=== PATIENT | male | born 1945 | race Caucasian/White ===

== ENCOUNTER 2017-01-02 10:56 | Inpatient (IN) ==
[2017-01-02 11:27] LABS: Hematocrit 18.8 % (37.5-50.1); Mean Corpuscular HGB Conc 30.3 g/dL (31.6-35.5); Mean Corpuscular Hemoglobin 24.3 pg (28.0-33.3); Mean Platelet Volume 9.8 fL (9.4-12.4); Platelet Count 381 K/mcL (140-400); Red Blood Count 2.35 M/mcL (4.19-5.50); Red Cell Distribution Width 19.8 % (11.5-14.5)
--- NOTE | 2017-01-02 11:27 | Emergency Department Note ---
Disposition Clinical Impression: NSTEMI (non-ST elevated myocardial infarction), SOB (shortness of breath) Anemia Qualifiers: Anemia type: unspecified type Qualified Code(s): D64.9 - Anemia, unspecified Renal failure, acute Qualifiers: Acute renal failure type: unspecified Qualified Code(s): N17.9 - Acute kidney failure, unspecified Disposition: Admitted As Inpatient Condition: Fair Weakness HPI - General Chief complaint: ED Weakness Stated complaint: Weakness, ELAINE Time Seen by Provider: 01/02/17 11:00 Source: patient, EMS Limitations: no limitations Nursing Notes Reviewed: Yes Vital Signs Reviewed: Yes - History of Present Illness HPI Narrative: I did see the patient immediately upon arrival and also spoke with the paramedics and he presents with severe weakness as well as shortness of breath which is worse with exertion. Symptoms began 4 days ago and have worsened since that time. Constant. No medication used specifically for the symptoms. The patient does have a history of anemia with blood transfusion. He denies any blood in the urine or stool. He also has a history of congestive heart failure. Does have chronic lower extremity edema. He denies any fever but does have some blurred vision. No sneezing or coughing but does have rhinorrhea. No pain or numbness of extremities, skin rash or bruising of the skin. Social history: No smoking or alcohol. Pain Scale: 0 - Related Data Home Medications Medication Instructions Recorded Confirmed Aspirin Enteric Coated [Aspirin EC] 81 mg PO DAILY 08/28/15 01/02/17 Clopidogrel [Plavix] 75 mg PO DAILY 08/28/15 01/02/17 Levothyroxine Sodium [Tirosint] 50 mcg PO HS 08/28/15 01/02/17 Lisinopril 2.5 mg PO DAILY 08/28/15 01/02/17 Metoprolol XL (24 HR) Succ [Toprol 100 mg PO HS 08/28/15 01/02/17 Xl] Multivitamin [Multivitamins] 1 each PO DAILY 08/28/15 01/02/17 Omeprazole [PriLOSEC] 20 mg PO DAILY 08/28/15 01/02/17 Simvastatin [Zocor] 20 mg PO DAILY 08/28/15 01/02/17 Tamsulosin [Flomax] 0.4 mg PO DAILY 08/28/15 01/02/17 Albuterol Sulfate [Albuterol 2 puff IH Q4-6H PRN 04/25/16 01/02/17 Inhaler] Cholecalciferol (D-3) [Vitamin D] 2,000 unit PO DAILY 04/25/16 01/02/17 Furosemide [Lasix] 60 mg PO BID 04/25/16 01/02/17 Insulin DETEMIR [Levemir] 30 unit SQ DAILY 04/25/16 01/02/17 Budesonide/Formoterol 160/4.5 2 puff IH BIDR 08/16/16 01/02/17 [Symbicort 160/4.5] Ipratropium/Albuterol Neb [Duoneb] 3 ml IH Q6HR 08/16/16 01/02/17 Metformin HCl [Glucophage] 1,000 mg PO BID 08/16/16 01/02/17 Tiotropium [place] [Spiriva 2 puff IH DAILY 12/19/16 01/02/17 Respimat] Oxygen 2 l .ROUTE HS 01/02/17 01/02/17 Previous Rx's Medication Instructions Recorded Cyanocobalamin (B-12) [Vitamin B12] 1 tab PO DAILY #30 tablet 06/18/16 Hydrocortisone 2.5% CREAM [Cortaid] 1 appl TP PRN PRN #1 tube 06/18/16 Allergies Allergy/AdvReac Type Severity Reaction Status Date / Time roflumilast [From [facility]] AdvReac Mild Diarrhea Verified 12/19/16 09:22 Review of Systems: He denies any blood in the urine or stool. He also has a history of congestive heart failure. Does have chronic lower extremity edema. He denies any fever but does have some blurred vision. No sneezing or coughing but does have rhinorrhea. No pain or numbness of extremities, skin rash or bruising of the skin. Past Medical History - Past Medical History Medical history: Reports: aortic aneurysm, arthritis, cardiomyopathy, CHF, COPD , coronary artery disease, diabetes, GERD, hyperlipidemia, hypertension, myocardial infarction, thyroid disease, other Surgical history: Reports: coronary bypass (CABG), vascular surgery Psychiatric history: Reports: no psych history - Social History Smoking Status: Former smoker Smokeless Tobacco Status: No Alcohol use: Reports: none Drug use: Reports: none Physical Exam CONSTITUTIONAL: Alert and oriented X3, well-nourished, the patient is tired appearing but is breathing comfortably. Does appear pale HEAD: Normocephalic; atraumatic. EYES: PERRL, no scleral icterus. NOSE: The nose is normal in appearance without rhinorrhea RESP: Normal chest excursion with respiration; breath sounds clear and equal bilaterally; no wheezes, rhonchi, or rales CARD: Regular rhythm, without murmurs, rub or gallop ABD: Non-distended; non-tender, soft,without rigidity, rebound or guarding SKIN: Normal for age and race; warm and dry; no apparent lesions - General Limitations: no limitations General appearance: alert, in no apparent distress Course Vital Signs Temperature 98.3 F 01/02/17 11:00 Pulse Rate 80 01/02/17 11:00 Respiratory Rate 18 01/02/17 11:00 Blood Pressure 91/43 01/02/17 11:00 O2 Sat by Pulse Oximetry 100 01/02/17 11:00 Temperature 99.1 F 01/02/17 13:28 Pulse Rate 87 01/02/17 13:28 Respiratory Rate 20 01/02/17 13:28 Blood Pressure 93/51 01/02/17 13:28 O2 Sat by Pulse Oximetry 100 01/02/17 13:28 Oxygen Delivery Oxygen Delivery Nasal Cannula Weakness - MDM Narrative Medical decision making narrative: The patient does have a history of anemia but also congestive heart failure and I did write for labs including CBC and BMP and type and screen I will add a troponin as well as BNP level. The patient's present complaint this time. His lungs are clear. Test results are pending. 1128 I did review the patient's EKG showing a paced rhythm the rate of 77. 1130 I did review the patient's labs showing significant anemia and a did discuss the risk and benefits of blood transfusion the patient agrees. I did order 2 units of packed red blood cells to be given over 4 hours each. The patient will be admitted to the hospital I did speak with Dr. Jacobs who accepts the patient for admission. The patient does have elevated BNP and troponin and we did discuss cardiology consultation. Patient is also an acute renal failure. Chest x-ray is reviewed which does not show significant pulmonary edema at this time. 1302 Critical care time: 40 minutes I did perform a rectal exam which did show brown stool on the glove. No masses or lesions palpated. This is sent to the lab for Hemoccult. The patient's blood pressure is currently 90 systolic. He is sitting up in bed and eating a meal. No distress. He is getting blood right now. 1405 He does take breathing treatments 4 times a day and is not allergic to breathing treatments but is allergic to a substance which was used to break up secretions in his lungs. I did write for a DuoNeb 1440 - Medical Records Medical records reviewed: Yes I reviewed the patient's medical records. - Lab Data Lab results reviewed: Yes I reviewed the patient's lab results. Result diagrams: 01/02/17 11:20 01/02/17 11:20 Lab Results 01/02/17 01/02/17 01/02/17 Range/Units 11:19 11:20 11:20 WBC 10.2 (4.3-11.1) K/mcL RBC 2.35 L (4.19-5.50) M/mcL Hgb 5.7 L* (12.9-16.9) g/dL Hct 18.8 L (37.5-50.1) % MCV 80.0 L (83.0-100.0) fL MCH 24.3 L (28.0-33.3) pg MCHC 30.3 L (31.6-35.5) g/dL RDW 19.8 H (11.5-14.5) % Plt Count 381 (140-400) K/mcL MPV 9.8 (9.4-12.4) fL Sodium 132 L (136-145) mEq/L Potassium 5.5 H (3.5-4.5) mEq/L Chloride 98 (98-109) mEq/L Carbon Dioxide 20 (19-29) mEq/L BUN 81 H (8-26) mg/dL Creatinine 2.06 H (0.72-1.25) mg/dL Est GFR ( Amer) 39 L (> 60) Est GFR (Non-Af Amer) 32 L (> 60) BUN/Creatinine Ratio 39 H (6-26) Glucose 138 H (70-99) mg/dL Calculated Osmolality 301 H (280-300) Calcium 9.3 (8.6-10.8) mg/dL Troponin I (0-0.03) ng/mL B-Natriuretic Peptide (0-100) pg/mL Stool Occult Blood (Negative) Blood Type A POSITIVE Antibody Screen NEGATIVE Crossmatch See Detail 01/02/17 01/02/17 01/02/17 Range/Units 11:24 11:24 14:12 WBC (4.3-11.1) K/mcL RBC (4.19-5.50) M/mcL Hgb (12.9-16.9) g/dL Hct (37.5-50.1) % MCV (83.0-100.0) fL MCH (28.0-33.3) pg MCHC (31.6-35.5) g/dL RDW (11.5-14.5) % Plt Count (140-400) K/mcL MPV (9.4-12.4) fL Sodium (136-145) mEq/L Potassium (3.5-4.5) mEq/L Chloride (98-109) mEq/L Carbon Dioxide (19-29) mEq/L BUN (8-26) mg/dL Creatinine (0.72-1.25) mg/dL Est GFR ( Amer) (> 60) Est GFR (Non-Af Amer) (> 60) BUN/Creatinine Ratio (6-26) Glucose (70-99) mg/dL Calculated Osmolality (280-300) Calcium (8.6-10.8) mg/dL Troponin I 1.17 H* (0-0.03) ng/mL B-Natriuretic Peptide 995 H (0-100) pg/mL Stool Occult Blood Negative (Negative) Blood Type Antibody Screen Crossmatch - Radiology Data Radiology results reviewed: Yes I reviewed the patient's radiology results. Chest X-Ray 01/02/17 11:01 IMPRESSION: Small right pleural effusion with adjacent atelectasis. Otherwise stable cardiomegaly with pulmonary vascular congestion. D/ / Petrona Mullen MD / Petrona Mullen MD Interpreting Provider: Petrona Mullen MD Critical Care Time Critical Care Time: Yes Total Critical Care Time: 40 Attestation: Patient does have multiple significant findings including severe anemia, kidney renal failure, NSTEMI and possible congestive heart failure with elevated BNP. 1306
[2017-01-02 11:39] LABS: Calcium 9.3 mg/dL (8.6-10.8); Potassium 5.5 mEq/L (3.5-4.5)
[2017-01-02 11:43] LABS: Hemoglobin 5.7 g/dL (12.9-16.9)
[2017-01-02] MEDS ORDERED: 0.9 % Sodium Chloride 1,000 ML ONE (12:14)
[2017-01-02] MEDS ORDERED: Naloxone 0.4 MG/ML INJ IVP PRN (13:56)
--- NOTE | 2017-01-02 14:13 | Internal Med History&Physical ---
<Stubbs,Felipa J - Last Filed: 01/02/17 14:32> Date of Encounter: 01/02/17 Time of Encounter: 14:11 Assessment and Plan (1) PANDA (iron deficiency anemia) Current visit: No Status: Acute Has known iron deficiency anemia, follows with Dr. Orellana. Hx multiple iron and blood transfusions in the past. C scope and EGD 08/2016 without bleeding source identified. Symptomatic with lethargy and weakness, Hgb 5.7 on arrival, previously Hgb 8.6 on 12/19/2016. 2 units PRBC started in the ED, occult stool pending. Monitor H&H, transfuse for Hgb less than 8. Oncology consulted. Consult GI if needed Qualifiers: Iron deficiency anemia type: unspecified iron deficiency Qualified Code(s) : D50.9 - Iron deficiency anemia, unspecified (2) Acute on chronic clinical systolic heart failure Current visit: No Status: Acute per history with permanent pacemake with some shortness of breath prior to arrival. Echo from 2016 with EF 45%. BNP 995, chest x-ray with small right pleural effusion and pulmonary congestion. With lower extremity edema but does not appear overtly overloaded. Holding home Lasix and add low-dose IV Lasix. No Pietro with AKY, no beta acstillo with hypotension. Consult cardiology. Repeat echo pending (3) SHABBIR (acute kidney injury) Current visit: No Status: Acute Creatinine 2, baseline appears normal. Has not been eating and drinking at home suspect prerenal with little by mouth intake and anemia. Hold home PIETRO, avoid nephrotoxic agents if possible. Monitor BMP with IV diuresis. (4) CAD (coronary artery disease) Current visit: Yes Status: Acute Per history. Asymptomatic, denies chest pain. EKG with atrial paced. Troponin 1.17 and in the setting of a canine. Doubt true ACS, but will consult Cardiology with multiple riask factors. Cycyle troponin. Resume home ASA, plavix once Hgb stabilized. Qualifiers: Coronary Disease-Associated Artery/Lesion type: bypass graft [place] vs. transplanted heart: [place] heart Associated angina: without angina Qualified Code(s): I25.810 - Atherosclerosis of coronary artery bypass graft(s) without angina pectoris (5) Hypertension Current visit: No Status: Acute bP low in the ED with SBP is , no tachycardia suspect hypovolemia with poor by mouth intake and anemia. Hemodynamically stable. old home BP medications. monitor BP and resume as able Qualifiers: Hypertension type: essential hypertension Qualified Code(s): I10 - Essential (primary) hypertension (6) Diabetes Current visit: No Status: Acute per history. Hold home metformin continue long-acting at reduced dose and sliding scale insulin monitor blood sugar and titrate when necessary Qualifiers: Diabetes mellitus type: type 2 Diabetes mellitus complication status: with kidney complications Diabetes mellitus complication detail: with chronic kidney disease Diabetes mellitus terminal block assembler insulin use: with terminal block assembler use Chronic kidney disease stage: stage 3 (moderate) Qualified Code(s): E11.22 - Type 2 diabetes mellitus with diabetic chronic kidney disease; N18.3 - Chronic kidney disease, stage 3 (moderate); Z79.4 - MCC (current) use of insulin (7) DVT prophylaxis Current visit: Yes Status: Acute Internal Medicine - H&P: HPI Chief complaint: Weakness Admitted From: Home Plans for Post Hospital Care: Home History of present illness: Mr. Last is a 71 year old male with past medical history iron discussed efficiency anemia, hypertension, diabetes, CHF, CAD who presented to [address] [place] [address] on 01/02/2017 with complaints of generalized weakness and fatigue. He has not had hemoglobin of 5.7 and was admitted for blood transfusion and hematology consultation. Information obtained from chart review and patient report. Patient's that he has been weak and fatigued over the last 3 days says he has had multiple transfusions in the past and had a feeling as hemoglobin was closely came into the hospital. He denies any obvious bleeding. He does report black tarry stools which he attributes to taking Pepto-Bismol at home. He does report some shortness of breath 3 days prior to admission denies on my exam. He is not on blood thinners no steroid use no ibuprofen does not drink. Denies chest pain no abdominal pain he did have 1 episode of loose stool prior to admission. Past Med Surg Social Fam HX - Past Medical History Medical history: aortic aneurysm, arthritis, cardiomyopathy, CHF, COPD, coronary artery disease, diabetes, GERD, hyperlipidemia, hypertension, myocardial infarction, thyroid disease, other Psychiatric history: no psych history - Past Surgical History Surgical History: coronary bypass (CABG), vascular surgery - Social History Smoking Status: Former smoker Smokeless Tobacco Status: No Alcohol use: none Drug use: none - Family History Mother Adopted: No Family Member Ethnicity: Non- Living Status: Hx Family Cardiac Disorders: Yes ([place]) Hx Family Respiratory Disorders: No Hx Family Cancer: No Hx Family GI Disorders: Yes (bowel bleeding) Hx Family Endocrine Disorder: Yes (DM) Hx Family Neuromuscular Disorders: No Hx Family Neurologic Disorders: No Hx Family HEENT Disorders: Yes (glasses) Hx Family Autoimmune Disorders: No Father Living Status: Hx Family Cardiac Disorders: Yes (Heart disease) Hx Family GI Disorders: Yes (cirrohosis- alcoholic) Internal Medicine - H&P: Meds Aspirin Enteric Coated [Aspirin EC] 81 mg PO DAILY 08/28/15 [History] Clopidogrel [Plavix] 75 mg PO DAILY 08/28/15 [History] Levothyroxine Sodium [Tirosint] 50 mcg PO HS 08/28/15 [History] Lisinopril 2.5 mg PO DAILY 08/28/15 [History] Metoprolol XL (24 HR) Succ [Toprol Xl] 100 mg PO HS 08/28/15 [History] Multivitamin [Multivitamins] 1 each PO DAILY 08/28/15 [History] Omeprazole [PriLOSEC] 20 mg PO DAILY 08/28/15 [History] Simvastatin [Zocor] 20 mg PO DAILY 08/28/15 [History] Tamsulosin [Flomax] 0.4 mg PO DAILY 08/28/15 [History] Albuterol Sulfate [Albuterol Inhaler] 2 puff IH Q4-6H PRN 04/25/16 [History] Cholecalciferol (D-3) [Vitamin D] 2,000 unit PO DAILY 04/25/16 [History] Furosemide [Lasix] 60 mg PO BID 04/25/16 [History] Insulin DETEMIR [Levemir] 30 unit SQ DAILY 04/25/16 [History] Cyanocobalamin (B-12) [Vitamin B12] 1 tab PO DAILY #30 tablet 06/18/16 [Rx] Hydrocortisone 2.5% CREAM [Cortaid] 1 appl TP PRN PRN #1 tube 06/18/16 [Rx] Budesonide/Formoterol 160/4.5 [Symbicort 160/4.5] 2 puff IH BIDR 08/16/16 [ History] Ipratropium/Albuterol Neb [Duoneb] 3 ml IH Q6HR 08/16/16 [History] Metformin HCl [Glucophage] 1,000 mg PO BID 08/16/16 [History] Tiotropium [place] [Spiriva Respimat] 2 puff IH DAILY 12/19/16 [History] Oxygen 2 l .ROUTE HS 01/02/17 [History] Allergies roflumilast [From [facility]] Adverse Reaction (Mild, Verified 12/19/16 09:22) Diarrhea All Systems PM: A 10-system review of systems was performed and is negative for pertinent findings except as documented above in the HPI. - Constitutional Constitutional: lethargy, weakness, no chills, no fever(s), no night sweats - EENT Eyes: no change in vision, no discharge, no pain, no photophobia Ears: no ear discharge, no ear pain, no tinnitus Nose, mouth and throat: no dysphagia, no nasal discharge, no neck pain, no sore throat - Cardiovascular Cardiovascular ROS IM: no chest pain, no diaphoresis, no dyspnea, no lightheadedness, no palpitations, no syncope - Respiratory Respiratory: no cough, no dyspnea, no wheezing, no excessive phlegm production - Gastrointestinal Gastrointestinal: no abdominal pain, no diarrhea, no hematemesis, no hematochezia, no melena, no nausea, no vomiting - Musculoskeletal Musculoskeletal ROS IM: no numbness, no tingling - Integumentary Integumentary IM: no rash, no unusual bruising - Neurological Neurological ROS: no confusion, no convulsions, no focal weakness, no numbness, no tingling, no tremor(s) - Hematologic/Lymphatic Hematologic/Lymphatic: no easy bruising - Constitutional Vitals: Temp Pulse Resp BP Pulse Ox 99.1 F 87 20 93/51 100 01/02/17 13:28 01/02/17 13:28 01/02/17 13:28 01/02/17 13:28 01/02/17 13:28 General appearance: Present: A&O X 3 - Head Head exam: Present: atraumatic, normocephalic - Eye Eye exam: Present: PERRL, conjuntiva pink, sclera anicteric Pupils: Present: PERRL - Neck Neck exam general surgery: Present: supple, trachea midline. Absent: lymphadenopathy - Respiratory Respiratory exam: Present: CTAB. Absent: accessory muscle use, rales, rhonchi, wheezes - Cardiovascular Cardiovascular exam: Present: clicks, RRR, +S1, +S2. Absent: diastolic murmur, gallop, rubs, systolic murmur Additional comments: Moderate bilateral low-calorie pitting edema - GI/Abdominal GI/Abdominal exam: Present: normal bowel sounds, soft, no peritoneal signs. Absent: distended, tenderness - Extremities Exam Extremities exam: Present: warm, radial pulses palpable and symetrical. Absent : calf tenderness, cyanotic, pedal edema - Neurological Exam Neurological exam: Present: CN II-XII intact, oriented X3, no focal deficits. Absent: pronater drift, facial droop, speech deficit - Skin Skin exam: Present: dry, intact Internal Med - H&P Results - Labs CBC & Chem 7: 01/02/17 11:20 01/02/17 11:20 Labs: Short CBC 01/02/17 Range/Units 11:20 WBC 10.2 (4.3-11.1) K/mcL Hgb 5.7 L* (12.9-16.9) g/dL Hct 18.8 L (37.5-50.1) % Plt Count 381 (140-400) K/mcL BMP 01/02/17 11:20 Sodium 132 L Potassium 5.5 H Chloride 98 Carbon Dioxide 20 BUN 81 H Creatinine 2.06 H Glucose 138 H Calcium 9.3 Cardiac Enzymes 01/02/17 Range/Units 11:24 Troponin I 1.17 H* (0-0.03) ng/mL - Impressions ITS Impressions Chest X-Ray 01/02/17 11:01 IMPRESSION: Small right pleural effusion with adjacent atelectasis. Otherwise stable cardiomegaly with pulmonary vascular congestion. D/ / Petrona Mullen MD / Petrona Mullen MD Interpreting Provider: Petrona Mullen MD <Mj Avalos H - Last Filed: 01/02/17 15:25> Date of Encounter: 01/02/17 Internal Medicine - H&P: HPI History of present illness: Mr. Last is a 71 year old male All Systems PM: A 10-system review of systems was performed and is negative for pertinent findings except as documented above in the HPI. - Constitutional Vitals: Temp Pulse Resp BP Pulse Ox 99 F 87 20 95/59 96 01/02/17 15:09 01/02/17 13:28 01/02/17 15:09 01/02/17 15:09 01/02/17 15:02 Internal Med - H&P Results - Labs CBC & Chem 7: 01/02/17 11:20 01/02/17 11:20 - Attending Attestation 1. Acute anemia consider possible acute blood loss anemia versus other etiology /possible aplastic anemia The patient has been anemic for a long time, followed by hematology Consider GI consult, the patient had an endoscopy and a colonoscopy at the beginning of this year Check INR, monitor CBC and consider further transfusions Transfuse 2 units of red blood cells, consider ordering IV Lasix Hold aspirin and Plavix 2. Elevated troponin secondary to demand ischemia versus non-STEMI, the patient denies any chest pain at the moment EKG not able to be evaluated due to paced rhythm Cardiology was consulted 3. Diabetes type 2 insulin-dependent, continue insulin sliding scale 4. History of systolic CHF, chest x-ray shows basilar congestion, may use IV Lasix if the patient is not hypotensive anymore 5. Acute on chronic renal failure stage III likely related to anemia 6. History of aortic valve replacement/bioprosthetic valve High risk due to comorbidities. Admitted as inpatient. Time spent on this admission 40 minutes I examined this patient and my medical decision-making was reviewed with the CONSTRUCTION FLAGGER/PA/Advanced Practice Nurse/Resident Physician. I agree with the documented findings, disposition and treatment plan as described except to the extent set forth below.
[2017-01-02] MEDS ORDERED: Furosemide 40 MG/4 ML VIAL IVP SCH (14:29)
[2017-01-02] MEDS ORDERED: Ipratropium/Albuterol Neb 3 ML IH ONE (14:42)
--- NOTE | 2017-01-02 15:28 | Oncology Inp Consult Note ---
<Osmany Cardoza - Last Filed: 01/02/17 18:19> Date of Encounter: 01/02/17 Time of Encounter: 15:28 Assessment and Plan (1) Symptomatic anemia Status: Acute Assessment and plan: Pt sees Dr. Grant at [facility]. Multiple iron infusion was done for his hx of iron deficiency, SPEP was nagative on Jun last year, his hgb has been dropping significantly since January last year, colonoscopy from August this year showed one 5 mm polyp in transverse colon which was tubular adenoma, EGD did not reveal the source of bleeding at that time. Aranesp was started August this year. Will check for iron panel, ferritin, haptoglobin, LDH, vit B12, folate, blood smear, pt is currently getting PRBC transfusion. - Data of Consult Patient: known to practice within the last 3 years Consult date: 01/02/17 Requesting Physician: Jovna Grande MD Primary Care Provider: Russell Bradley - Consult Narrative Reason for consult: Symptomatic anemia History of present illness: Mr. Last is a 71 year old male with hx of chronic anemia, COPD and DM II, who presented to the ER for cc of generalized weakness and fatigue. In the ER he was found to have hgb of 5.7, currently getting two units of PRBC. Pt has been following Dr. Grant at [facility]. Multiple iron infusion was done for iron deficiency, her SPEP was nagative on Jun last year, his hgb has been dropping significantly since January of last year. Colonoscopy from August this year showed one 5 mm polyp in transverse colon which was tubular adenoma, EGD did not reveal the source of bleeding that time. Aranesp was started August this year. Hem/onc was consulted for further recommendations. Past Med Surg Social Fam HX - Past Medical History Medical history: aortic aneurysm, arthritis, cardiomyopathy, CHF, COPD, coronary artery disease, diabetes, GERD, hyperlipidemia, hypertension, myocardial infarction, thyroid disease, other Psychiatric history: no psych history - Past Surgical History Surgical History: coronary bypass (CABG), vascular surgery - Social History Smoking Status: Former smoker Smokeless Tobacco Status: No Alcohol use: none Drug use: none - Family History Mother Adopted: No Family Member Ethnicity: Non- Living Status: Hx Family Cardiac Disorders: Yes ([place]) Hx Family Respiratory Disorders: No Hx Family Cancer: No Hx Family GI Disorders: Yes (bowel bleeding) Hx Family Endocrine Disorder: Yes (DM) Hx Family Neuromuscular Disorders: No Hx Family Neurologic Disorders: No Hx Family HEENT Disorders: Yes (glasses) Hx Family Autoimmune Disorders: No Father Living Status: Hx Family Cardiac Disorders: Yes (Heart disease) Hx Family GI Disorders: Yes (cirrohosis- alcoholic) Medications and Allergies Aspirin Enteric Coated [Aspirin EC] 81 mg PO DAILY 08/28/15 [History] Clopidogrel [Plavix] 75 mg PO DAILY 08/28/15 [History] Levothyroxine Sodium [Tirosint] 50 mcg PO HS 08/28/15 [History] Lisinopril 2.5 mg PO DAILY 08/28/15 [History] Metoprolol XL (24 HR) Succ [Toprol Xl] 100 mg PO HS 08/28/15 [History] Multivitamin [Multivitamins] 1 each PO DAILY 08/28/15 [History] Omeprazole [PriLOSEC] 20 mg PO DAILY 08/28/15 [History] Simvastatin [Zocor] 20 mg PO DAILY 08/28/15 [History] Tamsulosin [Flomax] 0.4 mg PO DAILY 08/28/15 [History] Albuterol Sulfate [Albuterol Inhaler] 2 puff IH Q4-6H PRN 04/25/16 [History] Cholecalciferol (D-3) [Vitamin D] 2,000 unit PO DAILY 04/25/16 [History] Furosemide [Lasix] 60 mg PO BID 04/25/16 [History] Insulin DETEMIR [Levemir] 30 unit SQ DAILY 04/25/16 [History] Cyanocobalamin (B-12) [Vitamin B12] 1 tab PO DAILY #30 tablet 06/18/16 [Rx] Hydrocortisone 2.5% CREAM [Cortaid] 1 appl TP PRN PRN #1 tube 06/18/16 [Rx] Budesonide/Formoterol 160/4.5 [Symbicort 160/4.5] 2 puff IH BIDR 08/16/16 [ History] Ipratropium/Albuterol Neb [Duoneb] 3 ml IH Q6HR 08/16/16 [History] Metformin HCl [Glucophage] 1,000 mg PO BID 08/16/16 [History] Tiotropium [place] [Spiriva Respimat] 2 puff IH DAILY 12/19/16 [History] Oxygen 2 l .ROUTE HS 01/02/17 [History] Allergies roflumilast [From [facility]] Adverse Reaction (Mild, Verified 12/19/16 09:22) Diarrhea Oncology - Exam - Constitutional Vitals: Temp Pulse Resp BP Pulse Ox 99 F 87 20 95/59 96 01/02/17 15:09 01/02/17 13:28 01/02/17 15:09 01/02/17 15:09 01/02/17 15:02 Consult Discharge Plan - Plan Referrals: Russell Bradley MD [Primary Care Provider] - 01/14/17 9:00 am Keyona Ham CNP [Partnered Physician] - (Office will call patient at home with appointment) <Harpreet Mc - Last Filed: 01/03/17 09:28> Date of Encounter: 01/03/17 Assessment and Plan (1) Anemia Status: Acute Qualifiers: Anemia type: iron deficiency Iron deficiency anemia type: chronic blood loss Qualified Code(s): D50.0 - Iron deficiency anemia secondary to blood loss (chronic) - Data of Consult Requesting Physician: Jovan Grande MD Primary Care Provider: Russell Bradley - Consult Narrative History of present illness: I have reviewed history physical above and examined patient myself. On exam-pallor, no skin bruisng/active bleeding. Had received aranesp for anemia/renal insuff/ref anemia LAbs anemia--s/p PRBC at 6.8. Transfuse to improve Hgb for symptoms. Ferritin is low and suggestive of iron deficiency. Ferraheme in patient and as outpatient. He has undergone GI w/u previously, no source of bleed. Esophagitis and polypectomy-colon Small bowel/capsule if not completed. Plan d/w patient in detail. He needs iron/ferritin improved prior to JACQUES and does not need a marrow exam. B12, folate recently checked. TSH/SPEP nl Review of systems: gen wkness, SOb otherwise as noted in HPI Oncology - Exam - Constitutional Vitals: Temp Pulse Resp BP Pulse Ox 98.7 F 92 20 100/63 100 01/03/17 08:19 01/03/17 08:57 01/03/17 08:57 01/03/17 08:57 01/03/17 08:57 General appearance: average body habitus - Head Head exam: Present: atraumatic - Eye Eye exam: Present: sclera anicteric - ENT ENT exam: Present: normal exam - Respiratory Respiratory exam: Present: CTAB - Cardiovascular Cardiovascular exam: Present: +S1, +S2 - Extremities Exam Extremities exam: Present: pedal edema - Neurological Exam Neurological exam: Present: alert, oriented X3 - Psychiatric Psychiatric exam: Present: normal affect Oncology - Results - Labs Labs: Short CBC 01/03/17 Range/Units 01:07 WBC 9.4 (4.3-11.1) K/mcL Hgb 6.8 L (12.9-16.9) g/dL Hct 21.9 L (37.5-50.1) % Plt Count 382 (140-400) K/mcL Neutrophils # 6.6 (1.6-8.9) K/mcL BMP 01/03/17 01:07 Sodium 134 L Potassium 4.1 D Chloride 99 Carbon Dioxide 24 BUN 73 H Creatinine 1.65 H Glucose 98 Calcium 9.1 Cardiac Enzymes 01/02/17 01/03/17 Range/Units 19:59 01:07 Troponin I 1.24 H* 1.51 H* (0-0.03) ng/mL Liver Function 01/03/17 Range/Units 01:07 Total Bilirubin 0.5 (0.2-1.2) mg/dL AST 17 (5-34) Units/L ALT 11 (0-55) Units/L Alkaline Phosphatase 40 (38-126) Units/L Albumin 3.6 (3.5-5.0) g/dL
--- NOTE | 2017-01-02 15:59 | Cardiology Consult Note ---
Date of Encounter: 01/02/17 Time of Encounter: 15:15 Assessment and Plan (1) Elevated troponin Current Visit: Yes Status: Acute Per cardiology: -Elevated troponin at 1.17. -ECG with no ischemic changes. -Denies chest pain. -History of CAD s/p CABG x3 2010. -Echo 04/2016 with LVEF 45%, global left ventricular systolic dysfunction. -Echo pending. -On statin. At home on asa, plavix, beta castillo, and sung inhibitor. -Will continue to trend troponins. -Further recommendations pending echo. -Do not suspect NSTEMI, suspect demand ischemia related to SHABBIR, severe anemia, CHF. NO cardiac rehab warranted at this time. (2) Acute on chronic systolic CHF (congestive heart failure), NYHA class 3 Current Visit: Yes Status: Acute Per cardiology: -Echo 04/2016 LVEF 45%. -Patient with shortness of breath and increased peripheral edema. -BNP 995. -Chest x-ray with small right pleural effusion and stable pulmonary vascular congestion. -On IV lasix per primary service. -Echo pending. -Further recommendations pending echo. (3) Anemia Current Visit: Yes Status: Acute Per cardiology: -Known history of iron deficiency anemia. -baseline hemoglobin 7-8. -Hemoglobin this admission 5.7. -Currently receiving blood transfusion. -Hematology consulted. -Management per primary and hematology services. -May be contributing to elevated troponin. -Recommend careful transfusions due to history of CHF. Qualifiers: Anemia type: unspecified type (4) Ischemic cardiomyopathy Current Visit: Yes Status: Chronic Per cardiology: -KNown history of ischemic cardiomopathy. -Has BIV ICD. Follows with Dr.John Ace. -Last device check 10/15/16 with all measurements appropriate, no sustained ventricular arrythmias detected or therapies delivered. BIV pacing 96.65%, battery longevity 7.6 years. -Was on beta castillo and sung at home, unable to give at this point due to hypotension. -BPs currently 80-90s systolic. -Echo pending. -Recommend restarting beta castillo and sung inhibitor when clinically stable. (5) SHABBIR (acute kidney injury) Current Visit: No Status: Acute Per cardiology: -SHABBIR on admission. -Baseline creatinine 1-1.4. -Creatinine on admission 2.06. -Management per primary service. -Can consider nephrology consult. -May be contributing to elevated troponin (6) CAD (coronary artery disease) Current Visit: Yes Status: Chronic Per cardiology: -Known CAD with CABG x3 2011. -Denies chest pain. -ECG with no ischemic changes. -Echo pending. -On asa, plavix at home. Unable to give currently due to acute severe anemia. -On statin. -On beta castillo and sung inhibitor at home, unable to give due to currently hypotensive. -Will continue to monitor. Qualifiers: Coronary Disease-Associated Artery/Lesion type: bypass graft [place] vs. transplanted heart: [place] heart Associated angina: without angina Qualified Code(s): I25.810 - Atherosclerosis of coronary artery bypass graft(s) without angina pectoris (7) Hypertension Current Visit: No Status: Chronic Per cardiology: -KNwon hypertension. -BP currently hypotensive. -BPs 80-90s systolic. -ON beta castillo and sung at home. -Recommend restarting beta castillo and sung inhibitor when patient is clinically stable . Qualifiers: Hypertension type: essential hypertension Qualified Code(s): I10 - Essential (primary) hypertension (8) Hyperkalemia Current Visit: Yes Status: Acute Per cardiology: -K on admission 5.5 with SHABBIR. -Management per primary service. Discussion w patient/family: The assessment and plan as outlined above was discussed with the patient who expressed understanding and agreement. All questions were answered. Thank you for involving us in the care of your patient. Please call with any questions. Discussed and reviewed with . History of Present Illness Consult date: 01/02/17 Requesting physician: Felipa Stubbs Consult reason: Hx CAD, CHF, SOB, elevated troponin Chief complaint: weakness History of present illness: Mr. Last is a 71 year old male with a relevant past medical history of CAD s/p CABG x 3 2010, COPD, [place], HTN, hyperlipidemia, iron deficiency anemia, AAA, ischemic cardiomyopathy, ICD placement, aortic valve replacement with porcine valve. Patient presents to ER today for weakness. Patient states he was so weak at home that he could not stand. Patient admits to shortness of breath, however states it might be slightly worse than baseline. Patient denies chest pain. Admits to fatigue. Patient admits to peripheral edema that is worse than baseline. Past Med Surg Social Fam HX - Past Medical History Attestation: Yes The following information was validated with the patient. Source: patient, old records reviewed Medical history: aortic aneurysm, arthritis, cardiomyopathy, CHF, COPD, coronary artery disease, diabetes, GERD, hyperlipidemia, hypertension, myocardial infarction, thyroid disease, other Psychiatric history: no psych history - Past Surgical History Surgical History: coronary bypass (CABG), vascular surgery - Social History Smoking Status: Former smoker Smokeless Tobacco Status: No Alcohol use: none Drug use: none - Family History Mother Adopted: No Family Member Ethnicity: Non- Living Status: Hx Family Cardiac Disorders: Yes ([place]) Hx Family Respiratory Disorders: No Hx Family Cancer: No Hx Family GI Disorders: Yes (bowel bleeding) Hx Family Endocrine Disorder: Yes (DM) Hx Family Neuromuscular Disorders: No Hx Family Neurologic Disorders: No Hx Family HEENT Disorders: Yes (glasses) Hx Family Autoimmune Disorders: No Father Living Status: Hx Family Cardiac Disorders: Yes (Heart disease) Hx Family GI Disorders: Yes (cirrohosis- alcoholic) Medications and Allergies Aspirin Enteric Coated [Aspirin EC] 81 mg PO DAILY 08/28/15 [History] Clopidogrel [Plavix] 75 mg PO DAILY 08/28/15 [History] Levothyroxine Sodium [Tirosint] 50 mcg PO HS 08/28/15 [History] Lisinopril 2.5 mg PO DAILY 08/28/15 [History] Metoprolol XL (24 HR) Succ [Toprol Xl] 100 mg PO HS 08/28/15 [History] Multivitamin [Multivitamins] 1 each PO DAILY 08/28/15 [History] Omeprazole [PriLOSEC] 20 mg PO DAILY 08/28/15 [History] Simvastatin [Zocor] 20 mg PO DAILY 08/28/15 [History] Tamsulosin [Flomax] 0.4 mg PO DAILY 08/28/15 [History] Albuterol Sulfate [Albuterol Inhaler] 2 puff IH Q4-6H PRN 04/25/16 [History] Cholecalciferol (D-3) [Vitamin D] 2,000 unit PO DAILY 04/25/16 [History] Furosemide [Lasix] 60 mg PO BID 04/25/16 [History] Insulin DETEMIR [Levemir] 30 unit SQ DAILY 04/25/16 [History] Cyanocobalamin (B-12) [Vitamin B12] 1 tab PO DAILY #30 tablet 06/18/16 [Rx] Hydrocortisone 2.5% CREAM [Cortaid] 1 appl TP PRN PRN #1 tube 06/18/16 [Rx] Budesonide/Formoterol 160/4.5 [Symbicort 160/4.5] 2 puff IH BIDR 08/16/16 [ History] Ipratropium/Albuterol Neb [Duoneb] 3 ml IH Q6HR 08/16/16 [History] Metformin HCl [Glucophage] 1,000 mg PO BID 08/16/16 [History] Tiotropium [place] [Spiriva Respimat] 2 puff IH DAILY 12/19/16 [History] Oxygen 2 l .ROUTE HS 01/02/17 [History] Allergies roflumilast [From [facility]] Adverse Reaction (Mild, Verified 12/19/16 09:22) Diarrhea All Systems Review: A 10-system review of systems was performed and is negative for pertinent findings except as documented above in the HPI. - Constitutional Constitutional: weakness - Cardiovascular Cardiovascular: as per HPI, dyspnea on exertion, leg edema Physical Examination Vital Signs, Last 4 Hours Temp Pulse Resp BP Pulse Ox 01/02/17 15:28 97.3 F L 95 18 98/62 97 01/02/17 15:09 99 F 20 95/59 01/02/17 15:02 20 96 General: Conversant, No Apparent Distress HEENT: Atraumatic, Normocephaly, Mucus Membranes Moist Neck: No JVD, Normal carotid pulses Cardiac: Reg Rate and Rhythm, Normal S1 and S2, No Murmur Lungs: Normal Breath Sounds, No Wheeze, Rales, Rhonchi Neuro: Alert and responsive, No focal deficits noted Abdomen: Soft, Non-Tender Skin: No rashes noted on visualized skin Musculoskeletal: No Chest Wall Tenderness Extremities: No Clubbing, No Cyanosis, Normal Pulses, Other (Bilateral lower extremity 1+ pitting edema. ) Results 01/02/17 11:20 01/02/17 11:20 Impressions Chest X-Ray 01/02/17 11:01 IMPRESSION: Small right pleural effusion with adjacent atelectasis. Otherwise stable cardiomegaly with pulmonary vascular congestion. D/ / Petrona Mullen MD / Petrona Mullen MD Interpreting Provider: Petrona Mullen MD Active Medications Albuterol Sulfate (Albuterol Inhaler) 2 puff IH Q4H PRN PRN Reason: Shortness Of Breath Stop: 07/04/17 14:31 Albuterol/Ipratropium (Duoneb) 3 ml IH [id number] JULES PRN Reason: Protocol Stop: 07/04/17 18:01 Budesonide/Formoterol Fumarate (Symbicort) 2 puff IH BIDR JULES PRN Reason: Protocol Stop: 07/04/17 22:01 Cyanocobalamin (Vitamin B12) 1,000 mcg PO DAILY JULES Stop: 07/05/17 09:01 Furosemide (Lasix) 20 mg IVP BIDDIURETIC JULES Stop: 07/04/17 17:01 Insulin Detemir (Levemir) 20 unit SQ DAILY JULES Stop: 07/05/17 09:01 Levothyroxine Sodium (Synthroid) 50 mcg PO 0630 JULES Stop: 07/05/17 06:31 Naloxone HCl (Narcan) 0.4 mg IVP Q2MIN PRN PRN Reason: Opioid Reversal Stop: 07/04/17 13:57 Pantoprazole Sodium (Protonix) 40 mg IVP BID JULES Stop: 07/04/17 21:01 Simvastatin (Zocor) 20 mg PO DAILY JULES PRN Reason: Protocol Stop: 07/05/17 09:01 Tamsulosin HCl (Flomax) 0.4 mg PO DAILY JULES PRN Reason: Protocol Stop: 07/05/17 09:01 Laboratory Tests 04/28/16 11/28/16 12/19/16 06:57 10:40 07:32 Hgb 7.1 L 8.6 L Potassium Creatinine 1.16 Troponin I B-Natriuretic Peptide Stool Occult Blood 12/19/16 01/02/17 01/02/17 07:32 11:20 11:20 Hgb 5.7 L* Potassium 5.5 H Creatinine 1.02 2.06 H Troponin I B-Natriuretic Peptide Stool Occult Blood 01/02/17 01/02/17 01/02/17 11:24 11:24 14:12 Hgb Potassium Creatinine Troponin I 1.17 H* B-Natriuretic Peptide 995 H Stool Occult Blood Negative - Imaging and Cardiology Echo: pending, report reviewed - EKG Interpretation EKG results cardiology: personally reviewed (ECG with venticular pacing, HR 77. Unchanged from previous ECG.), other (Telemetry reviewed with average HR 94. No significant events noted.) Consult Discharge Plan - Plan Referrals: Russell Bradley MD [Primary Care Provider] -
[2017-01-02] MEDS: Furosemide 20 MG/2 ML VIAL IVP SCH (16:59)
[2017-01-02] MEDS: Pantoprazole 40 MG VIAL IVP SCH (20:11)
[2017-01-02 20:28] LABS: INR 1.2; Prothrombin Time 12.8 Seconds (9.4-12.1)
[2017-01-02] MEDS: Ipratropium/Albuterol Neb 3 ML IH SCH ×2 (22:45→22:46)
[2017-01-02] MEDS: Budesonide/Formoterol 160/4.5 MDI IH SCH (22:46)
[2017-01-03 01:19] LABS: Basophils % 0.3 %; Eosinophils # 0.1 K/mcL (0.0-0.6); Eosinophils % 1.3 %; Hematocrit 21.9 % (37.5-50.1); Hemoglobin 6.8 g/dL (12.9-16.9); Immature Granulocytes % 0.7 % (0-4); Immature Platelets 2.2 % (1.1-6.1); Lymphocytes # 1.7 K/mcL (0.6-4.6); Lymphocytes % 17.7 %; Mean Corpuscular HGB Conc 31.1 g/dL (31.6-35.5); Mean Corpuscular Hemoglobin 24.8 pg (28.0-33.3); Mean Corpuscular Volume 79.9 fL (83.0-100.0); Mean Platelet Volume 9.3 fL (9.4-12.4); Monocytes # 0.9 K/mcL (0.0-1.3); Monocytes % 9.9 %; Neutrophils # 6.6 K/mcL (1.6-8.9); Platelet Count 382 K/mcL (140-400); Red Blood Count 2.74 M/mcL (4.19-5.50); Red Cell Distribution Width 18.1 % (11.5-14.5); Segmented Neutrophils % 70.1 %
[2017-01-03 01:44] LABS: Albumin 3.6 g/dL (3.5-5.0); Albumin/Globulin Ratio 1.1 (1.1-2.2); Bilirubin,Total 0.5 mg/dL (0.2-1.2); Calcium 9.1 mg/dL (8.6-10.8); Globulin 3.3 g/dL (2.4-3.5); Potassium 4.1 mEq/L (3.5-4.5); Total Protein 6.9 g/dL (6.0-8.3)
[2017-01-03 01:45] LABS: % Iron Saturation 2 % (20-55); Iron 12 mcg/dL (65-175); Transferrin 349 mg/dL (174-364)
[2017-01-03 02:05] LABS: Ferritin 12 ng/ml (22-275)
[2017-01-03 02:51] LABS: Folate 17.8 ng/mL (7.0-31.4)
[2017-01-03] MEDS: Ipratropium/Albuterol Neb 3 ML IH SCH ×4 (04:47→21:35)
[2017-01-03] MEDS ORDERED: Aspirin Enteric Coated 81 MG Tablet PO SCH (09:00)
[2017-01-03] MEDS ORDERED: Insulin DETEMIR 100 UNIT/ML X5UNITS SQ SCH (09:00)
[2017-01-03] MEDS: Cyanocobalamin (B-12) 1,000 MCG TABLET PO SCH (09:02)
[2017-01-03] MEDS: Insulin DETEMIR 100 UNIT/ML X5UNITS SQ SCH (09:05)
[2017-01-03] MEDS ORDERED: Furosemide 20 MG/2 ML VIAL IVP SCH (09:22)
--- NOTE | 2017-01-03 09:28 | Oncology Inp Progress Note ---
<NaniOsmany cervantes - Last Filed: 01/03/17 10:25> Date of Encounter: 01/03/17 Time of Encounter: 09:28 (1) Symptomatic anemia Current Visit: Yes Status: Acute Assessment and plan: Pt sees Dr. Grant at [facility]. Multiple iron infusion was done for his hx of iron deficiency, SPEP was nagative on Jun last year, his hgb has been dropping significantly since January of last year, colonoscopy from August this year showed one 5 mm polyp in transverse colon which was tubular adenoma, EGD did not reveal the source of bleeding at that time. Aranesp was started August this year. Patient is status post 2 units of PRBC transfusion yesterday , hemoglobin increased from 5.7-6.8, another 2 units were ordered for today, iron level was 12 and ferritin level was 12 as well this morning, LDH was normal , haptoglobin and peripheral blood smear are pending at this time, stool occult blood test was negative, vitamin B12/folate were normal, despite multiple iron infusions in the past patient still has low iron level, unclear etiology at this time, recommend capsule endoscopy if not completed yet, planning on infusing Feraheme inpatient and outpatient, continue to closely monitor his hemoglobin level. Oncology: Subj Interval history: Patient seen and examined. He states that fatigue/generalized weakness somewhat improved compared to yesterday, patient denies hemoptysis, hematemesis , hematochezia, or hematuria. Denies shortness of breath, productive chest pain , or abdominal pain. - Constitutional Vitals: Vital Signs Temp Pulse Resp BP Pulse Ox 01/03/17 08:57 92 20 100/63 100 01/03/17 08:19 98.7 F 82 20 105/56 99 01/03/17 03:53 98.2 F 89 18 100/55 99 01/02/17 23:36 98.5 F 82 16 98/57 98 01/02/17 22:46 18 99 01/02/17 22:41 98.1 F 84 18 92/43 99 01/02/17 20:04 95 100 01/02/17 19:27 98.3 F 95 18 85/53 01/02/17 16:45 98.2 F 91 18 92/45 99 01/02/17 16:30 98.2 F 91 20 92/41 100 01/02/17 16:04 98.2 F 91 20 92/41 100 01/02/17 15:28 97.3 F L 95 18 98/62 97 01/02/17 15:23 100 01/02/17 15:09 99 F 20 95/59 01/02/17 15:02 20 96 Intake and Output 01/02/17 01/03/17 01/03/17 23:59 07:59 15:59 Intake Total 351 / 351 120 / 120 Output Total 1600 / 1600 400 / 400 600 / 600 Balance -1249 / -1249 -400 / -400 -480 / -480 Intake: Oral 120 / 120 Blood Product 351 / 351 Rbcs Leuko Poor As-1 1 / 1 Unit [id number] Rbcs Leuko Poor As-1 350 / 350 Unit [id number] Output: Urine 1600 / 1600 400 / 400 600 / 600 Other: Meal Breakfast Percent of Meal Consumed 100% Weight 107.076 kg Blood Glucose* 148 114 Patient Weight 01/03/17 23:59 Weight 107.076 kg General appearance: cooperative, no acute distress, obese - Respiratory Respiratory exam: Present: decreased breath sounds (Mildly diffusely bilateral) . Absent: accessory muscle use, chest wall tenderness, rales, rhonchi, wheezes - Cardiovascular Cardiovascular exam: Present: RRR, +S1, +S2. Absent: clicks, diastolic murmur, rubs, systolic murmur - GI/Abdominal GI/Abdominal exam: Present: soft. Absent: firm, guarding, mass, rebound, rigid , tenderness - Extremities Exam Extremities exam: Present: normal inspection. Absent: calf tenderness, tenderness Oncology: Obj Data - Labs CBC & Chem 7: 01/03/17 01:07 01/03/17 01:07 Labs: Laboratory Results - last 24 hr 01/02/17 01/02/17 01/03/17 19:59 19:59 01:07 WBC RBC Hgb Hct MCV MCH MCHC RDW Plt Count MPV Immature Gran % Seg Neutrophils % Lymphocytes % Monocytes % Eosinophils % Basophils % Neutrophils # Lymphocytes # Monocytes # Eosinophils # Basophils # Immature Plt Fraction PT 12.8 H INR 1.2 Sodium Potassium Chloride Carbon Dioxide BUN Creatinine Est GFR ( Amer) Est GFR (Non-Af Amer) BUN/Creatinine Ratio Glucose Calculated Osmolality Calcium Iron % Saturation Transferrin Ferritin Total Bilirubin AST ALT Alkaline Phosphatase Lactate Dehydrogenase Troponin I 1.24 H* 1.51 H* Serum Total Protein Albumin Globulin Albumin/Globulin Ratio Vitamin B12 Folate 01/03/17 01/03/17 01/03/17 01:07 01:07 01:07 WBC 9.4 RBC 2.74 L Hgb 6.8 L Hct 21.9 L MCV 79.9 L MCH 24.8 L MCHC 31.1 L RDW 18.1 H Plt Count 382 MPV 9.3 L Immature Gran % 0.7 Seg Neutrophils % 70.1 Lymphocytes % 17.7 Monocytes % 9.9 Eosinophils % 1.3 Basophils % 0.3 Neutrophils # 6.6 Lymphocytes # 1.7 Monocytes # 0.9 Eosinophils # 0.1 Basophils # 0.0 Immature Plt Fraction 2.2 PT INR Sodium 134 L Potassium 4.1 D Chloride 99 Carbon Dioxide 24 BUN 73 H Creatinine 1.65 H Est GFR ( Amer) 50 L Est GFR (Non-Af Amer) 42 L BUN/Creatinine Ratio 44 H Glucose 98 Calculated Osmolality 300 Calcium 9.1 Iron % Saturation Transferrin Ferritin Total Bilirubin 0.5 AST 17 ALT 11 Alkaline Phosphatase 40 Lactate Dehydrogenase 197 Troponin I Serum Total Protein 6.9 Albumin 3.6 Globulin 3.3 Albumin/Globulin Ratio 1.1 Vitamin B12 Folate 01/03/17 01/03/17 01:07 01:07 WBC RBC Hgb Hct MCV MCH MCHC RDW Plt Count MPV Immature Gran % Seg Neutrophils % Lymphocytes % Monocytes % Eosinophils % Basophils % Neutrophils # Lymphocytes # Monocytes # Eosinophils # Basophils # Immature Plt Fraction PT INR Sodium Potassium Chloride Carbon Dioxide BUN Creatinine Est GFR ( Amer) Est GFR (Non-Af Amer) BUN/Creatinine Ratio Glucose Calculated Osmolality Calcium Iron 12 L % Saturation 2 L Transferrin 349 Ferritin 12 L Total Bilirubin AST ALT Alkaline Phosphatase Lactate Dehydrogenase Troponin I Serum Total Protein Albumin Globulin Albumin/Globulin Ratio Vitamin B12 669 Folate 17.8 - ABG Interpretation ABG results: PT/INR, D-dimer PT 12.8 Seconds (9.4-12.1) H 01/02/17 19:59 Consult Discharge Plan - Plan Referrals: Russell Bradley MD [Primary Care Provider] - 01/14/17 9:00 am Keyona Ham CNP [Partnered Physician] - (Office will call patient at home with appointment) <Rudy,Indira S - Last Filed: 01/03/17 15:25> Date of Encounter: 01/03/17 - Constitutional Vitals: Vital Signs Temp Pulse Resp BP Pulse Ox 01/03/17 14:33 91 20 105/57 100 01/03/17 13:45 98.2 F 95 20 107/54 98 01/03/17 11:09 98.4 F 91 18 107/57 01/03/17 10:32 98.6 F 89 20 107/57 99 01/03/17 10:26 97.9 F 93 20 112/53 98 01/03/17 10:14 18 99 01/03/17 08:57 92 20 100/63 100 01/03/17 08:19 98.7 F 82 20 105/56 99 01/03/17 03:53 98.2 F 89 18 100/55 99 01/02/17 23:36 98.5 F 82 16 98/57 98 01/02/17 22:46 18 99 01/02/17 22:41 98.1 F 84 18 92/43 99 01/02/17 20:04 95 100 01/02/17 19:27 98.3 F 95 18 85/53 01/02/17 16:45 98.2 F 91 18 92/45 99 01/02/17 16:30 98.2 F 91 20 92/41 100 01/02/17 16:04 98.2 F 91 20 92/41 100 01/02/17 15:28 97.3 F L 95 18 98/62 97 01/02/17 15:23 100 Intake and Output 01/02/17 01/03/17 01/03/17 23:59 07:59 15:59 Intake Total 351 / 351 810 / 810 Output Total 1600 / 1600 400 / 400 1400 / 1400 Balance -1249 / -1249 -400 / -400 -590 / -590 Intake: IV Fluids 100 / 100 Feraheme 510 MG In 0.9 % 100 / 100 Sodium Chloride 100 ML @ 468 mls/hr IVPB ONCE ONE Rx#:[id number] Oral 360 / 360 Blood Product 351 / 351 350 / 350 Rbcs Leuko Poor As-1 1 / 1 Unit [id number] Rbcs Leuko Poor As-1 350 / 350 Unit [id number] Rbcs Leuko Poor As-1 350 / 350 Unit [id number] Output: Urine 1600 / 1600 400 / 400 1400 / 1400 Other: Meal Lunch Percent of Meal Consumed 90% Weight 107.076 kg Blood Glucose* 148 122 Patient Weight 01/03/17 23:59 Weight 107.076 kg Oncology: Obj Data - Labs CBC & Chem 7: 01/03/17 01:07 01/03/17 01:07 Labs: Laboratory Results - last 24 hr 01/02/17 01/02/17 01/03/17 19:59 19:59 01:07 WBC RBC Hgb Hct MCV MCH MCHC RDW Plt Count MPV Immature Gran % Seg Neutrophils % Lymphocytes % Monocytes % Eosinophils % Basophils % Neutrophils # Lymphocytes # Monocytes # Eosinophils # Basophils # Immature Plt Fraction PT 12.8 H INR 1.2 Sodium Potassium Chloride Carbon Dioxide BUN Creatinine Est GFR ( Amer) Est GFR (Non-Af Amer) BUN/Creatinine Ratio Glucose POC Glucose Calculated Osmolality Calcium Iron % Saturation Transferrin Ferritin Total Bilirubin AST ALT Alkaline Phosphatase Lactate Dehydrogenase Troponin I 1.24 H* 1.51 H* Serum Total Protein Albumin Globulin Albumin/Globulin Ratio Vitamin B12 Folate 01/03/17 01/03/17 01/03/17 01:07 01:07 01:07 WBC 9.4 RBC 2.74 L Hgb 6.8 L Hct 21.9 L MCV 79.9 L MCH 24.8 L MCHC 31.1 L RDW 18.1 H Plt Count 382 MPV 9.3 L Immature Gran % 0.7 Seg Neutrophils % 70.1 Lymphocytes % 17.7 Monocytes % 9.9 Eosinophils % 1.3 Basophils % 0.3 Neutrophils # 6.6 Lymphocytes # 1.7 Monocytes # 0.9 Eosinophils # 0.1 Basophils # 0.0 Immature Plt Fraction 2.2 PT INR Sodium 134 L Potassium 4.1 D Chloride 99 Carbon Dioxide 24 BUN 73 H Creatinine 1.65 H Est GFR ( Amer) 50 L Est GFR (Non-Af Amer) 42 L BUN/Creatinine Ratio 44 H Glucose 98 POC Glucose Calculated Osmolality 300 Calcium 9.1 Iron % Saturation Transferrin Ferritin Total Bilirubin 0.5 AST 17 ALT 11 Alkaline Phosphatase 40 Lactate Dehydrogenase 197 Troponin I Serum Total Protein 6.9 Albumin 3.6 Globulin 3.3 Albumin/Globulin Ratio 1.1 Vitamin B12 Folate 01/03/17 01/03/17 01/03/17 01:07 01:07 10:00 WBC RBC Hgb Hct MCV MCH MCHC RDW Plt Count MPV Immature Gran % Seg Neutrophils % Lymphocytes % Monocytes % Eosinophils % Basophils % Neutrophils # Lymphocytes # Monocytes # Eosinophils # Basophils # Immature Plt Fraction PT INR Sodium Potassium Chloride Carbon Dioxide BUN Creatinine Est GFR ( Amer) Est GFR (Non-Af Amer) BUN/Creatinine Ratio Glucose POC Glucose Calculated Osmolality Calcium Iron 12 L % Saturation 2 L Transferrin 349 Ferritin 12 L Total Bilirubin AST ALT Alkaline Phosphatase Lactate Dehydrogenase Troponin I 0.99 H* Serum Total Protein Albumin Globulin Albumin/Globulin Ratio Vitamin B12 669 Folate 17.8 01/03/17 11:06 WBC RBC Hgb Hct MCV MCH MCHC RDW Plt Count MPV Immature Gran % Seg Neutrophils % Lymphocytes % Monocytes % Eosinophils % Basophils % Neutrophils # Lymphocytes # Monocytes # Eosinophils # Basophils # Immature Plt Fraction PT INR Sodium Potassium Chloride Carbon Dioxide BUN Creatinine Est GFR ( Amer) Est GFR (Non-Af Amer) BUN/Creatinine Ratio Glucose POC Glucose 122 H Calculated Osmolality Calcium Iron % Saturation Transferrin Ferritin Total Bilirubin AST ALT Alkaline Phosphatase Lactate Dehydrogenase Troponin I Serum Total Protein Albumin Globulin Albumin/Globulin Ratio Vitamin B12 Folate - ABG Interpretation ABG results: PT/INR, D-dimer PT 12.8 Seconds (9.4-12.1) H 01/02/17 19:59 - Attending Attestation I examined this patient and my medical decision-making was reviewed with the Advanced Practice Nurse. I agree with the documented findings, disposition and treatment plan as described except to the extent set forth below. 1. Significant iron deficiency anemia. No evidence of celiac disease. Etiology of iron loss is not clear but most likely occult bleeding Colonoscopy on 08/26/16 shows one 5mm polyp in the transverse colon that was tubular adenoma. Also some internal hemorrhoids otherwise negative EGD that same day showed LA Anthony otherwise negative. May benefit from capsule endoscopy Peripheral smear mostly unremarkable other than microcytic anemia Serum free light chains mildly elevated but ratio normal serum protein electrophoresis normal. B12 and folate and TSH normal We will proceed with IV Feraheme 510 mg 1 dose given today 2. Mildly elevated troponin most likely demand ischemia 3. Chronic kidney disease with creatinine around 1.6. This may be contributing to some of the anemia. Recommend packed RBC transfusion to keep the hemoglobin 9 or above
[2017-01-03] MEDS ORDERED: Ferumoxytol 510 MG in 0.9 % Sodium Chloride 100 ML IVPB ONE (09:35)
[2017-01-03] MEDS: Budesonide/Formoterol 160/4.5 MDI IH SCH ×2 (10:14→21:35)
[2017-01-03] MEDS ORDERED: 0.9 % Sodium Chloride 500 ML ONE ×2 (10:23→15:48)
--- NOTE | 2017-01-03 10:44 | Cardiology Progress Note ---
Date of Encounter: 01/03/17 Time of Encounter: 09:30 Assessment and Plan (1) Elevated troponin Current Visit: Yes Status: Acute Per cardiology: -Elevated troponin at 1.17, 1.24, 1.51, 0.99. Down trending. -ECG with no ischemic changes. -Denies chest pain. -History of CAD s/p CABG x3 2010. -Echo 04/2016 with LVEF 45%, global left ventricular systolic dysfunction. -Echo 01/02/17 with LVEF 35-40%, mildly dilated left ventricle, moderate global left ventricular systolic dysfunction, indeterminate diastolic function, atypical septal motion consistent with post-operative status, bioprosthetic aortic valve not well visualized grossly leaflets appear thickened, severe prothetic stenosis by doppler with mean gradiant 40mmHG, peak velocity 3.78m/s, mild aortic regurgitation, mild-moderate mitral regurgitation, mild tricuspid regurgitation, severe pulmonary hypertension, all mustafa hypokinetic. -On statin. At home on asa, plavix, beta castillo, and sung inhibitor. Unable to give asa and plavix due to severe anemia. Unable to give beta castillo and sung inhibitor due to hypotension. -Do not suspect NSTEMI, suspect demand ischemia related to SHABBIR, severe anemia, CHF. NO cardiac rehab warranted at this time. (2) Acute on chronic systolic CHF (congestive heart failure), NYHA class 3 Current Visit: Yes Status: Acute Per cardiology: -Echo 04/2016 LVEF 45%. -Patient with shortness of breath and increased peripheral edema. -BNP 995. -Chest x-ray with small right pleural effusion and stable pulmonary vascular congestion. -On IV lasix per primary service. IV lasix increased today per primary service. -Echo as above. -Further recommendations pending echo. (3) Anemia Current Visit: Yes Status: Acute Per cardiology: -Known history of iron deficiency anemia. -baseline hemoglobin 7-8. -Hemoglobin this admission 5.7 now 6.8 after 2 units of PRBC. 2 more units of PRBC ordered per primary service. -Hematology consulted. -Management per primary and hematology services. -May be contributing to elevated troponin. -Recommend careful transfusions due to history of CHF. Qualifiers: Anemia type: iron deficiency Iron deficiency anemia type: chronic blood loss Qualified Code(s): D50.0 - Iron deficiency anemia secondary to blood loss (chronic) (4) Ischemic cardiomyopathy Current Visit: Yes Status: Chronic Per cardiology: -KNown history of ischemic cardiomopathy. -Has BIV ICD. Follows with Dr.John Ace. -Last device check 10/15/16 with all measurements appropriate, no sustained ventricular arrythmias detected or therapies delivered. BIV pacing 96.65%, battery longevity 7.6 years. -Was on beta castillo and sung at home, unable to give at this point due to hypotension. -BPs currently 90-100s systolic. -Echo as above. -Recommend restarting beta castillo and sung inhibitor when clinically stable. (5) SHABBIR (acute kidney injury) Current Visit: Yes Status: Acute Per cardiology: -SHABBIR on admission. -Baseline creatinine 1-1.4. -Creatinine on admission 2.06. -Creatinine today 1.65. -Management per primary service. -Can consider nephrology consult. -May be contributing to elevated troponin (6) CAD (coronary artery disease) Current Visit: Yes Status: Chronic Per cardiology: -Known CAD with CABG x3 2010. -Denies chest pain. -ECG with no ischemic changes. -Echo as above. -On asa, plavix at home. Unable to give currently due to acute severe anemia. -On statin. -On beta castillo and sung inhibitor at home, unable to give due to currently hypotensive. -Will continue to monitor. Qualifiers: Coronary Disease-Associated Artery/Lesion type: bypass graft [place] vs. transplanted heart: [place] heart Associated angina: without angina Qualified Code(s): I25.810 - Atherosclerosis of coronary artery bypass graft(s) without angina pectoris (7) Hypertension Current Visit: Yes Status: Chronic Per cardiology: -KNwon hypertension. -BP currently hypotensive. -BPs 90-100s systolic. -ON beta castillo and sung at home. -Recommend restarting beta castillo and sung inhibitor when patient is clinically stable . Qualifiers: Hypertension type: essential hypertension Qualified Code(s): I10 - Essential (primary) hypertension (8) Hyperkalemia Current Visit: Yes Status: Acute Per cardiology: -K on admission 5.5 with SHABBIR. -K 4.1 today. -Management per primary service. (9) S/P AVR (aortic valve replacement) Current Visit: No Status: Chronic Per cardiology: -Known history of porcine aortic valve. -Echo 01/02/17 with severe aortic stenosis with mean gradient 40mmHg. Discussed and reviewed with who states needs close outpatient follow up for aortic valve. -Discussed and reviewed with , will consult CT surgery for evaluation. -Patient may require aortic valve replacement at some point. However, need to be able to maintain hemoglobin greater than 8. -Will also need LHC prior to aortic valve replacement, again need to be able to maintain hemoglobin greater than 8 prior. -Will consult CT surgery. Discussion w patient/family: The assessment and plan as outlined above was discussed with the patient who expressed understanding and agreement. All questions were answered. Thank you for involving us in the care of your patient. Please call with any questions. Discussed and reviewed with . Subjective Principal diagnosis: Anemia Interval history: Patient presents to ER yesterday for weakness. Patient states he was so weak at home that he could not stand. Patient admits to shortness of breath, however states it might be slightly worse than baseline. Patient denies chest pain. Admits to fatigue. Patient admits to peripheral edema that is worse than baseline. Patient states he feels better today, however he states he is still weak. Objective Vital Signs, Last 4 Hours Temp Pulse Resp BP Pulse Ox 01/03/17 10:26 97.9 F 93 20 112/53 98 01/03/17 08:57 92 20 100/63 100 01/03/17 08:19 98.7 F 82 20 105/56 99 General: Conversant, No Apparent Distress HEENT: Atraumatic, Normocephaly, Mucus Membranes Moist Neck: No JVD, Normal carotid pulses Cardiac: Reg Rate and Rhythm, Normal S1 and S2, No Murmur Lungs: Normal Breath Sounds, No Wheeze, Rales, Rhonchi Neuro: Alert and responsive, No focal deficits noted Abdomen: Soft, Non-Tender Skin: No rashes noted on visualized skin Musculoskeletal: No Chest Wall Tenderness Extremities: No Clubbing, No Cyanosis, Normal Pulses, Other (1+ bilteral lower extremity pitting edema. ) Results 01/03/17 01:07 01/03/17 01:07 Lab Results Impressions Chest X-Ray 01/02/17 11:01 IMPRESSION: Small right pleural effusion with adjacent atelectasis. Otherwise stable cardiomegaly with pulmonary vascular congestion. D/ / Petrona Mullen MD / Petrona Mullen MD Interpreting Provider: Petrona Mullen MD Active Medications Albuterol Sulfate (Albuterol Inhaler) 2 puff IH Q4H PRN PRN Reason: Shortness Of Breath Stop: 07/04/17 14:31 Albuterol/Ipratropium (Duoneb) 3 ml IH [id number] JULES PRN Reason: Protocol Stop: 07/04/17 18:01 Last Admin: 01/03/17 10:14 Dose: 3 ml Budesonide/Formoterol Fumarate (Symbicort) 2 puff IH BIDR JULES PRN Reason: Protocol Stop: 07/04/17 22:01 Last Admin: 01/03/17 10:14 Dose: 2 puff Cyanocobalamin (Vitamin B12) 1,000 mcg PO DAILY JULES Stop: 07/05/17 09:01 Last Admin: 01/03/17 09:02 Dose: 1,000 mcg Furosemide (Lasix) 60 mg [facility]P [facility] Stop: 07/05/17 09:23 Insulin Detemir (Levemir) 20 unit SQ DAILY JULES Stop: 07/05/17 09:01 Last Admin: 01/03/17 09:05 Dose: 20 unit Levothyroxine Sodium (Synthroid) 50 mcg PO 0630 JULES Stop: 07/05/17 06:31 Last Admin: 01/03/17 05:45 Dose: 50 mcg Naloxone HCl (Narcan) 0.4 mg IVP Q2MIN PRN PRN Reason: Opioid Reversal Stop: 07/04/17 13:57 Pantoprazole Sodium (Protonix) 40 mg IVP BID JULES Stop: 07/04/17 21:01 Last Admin: 01/02/17 20:11 Dose: 40 mg Simvastatin (Zocor) 20 mg PO DAILY JULES PRN Reason: Protocol Stop: 07/05/17 09:01 Last Admin: 01/03/17 09:02 Dose: 20 mg Tamsulosin HCl (Flomax) 0.4 mg PO DAILY JULES PRN Reason: Protocol Stop: 07/05/17 09:01 Last Admin: 01/03/17 09:03 Dose: 0.4 mg Laboratory Tests 01/02/17 01/02/1701/02/17 11:20 11:20 11:24 Hgb 5.7 L* Potassium Creatinine 2.06 H Troponin I 1.17 H* B-Natriuretic Peptide 01/02/17 01/02/17 01/03/17 11:24 19:59 01:07 Hgb Potassium Creatinine Troponin I 1.24 H* 1.51 H* B-Natriuretic Peptide 995 H 01/03/17 01/03/17 01/03/17 01:07 01:07 10:00 Hgb 6.8 L Potassium 4.1 D Creatinine 1.65 H Troponin I 0.99 H* B-Natriuretic Peptide - Imaging and Cardiology Chest Xray: report reviewed Echo: pending - EKG Interpretation EKG results cardiology: other (Telemetry reviewed with average HR 85, sinus rhythm with intermittent pacing. PVCs and couplets noted.) Consult Discharge Plan - Plan Referrals: Russell Bradley MD [Primary Care Provider] - 01/14/17 9:00 am Keyona Ham CNP [Partnered Physician] - (Office will call patient at home with appointment)
[2017-01-03] MEDS: Furosemide 20 MG/2 ML VIAL IVP SCH (12:11)
--- NOTE | 2017-01-03 12:29 | Internal Med Progress Note ---
Date of Encounter: 01/03/17 Time of Encounter: 09:45 - Assessment and plan (1) Acute on chronic clinical systolic heart failure Current Visit: Yes Status: Acute Assessment and plan: Continue IV Lasix. Patient does have significant pedal edema. Will place him on 60 mg IV Lasix twice daily. Daily weights. Monitor input and output. High- risk for complications (2) SHABBIR (acute kidney injury) Current Visit: Yes Status: Acute Assessment and plan: Renal function improving. Creatinine is 1.65 today. (3) CAD (coronary artery disease) Current Visit: Yes Status: Chronic Assessment and plan: Troponin improving. Likely from demand ischemia. Continue statin. Aspirin and Plavix are currently on hold due to low hemoglobin. Qualifiers: Coronary Disease-Associated Artery/Lesion type: bypass graft [place] vs. transplanted heart: [place] heart Associated angina: without angina Qualified Code(s): I25.810 - Atherosclerosis of coronary artery bypass graft(s) without angina pectoris (4) Diabetes Current Visit: Yes Status: Chronic Assessment and plan: Well controlled. Continue current insulin regimen Qualifiers: Diabetes mellitus type: type 2 Diabetes mellitus complication status: with kidney complications Diabetes mellitus complication detail: with chronic kidney disease Diabetes mellitus gear keeper insulin use: with gear keeper use Chronic kidney disease stage: stage 3 (moderate) Qualified Code(s): E11.22 - Type 2 diabetes mellitus with diabetic chronic kidney disease; N18.3 - Chronic kidney disease, stage 3 (moderate); Z79.4 - USP (current) use of insulin (5) Hypertension Current Visit: Yes Status: Chronic Assessment and plan: Well-controlled Qualifiers: Hypertension type: essential hypertension Qualified Code(s): I10 - Essential (primary) hypertension (6) PANDA (iron deficiency anemia) Current Visit: Yes Status: Acute Assessment and plan: Hemoglobin improved to 6.8 posttransfusion. Patient has very low iron levels and transferrin saturation levels. Will transfuse 2 more units packed red blood cells given rise in troponins. Hematology following. Qualifiers: Iron deficiency anemia type: unspecified iron deficiency Qualified Code(s) : D50.9 - Iron deficiency anemia, unspecified - Subjective Interval history: Patient is sitting up in chair. Feels tired and fatigued. Also having some shortness of breath. No chest pain. Received 2 units packed red blood cell transfusion overnight. Denies any melena or hematemesis. - Constitutional Vitals: Temp Pulse Resp BP Pulse Ox 98.4 F 91 18 107/57 99 01/03/17 11:09 01/03/17 11:09 01/03/17 11:09 01/03/17 11:09 01/03/17 10:32 General appearance: Present: cooperative, A&O X 3, pleasant, answers questions appropriately - Eye Eye exam: Present: EOMI, PERRL, conjuntiva pink, sclera anicteric - Neck Neck exam general surgery: Present: supple, trachea midline. Absent: lymphadenopathy - Respiratory Respiratory exam: Present: CTAB. Absent: accessory muscle use, rales, rhonchi, wheezes - Cardiovascular Cardiovascular exam: Present: RRR, +S1, +S2. Absent: diastolic murmur, gallop, rubs, systolic murmur - Extremities Exam Extremities exam: Present: pedal edema (Significant bilateral pitting pedal), warm, radial pulses palpable and symetrical. Absent: calf tenderness, cyanotic - Neurological Exam Neurological exam: Present: alert, oriented X3, no focal deficits. Absent: facial droop, speech deficit - Skin Skin exam: Present: dry, intact, pallor Internal Medicine: Result - Labs CBC & Chem 7: 01/03/17 01:07 01/03/17 01:07 Labs: Short CBC 01/03/17 Range/Units 01:07 WBC 9.4 (4.3-11.1) K/mcL Hgb 6.8 L (12.9-16.9) g/dL Hct 21.9 L (37.5-50.1) % Plt Count 382 (140-400) K/mcL Neutrophils # 6.6 (1.6-8.9) K/mcL BMP 01/03/17 01:07 Sodium 134 L Potassium 4.1 D Chloride 99 Carbon Dioxide 24 BUN 73 H Creatinine 1.65 H Glucose 98 Calcium 9.1 Cardiac Enzymes 01/02/17 01/03/17 01/03/17 Range/Units 19:59 01:07 10:00 Troponin I 1.24 H* 1.51 H* 0.99 H* (0-0.03) ng/mL Liver Function 01/03/17 Range/Units 01:07 Total Bilirubin 0.5 (0.2-1.2) mg/dL AST 17 (5-34) Units/L ALT 11 (0-55) Units/L Alkaline Phosphatase 40 (38-126) Units/L Albumin 3.6 (3.5-5.0) g/dL - ABG Interpretation ABG results: PT/INR, D-dimer PT 12.8 Seconds (9.4-12.1) H 01/02/17 19:59 Consult Discharge Plan - Plan Referrals: Russell Bradley MD [Primary Care Provider] - 01/14/17 9:00 am Keyona Ham CNP [Partnered Physician] - (Office will call patient at home with appointment) - Attending Attestation This document has been at least partially created by [employer] recognition technology by Dr. Grande. Errors in grammar, wording or other phrases may exist. If errors are found after the documentation is signed, they will be addressed individually in the addendum section of this document when appropriate.
[2017-01-03] MEDS: Pantoprazole 40 MG VIAL IVP SCH ×2 (13:52→20:04)
[2017-01-03] MEDS ORDERED: Furosemide 40 MG/4 ML VIAL IVP STA (14:13)
[2017-01-03] MEDS: Furosemide 40 MG/4 ML VIAL IVP SCH (14:32)
[2017-01-03] MEDS ORDERED: Dextrose Gel 15 GM PO PRN ×2 (14:47)
[2017-01-03] MEDS ORDERED: *HR* Dextrose 50 % in Water (Syg) 50 ML SYRINGE IVP PRN (14:47)
[2017-01-03] MEDS ORDERED: D5% in Water 1,000 ML IVC PRN (14:47)
--- NOTE | 2017-01-03 16:14 | Electrocardiograph Report ---
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
[2017-01-03] MEDS: Insulin LISPRO 300 UNITS/3 ML VIAL SQ SCH (17:12)
[2017-01-03] MEDS ORDERED: Insulin LISPRO 300 UNITS/3 ML VIAL SQ SCH (21:00)
[2017-01-04] MEDS: Ipratropium/Albuterol Neb 3 ML IH SCH ×3 (03:56→15:28)
[2017-01-04 04:39] LABS: Basophils # 0.1 K/mcL (0.0-0.2); Basophils % 0.6 %; Eosinophils # 0.3 K/mcL (0.0-0.6); Eosinophils % 3.2 %; Hematocrit 27.5 % (37.5-50.1); Hemoglobin 8.8 g/dL (12.9-16.9); Immature Granulocytes % 0.6 % (0-4); Lymphocytes # 1.1 K/mcL (0.6-4.6); Lymphocytes % 12.7 %; Mean Corpuscular Hemoglobin 26.4 pg (28.0-33.3); Mean Corpuscular Volume 82.6 fL (83.0-100.0); Monocytes # 0.9 K/mcL (0.0-1.3); Monocytes % 10.5 %; Neutrophils # 6.4 K/mcL (1.6-8.9); Platelet Count 322 K/mcL (140-400); Red Blood Count 3.33 M/mcL (4.19-5.50); Red Cell Distribution Width 16.8 % (11.5-14.5); Segmented Neutrophils % 72.4 %
[2017-01-04 04:55] LABS: BUN/Creatinine Ratio 35 (6-26); Calcium 9.3 mg/dL (8.6-10.8); Carbon Dioxide 27 mEq/L (19-29); Chloride 103 mEq/L (98-109); Glucose 93 mg/dL (70-99); Osmolality,Calculated 297 (280-300); eGFR For African Americans > 60 (> 60); eGFR For Non-African Americans > 60 (> 60)
[2017-01-04 04:56] LABS: Blood Urea Nitrogen 40 mg/dL (8-26); Potassium 3.7 mEq/L (3.5-4.5); Sodium 139 mEq/L (136-145)
[2017-01-04] MEDS: Insulin LISPRO 300 UNITS/3 ML VIAL SQ SCH ×2 (07:44→11:46)
[2017-01-04] MEDS: Budesonide/Formoterol 160/4.5 MDI IH SCH (09:37)
[2017-01-04] MEDS: Cyanocobalamin (B-12) 1,000 MCG TABLET PO SCH (09:38)
[2017-01-04] MEDS: Furosemide 40 MG/4 ML VIAL IVP SCH (09:38)
[2017-01-04] MEDS: Pantoprazole 40 MG VIAL IVP SCH (09:39)
[2017-01-04] MEDS: Insulin DETEMIR 100 UNIT/ML X5UNITS SQ SCH (09:39)
--- NOTE | 2017-01-04 10:30 | Cardiology Progress Note ---
Date of Encounter: 01/04/17 Time of Encounter: 08:30 Assessment and Plan (1) Elevated troponin Current Visit: Yes Status: Acute Per cardiology: -Elevated troponin at 1.17, 1.24, 1.51, 0.99. Down trending. -ECG with no ischemic changes. -Denies chest pain. -History of CAD s/p CABG x3 2010. -Echo 04/2016 with LVEF 45%, global left ventricular systolic dysfunction. -Echo 01/02/17 with LVEF 35-40%, mildly dilated left ventricle, moderate global left ventricular systolic dysfunction, indeterminate diastolic function, atypical septal motion consistent with post-operative status, bioprosthetic aortic valve not well visualized grossly leaflets appear thickened, severe prothetic stenosis by doppler with mean gradiant 40mmHG, peak velocity 3.78m/s, mild aortic regurgitation, mild-moderate mitral regurgitation, mild tricuspid regurgitation, severe pulmonary hypertension, all mustafa hypokinetic. -On statin. At home on asa, plavix, beta castillo, and sung inhibitor. Unable to give asa and plavix due to severe anemia. Unable to give beta castillo and sung inhibitor due to hypotension. -Do not suspect NSTEMI, suspect demand ischemia related to SHABBIR, severe anemia, CHF. NO cardiac rehab warranted at this time. -Cardiology will sign off and will follow up in outpatient setting. Follow up set. (2) Acute on chronic systolic CHF (congestive heart failure), NYHA class 3 Current Visit: Yes Status: Acute Per cardiology: -Echo 04/2016 LVEF 45%. -Patient with shortness of breath and increased peripheral edema. -BNP 995. -Chest x-ray with small right pleural effusion and stable pulmonary vascular congestion. -On IV lasix per primary service. IV lasix increased yeterday per primary service. -Echo as above. -Net negative 4L this admission. -Of note weight at cardiology office in November was 243 pounds, current weight noted to be 235pounds. -Has 2+ bilateral lower extremity pitting edema. -I/Os, daily weights ordered. -Recommend continuing IV diuresis as ordered by primary service. -Recommend patient prop legs up when dependent. -Will order fluid restriction. (3) Anemia Current Visit: Yes Status: Acute Per cardiology: -Known history of iron deficiency anemia. -baseline hemoglobin 7-8. -Hemoglobin this admission 5.7 now 8.8 after 4 units of PRBC. -Hematology consulted. -Management per primary and hematology services. -May be contributing to elevated troponin. -Recommend careful transfusions due to history of CHF. Qualifiers: Anemia type: iron deficiency Iron deficiency anemia type: chronic blood loss (4) Ischemic cardiomyopathy Current Visit: Yes Status: Chronic Per cardiology: -KNown history of ischemic cardiomopathy. -Has BIV ICD. Follows with Dr.John Ace. -Last device check 10/15/16 with all measurements appropriate, no sustained ventricular arrythmias detected or therapies delivered. BIV pacing 96.65%, battery longevity 7.6 years. -Was on beta castillo and sung at home, unable to give at this point due to hypotension. -BPs currently 90-100s systolic. -Echo as above. -Recommend restarting beta castillo and sung inhibitor when clinically stable. (5) SHABBIR (acute kidney injury) Current Visit: Yes Status: Acute Per cardiology: -SHABBIR on admission. -Baseline creatinine 1-1.4. -Creatinine on admission 2.06. -Creatinine today 1.13 -Management per primary service. -Can consider nephrology consult. -May be contributing to elevated troponin (6) CAD (coronary artery disease) Current Visit: Yes Status: Chronic Per cardiology: -Known CAD with CABG x3 2010. -Denies chest pain. -ECG with no ischemic changes. -Echo as above. -On asa, plavix at home. Unable to give currently due to acute severe anemia. -On statin. -On beta castillo and sung inhibitor at home, unable to give due to currently hypotensive. Qualifiers: Coronary Disease-Associated Artery/Lesion type: bypass graft [place] vs. transplanted heart: [place] heart Associated angina: without angina Qualified Code(s): I25.810 - Atherosclerosis of coronary artery bypass graft(s) without angina pectoris (7) Hypertension Current Visit: Yes Status: Chronic Per cardiology: -KNwon hypertension. -BP currently hypotensive. -BPs 90-100s systolic. -ON beta castillo and sung at home. -Recommend restarting beta castillo and sung inhibitor when patient is clinically stable . Qualifiers: Hypertension type: essential hypertension Qualified Code(s): I10 - Essential (primary) hypertension (8) Hyperkalemia Current Visit: Yes Status: Acute Per cardiology: -K on admission 5.5 with SHABBIR. -Management per primary service. (9) S/P AVR (aortic valve replacement) Current Visit: No Status: Chronic Per cardiology: -Known history of porcine aortic valve. -Echo 01/02/17 with severe aortic stenosis with mean gradient 40mmHg. Discussed and reviewed with who states needs close outpatient follow up for aortic valve. -Discussed and reviewed with , will consult CT surgery for evaluation. -Patient may require aortic valve replacement at some point. However, need to be able to maintain hemoglobin greater than 8. -Will also need C prior to aortic valve replacement, again need to be able to maintain hemoglobin greater than 8 prior. -CT surgery consulted yesterday. -Patient states he is considering being transferred to [facility], since his last surgery was done there. -Management per CT surgery. Discussion w patient/family: The assessment and plan as outlined above was discussed with the patient who expressed understanding and agreement. All questions were answered. Thank you for involving us in the care of your patient. Please call with any questions. Discussed and reviewed with . Subjective Principal diagnosis: Anemia Interval history: Patient presents to ER for weakness. Patient states he was so weak at home that he could not stand. Patient admits to shortness of breath, however states it might be slightly worse than baseline. Patient denies chest pain. Admits to fatigue. Patient admits to peripheral edema that is worse than baseline. Patient states he feels better today, however he states he is still weak. Patient states he is contemplating going to [facility], since his last surgery was there. Objective Vital Signs, Last 4 Hours Temp Pulse Resp BP Pulse Ox 01/04/17 10:06 86 01/04/17 07:15 98.0 F 87 16 108/64 95 General: Conversant, No Apparent Distress HEENT: Atraumatic, Normocephaly, Mucus Membranes Moist Neck: No JVD, Normal carotid pulses Cardiac: Reg Rate and Rhythm, Normal S1 and S2, No Murmur Lungs: Other (Left lung with expiratory wheezes throughout. ) Neuro: Alert and responsive, No focal deficits noted Abdomen: Soft, Non-Tender Skin: No rashes noted on visualized skin Musculoskeletal: No Chest Wall Tenderness Extremities: No Clubbing, No Cyanosis, Normal Pulses, Other (Bilateral lower extremities with 2+ pitting edema. ) Results 01/04/17 04:16 01/04/17 04:16 Lab Results Active Medications Albuterol Sulfate (Albuterol Inhaler) 2 puff IH Q4H PRN PRN Reason: Shortness Of Breath Stop: 07/04/17 14:31 Albuterol/Ipratropium (Duoneb) 3 ml IH [id number] JULES PRN Reason: Protocol Stop: 07/04/17 18:01 Last Admin: 01/04/17 09:35 Dose: 3 ml Budesonide/Formoterol Fumarate (Symbicort) 2 puff IH BIDR JULES PRN Reason: Protocol Stop: 07/04/17 22:01 Last Admin: 01/04/17 09:37 Dose: 2 puff Cyanocobalamin (Vitamin B12) 1,000 mcg PO DAILY [facility] Stop: 07/05/17 09:01 Last Admin: 01/04/17 09:38 Dose: 1,000 mcg Dextrose/Water (Dextrose 50% (Syg)) 25 ml IVP AD PRN PRN Reason: Hypoglycemia Stop: 07/05/17 14:48 Furosemide (Lasix) 60 mg IVP BIDDIURETIC [facility] Stop: 07/05/17 09:23 Last Admin: 01/04/17 09:38 Dose: 60 mg Glucagon (Glucagen) 1 mg IM ONCE PRN PRN Reason: Hypoglycemia Stop: 07/05/17 14:48 Glucose (Gluctose) 15 gm PO ONCE PRN PRN Reason: Hypoglycemia Stop: 07/05/17 14:48 Glucose (Gluctose) 30 gm PO ONCE PRN PRN Reason: Hypoglycemia Stop: 07/05/17 14:48 Guaifenesin (Mucinex) 1,200 mg PO BID [facility] Stop: 07/05/17 11:16 Last Admin: 01/04/17 09:38 Dose: 1,200 mg Dextrose (Dextrose 5%) 1,000 mls @ 100 mls/hr IVC .Q10H PRN PRN Reason: HYPOGLYCEMIA Stop: 07/05/17 14:48 Insulin Detemir (Levemir) 20 unit SQ DAILY [facility] Stop: 07/05/17 09:01 Last Admin: 01/04/17 09:39 Dose: 20 unit Insulin Human Lispro (Humalog) 0 units SQ HS JULES PRN Reason: Protocol Stop: 07/05/17 21:01 Last Admin: 01/03/17 20:48 Dose: Not Given Insulin Human Lispro (Humalog) 0 units SQ TIDAC JULES PRN Reason: Protocol Stop: 07/05/17 16:31 Last Admin: 01/04/17 07:44 Dose: Not Given Levothyroxine Sodium (Synthroid) 50 mcg PO 0630 [facility] Stop: 07/05/17 06:31 Last Admin: 01/04/17 05:51 Dose: 50 mcg Naloxone HCl (Narcan) 0.4 mg IVP Q2MIN PRN PRN Reason: Opioid Reversal Stop: 07/04/17 13:57 Pantoprazole Sodium (Protonix) 40 mg IVP BID [facility] Stop: 07/04/17 21:01 Last Admin: 01/04/17 09:39 Dose: 40 mg Simvastatin (Zocor) 20 mg PO DAILY [facility] PRN Reason: Protocol Stop: 07/05/17 09:01 Last Admin: 01/04/17 09:37 Dose: 20 mg Tamsulosin HCl (Flomax) 0.4 mg PO DAILY [facility] PRN Reason: Protocol Stop: 07/05/17 09:01 Last Admin: 01/04/17 09:38 Dose: 0.4 mg Laboratory Tests 12/19/16 01/02/17 01/02/17 07:32 11:20 11:24 Hgb Potassium Creatinine 1.02 2.06 H Troponin I 1.17 H* Stool Occult Blood 01/02/17 01/02/17 01/03/17 14:12 19:59 01:07 Hgb Potassium Creatinine Troponin I 1.24 H* 1.51 H* Stool Occult Blood Negative 01/03/17 01/03/17 01/04/17 01:07 10:00 04:16 Hgb 8.8 L Potassium Creatinine 1.65 H Troponin I 0.99 H* Stool Occult Blood 01/04/17 04:16 Hgb Potassium 3.7 Creatinine 1.13 Troponin I Stool Occult Blood - Imaging and Cardiology Chest Xray: report reviewed Echo: report reviewed - EKG Interpretation EKG results cardiology: other (Telemetry reviewed with average 87, sinus rhythm with intermittent ventricular pacing. PACs noted.) - VTE Documentation of Mechanical Device: Intermittent pneumatic compression device Consult Discharge Plan - Plan Referrals: Russell Bradley MD [Primary Care Provider] - 01/14/17 9:00 am Jitendra,Keyona L, STRIPPER SHOVEL OPERATOR [Partnered Physician] - (Office will call patient at home with appointment)
--- NOTE | 2017-01-04 10:40 | Cardiothoracic Consult Note ---
Date of Encounter: 01/04/17 Time of Encounter: 10:35 Assessment and Plan (1) Acute on chronic systolic CHF (congestive heart failure), NYHA class 3 Current Visit: Yes Status: Acute The patient is a 71-year-old type II diabetic, hypertensive man with hypercholesterolemia and a history of CABG and AVR (tissue valve). He presented with a one-week history of shortness of breath, dyspnea on exertion, dizziness, lightheadedness, presyncope. In the emergency department the patient was noted to be anemic with a hemoglobin 5.1. He was also noted to have elevated troponin I levels and underwent a cardiac workup. A transthoracic echocardiogram revealed LVEF 35-40% and prosthetic valve aortic stenosis with a mean gradient 40 mmHg and severe pulmonary hypertension (RVSP 68 mmHg). His acute congestive heart failure symptoms are likely multifactorial due to his anemia and prosthetic valve aortic stenosis. The patient should have his anemia corrected and then be considered for redo aortic valve replacement. In light of his redo status and severe pulmonary hypertension, the patient should be considered for a TAVR. He request transfer to the [facility] where he had his initial operation. The assessment and plan as outlined above was discussed with the patient and/or family members who expressed understanding and agreement. All questions were answered. - History of Present Illness Consult date: 01/03/17 Requesting physician: Bertrand Preciado Consult reason: Prosthetic valve aortic stenosis. Chief complaint: Shortness of breath, dyspnea on exertion, orthostasis History of present illness: Mr. Last is a 71 year old type II diabetic, hypertensive man with hypercholesterolemia who presented to [facility] with a one- week history of progressive shortness of breath, dyspnea exertion, dizziness, lightheadedness, and presyncope. During the evaluation the patient was noted to be her family anemic with hemoglobin of 5.1. The patient also had elevated troponin I levels and he was admitted for transfusion and cardiac workup. Of note the patient underwent CABG 3 and aortic valve replacement (tissue valve) at the [facility] in 2010. The patient underwent an echocardiogram and was found to have an LVEF 35-40% and global LV systolic dysfunction. He was also noted to have severe prosthetic aortic stenosis with a mean gradient 40 mmHg and severe pulmonary hypertension with an RVSP 68 mmHg. I have been asked to evaluate the patient for possible redo aortic valve replacement. Past Med Surg Social Fam HX - Past Medical History Medical history: aortic aneurysm, arthritis, cardiomyopathy, CHF, COPD, coronary artery disease, diabetes, GERD, hyperlipidemia, hypertension, myocardial infarction, thyroid disease, valvular heart disease (Prosthetic valve aortic stenosis.), other (Anemia) Psychiatric history: no psych history - Past Surgical History Surgical History: coronary bypass (CABG), heart valve replacement (Aortic tissue valve), vascular surgery (Endovascular AAA repair), AICD - Social History Smoking Status: Former smoker Smokeless Tobacco Status: No Alcohol use: none Drug use: none Occupational status: retired Current living situation: Home - Independent Activity Level: Independent ambulation Recent Out of Country Travel Within the Last 8 Weeks: No Exposure or Possible Exposure to Illness During Travel: No - Family History Mother Adopted: No Family Member Ethnicity: Non- Living Status: Hx Family Cardiac Disorders: Yes (ID) Hx Family Respiratory Disorders: No Hx Family Cancer: No Hx Family GI Disorders: Yes (bowel bleeding) Hx Family Endocrine Disorder: Yes (DM) Hx Family Neuromuscular Disorders: No Hx Family Neurologic Disorders: No Hx Family HEENT Disorders: Yes (glasses) Hx Family Autoimmune Disorders: No Father Living Status: Hx Family Cardiac Disorders: Yes (Heart disease) Hx Family GI Disorders: Yes (cirrohosis- alcoholic) Medications and Allergies Aspirin Enteric Coated [Aspirin EC] 81 mg PO DAILY 08/28/15 [History] Clopidogrel [Plavix] 75 mg PO DAILY 08/28/15 [History] Levothyroxine Sodium [Tirosint] 50 mcg PO HS 08/28/15 [History] Lisinopril 2.5 mg PO DAILY 08/28/15 [History] Metoprolol XL (24 HR) Succ [Toprol Xl] 100 mg PO HS 08/28/15 [History] Multivitamin [Multivitamins] 1 each PO DAILY 08/28/15 [History] Omeprazole [PriLOSEC] 20 mg PO DAILY 08/28/15 [History] Simvastatin [Zocor] 20 mg PO DAILY 08/28/15 [History] Tamsulosin [Flomax] 0.4 mg PO DAILY 08/28/15 [History] Albuterol Sulfate [Albuterol Inhaler] 2 puff IH Q4-6H PRN 04/25/16 [History] Cholecalciferol (D-3) [Vitamin D] 2,000 unit PO DAILY 04/25/16 [History] Furosemide [Lasix] 60 mg PO BID 04/25/16 [History] Insulin DETEMIR [Levemir] 30 unit SQ DAILY 04/25/16 [History] Cyanocobalamin (B-12) [Vitamin B12] 1 tab PO DAILY #30 tablet 06/18/16 [Rx] Hydrocortisone 2.5% CREAM [Cortaid] 1 appl TP PRN PRN #1 tube 06/18/16 [Rx] Budesonide/Formoterol 160/4.5 [Symbicort 160/4.5] 2 puff IH BIDR 08/16/16 [ History] Ipratropium/Albuterol Neb [Duoneb] 3 ml IH Q6HR 08/16/16 [History] Metformin HCl [Glucophage] 1,000 mg PO BID 08/16/16 [History] Tiotropium Burt [Spiriva Respimat] 2 puff IH DAILY 12/19/16 [History] Oxygen 2 l .ROUTE HS 01/02/17 [History] Allergies roflumilast [From Daliresp] Adverse Reaction (Mild, Verified 12/19/16 09:22) Diarrhea All Systems Review: A 10-system review of systems was performed and is negative for pertinent findings except as documented above in the HPI. Physical Examination Vital Signs, Last 4 Hours Temp Pulse Resp BP Pulse Ox 01/04/17 10:06 86 01/04/17 07:15 98.0 F 87 16 108/64 95 General: Conversant, No Apparent Distress HEENT: Atraumatic, Normocephaly, Trachea midline Neck: No JVD, Normal carotid pulses Cardiac: Reg Rate and Rhythm, Normal S1 and S2, Other (3/6 systolic ejection murmur best heard at the lateral sternal border) Lungs: Normal Breath Sounds, No Wheeze, Rales, Rhonchi Neuro: Alert and responsive, No focal deficits noted Vascular: Normal capillary refill Abdomen: Soft, Non-tender Skin: No rashes noted on visualized skin Musculoskeletal: No Chest Wall Tenderness Extremities: No Clubbing, No Cyanosis, No Edema Results 01/04/17 04:16 01/04/17 04:16 Lab Results, Last 24 hours 01/03/17 01/04/17 01/04/17 23:48 04:16 04:16 WBC 8.9 Hgb 8.3 L D 8.8 L Hct 27.5 L Plt Count 322 Sodium 139 Potassium 3.7 Chloride 103 Carbon Dioxide 27 BUN 40 H D Creatinine 1.13 Glucose 93 Calcium 9.3 - Imaging Chest Xray: image reviewed (Cardiomegaly. Small right pleural effusion. ICD leads noted.) Consult Discharge Plan - Plan Referrals: Russell Bradley MD [Primary Care Provider] - 01/14/17 9:00 am Keyona Ham CNP [Partnered Physician] - (Office will call patient at home with appointment)
--- NOTE | 2017-01-04 11:24 | Discharge Summary ---
Date of Encounter: 01/04/17 Time of Encounter: 11:22 - Discharge Diagnosis (1) Acute on chronic clinical systolic heart failure Priority: Primary Status: Acute (2) PANDA (iron deficiency anemia) Priority: Secondary Status: Acute Qualifiers: Iron deficiency anemia type: unspecified iron deficiency Qualified Code(s) : D50.9 - Iron deficiency anemia, unspecified (3) SHABBIR (acute kidney injury) Priority: Secondary Status: Acute (4) CAD (coronary artery disease) Priority: Secondary Status: Chronic Qualifiers: Coronary Disease-Associated Artery/Lesion type: bypass graft [place] vs. transplanted heart: [place] heart Associated angina: without angina Qualified Code(s): I25.810 - Atherosclerosis of coronary artery bypass graft(s) without angina pectoris (5) Diabetes Priority: Secondary Status: Chronic Qualifiers: Diabetes mellitus type: type 2 Diabetes mellitus complication status: with kidney complications Diabetes mellitus complication detail: with chronic kidney disease Diabetes mellitus continuous improvement analyst insulin use: with continuous improvement analyst use Chronic kidney disease stage: stage 3 (moderate) Qualified Code(s): E11.22 - Type 2 diabetes mellitus with diabetic chronic kidney disease; N18.3 - Chronic kidney disease, stage 3 (moderate); 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 (6) Hypertension Priority: Secondary Status: Chronic Qualifiers: Hypertension type: essential hypertension Qualified Code(s): I10 - Essential (primary) hypertension (7) S/P AVR (aortic valve replacement) Priority: Secondary Status: Chronic (8) Prosthetic aortic valve stenosis Priority: Secondary Status: Acute - Discharge Medications Home Medications: Aspirin Enteric Coated [Aspirin EC] 81 mg PO DAILY 08/28/15 [History] Clopidogrel [Plavix] 75 mg PO DAILY 08/28/15 [History] Levothyroxine Sodium [Tirosint] 50 mcg PO HS 08/28/15 [History] Lisinopril 2.5 mg PO DAILY 08/28/15 [History] Metoprolol XL (24 HR) Succ [Toprol Xl] 100 mg PO HS 08/28/15 [History] Multivitamin [Multivitamins] 1 each PO DAILY 08/28/15 [History] Omeprazole [PriLOSEC] 20 mg PO DAILY 08/28/15 [History] Simvastatin [Zocor] 20 mg PO DAILY 08/28/15 [History] Tamsulosin [Flomax] 0.4 mg PO DAILY 08/28/15 [History] Albuterol Sulfate [Albuterol Inhaler] 2 puff IH Q4-6H PRN 04/25/16 [History] Cholecalciferol (D-3) [Vitamin D] 2,000 unit PO DAILY 04/25/16 [History] Furosemide [Lasix] 60 mg PO BID 04/25/16 [History] Insulin DETEMIR [Levemir] 30 unit SQ DAILY 04/25/16 [History] Cyanocobalamin (B-12) [Vitamin B12] 1 tab PO DAILY #30 tablet 06/18/16 [Rx] Hydrocortisone 2.5% CREAM [Cortaid] 1 appl TP PRN PRN #1 tube 06/18/16 [Rx] Budesonide/Formoterol 160/4.5 [Symbicort 160/4.5] 2 puff IH BIDR 08/16/16 [ History] Ipratropium/Albuterol Neb [Duoneb] 3 ml IH Q6HR 08/16/16 [History] Metformin HCl [Glucophage] 1,000 mg PO BID 08/16/16 [History] Tiotropium [place] [Spiriva Respimat] 2 puff IH DAILY 12/19/16 [History] Oxygen 2 l .ROUTE HS 01/02/17 [History] Allergies/Adverse Reactions: Allergies roflumilast [From [facility]] Adverse Reaction (Mild, Verified 12/19/16 09:22) Diarrhea Procedures/tests Complete & Pending: Procedures Performed prior 72 hours Category Date Time Status EV echocardiogram Stat Y 01/02/17 14:29 Completed Date of admission: 01/02/17 14:15 Primary care physician: Russell Bradley Consults: 01/02/17 14:29 Consult to Cardiology [CONS] Routine Comment: Consulting Provider: Cardiology Bromide Reason for Consult: Hx CAD, CHF. Now with SOB and elevated trop Call Completed: Yes 01/03/17 15:26 Consult to Cardiothoracic Surgery [CONS] Routine Consulting Provider: Cardiothoracic Surgery Ana Reason for Consult: Severe , Dr. Pena aware Time Notified: 15:30 Call Completed: Yes Discharging clinician: Jovan Grande Anticipated date of discharge: 01/04/17 - Patient Status Disposition: Transfer Other Condition: Fair Functional capacity at discharge: uses cane/walker Overall status at discharge: patient is not back to baseline - Discharge Instructions Instructions: Heart Failure (DC), Anemia (GEN) Follow Up With: Russell Bradley MD [Primary Care Provider] - 01/14/17 9:00 am Keyona Ham CNP [Partnered Physician] - (Office will call patient at home with appointment) - Diet and Activity Diet: low salt diet Hospital course: Mr. Last is a 71 year old male patient with a history of prior tissue aortic valve replacement, chronic anemia that is being worked up as outpatient, congestive heart failure was admitted here with acute exacerbation of congestive heart failure. He had presented to the ER with complaints of dyspnea , generalized weakness, fatigue along with presyncope. He underwent workup for upper GI endoscopy and colonoscopy earlier this year which did not show any active bleeding. Patient on presentation had a hemoglobin of 5.7. He was treated for this with packed red blood cell transfusion and was given intravenous Lasix. While his blood counts have now improved after he received 4 units packed red blood cell transfusion(hemoglobin is 8.8 today), he has continued to have shortness of breath and pedal edema. A 2-D echocardiogram done yesterday showed a severe prosthetic aortic valve stenosis with a mean gradient of 40 mmHg with a peak velocity of 3.78 m/s. Cardio vascular surgery was consulted and given the patient's multiple comorbidities, they have recommended that the patient undergo TAVR. The patient had his aortic valve replacement done at [facility] and wishes to go there for this procedure to be done. I have called [facility] transfer center and they have accepted the patient for transfer. He will be transferred once he has a bed available. - Time Spent with Patient Total time spent providing and/or coordinating discharge services: Greater than 30 minutes (35 min) - Constitutional Vitals: Temp Pulse Resp BP Pulse Ox 98.0 F 86 16 108/64 96 01/04/17 07:15 01/04/17 10:06 01/04/17 10:48 01/04/17 10:48 01/04/17 10:48 General appearance: Present: cooperative, A&O X 3, pleasant, answers questions appropriately - Respiratory Respiratory exam: Present: CTAB. Absent: accessory muscle use, rales, rhonchi, wheezes Additional comments: Basal crackles - Cardiovascular Cardiovascular exam: Present: RRR, +S1, +S2, systolic murmur. Absent: diastolic murmur, gallop, rubs - GI/Abdominal GI/Abdominal exam: Present: normal bowel sounds, soft, no peritoneal signs. Absent: distended, tenderness - Extremities Exam Extremities exam: Present: pedal edema (Severe Bilateral pitting pedal edema), warm, radial pulses palpable and symetrical. Absent: calf tenderness, cyanotic - Neurological Exam Neurological exam: Present: alert, oriented X3, no focal deficits. Absent: facial droop, speech deficit - VTE Documentation of Mechanical Device: Intermittent pneumatic compression device - Attending Attestation This document has been at least partially created by [employer] recognition technology by Dr. Grande. Errors in grammar, wording or other phrases may exist. If errors are found after the documentation is signed, they will be addressed individually in the addendum section of this document when appropriate.
[2017-01-04 15:31] VITALS: BP 93/70
== END 2017-01-04 16:10 | disposition other institution (70) | DRG 291 ==
LOC: EMEROO 10:56 → 2NNU 14:15
PROVIDERS: ADMIT Internal Medicine; ATTEND Internal Medicine

== ENCOUNTER 2018-06-24 12:56 | Inpatient (IN) ==
--- NOTE | 2018-06-24 13:36 | Emergency Department Note ---
Disposition Clinical Impression: Acute exacerbation of CHF (congestive heart failure), GI bleed Disposition: Admitted As Inpatient Condition: Fair Referrals: NONE,PCP [Non-Partnered Physician] - Forms: ED Satisfaction Letter General Adult HPI - General Chief complaint: ED Shortness of Breath/Dyspnea Stated complaint: ELAINE Time Seen by Provider: 06/24/18 13:11 Source: EMS Limitations: no limitations Nursing Notes Reviewed: Yes Vital Signs Reviewed: Yes - History of Present Illness Pain Scale: 5 - Related Data Home Medications Medication Instructions Recorded Confirmed RX: Clopidogrel [Plavix] 75 mg PO DAILY 08/28/15 06/24/18 RX: Levothyroxine Sodium [Tirosint] 50 mcg PO HS 08/28/15 06/24/18 RX: Lisinopril 2.5 mg PO DAILY 08/28/15 06/24/18 RX: Multivitamin [Multivitamins] 1 each PO DAILY 08/28/15 06/24/18 RX: Omeprazole [PriLOSEC] 20 mg PO BID 08/28/15 06/24/18 RX: Simvastatin [Zocor] 20 mg PO DAILY 08/28/15 06/24/18 RX: Tamsulosin [Flomax] 0.4 mg PO DAILY 08/28/15 06/24/18 RX: Albuterol Sulfate [Albuterol 2 puff IH Q4-6H PRN 04/25/16 06/24/18 Inhaler] RX: Cholecalciferol (D-3) [Vitamin 2,000 unit PO DAILY 04/25/16 06/24/18 D] RX: Furosemide [Lasix] 60 mg PO BID 04/25/16 06/24/18 RX: Ipratropium/Albuterol Neb 3 ml IH Q6HR 08/16/16 06/24/18 [Duoneb] RX: Metformin HCl [Glucophage] 1,000 mg PO BID 08/16/16 06/24/18 RX: Oxygen 3 l NS CONT 01/02/17 06/24/18 Docusate Sodium [Stool Softener] 100 mg PO BID 05/16/17 06/24/18 Ferrous Gluconate [Iron] 236 mg PO BID 05/16/17 06/24/18 Potassium Chloride [K-Tab ER] 20 meq PO BID 05/16/17 06/24/18 Guaifenesin [Mucinex] 1,200 mg PO BID 05/22/17 06/24/18 Budesonide/Formoterol 160/4.5 2 puff IH BIDR 02/20/18 06/24/18 [Symbicort 160/4.5] Metoprolol [Lopressor] 25 mg PO BID 02/20/18 06/24/18 Warfarin [Coumadin] 2.5 mg PO SUMOTUWEFRSA 02/20/18 06/24/18 RX: Tiotropium [place] [Spiriva 2 puff IH DAILY 06/24/18 06/24/18 Respimat] Warfarin [Coumadin] 1.25 mg PO TH 06/24/18 06/24/18 Previous Rx's Medication Instructions Recorded RX: Cyanocobalamin (B-12) [Vitamin 1 tab PO DAILY #30 tablet 06/18/16 B12] Allergies Allergy/AdvReac Type Severity Reaction Status Date / Time roflumilast [From [facility]] AdvReac Mild Diarrhea Verified 06/24/18 13:24 All systems ED: reviewed and negative except as stated. Past Medical History - Past Medical History Medical history: Reports: aortic aneurysm, arthritis, cardiomyopathy, CHF, COPD, coronary artery disease, diabetes, GERD, hyperlipidemia, hypertension, myocardial infarction, thyroid disease, valvular heart disease, other Surgical history: Reports: coronary bypass (CABG), heart valve replacement (Aortic tissue valve), vascular surgery (Endovascular AAA repair), AICD Psychiatric history: Reports: no psych history - Social History Smoking Status: Former smoker Smokeless Tobacco Status: No Alcohol use: Reports: none Drug use: Reports: none Physical Exam - General Limitations: no limitations General appearance: alert, in no apparent distress Course Vital Signs Temperature 98.0 F 06/24/18 13:19 Pulse Rate 135 06/24/18 13:19 Respiratory Rate 20 06/24/18 13:19 Blood Pressure 115/79 06/24/18 13:19 O2 Sat by Pulse Oximetry 100 06/24/18 13:19 Temperature 98.0 F 06/24/18 13:19 Pulse Rate 135 06/24/18 17:00 Respiratory Rate 20 06/24/18 17:00 Blood Pressure 92/69 06/24/18 17:00 O2 Sat by Pulse Oximetry 100 06/24/18 17:00 Oxygen Delivery Oxygen Delivery Room Air Medical Decision Making - [facility] Narrative Medical decision making narrative: Chest X-Ray 06/24/18 13:10 IMPRESSION: Findings suggest congestive heart failure D/ / Abraham Ribera MD / Abraham Ribera MD Interpreting Provider: Abraham Ribera MD 1440 hrs.: Patient's chest x-ray does show congestive heart failure as we suspected. His BMP is really not that high. His rest of his labs look chronic. We will talk with him about coming into the hospital. He is in agreement with this plan. Impression is anemia, probable GI bleed with CHF. - Lab Data Lab results reviewed: Yes I reviewed the patient's lab results. Result diagrams: 06/24/18 13:51 06/24/18 13:51 Lab Results 06/24/18 06/24/18 06/24/18 Range/Units 13:41 13:51 13:51 WBC 4.7 (4.3-11.1) K/mcL RBC 2.82 L (4.19-5.50) M/mcL Hgb 8.0 L (12.9-16.9) g/dL Hct 25.3 L (37.5-50.1) % MCV 89.7 (83.0-100.0) fL MCH 28.4 (28.0-33.3) pg MCHC 31.6 (31.6-35.5) g/dL RDW 18.6 H (11.5-14.5) % Plt Count 265 (140-400) K/mcL MPV 10.1 (9.4-12.4) fL Immature Gran % 0.4 (0-4) % Seg Neutrophils % 75.9 % Lymphocytes % 10.5 % Monocytes % 10.5 % Eosinophils % 2.1 % Basophils % 0.6 % Neutrophils # 3.5 (1.6-8.9) K/mcL Lymphocytes # 0.5 L (0.6-4.6) K/mcL Monocytes # 0.5 (0.0-1.3) K/mcL Eosinophils # 0.1 (0.0-0.6) K/mcL Basophils # 0.0 (0.0-0.2) K/mcL PT 32.7 H (9.4-12.1) Seconds INR 2.9 Sodium (136-145) mEq/L Potassium (3.5-5.1) mEq/L Chloride (98-107) mEq/L Carbon Dioxide (23-29) mEq/L BUN (8-23) mg/dL Creatinine (0.70-1.30) mg/dL Est GFR ( Amer) (> 60) Est GFR (Non-Af Amer) (> 60) BUN/Creatinine Ratio (6-26) Glucose (70-105) mg/dL Calculated Osmolality (280-300) Calcium (8.6-10.3) mg/dL Total Bilirubin (0.3-1.0) mg/dL AST (13-39) Units/L ALT (7-52) Units/L Alkaline Phosphatase (34-104) Units/L Troponin I (< 0.04) ng/mL B-Natriuretic Peptide (Less than 100) pg/mL Serum Total Protein (6.4-8.9) g/dL Albumin (3.5-5.7) g/dL Globulin (2.4-3.5) g/dL Albumin/Globulin Ratio (1.1-2.2) Stool Occult Bld Scrn Positive A (Negative) Blood Type Antibody Screen 06/24/18 06/24/18 06/24/18 Range/Units 13:51 13:51 13:51 WBC (4.3-11.1) K/mcL RBC (4.19-5.50) M/mcL Hgb (12.9-16.9) g/dL Hct (37.5-50.1) % MCV (83.0-100.0) fL MCH (28.0-33.3) pg MCHC (31.6-35.5) g/dL RDW (11.5-14.5) % Plt Count (140-400) K/mcL MPV (9.4-12.4) fL Immature Gran % (0-4) % Seg Neutrophils % % Lymphocytes % % Monocytes % % Eosinophils % % Basophils % % Neutrophils # (1.6-8.9) K/mcL Lymphocytes # (0.6-4.6) K/mcL Monocytes # (0.0-1.3) K/mcL Eosinophils # (0.0-0.6) K/mcL Basophils # (0.0-0.2) K/mcL PT (9.4-12.1) Seconds INR Sodium 137 (136-145) mEq/L Potassium 4.1 (3.5-5.1) mEq/L Chloride 96 L (98-107) mEq/L Carbon Dioxide 31 H (23-29) mEq/L BUN 31 H (8-23) mg/dL Creatinine 0.97 (0.70-1.30) mg/dL Est GFR ( Amer) > 60 (> 60) Est GFR (Non-Af Amer) > 60 (> 60) BUN/Creatinine Ratio 32 H (6-26) Glucose 114 H (70-105) mg/dL Calculated Osmolality 291 (280-300) Calcium 9.1 (8.6-10.3) mg/dL Total Bilirubin 0.5 (0.3-1.0) mg/dL AST 13 (13-39) Units/L ALT 10 (7-52) Units/L Alkaline Phosphatase 68 (34-104) Units/L Troponin I < 0.03 (< 0.04) ng/mL B-Natriuretic Peptide 425 H (Less than 100) pg/mL Serum Total Protein 7.0 (6.4-8.9) g/dL Albumin 3.8 (3.5-5.7) g/dL Globulin 3.2 (2.4-3.5) g/dL Albumin/Globulin Ratio 1.2 (1.1-2.2) Stool Occult Bld Scrn (Negative) Blood Type A POSITIVE Antibody Screen NEGATIVE - Radiology Data Radiology results reviewed: Yes I reviewed the patient's radiology results. Chest X-Ray 06/24/18 13:10 IMPRESSION: Findings suggest congestive heart failure D/ / Abraham Ribera MD / Abraham Ribera MD Interpreting Provider: Abraham Ribera MD - EKG Data EKG #1 EKG attestation: Yes I reviewed and interpreted this EKG. EKG results narrative: Patient EKG shows a sinus tachycardia with normal axis. There is noted right bundle branch block and left posterior fascicular block. Heart rate is 136 bpm, AR interval 44 ms, QS duration 166 ms, QT/QTc interval 375/565 ms respectively. There are no significant ST segment elevations or depressions, pathologic Q waves, there are abnormally inverted T waves noted in V3 isolated to that lead. There are no signs of acute ischemic change. This EKG performed today to for significantly from the ventricularly paced rhythm and prior EKG of 11/02/2016. Attestation Statement - Attestation Attestation: This documentation is done with the assistance of Dragon dictation. Despite efforts made to ensure accuracy, there may be inaccuracies in hospital scientist or spelling and typographical errors. I examined this patient and my medical decision-making was reviewed with the Resident Physician. I agree with the documented findings, disposition and treatment plan as described except to the extent set forth below. Patient seen and evaluated on arrival with Dr. Madera and myself, I agree with his evaluation and management plan, I supervised the care the patient's stay. Patient presents with increased weight gain swelling in the feet going up to the groin. Dyspnea, no chest pain, dark-colored stools. He has had a blood work done as an outpatient says hemoglobin was down in the 70s. Has not been hospitalized in over a year. We will do a CHF workup and a GI bleed workup and he will need admission. He is in agreement with plan.
[2018-06-24 14:10] LABS: Basophils % 0.6 %; Eosinophils # 0.1 K/mcL (0.0-0.6); Eosinophils % 2.1 %; Hematocrit 25.3 % (37.5-50.1); Immature Granulocytes % 0.4 % (0-4); Lymphocytes # 0.5 K/mcL (0.6-4.6); Lymphocytes % 10.5 %; Mean Corpuscular HGB Conc 31.6 g/dL (31.6-35.5); Mean Corpuscular Hemoglobin 28.4 pg (28.0-33.3); Mean Corpuscular Volume 89.7 fL (83.0-100.0); Mean Platelet Volume 10.1 fL (9.4-12.4); Monocytes # 0.5 K/mcL (0.0-1.3); Monocytes % 10.5 %; Neutrophils # 3.5 K/mcL (1.6-8.9); Platelet Count 265 K/mcL (140-400); Red Blood Count 2.82 M/mcL (4.19-5.50); Red Cell Distribution Width 18.6 % (11.5-14.5); Segmented Neutrophils % 75.9 %
[2018-06-24 14:12] LABS: INR 2.9; Prothrombin Time 32.7 Seconds (9.4-12.1)
[2018-06-24 14:26] LABS: Alanine Aminotransferase 10 Units/L (7-52); Albumin 3.8 g/dL (3.5-5.7); Albumin/Globulin Ratio 1.2 (1.1-2.2); Alkaline Phosphatase 68 Units/L (34-104); Aspartate Amino Transferase 13 Units/L (13-39); BUN/Creatinine Ratio 32 (6-26); Bilirubin,Total 0.5 mg/dL (0.3-1.0); Blood Urea Nitrogen 31 mg/dL (8-23); Calcium 9.1 mg/dL (8.6-10.3); Carbon Dioxide 31 mEq/L (23-29); Chloride 96 mEq/L (98-107); Globulin 3.2 g/dL (2.4-3.5); Glucose 114 mg/dL (70-105); Osmolality,Calculated 291 (280-300); Potassium 4.1 mEq/L (3.5-5.1); Sodium 137 mEq/L (136-145); Troponin I < 0.03 ng/mL (< 0.04); eGFR For Non-African Americans > 60 (> 60)
--- NOTE | 2018-06-24 16:08 | Emergency Department Note ---
Disposition Clinical Impression: Acute exacerbation of CHF (congestive heart failure) Qualifiers: Heart failure type: unspecified Qualified Code(s): I50.9 - Heart failure, unspecified GI bleed Qualifiers: GI bleed type/associated pathology: melena Qualified Code(s): K92.1 - Melena Disposition: Admitted As Inpatient Condition: Fair Referrals: NONE,PCP [Non-Partnered Physician] - Forms: ED Satisfaction Letter General Adult HPI - General Chief complaint: ED Shortness of Breath/Dyspnea Stated complaint: ELAINE Time Seen by Provider: 06/24/18 13:11 Source: EMS Limitations: no limitations Nursing Notes Reviewed: Yes Vital Signs Reviewed: Yes - History of Present Illness HPI Narrative: Patient is a 73-year-old male presenting to [facility] ED for one month history of gradually worsening edema. Patient states he has a positive history of CHF, COPD, myocardial infarction, with previous CABG surgery. Patient states that 1 month ago he noticed swelling in his lower extremity which has gradually progressed throughout his lower extremity, scrotum, and abdomen. Patient notes significant difficulty with breathing and states that he takes 240 mg of Lasix per day for the management of his symptoms. Patient is also on Coumadin. Location: lower extremity Pain Severity: moderate Pain Scale: 5 - Related Data Home Medications Medication Instructions Recorded Confirmed RX: Clopidogrel [Plavix] 75 mg PO DAILY 08/28/15 06/24/18 RX: Levothyroxine Sodium [Tirosint] 50 mcg PO HS 08/28/15 06/24/18 RX: Lisinopril 2.5 mg PO DAILY 08/28/15 06/24/18 RX: Multivitamin [Multivitamins] 1 each PO DAILY 08/28/15 06/24/18 RX: Omeprazole [PriLOSEC] 20 mg PO BID 08/28/15 06/24/18 RX: Simvastatin [Zocor] 20 mg PO DAILY 08/28/15 06/24/18 RX: Tamsulosin [Flomax] 0.4 mg PO DAILY 08/28/15 06/24/18 RX: Albuterol Sulfate [Albuterol 2 puff IH Q4-6H PRN 04/25/16 06/24/18 Inhaler] RX: Cholecalciferol (D-3) [Vitamin 2,000 unit PO DAILY 04/25/16 06/24/18 D] RX: Furosemide [Lasix] 60 mg PO BID 04/25/16 06/24/18 RX: Ipratropium/Albuterol Neb 3 ml IH Q6HR 08/16/16 06/24/18 [Duoneb] RX: Metformin HCl [Glucophage] 1,000 mg PO BID 08/16/16 06/24/18 RX: Oxygen 3 l NS CONT 01/02/17 06/24/18 Docusate Sodium [Stool Softener] 100 mg PO BID 05/16/17 06/24/18 Ferrous Gluconate [Iron] 236 mg PO BID 05/16/17 06/24/18 Potassium Chloride [K-Tab ER] 20 meq PO BID 05/16/17 06/24/18 Guaifenesin [Mucinex] 1,200 mg PO BID 05/22/17 06/24/18 Budesonide/Formoterol 160/4.5 2 puff IH BIDR 02/20/18 06/24/18 [Symbicort 160/4.5] Metoprolol [Lopressor] 25 mg PO BID 02/20/18 06/24/18 Warfarin [Coumadin] 2.5 mg PO SUMOTUWEFRSA 02/20/18 06/24/18 RX: Tiotropium [place] [Spiriva 2 puff IH DAILY 06/24/18 06/24/18 Respimat] Warfarin [Coumadin] 1.25 mg PO TH 06/24/18 06/24/18 Previous Rx's Medication Instructions Recorded RX: Cyanocobalamin (B-12) [Vitamin 1 tab PO DAILY #30 tablet 06/18/16 B12] Allergies Allergy/AdvReac Type Severity Reaction Status Date / Time roflumilast [From [facility]] AdvReac Mild Diarrhea Verified 06/24/18 13:24 All systems ED: reviewed and negative except as stated. Review of Systems: As Per HPI Constitutional: Reports: fever, chills Eyes: Reports: vision change ENT ED: Reports: dysphagia. Denies: throat pain Cardiovascular: Denies: chest pain Respiratory: Reports: dyspnea Gastrointestinal: Reports: abdominal pain, diarrhea, melena, hematochezia. Denies: nausea, vomiting Genitourinary: Denies: hematuria Musculoskeletal: Reports: back pain, neck pain Neurological: Reports: headache, weakness, numbness, paresthesias Endocrine: Reports: fatigue Past Medical History - Past Medical History Medical history: Reports: aortic aneurysm, arthritis, cardiomyopathy, CHF, COPD, coronary artery disease, diabetes, GERD, hyperlipidemia, hypertension, myocardial infarction, thyroid disease, valvular heart disease, other Surgical history: Reports: coronary bypass (CABG), heart valve replacement (Aort ic tissue valve), vascular surgery (Endovascular AAA repair), AICD Psychiatric history: Reports: no psych history - Social History Smoking Status: Former smoker Smokeless Tobacco Status: No Alcohol use: Reports: none Drug use: Reports: none Physical Exam - General Limitations: no limitations General appearance: alert, in no apparent distress - Head Head exam: atraumatic, normocephalic, normal inspection - Eye Eye exam: Present: normal appearance, PERRL, EOMI. Absent: scleral icterus, co njunctival injection - Neck Neck exam: Present: trachea midline - Chest Chest inspection: Present: normal inspection - Respiratory Respiratory exam: Present: normal lung sounds bilaterally. Absent: respiratory distress, accessory muscle use, prolonged expiratory phase - Cardiovascular Cardiovascular exam: Present: normal rhythm, tachycardia, systolic murmur, diastolic murmur, +S1, +S2. Absent: JVD - Abdominal Exam Abdominal exam: Present: tenderness, distention, normal bowel sounds. Absent: guarding, rebound, rigidity - Neurological Exam Neurological exam: Present: alert, oriented X3 - Psychiatric Psychiatric exam: Present: normal affect, normal mood - Skin Skin exam: Present: warm, dry. Absent: cyanosis, diaphoresis Course Course Narrative: Patient history, review systems, physical exam is concerning for cardiopulmonary process. CBC, CMP, BNP, troponin, chest x-ray, EKG/old EKG coagulation studies Hemoccult stool sample will be performed to assess for underlying etiology. -Type and screen will be performed for potential of blood products Vital Signs Temperature 98.0 F 06/24/18 13:19 Pulse Rate 135 06/24/18 13:19 Respiratory Rate 20 06/24/18 13:19 Blood Pressure 115/79 06/24/18 13:19 O2 Sat by Pulse Oximetry 100 06/24/18 13:19 Temperature 98.0 F 06/24/18 13:19 Pulse Rate 135 06/24/18 17:00 Respiratory Rate 20 06/24/18 17:00 Blood Pressure 92/69 06/24/18 17:00 O2 Sat by Pulse Oximetry 100 06/24/18 17:00 Oxygen Delivery Oxygen Delivery Room Air Medical Decision Making - MDM Narrative Medical decision making narrative: Patient imaging results and clinical presentation are consistent with congestive heart failure exacerbation with chronic anemia. Patient to be admitted to the hospital for further evaluation and treatment. Admission plan was discussed with patient and patient agrees with this plan. Hospitalist accepted admission. - Lab Data Lab results reviewed: Yes I reviewed the patient's lab results. Result diagrams: 06/24/18 13:51 06/24/18 13:51 Lab Results 06/24/18 06/24/18 06/24/18 Range/Units 13:41 13:51 13:51 WBC 4.7 (4.3-11.1) K/mcL RBC 2.82 L (4.19-5.50) M/mcL Hgb 8.0 L (12.9-16.9) g/dL Hct 25.3 L (37.5-50.1) % MCV 89.7 (83.0-100.0) fL MCH 28.4 (28.0-33.3) pg MCHC 31.6 (31.6-35.5) g/dL RDW 18.6 H (11.5-14.5) % Plt Count 265 (140-400) K/mcL MPV 10.1 (9.4-12.4) fL Immature Gran % 0.4 (0-4) % Seg Neutrophils % 75.9 % Lymphocytes % 10.5 % Monocytes % 10.5 % Eosinophils % 2.1 % Basophils % 0.6 % Neutrophils # 3.5 (1.6-8.9) K/mcL Lymphocytes # 0.5 L (0.6-4.6) K/mcL Monocytes # 0.5 (0.0-1.3) K/mcL Eosinophils # 0.1 (0.0-0.6) K/mcL Basophils # 0.0 (0.0-0.2) K/mcL PT 32.7 H (9.4-12.1) Seconds INR 2.9 Sodium (136-145) mEq/L Potassium (3.5-5.1) mEq/L Chloride (98-107) mEq/L Carbon Dioxide (23-29) mEq/L BUN (8-23) mg/dL Creatinine (0.70-1.30) mg/dL Est GFR ( Amer) (> 60) Est GFR (Non-Af Amer) (> 60) BUN/Creatinine Ratio (6-26) Glucose (70-105) mg/dL Calculated Osmolality (280-300) Calcium (8.6-10.3) mg/dL Total Bilirubin (0.3-1.0) mg/dL AST (13-39) Units/L ALT (7-52) Units/L Alkaline Phosphatase (34-104) Units/L Troponin I (< 0.04) ng/mL B-Natriuretic Peptide (Less than 100) pg/mL Serum Total Protein (6.4-8.9) g/dL Albumin (3.5-5.7) g/dL Globulin (2.4-3.5) g/dL Albumin/Globulin Ratio (1.1-2.2) Stool Occult Bld Scrn Positive A (Negative) Blood Type Antibody Screen 06/24/18 06/24/18 06/24/18 Range/Units 13:51 13:51 13:51 WBC (4.3-11.1) K/mcL RBC (4.19-5.50) M/mcL Hgb (12.9-16.9) g/dL Hct (37.5-50.1) % MCV (83.0-100.0) fL MCH (28.0-33.3) pg MCHC (31.6-35.5) g/dL RDW (11.5-14.5) % Plt Count (140-400) K/mcL MPV (9.4-12.4) fL Immature Gran % (0-4) % Seg Neutrophils % % Lymphocytes % % Monocytes % % Eosinophils % % Basophils % % Neutrophils # (1.6-8.9) K/mcL Lymphocytes # (0.6-4.6) K/mcL Monocytes # (0.0-1.3) K/mcL Eosinophils # (0.0-0.6) K/mcL Basophils # (0.0-0.2) K/mcL PT (9.4-12.1) Seconds INR Sodium 137 (136-145) mEq/L Potassium 4.1 (3.5-5.1) mEq/L Chloride 96 L (98-107) mEq/L Carbon Dioxide 31 H (23-29) mEq/L BUN 31 H (8-23) mg/dL Creatinine 0.97 (0.70-1.30) mg/dL Est GFR ( Amer) > 60 (> 60) Est GFR (Non-Af Amer) > 60 (> 60) BUN/Creatinine Ratio 32 H (6-26) Glucose 114 H (70-105) mg/dL Calculated Osmolality 291 (280-300) Calcium 9.1 (8.6-10.3) mg/dL Total Bilirubin 0.5 (0.3-1.0) mg/dL AST 13 (13-39) Units/L ALT 10 (7-52) Units/L Alkaline Phosphatase 68 (34-104) Units/L Troponin I < 0.03 (< 0.04) ng/mL B-Natriuretic Peptide 425 H (Less than 100) pg/mL Serum Total Protein 7.0 (6.4-8.9) g/dL Albumin 3.8 (3.5-5.7) g/dL Globulin 3.2 (2.4-3.5) g/dL Albumin/Globulin Ratio 1.2 (1.1-2.2) Stool Occult Bld Scrn (Negative) Blood Type A POSITIVE Antibody Screen NEGATIVE - Radiology Data Radiology results reviewed: Yes I reviewed the patient's radiology results. Chest X-Ray 06/24/18 13:10 IMPRESSION: Findings suggest congestive heart failure D/ / Abraham Ribera MD / Abraham Ribera MD Interpreting Provider: Abraham Ribera MD
[2018-06-24] MEDS ORDERED: *HR* HYDROcodone/Acet 7.5/325 mg TABLET PO ONE (16:29)
[2018-06-24] MEDS ORDERED: Naloxone 0.4 MG/ML INJ IVP PRN (17:42)
--- NOTE | 2018-06-24 17:43 | Internal Med History&Physical ---
Date of Encounter: 06/24/18 Time of Encounter: 17:41 Internal Medicine - H&P: HPI Chief complaint: shortness of breath Admitted From: Home Plans for Post Hospital Care: Transfer Snf Facility History of present illness: Mr. Last is a 73 year old male with past medical history of chronic systolic and diastolic CHF, COPD, CAD status post CABG, HTN, HLD, hypothyroidism, aortic valve replacement, aortic aneurysm status post surgery, A. fib came in with complain of shortness of breath. Patient reportedly had A. fib ablation plan for tomorrow and had INR checkup yesterday which was elevated to 4.5. Patient has been having difficulty breathing for past few weeks and his Lasix dose was increased to 120 twice a day about 3 weeks ago by his lawyer probate. He was asked to come to ER given failure of resolution of his symptoms. He was told to have A. fib ablation tomorrow for which he had INR checked which was elevated to 4.5. He denies any omega blood in his stool however does complain of diarrhea for about 1 week which is dark in color. Patient is taking iron pills. Denies any recent antibiotic use. Denies any previous history of GI bleed. Had colonoscopy in August 2016 which showed internal hemorrhoids and had polypectomy. He has not had any upper endoscopy. Denies taking any over-the-c ounter NSAIDs but takes acetaminophen twice daily for past month or so for back pain. He has history of iron deficiency anemia for which he was seen by oncology and was receiving IV iron as well as iron supplementation. On occasion patient does have epistaxis last episode about a week ago. He has noted increased swelling of his legs, difficulty lying flat and shortness of breath, significant weight gain for past 2-3 weeks. He mentioned his heart rate being elevated for many weeks for which he says the A. fib ablation was planned. He denies any fevers but complains of some chills. He uses home oxygen about 2-3 L on a chronic basis. In ER patient had workup including chest x-ray which showed bilateral congestion as well as pleural effusion bilaterally. Patient's EKG was noted to be sinus tachycardia with right bundle branch block and left posterior fascicular block with heart rate of 136. No ST changes were noted. Patient received 1 tablet of [place] for pain management. Hospitalist service was asked to admit for CHF exacerbation and GI bleed. On interview patient without any chest pain. Able to converse. Complaints of significant discomfort in both feet. Complaints of shortness of breath with minimal exertion. Above and should not history corroborated. Denies any he adache. Complains of on and off palpitations. Denies any syncopal episode. Denies any urinary complaints. On and off diarrhea. Complains of back pain which is chronic. Complaints of fluid oozing from his leg along with ulcers and pain. Past Med Surg Social Fam HX - Past Medical History Attestation: Yes The following information was validated with the patient. Source: patient, old records reviewed Medical history: aortic aneurysm, arthritis, cardiomyopathy, CHF, COPD, coronary artery disease, diabetes, GERD, hyperlipidemia, hypertension, myocardial infarction, thyroid disease, valvular heart disease, other Additional medical history: CAD. DM. Mixed hyperlipidemia. Microcytic anemia from iron deficiency. ICD. Cardiomyopathy. Essential htn Psychiatric history: no psych history - Past Surgical History Surgical History: coronary bypass (CABG), heart valve replacement (Aortic tissue valve), vascular surgery (Endovascular AAA repair), AICD Additional surgical history: ICD. AVR. RECTAL ABCESS - Social History Smoking Status: Former smoker Smokeless Tobacco Status: No Alcohol use: none Drug use: none - Family History Mother Adopted: No Family Member Ethnicity: Non- Living Status: Hx Family Cardiac Disorders: Yes Hx Family Respiratory Disorders: Yes Hx Family Cancer: No Hx Family GI Disorders: No Hx Family Endocrine Disorder: Yes Hx Family Neuromuscular Disorders: No Hx Family Neurologic Disorders: No Hx Family HEENT Disorders: No Hx Family Autoimmune Disorders: No Father Adopted: No Family Member Ethnicity: Non- Living Status: Hx Family Cardiac Disorders: Yes Hx Family Respiratory Disorders: Yes Hx Family Cancer: No Hx Family GI Disorders: No Hx Family Endocrine Disorder: Yes Hx Family Neuromuscular Disorders: No Hx Family Neurologic Disorders: No Hx Family HEENT Disorders: No Hx Family Autoimmune Disorders: No Internal Medicine - H&P: Meds Clopidogrel [Plavix] 75 mg PO DAILY 08/28/15 [History] Levothyroxine Sodium [Tirosint] 50 mcg PO HS 08/28/15 [History] Lisinopril 2.5 mg PO DAILY 08/28/15 [History] Multivitamin [Multivitamins] 1 each PO DAILY 08/28/15 [History] Omeprazole [PriLOSEC] 20 mg PO BID 08/28/15 [History] Simvastatin [Zocor] 20 mg PO DAILY 08/28/15 [History] Tamsulosin [Flomax] 0.4 mg PO DAILY 08/28/15 [History] Albuterol Sulfate [Albuterol Inhaler] 2 puff IH Q4-6H PRN 04/25/16 [History] Cholecalciferol (D-3) [Vitamin D] 2,000 unit PO DAILY 04/25/16 [History] Furosemide [Lasix] 60 mg PO BID 04/25/16 [History] Cyanocobalamin (B-12) [Vitamin B12] 1 tab PO DAILY #30 tablet 06/18/16 [Rx] Ipratropium/Albuterol Neb [Duoneb] 3 ml IH Q6HR 08/16/16 [History] Metformin HCl [Glucophage] 1,000 mg PO BID 08/16/16 [History] Oxygen 3 l NS CONT 01/02/17 [History] Docusate Sodium [Stool Softener] 100 mg PO BID 05/16/17 [History] Ferrous Gluconate [Iron] 236 mg PO BID 05/16/17 [History] Potassium Chloride [K-Tab ER] 20 meq PO BID 05/16/17 [History] Guaifenesin [Mucinex] 1,200 mg PO BID 05/22/17 [History] Budesonide/Formoterol 160/4.5 [Symbicort 160/4.5] 2 puff IH BIDR 02/20/18 [History] Metoprolol [Lopressor] 25 mg PO BID 02/20/18 [History] Warfarin [Coumadin] 2.5 mg PO SUMOTUWEFRSA 02/20/18 [History] Tiotropium [place] [Spiriva Respimat] 2 puff IH DAILY 06/24/18 [History] Warfarin [Coumadin] 1.25 mg PO TH 06/24/18 [History] Allergy/AdvReac Type Severity Reaction Status Date / Time roflumilast [From [facility]] AdvReac Mild Diarrhea Verified 06/24/18 13:24 All Systems PM: A 10-system review of systems was performed and is negative for pertinent findings except as documented above in the HPI. - Constitutional Vitals: Temp Pulse Resp BP Pulse Ox 98.0 F 135 20 92/69 100 06/24/18 13:19 06/24/18 17:00 06/24/18 17:00 06/24/18 17:00 06/24/18 17:00 Exam: Constitutional: Vitals as noted. Conversant. In mild respiratory distress. Eyes : Sclera white, conjunctiva clear, no lid lag, PE[place]. ENT : Grossly normal hearing. Oropharyngeal exam unremarkable. Moist mucus membranes. Respiratory : Decreased air entry bilaterally at bases with crackles at bases. No accessory muscle use, rhonchi or wheezes Cardiovascular : Tachycardic, +S1, +S2. no murmur, gallop, rubs. No chest wall tenderness GI/Abdominal : Soft, Obsese Non-tender, Non-distended, edematous no peritoneal signs. no orgenomegaly or mass appreciated. no hernia. Has scrotal swelling as well. Musculoskeletal: 2+ edema till thigh. Redness painful swelling on both legs. Bullous lesion noted on Rt foot and left leg. Ulcers note on Rt leg which is weeping clear fluid. Neurological: AO X3, CN II-XII grossly intact, grossly normal motor and sensory exam. Skin: redness and edema noted along with ulcer in both lower extremity. Rt>Lt. Pych: Good insight and judgement. Intact memory. AOx3. Internal Med - H&P Results - Labs CBC & Chem 7: 06/24/18 13:51 06/24/18 13:51 Labs: Short CBC 06/24/18 Range/Units 13:51 WBC 4.7 (4.3-11.1) K/mcL Hgb 8.0 L (12.9-16.9) g/dL Hct 25.3 L (37.5-50.1) % Plt Count 265 (140-400) K/mcL Neutrophils # 3.5 (1.6-8.9) K/mcL BMP 06/24/18 13:51 Sodium 137 Potassium 4.1 Chloride 96 L Carbon Dioxide 31 H BUN 31 H Creatinine 0.97 Glucose 114 H Calcium 9.1 Cardiac Enzymes 06/24/18 Range/Units 13:51 Troponin I < 0.03 (< 0.04) ng/mL Liver Function 06/24/18 Range/Units 13:51 Total Bilirubin 0.5 (0.3-1.0) mg/dL AST 13 (13-39) Units/L ALT 10 (7-52) Units/L Alkaline Phosphatase 68 (34-104) Units/L Albumin 3.8 (3.5-5.7) g/dL - Impressions ITS Impressions Chest X-Ray 06/24/18 13:10 IMPRESSION: Findings suggest congestive heart failure D/ / Abraham Ribera MD / Abraham Ribera MD Interpreting Provider: Abraham Ribera MD - Assessment and plan (1) Acute on chronic clinical systolic heart failure Current Visit: No Status: Acute Assessment and plan: - Patient's with signs and symptoms of acute CHF exacerbation. - Last echocardiogram performed in December 2016 with EF of 35-40%, mildly dilated left ventricle, moderate global left ventricular systolic dysfunction, intermediate diastolic dysfunction, severe pulmonary hypertension. - Chest x-ray with bilateral congestion and pleural effusion along with significant lower extremity swelling - Patient compliant with his medication - We will start patient on IV diuresis equivalent to his home dose - Daily weights and strict I's and O's - Likely related to tachycardia. EKG noted to have sinus tachycardia however could not located. We will obtain another EKG to evaluate whether patient has A. fib with RVR. - Start patient on home beta blockers. 1 dose of IV metoprolol. - If sinus tachycardia it could be possibly related to cellulitis lower extremity. Started on IV antibiotics - We will obtain a follow-up echocardiogram as last obtained in 2016 - We will consult cardiology (2) GI bleed Current Visit: Yes Status: Acute Assessment and plan: - Patient's baseline hemoglobin around 10. Currently 8 - Had positive stool occult blood in ER. - Had elevated INR of 4.5 on 06/23. 2.9 today. Elevated urine of 31. No omega blood in stool. - Had colonoscopy last year which showed hemorrhoids. - We will monitor H&H. - We will keep patient on clear liquid diet. Nothing by mouth after midnight. - We will consult gastroenterology tomorrow Qualifiers: GI bleed type/associated pathology: melena Qualified Code(s): K92.1 - Melena (3) Acute respiratory failure Current Visit: No Status: Acute Assessment and plan: - Currently saturating 100% on 2 L - We will keep patient on BiPAP as needed given his CHF - Continue duo nebs and home inhalers Qualifiers: Respiratory failure complication: hypoxia Qualified Code(s): J96.01 - Acute respiratory failure with hypoxia (4) Anemia Current Visit: No Status: Acute Assessment and plan: - History of iron deficiency anemia - Possibly worsened with GI bleed - We will monitor hemoglobin for now - We will consider transfusion if further drop in hemoglobin. Qualifiers: Anemia type: unspecified type Qualified Code(s): D64.9 - Anemia, unspecified (5) CAD (coronary artery disease) Current Visit: No Status: Acute Assessment and plan: - Continue home beta castillo and statin - Hold antiplatelets given GI bleed Qualifiers: Coronary Disease-Associated Artery/Lesion type: bypass graft [place] vs. 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 Continue home beta castillo to prevent withdrawal - Monitor blood pressure for now Qualifiers: Hypertension type: essential hypertension Qualified Code(s): I10 - Essential (primary) hypertension (8) Cellulitis Current Visit: Yes Status: Acute Assessment and plan: - Patient has bilateral lower extremity with redness swelling and bruising along with ulcers - Associated with pain in both legs. - We will start patient on cefazolin - We will consult wound care Qualifiers: Qualified Code(s): L03.90 - Cellulitis, unspecified (9) Afib Current Visit: Yes Status: Acute Assessment and plan: - Patient has history of A. fib - Currently tachycardic. EKG in ER read to have sinus tachycardia. Could not find EKG. We will order another EKG - Continue keep patient on telemetry - We will do 1 dose of metoprolol and continue home dose. - We will hold home anticoagulation given possibility of GI bleed Qualifiers: Qualified Code(s): I48.91 - Unspecified atrial fibrillation - Time Spent With Patient Total time spent is greater than 50% in coordination of care (as documented) at patient's floor/unit and/or counseling patient:
[2018-06-24] MEDS ORDERED: *HR* Metoprolol 5 MG/5 ML VIAL IVP ONE (17:45)
[2018-06-24] MEDS ORDERED: *HR* Metoprolol 5 MG/5 ML VIAL IVP SCH (18:00)
[2018-06-24] MEDS ORDERED: *HR* Metoprolol 5 MG/5 ML VIAL IVP PRN (18:14)
[2018-06-24] MEDS: Budesonide/Formoterol 160/4.5 1 PUFF INH IH SCH (21:17)
[2018-06-24] MEDS: Ipratropium/Albuterol Neb 3 ML IH SCH (21:17)
[2018-06-24 21:34] LABS: Basophils % 0.3 %; Eosinophils # 0.1 K/mcL (0.0-0.6); Eosinophils % 2.1 %; Hematocrit 24.1 % (37.5-50.1); Hemoglobin 7.7 g/dL (12.9-16.9); Immature Granulocytes % 0.3 % (0-4); Lymphocytes # 0.5 K/mcL (0.6-4.6); Lymphocytes % 8.5 %; Mean Corpuscular Hemoglobin 28.6 pg (28.0-33.3); Mean Corpuscular Volume 89.6 fL (83.0-100.0); Mean Platelet Volume 9.9 fL (9.4-12.4); Monocytes # 0.5 K/mcL (0.0-1.3); Monocytes % 8.5 %; Neutrophils # 4.6 K/mcL (1.6-8.9); Platelet Count 260 K/mcL (140-400); Red Blood Count 2.69 M/mcL (4.19-5.50); Red Cell Distribution Width 18.9 % (11.5-14.5); Segmented Neutrophils % 80.3 %
[2018-06-24] MEDS: Furosemide 40 MG/4 ML VIAL IVP SCH (22:05)
[2018-06-25] MEDS: ceFAZolin 1,000 MG in Water for inj. (sterile) 20 ML 10 ML IVP SCH ×4 (00:49→22:58)
[2018-06-25] MEDS: Ipratropium/Albuterol Neb 3 ML IH SCH ×4 (03:54→21:24)
[2018-06-25] MEDS: Furosemide 40 MG/4 ML VIAL IVP SCH ×4 (06:43→22:58)
[2018-06-25 07:46] LABS: Basophils % 0.5 %; Eosinophils # 0.1 K/mcL (0.0-0.6); Hematocrit 26.2 % (37.5-50.1); Hemoglobin 8.1 g/dL (12.9-16.9); Immature Granulocytes % 0.2 % (0-4); Lymphocytes # 0.5 K/mcL (0.6-4.6); Mean Corpuscular HGB Conc 30.9 g/dL (31.6-35.5); Mean Corpuscular Hemoglobin 28.2 pg (28.0-33.3); Mean Corpuscular Volume 91.3 fL (83.0-100.0); Mean Platelet Volume 10.5 fL (9.4-12.4); Monocytes # 0.5 K/mcL (0.0-1.3); Monocytes % 11.4 %; Neutrophils # 3.2 K/mcL (1.6-8.9); Platelet Count 279 K/mcL (140-400); Red Blood Count 2.87 M/mcL (4.19-5.50); Red Cell Distribution Width 18.8 % (11.5-14.5); Segmented Neutrophils % 73.9 %
[2018-06-25] MEDS ORDERED: Perflutren Lipid Microsphere 1.3 ML in 0.9 % Sodium Chloride 8.7 ML IVP ONE (07:53)
[2018-06-25 07:54] LABS: Prothrombin Time 22.9 Seconds (9.4-12.1)
[2018-06-25] MEDS ORDERED: Perflutren Lipid Microsphere 2 ML VIAL ONE (07:55)
[2018-06-25 08:03] LABS: BUN/Creatinine Ratio 31 (6-26); Blood Urea Nitrogen 28 mg/dL (8-23); Calcium 9.5 mg/dL (8.6-10.3); Carbon Dioxide 33 mEq/L (23-29); Chloride 97 mEq/L (98-107); Glucose 95 mg/dL (70-105); Osmolality,Calculated 291 (280-300); Potassium 3.6 mEq/L (3.5-5.1); Sodium 138 mEq/L (136-145); eGFR For Non-African Americans > 60 (> 60)
[2018-06-25] MEDS: Insulin LISPRO 300 UNITS/3 ML VIAL SQ SCH ×3 (08:46→16:30)
[2018-06-25] MEDS ORDERED: NON-FORMULARY MEDICATION 1 EACH EACH (Lisinopril [Lisinopril] 2.5 MG) PO SCH (09:00)
[2018-06-25] MEDS ORDERED: Tiotropium 18 MCG inhalation IH SCH (09:00)
[2018-06-25] MEDS: Budesonide/Formoterol 160/4.5 1 PUFF INH IH SCH (09:22)
--- NOTE | 2018-06-25 10:28 | Electrocardiograph Report ---
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
--- NOTE | 2018-06-25 10:32 | Cardiology Consult Note ---
<Sarthak Hrakins T - Last Filed: 06/25/18 13:30> Date of Encounter: 06/25/18 Time of Encounter: 10:24 Assessment and Plan (1) Acute on chronic systolic (congestive) heart failure Current Visit: No Status: Acute 73 YO CHF M consulted for CHF, afib, and SOB - For heart rate rec d/c beta agonsits for heart rate. D/C albuterol and formoterol - 75 QD toprolol - Continue lasix - add JUNA-I if BP allows - not on anticoagulation due to GI-bleeid if GI clears can restart anticoag (2) Anemia Current Visit: No Status: Acute per primary's recs Qualifiers: Anemia type: iron deficiency Iron deficiency anemia type: chronic blood loss Qualified Code(s): D50.0 - Iron deficiency anemia secondary to blood loss (chronic) (3) Afib Current Visit: Yes Status: Acute Start on 75 mg Toprolol QD Qualifiers: Qualified Code(s): I48.91 - Unspecified atrial fibrillation Discussion w patient/family: The assessment and plan as outlined above was discussed with the patient and/or family members who expressed understanding and agreement. All questions were answered. Thank you for involving us in the care of your patient. Please call with any questions. History of Present Illness Consult date: 06/25/18 Consult reason: CHF with SOB + Afib Chief complaint: CHF w/ SOB + Afib History of present illness: Mr. Last is a 73 year old male consulted for CHF with SOB and Afib. He has hsotory of systlic and diastolic CHF, Afib, CAD s/p CABG, hyperlipdiemia, aortic valve replacemnt, anortic anueyrms s/p surgical repair Past Med Surg Social Fam HX - Past Medical History Medical history: aortic aneurysm, arthritis, cardiomyopathy, CHF, COPD, coronary artery disease, diabetes, GERD, hyperlipidemia, hypertension, myocardial infarction, thyroid disease, valvular heart disease, other Additional medical history: CAD. DM. Mixed hyperlipidemia. Microcytic anemia from iron deficiency. ICD. Cardiomyopathy. Essential htn Psychiatric history: no psych history - Past Surgical History Surgical History: coronary bypass (CABG), heart valve replacement, vascular surgery, AICD Additional surgical history: ICD. AVR. RECTAL ABCESS - Social History Smoking Status: Former smoker Smokeless Tobacco Status: No Alcohol use: none Drug use: none - Family History Mother Adopted: No Family Member Ethnicity: Non- Living Status: Hx Family Cardiac Disorders: Yes Hx Family Respiratory Disorders: Yes Hx Family Cancer: No Hx Family GI Disorders: No Hx Family Endocrine Disorder: Yes Hx Family Neuromuscular Disorders: No Hx Family Neurologic Disorders: No Hx Family HEENT Disorders: No Hx Family Autoimmune Disorders: No Father Adopted: No Family Member Ethnicity: Non- Living Status: Hx Family Cardiac Disorders: Yes Hx Family Respiratory Disorders: Yes Hx Family Cancer: No Hx Family GI Disorders: No Hx Family Endocrine Disorder: Yes Hx Family Neuromuscular Disorders: No Hx Family Neurologic Disorders: No Hx Family HEENT Disorders: No Hx Family Autoimmune Disorders: No Medications and Allergies Clopidogrel [Plavix] 75 mg PO DAILY 08/28/15 [History] Levothyroxine Sodium [Tirosint] 50 mcg PO HS 08/28/15 [History] Lisinopril 2.5 mg PO DAILY 08/28/15 [History] Multivitamin [Multivitamins] 1 each PO DAILY 08/28/15 [History] Omeprazole [PriLOSEC] 20 mg PO BID 08/28/15 [History] Simvastatin [Zocor] 20 mg PO DAILY 08/28/15 [History] Tamsulosin [Flomax] 0.4 mg PO DAILY 08/28/15 [History] Albuterol Sulfate [Albuterol Inhaler] 2 puff IH Q4-6H PRN 04/25/16 [History] Cholecalciferol (D-3) [Vitamin D] 2,000 unit PO DAILY 04/25/16 [History] Furosemide [Lasix] 60 mg PO BID 04/25/16 [History] Cyanocobalamin (B-12) [Vitamin B12] 1 tab PO DAILY #30 tablet 06/18/16 [Rx] Ipratropium/Albuterol Neb [Duoneb] 3 ml IH Q6HR 08/16/16 [History] Metformin HCl [Glucophage] 1,000 mg PO BID 08/16/16 [History] Oxygen 3 l NS CONT 01/02/17 [History] Docusate Sodium [Stool Softener] 100 mg PO BID 05/16/17 [History] Ferrous Gluconate [Iron] 236 mg PO BID 05/16/17 [History] Potassium Chloride [K-Tab ER] 20 meq PO BID 05/16/17 [History] Guaifenesin [Mucinex] 1,200 mg PO BID 05/22/17 [History] Budesonide/Formoterol 160/4.5 [Symbicort 160/4.5] 2 puff IH BIDR 02/20/18 [History] Metoprolol [Lopressor] 25 mg PO BID 02/20/18 [History] Warfarin [Coumadin] 2.5 mg PO SUMOTUWEFRSA 02/20/18 [History] Tiotropium [place] [Spiriva Respimat] 2 puff IH DAILY 06/24/18 [History] Warfarin [Coumadin] 1.25 mg PO TH 06/24/18 [History] Allergy/AdvReac Type Severity Reaction Status Date / Time roflumilast [From [facility]] AdvReac Mild Diarrhea Verified 06/24/18 13:24 All Systems Review: The remainder of the systems were reviewed and are negative Physical Examination Vital Signs, Last 4 Hours Temp Pulse Resp BP Pulse Ox 06/25/18 10:02 97.7 F 132 16 99/71 98 06/25/18 09:24 18 100 06/25/18 06:48 98.3 F 134 18 94/63 100 Results 06/25/18 06:25 06/25/18 06:25 Lab Results 06/24/18 06/24/18 06/24/18 13:51 13:51 13:51 WBC 4.7 Hgb 8.0 L Hct 25.3 L Plt Count 265 INR 2.9 Sodium 137 Potassium 4.1 Chloride 96 L Carbon Dioxide 31 H BUN 31 H Creatinine 0.97 Glucose 114 H Calcium 9.1 Total Bilirubin 0.5 AST 13 ALT 10 Alkaline Phosphatase 68 Troponin I < 0.03 B-Natriuretic Peptide 06/24/18 06/24/18 06/25/18 13:51 21:13 06:25 WBC 5.8 4.3 Hgb 7.7 L 8.1 L Hct 24.1 L 26.2 L Plt Count 260 279 INR Sodium Potassium Chloride Carbon Dioxide BUN Creatinine Glucose Calcium Total Bilirubin AST ALT Alkaline Phosphatase Troponin I B-Natriuretic Peptide 425 H 06/25/18 06/25/18 06:25 06:25 WBC Hgb Hct Plt Count INR 2.0 Sodium 138 Potassium 3.6 Chloride 97 L Carbon Dioxide 33 H BUN 28 H Creatinine 0.90 Glucose 95 Calcium 9.5 Total Bilirubin AST ALT Alkaline Phosphatase Troponin I B-Natriuretic Peptide Consult Discharge Plan - Plan Referrals: Russell Bradley MD [Primary Care Provider] - <Juan White - Last Filed: 06/25/18 15:57> Date of Encounter: 06/25/18 - Attending Attestation I have personally performed a face to face evaluation on this patient. I have reviewed and agree with the documented findings and care plan as documented by the resident. History and Exam by me shows: 73-year-old male with history of persistent A. fib, chronic systolic heart failure, CAD status post CABG, HTN, HLD, aortic valve replacement presented with acute CHF exacerbation and GI bleed. Found to be anemic currently recei ving blood transfusion. Echo shows EF 35-40%, moderate MR, moderate TR, moderate pulmonary hypertension. Normally functioning bioprosthetic aortic valve. Agree with diuresis with intravenous Lasix, rate control with Toprol XL. Add JUAN inhibitor if blood pressure allows. Anticoagulation for atrial fibrillation on hold because of GI bleed. We will follow along with you. Thanks, Juan White MD Assessment and Plan Discussion w patient/family: The assessment and plan as outlined above was discussed with the patient and/or family members who expressed understanding and agreement. All questions were answered. Thank you for involving us in the care of your patient. Please call with any questions. History of Present Illness History of present illness: Mr. Last is a 73 year old male All Systems Review: The remainder of the systems were reviewed and are negative Physical Examination Vital Signs, Last 4 Hours Temp Pulse Resp BP Pulse Ox 06/25/18 12:46 97.5 F L 130 14 98/63 100 06/25/18 12:32 97.7 F 135 14 99/64 100 Results 06/25/18 06:25 06/25/18 06:25 Lab Results 06/24/18 06/25/18 06/25/18 21:13 06:25 06:25 WBC 5.8 4.3 Hgb 7.7 L 8.1 L Hct 24.1 L 26.2 L Plt Count 260 279 INR Sodium 138 Potassium 3.6 Chloride 97 L Carbon Dioxide 33 H BUN 28 H Creatinine 0.90 Glucose 95 Calcium 9.5 Troponin I 06/25/18 06/25/18 06:25 11:45 WBC Hgb Hct Plt Count INR 2.0 Sodium Potassium Chloride Carbon Dioxide BUN Creatinine Glucose Calcium Troponin I < 0.03
--- NOTE | 2018-06-25 11:51 | Gastroenterology Consult Note ---
<Michelle Doe - Last Filed: 06/25/18 11:43> Date of Encounter: 06/25/18 Time of Encounter: 09:30 - Assessment and plan (1) Anemia Current Visit: No Status: Acute Assessment and plan: Pt has acute worsening of chronic anemia, Hgb 7.7. He also has acute CHF and diuretics are being optimized. Will plan for EGD and colonoscopy on Friday if CHF is improved and pt is stable. Monitor H&H and transfuse as needed. Qualifiers: Anemia type: iron deficiency Iron deficiency anemia type: chronic blood loss Qualified Code(s): D50.0 - Iron deficiency anemia secondary to blood loss (chronic) (2) CHF (congestive heart failure) Current Visit: No Status: Acute Qualifiers: Qualified Code(s): I50.40 - Unspecified combined systolic (congestive) and diastolic (congestive) heart failure - Time Spent With Patient Total time spent is greater than 50% in coordination of care (as documented) at patient's floor/unit and/or counseling patient: GI History of Present Illness - Data of Consult Patient: known to practice within the last 3 years Consult date: 06/25/18 Requesting Physician: Aracely Mullen MD - Consult Narrative Reason for consult: anemia, melena History of present illness: Mr. Last is a 73 year old male with past medical history of chronic systolic and diastolic CHF, COPD, CAD status post CABG, HTN, HLD, hypothyroidism, aortic valve replacement, aortic aneurysm status post surgery, and A. fib. He was s cheduled for a cardiac ablasion today as an outpatient for A-fib. INR was checked and was 4.5. He was also having increased edema and shortness of breath that was not resolved with increased diuretics, therefore he was sent to the ER by cardiology. He was found to have a Hgb of 7.7 in ER, baseline is 9-10. He denies any omega blood in his stool however does complain of diarrhea for the past week which is nathaniel in color. Patient is taking iron pills. Denies any recent antibiotic use. Had colonoscopy in August 2016 which showed internal hemorrhoids and had polypectomy, EGD showed esophagitis. Denies taking any [id number] NSAIDs but takes acetaminophen twice daily for past month or so for back pain. He has history of iron deficiency anemia for which he was seen by oncology and was receiving IV iron as well as iron supplementation. On occasion patient does have epistaxis last episode about a week ago. He denies any abdominal pain, dysphagia, GERD, nausea or vomiting. NSAIDS: denies EGD: 08/27 esophagitis, Colon: 08/27 5 mm polyp, internal hemorrhoids, poor prep. anticoagulants: coumadin last dose on Friday Past Med Surg Social Fam HX - Past Medical History Medical history: aortic aneurysm, arthritis, cardiomyopathy, CHF, COPD, coronary artery disease, diabetes, GERD, hyperlipidemia, hypertension, myocardial infarction, thyroid disease, valvular heart disease, other Additional medical history: CAD. DM. Mixed hyperlipidemia. Microcytic anemia from iron deficiency. ICD. Cardiomyopathy. Essential htn Psychiatric history: no psych history - Past Surgical History Surgical History: coronary bypass (CABG), heart valve replacement, vascular surgery, AICD Additional surgical history: ICD. AVR. RECTAL ABCESS - Social History Smoking Status: Former smoker Smokeless Tobacco Status: No Alcohol use: none Drug use: none - Family History Mother Adopted: No Family Member Ethnicity: Non- Living Status: Hx Family Cardiac Disorders: Yes Hx Family Respiratory Disorders: Yes Hx Family Cancer: No Hx Family GI Disorders: No Hx Family Endocrine Disorder: Yes Hx Family Neuromuscular Disorders: No Hx Family Neurologic Disorders: No Hx Family HEENT Disorders: No Hx Family Autoimmune Disorders: No Father Adopted: No Family Member Ethnicity: Non- Living Status: Hx Family Cardiac Disorders: Yes Hx Family Respiratory Disorders: Yes Hx Family Cancer: No Hx Family GI Disorders: No Hx Family Endocrine Disorder: Yes Hx Family Neuromuscular Disorders: No Hx Family Neurologic Disorders: No Hx Family HEENT Disorders: No Hx Family Autoimmune Disorders: No Review of Systems: GI: as per [facility]: denies fever, has some chills EYES: denies yellow discoloration ENT: denies pain with swallowing or difficulty swallowing CARDIO: denies chest pain, palpitations RESP: Shortness of breath with exertion : denies change in color of urine NEURO: increased weakness HEME: Denies any bruising MS: chronic joint and back pain. DERM: 3+ BLE edema and weeping, bandages noted PSYCH: Denies history of anxiety or depression - Constitutional Vitals: Temp Pulse Resp BP Pulse Ox 97.7 F 132 16 99/71 98 06/25/18 10:02 06/25/18 10:02 06/25/18 10:02 06/25/18 10:02 06/25/18 10:02 Exam: CONSTITUTIONAL:alert, no acute distress.HEAD:normocephalic.EYES:no jaundice.NECK:no obvious swelling.HEART:irregular rate and rhythm, no murmurs.LUNGS:bilateral poor air entry.ABDOMEN:non distended, soft, non tender, no masses palpable, no organomegaly, obese.RECTAL EXAM:Deferred.EXTREMITIES:no clubbing, cyanosis 3+ BLE edema and weeping, bandages noted.SKIN:no stigmata of chronic liver disease, pallor noted.NEUROLOGIC:no obvious focal defect. Results - Labs CBC & Chem 7: 06/25/18 06:25 06/25/18 06:25 Labs: Last Result Calcium 9.5 mg/dL (8.6-10.3) 06/25/18 06:25 Troponin I < 0.03 ng/mL (< 0.04) 06/24/18 13:51 Entire Visit Hgb 8.1 g/dL (12.9-16.9) L 06/25/18 06:25 Hct 26.2 % (37.5-50.1) L 06/25/18 06:25 PT 22.9 Seconds (9.4-12.1) H 06/25/18 06:25 Total Bilirubin 0.5 mg/dL (0.3-1.0) 06/24/18 13:51 AST 13 Units/L (13-39) 06/24/18 13:51 ALT 10 Units/L (7-52) 06/24/18 13:51 - ABG ABG results: PT/INR, D-dimer PT 22.9 Seconds (9.4-12.1) H 06/25/18 06:25 - Impressions Impressions Chest X-Ray 06/24/18 13:10 IMPRESSION: Findings suggest congestive heart failure D/ / Abraham Ribera MD / Abraham Ribera MD Interpreting Provider: Abraham Ribera MD Consult Discharge Plan - Plan Referrals: Russell Bradley MD [Primary Care Provider] - <Carmen Weldon - Last Filed: 06/25/18 22:25> Date of Encounter: 06/25/18 Time of Encounter: 18:00 - Time Spent With Patient Total time spent is greater than 50% in coordination of care (as documented) at patient's floor/unit and/or counseling patient: GI History of Present Illness - Data of Consult Requesting Physician: Aracely Mullen MD - Consult Narrative History of present illness: Mr. Lsat is a 73 year old male - Constitutional Vitals: Temp Pulse Resp BP Pulse Ox 97.5 F L 128 16 90/64 99 06/25/18 16:18 06/25/18 16:18 06/25/18 21:26 06/25/18 16:18 06/25/18 21:26 Results - Labs CBC & Chem 7: 06/25/18 18:04 06/25/18 06:25 Labs: Last Result Calcium 9.5 mg/dL (8.6-10.3) 06/25/18 06:25 Troponin I < 0.03 ng/mL (< 0.04) 06/25/18 11:45 Entire Visit Hgb 8.5 g/dL (12.9-16.9) L 06/25/18 18:04 Hct 27.6 % (37.5-50.1) L 06/25/18 18:04 PT 22.9 Seconds (9.4-12.1) H 06/25/18 06:25 Total Bilirubin 0.5 mg/dL (0.3-1.0) 06/24/18 13:51 AST 13 Units/L (13-39) 06/24/18 13:51 ALT 10 Units/L (7-52) 06/24/18 13:51 - ABG ABG results: PT/INR, D-dimer PT 22.9 Seconds (9.4-12.1) H 06/25/18 06:25 - Impressions Impressions Echocardiogram 06/25/18 17:52 Impressions: LVEF 35-40%. Moderate global left ventricular systolic dysfunction. Mild concentric left ventricular hypertrophy. Indeterminate diastolic function. Mildly dilated right ventricle with mild hypokinesis. Mildly biatrial dilatation. Bioprosthetic aortic valve replacement with normal function. Moderate mitral regurgitation. Mild-moderate tricuspid regurgitation. Moderate pulmonary hypertension. Left Ventricular Wall Motion: Rest Echo Findings The apex, apical inferior, mid inferior, basal inferior, apical anterior, mid anterior, basal anterior, apical septal, mid inferior septal, basal inferior septal, apical lateral, mid anterior lateral, basal anterior lateral, mid anterior septal, mid inferior lateral, basal anterior septal and basal inferior lateral mustafa were hypokinetic. Findings: Study Quality * Technically sub-optimal due to clinical status. ECG Findings * Atrial fibrillation RVR Left Ventricle * LVEF 35-40%. * Normal LV chamber size. * Mild concentric left ventricular hypertrophy. * Moderate global left ventricular systolic dysfunction. * Indeterminate diastolic function. * Definity echo contrast was used. * Atypical septal motion consistent with post-operative status. Right Ventricle * Mildly dilated right ventricle. * Mild right ventricular hypokinesis. Left Atrium * Mildly dilated left atrium. Right Atrium * Mildly dilated right atrium. Interatrial Septum * Interatrial septum not well evaluated. Aortic Valve * Bioprosthetic aortic valve replacement with normal function, possible patient prosthesis mismatch. * V1/V2 1.2/2.5 m/sec, PG/MG 19/11 mmHg, LVOT 1.5 cm, SHELLI 0.85 * Trace aortic regurgitation. Mitral Valve * Moderate mitral regurgitation likely due to posterior leaflet retraction. * No mitral stenosis. Tricuspid Valve * No tricuspid stenosis. * Mild-moderate tricuspid regurgitation. * Estimated RVSP is 50 mmHg. * Estimated RA pressure is 15 mmHg. * Moderate pulmonary hypertension. Pulmonic Valve * Pulmonic valve is not well visualized. * No pulmonic stenosis. * No pulmonic regurgitation. Aorta * Aortic root not well visualized. Pericardium * There is a trivial pericardial effusion present. IVC * The IVC is dilated. * < 50% respiratory change. Device lead * A device lead was visualized in the right atrium and right ventricle. - Attending Attestation I have personally performed a face to face evaluation on this patient. I have reviewed and agree with the care plan. History and Exam by me shows: Pt seen. Pt with complaints of legs sweeling/abd swelling and wt gain. O/E: Abd large, positive legs edema. A: Pt with CHF exacerbation. #2 Anemia. Rec: EGD/Colon once CHF better controlled.
[2018-06-25] MEDS ORDERED: 0.9 % Sodium Chloride 250 ML ONE (12:06)
--- NOTE | 2018-06-25 12:52 | Internal Med Progress Note ---
Hospitalist Progress Note - Encounter Date of Encounter: 06/25/18 Time of Encounter: 11:26 - Subjective Interval History: Patient seen and examined this morning. no acute overnight events. Denies any cp. Still sob with minimal improvement. Is having increased urine output. Still has pain in lower extremities. - Exam Vitals: Temp Pulse Resp BP Pulse Ox 97.5 F L 130 14 98/63 100 06/25/18 12:46 06/25/18 12:46 06/25/18 12:46 06/25/18 12:46 06/25/18 12:46 Exam: Constitutional: Vitals as noted. Conversant. In no respiratory distress. Respiratory : Decreased air entry bilaterally at bases with crackles at bases. No accessory muscle use, rhonchi or wheezes Cardiovascular : Tachycardic, +S1, +S2. no murmur, gallop, rubs. No chest wall tenderness GI/Abdominal : Soft, Obsese Non-tender, Non-distended, edematous no peritoneal signs. no orgenomegaly or mass appreciated. no hernia. Has scrotal swelling as well. Musculoskeletal: 2+ edema till thigh. Redness painful swelling on both legs. Bullous lesion noted on Rt foot and left leg. Ulcers note on Rt leg which is weeping clear fluid. Neurological: AO X3, CN II-XII grossly intact, grossly normal motor and sensory exam. Skin: redness and edema noted along with ulcer in both lower extremity. Rt>Lt. Pych: Good insight and judgement. Intact memory. AOx3. - Assessment and Plan (1) Acute on chronic clinical systolic heart failure Current Visit: No Status: Acute (2) GI bleed Current Visit: Yes Status: Acute (3) Acute respiratory failure Current Visit: No Status: Acute (4) Anemia Current Visit: No Status: Acute (5) CAD (coronary artery disease) Current Visit: No Status: Acute (6) DM (diabetes mellitus), type 2 Current Visit: No Status: Acute (7) Hypertension Current Visit: No Status: Chronic (8) Cellulitis Current Visit: Yes Status: Acute (9) Afib Current Visit: Yes Status: Acute - Summary of Assessment and Plan Summary of Assessment and Plan: Acute on chronic clinical systolic heart failure - Patient's with signs and symptoms of acute CHF exacerbation. - Last echocardiogram performed in December 2016 with EF of 35-40%, mildly dilated left ventricle, moderate global left ventricular systolic dysfunction, int ermediate diastolic dysfunction, severe pulmonary hypertension. Repeat ECHO essentially unchanged. - Will increase IV lasix as giving a PRBC. Will consider lasix drip if needed. - Daily weights and strict I's and O's - Likely related to tachycardia. EKG with sinus tachycardia possibly from GI bleed vs cellulitis. - c/w Betablocker. Cardiology recommendation appreicated. GI bleed - Patient's baseline hemoglobin around 10. Currently 8 - Had positive stool occult blood in ER. - Had elevated INR of 4.5 on 06/23. Stool occult positive. INR 2 today. Hold home anticoagulation. - Will transfuse PRBC as anemia possibly leading to sinus tachycardia - IV PPI - gastroenterology recommendation appreciate Acute respiratory failure - Currently saturating 100% on 2 L - We will keep patient on BiPAP as needed given his CHF - Continue duo nebs and home inhalers Anemia - History of iron deficiency anemia - Will give 1 PRBC CAD - Continue home beta castillo and statin - Hold antiplatelets given GI bleed DM - Hold home metformin - Accu-Cheks before meals at bedtime along with sliding scale insulin Hypertension - Blood pressure on the lower and - Hold home lisinopril. Continue home beta castillo to prevent withdrawal tachycardia - Monitor blood pressure for now Cellulitis - c/w cefazolin. Not high risk for MRSA - wound care following Afib - Patient has history of A. fib - Currently tachycardic. EKG with sinus tachycardia - Continue keep patient on telemetry - Cardiology recommendation appreciated. - home anticoagulation on hold given possibility of GI bleed - Time Spent with Patient Total time spent is greater than 50% in coordination of care (as documented) at patient's floor/unit and/or counseling patient: Internal Medicine: Result - Labs CBC & Chem 7: 06/25/18 06:25 06/25/18 06:25 Labs: Short CBC 06/24/18 06/24/18 06/25/18 Range/Units 13:51 21:13 06:25 WBC 4.7 5.8 4.3 (4.3-11.1) K/mcL Hgb 8.0 L 7.7 L 8.1 L (12.9-16.9) g/dL Hct 25.3 L 24.1 L 26.2 L (37.5-50.1) % Plt Count 265 260 279 (140-400) K/mcL Neutrophils # 3.5 4.6 3.2 (1.6-8.9) K/mcL BMP 06/24/18 06/25/18 13:51 06:25 Sodium 137 138 Potassium 4.1 3.6 Chloride 96 L 97 L Carbon Dioxide 31 H 33 H BUN 31 H 28 H Creatinine 0.97 0.90 Glucose 114 H 95 Calcium 9.1 9.5 Cardiac Enzymes 06/24/18 06/25/18 Range/Units 13:51 11:45 Troponin I < 0.03 < 0.03 (< 0.04) ng/mL Liver Function 06/24/18 Range/Units 13:51 Total Bilirubin 0.5 (0.3-1.0) mg/dL AST 13 (13-39) Units/L ALT 10 (7-52) Units/L Alkaline Phosphatase 68 (34-104) Units/L Albumin 3.8 (3.5-5.7) g/dL - ABG Interpretation ABG results: PT/INR, D-dimer PT 22.9 Seconds (9.4-12.1) H 06/25/18 06:25 - Impressions Impressions Chest X-Ray 06/24/18 13:10 IMPRESSION: Findings suggest congestive heart failure D/ / Abraham Ribera MD / Abraham Ribera MD Interpreting Provider: Abraham Ribera MD Echocardiogram 06/25/18 17:52 Impressions: LVEF 35-40%. Moderate global left ventricular systolic dysfunction. Mild concentric left ventricular hypertrophy. Indeterminate diastolic function. Mildly dilated right ventricle with mild hypokinesis. Mildly biatrial dilatation. Bioprosthetic aortic valve replacement with normal function. Moderate mitral regurgitation. Mild-moderate tricuspid regurgitation. Moderate pulmonary hypertension. Left Ventricular Wall Motion: Rest Echo Findings The apex, apical inferior, mid inferior, basal inferior, apical anterior, mid anterior, basal anterior, apical septal, mid inferior septal, basal inferior septal, apical lateral, mid anterior lateral, basal anterior lateral, mid anterior septal, mid inferior lateral, basal anterior septal and basal inferior lateral mustafa were hypokinetic. Findings: Study Quality * Technically sub-optimal due to clinical status. ECG Findings * Atrial fibrillation RVR Left Ventricle * LVEF 35-40%. * Normal LV chamber size. * Mild concentric left ventricular hypertrophy. * Moderate global left ventricular systolic dysfunction. * Indeterminate diastolic function. * Definity echo contrast was used. * Atypical septal motion consistent with post-operative status. Right Ventricle * Mildly dilated right ventricle. * Mild right ventricular hypokinesis. Left Atrium * Mildly dilated left atrium. Right Atrium * Mildly dilated right atrium. Interatrial Septum * Interatrial septum not well evaluated. Aortic Valve * Bioprosthetic aortic valve replacement with normal function, possible patient prosthesis mismatch. * V1/V2 1.2/2.5 m/sec, PG/MG 19/11 mmHg, LVOT 1.5 cm, SHELLI 0.85 * Trace aortic regurgitation. Mitral Valve * Moderate mitral regurgitation likely due to posterior leaflet retraction. * No mitral stenosis. Tricuspid Valve * No tricuspid stenosis. * Mild-moderate tricuspid regurgitation. * Estimated RVSP is 50 mmHg. * Estimated RA pressure is 15 mmHg. * Moderate pulmonary hypertension. Pulmonic Valve * Pulmonic valve is not well visualized. * No pulmonic stenosis. * No pulmonic regurgitation. Aorta * Aortic root not well visualized. Pericardium * There is a trivial pericardial effusion present. IVC * The IVC is dilated. * < 50% respiratory change. Device lead * A device lead was visualized in the right atrium and right ventricle. Consult Discharge Plan - Plan Referrals: Russell Bradley MD [Primary Care Provider] - (2) GI bleed Qualifiers: GI bleed type/associated pathology: melena Qualified Code(s): K92.1 - Melena (3) Acute respiratory failure Qualifiers: Respiratory failure complication: hypoxia Qualified Code(s): J96.01 - Acute respiratory failure with hypoxia (4) Anemia Qualifiers: Anemia type: unspecified type Qualified Code(s): D64.9 - Anemia, unspecified (5) CAD (coronary artery disease) Qualifiers: Coronary Disease-Associated Artery/Lesion type: bypass graft [place] vs. transplanted heart: [place] heart Associated angina: without angina Qualified Code(s): I25.810 - Atherosclerosis of coronary artery bypass graft(s) without angina pectoris (6) DM (diabetes mellitus), type 2 Qualifiers: Diabetes mellitus buttermaker insulin use: with fci use Diabetes mellitus complication status: without complication Qualified Code(s): E11.9 - Type 2 diabetes mellitus without complications; Z79.4 - FCI (current) use of insulin (7) Hypertension Qualifiers: Hypertension type: essential hypertension Qualified Code(s): I10 - Essential (primary) hypertension (8) Cellulitis Qualifiers: Qualified Code(s): L03.90 - Cellulitis, unspecified (9) Afib Qualifiers: Qualified Code(s): I48.91 - Unspecified atrial fibrillation
[2018-06-25] MEDS: Pantoprazole 40 MG VIAL IVP SCH ×2 (13:48→16:54)
[2018-06-25] MEDS ORDERED: Metoprolol XL (24 HR) Succ 50 MG TAB.ER.24H PO ONE (14:15)
[2018-06-25] MEDS: Acetaminophen 325 MG TABLET PO PRN (16:53)
[2018-06-25 18:33] LABS: Basophils % 0.6 %; Eosinophils # 0.2 K/mcL (0.0-0.6); Eosinophils % 3.2 %; Hematocrit 27.6 % (37.5-50.1); Hemoglobin 8.5 g/dL (12.9-16.9); Immature Granulocytes % 0.4 % (0-4); Lymphocytes # 0.5 K/mcL (0.6-4.6); Lymphocytes % 10.6 %; Mean Corpuscular HGB Conc 30.8 g/dL (31.6-35.5); Mean Corpuscular Hemoglobin 28.3 pg (28.0-33.3); Mean Platelet Volume 10.1 fL (9.4-12.4); Monocytes # 0.5 K/mcL (0.0-1.3); Monocytes % 9.7 %; Neutrophils # 3.6 K/mcL (1.6-8.9); Platelet Count 274 K/mcL (140-400); Red Cell Distribution Width 18.9 % (11.5-14.5); Segmented Neutrophils % 75.5 %
[2018-06-26] MEDS: Acetaminophen 325 MG TABLET PO PRN ×2 (01:11→17:22)
[2018-06-26] MEDS: Ipratropium/Albuterol Neb 3 ML IH SCH ×4 (04:33→22:44)
[2018-06-26] MEDS: Pantoprazole 40 MG VIAL IVP SCH ×2 (05:06→17:22)
[2018-06-26] MEDS: Furosemide 40 MG/4 ML VIAL IVP SCH ×4 (05:06→20:26)
[2018-06-26 05:29] LABS: Basophils % 0.6 %; Eosinophils # 0.1 K/mcL (0.0-0.6); Eosinophils % 1.8 %; Hematocrit 26.3 % (37.5-50.1); Hemoglobin 8.3 g/dL (12.9-16.9); Immature Granulocytes % 0.4 % (0-4); Lymphocytes # 0.4 K/mcL (0.6-4.6); Lymphocytes % 8.8 %; Mean Corpuscular HGB Conc 31.6 g/dL (31.6-35.5); Mean Corpuscular Hemoglobin 28.4 pg (28.0-33.3); Mean Corpuscular Volume 90.1 fL (83.0-100.0); Mean Platelet Volume 10.1 fL (9.4-12.4); Monocytes # 0.5 K/mcL (0.0-1.3); Monocytes % 10.4 %; Neutrophils # 3.8 K/mcL (1.6-8.9); Platelet Count 257 K/mcL (140-400); Red Blood Count 2.92 M/mcL (4.19-5.50); Red Cell Distribution Width 18.8 % (11.5-14.5)
[2018-06-26 06:29] LABS: BUN/Creatinine Ratio 27 (6-26); Blood Urea Nitrogen 29 mg/dL (8-23); Calcium 9.3 mg/dL (8.6-10.3); Carbon Dioxide 29 mEq/L (23-29); Chloride 97 mEq/L (98-107); Glucose 114 mg/dL (70-105); Osmolality,Calculated 289 (280-300); Sodium 136 mEq/L (136-145); eGFR For Non-African Americans > 60 (> 60)
[2018-06-26] MEDS: Insulin LISPRO 300 UNITS/3 ML VIAL SQ SCH ×3 (07:53→18:12)
[2018-06-26] MEDS ORDERED: Metoprolol XL (24 HR) Succ 25 MG TAB.ER.24H PO SCH (09:00)
[2018-06-26] MEDS: Metoprolol XL (24 HR) Succ 50 MG TAB.ER.24H PO SCH ×2 (09:02→11:53)
[2018-06-26] MEDS: ceFAZolin 1,000 MG in Water for inj. (sterile) 20 ML 10 ML IVP SCH ×3 (09:05→23:46)
--- NOTE | 2018-06-26 10:36 | Cardiology Progress Note ---
<Sarthak Harkins - Last Filed: 06/26/18 11:09> Date of Encounter: 06/26/18 Time of Encounter: 10:34 Assessment and Plan (1) Acute on chronic systolic (congestive) heart failure Current Visit: No Status: Acute 73 YO CHF M consulted for CHF, afib, and SOB - Patient still in afib, continue 75 QD toprolol - Patient still has significant edema and rales - Continue lasix, if insufficient can consider bumex. - add JUAN-I if BP allows - not on anticoagulation due to GI-bleed if GI clears can restart anticoag. - GI considering to scope patient on Friday - patient is okay to undergo scope from cardiology standpoint. - Patient was scheduled for ablation yesterday which was cancelled. Still needs to undergo ablation - restart Coumadin per GI recs. - Cardiology will continue following. (2) Anemia Current Visit: No Status: Acute per primary's recs Qualifiers: Anemia type: iron deficiency Iron deficiency anemia type: chronic blood loss Qualified Code(s): D50.0 - Iron deficiency anemia secondary to blood loss (chronic) (3) Afib Current Visit: Yes Status: Acute Start on 75 mg Toprolol QD Qualifiers: Qualified Code(s): I48.91 - Unspecified atrial fibrillation Discussion w patient/family: The assessment and plan as outlined above was discussed with the patient and/or family members who expressed understanding and agreement. All questions were answered. Thank you for involving us in the care of your patient. Please call with any questions. Subjective Principal diagnosis: CHF Interval history: 73 YO M consulted to cardiology for CHF and afib. Patient reports that he is still having chest palpitations and that his edema is improving with lasix. Patient's I/Os were -450mL yesterday and -380mL today. Patient was transfused the PRBC yesterday by primary team due. His heart rate is 95 improved from 130s yesterday. Still reports SOB. Objective Vital Signs, Last 4 Hours Temp Pulse Resp BP Pulse Ox 06/26/18 08:23 97.9 F 95 18 94/63 99 General: Conversant, No Apparent Distress HEENT: Atraumatic, Normocephaly, Mucus Membranes Moist, Other Neck: Normal carotid pulses Cardiac: Normal S1 and S2, No Murmur, Other (irregular rate) Lungs: Other (rales apreaciated in lower lungs b/l) Neuro: Alert and responsive, No focal deficits noted Abdomen: Soft, Non-Tender Skin: No rashes noted on visualized skin Musculoskeletal: No Chest Wall Tenderness Extremities: No Clubbing, No Cyanosis, Normal Pulses, Other (Edema in all extremities. Edema in arms apperas to be improving from yesterday.) Results 06/26/18 05:13 06/26/18 05:13 Lab Results 06/25/18 06/25/18 06/26/18 11:45 18:04 05:13 WBC 4.7 4.9 Hgb 8.5 L 8.3 L Hct 27.6 L 26.3 L Plt Count 274 257 Sodium Potassium Chloride Carbon Dioxide BUN Creatinine Glucose Calcium Troponin I < 0.03 06/26/18 05:13 WBC Hgb Hct Plt Count Sodium 136 Potassium 4.0 Chloride 97 L Carbon Dioxide 29 BUN 29 H Creatinine 1.09 Glucose 114 H Calcium 9.3 Troponin I - EKG Interpretation EKG results cardiology: other (Waveform from the AM still shows afib.) Consult Discharge Plan - Plan Referrals: Russell Bradley MD [Primary Care Provider] - <Zora Goodman - Last Filed: 06/26/18 12:59> Date of Encounter: 06/26/18 Assessment and Plan Discussion w patient/family: The assessment and plan as outlined above was discussed with the patient and/or family members who expressed understanding and agreement. All questions were answered. Thank you for involving us in the care of your patient. Please call with any questions. Objective Vital Signs, Last 4 Hours Temp Pulse Resp BP Pulse Ox 06/26/18 11:01 20 98 06/26/18 10:50 97.3 F L 135 16 105/71 94 Results 06/26/18 05:13 06/26/18 05:13 Lab Results 06/25/18 06/26/18 06/26/18 18:04 05:13 05:13 WBC 4.7 4.9 Hgb 8.5 L 8.3 L Hct 27.6 L 26.3 L Plt Count 274 257 Sodium 136 Potassium 4.0 Chloride 97 L Carbon Dioxide 29 BUN 29 H Creatinine 1.09 Glucose 114 H Calcium 9.3 - Attending Attestation Patient was seen and evaluated independently by me. Findings, assessment and plan were discussed in detail with patient, questions answered. Agree with nurse practitioner's/resident's documentation. Addition as follows, Pt feels generally better, rate ctr better after prbc, diuresis and up on BB. Modest response to lasix iv, baseline O2 requirement no worsening, CTA no W/R/C, IR, 3+ B/L LE edema. 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
[2018-06-26] MEDS: Tiotropium 18 MCG inhalation IH SCH ×2 (11:02→15:18)
[2018-06-26] MEDS: Budesonide/Formoterol 160/4.5 1 PUFF INH IH SCH ×2 (11:02→22:44)
[2018-06-26] MEDS: *HR* OxyCODONE/APAP 5/325 TABLET PO PRN ×2 (11:52→20:20)
--- NOTE | 2018-06-26 13:21 | Event Note ---
<Michelle Doe - Last Filed: 06/29/18 08:20> Date of Encounter: 06/26/18 Time of Encounter: 12:[address] Kaiser and will schedule for EGD only on Friday, may need colonoscopy, but will wait. <Matt Kaiser - Last Filed: 07/08/18 12:06> Date of Encounter: 06/26/18
--- NOTE | 2018-06-26 13:38 | Internal Med Progress Note ---
Hospitalist Progress Note - Encounter Date of Encounter: 06/26/18 Time of Encounter: 10:26 - Subjective Interval History: Patient seen and examined this morning. no acute overnight events. Still sob with minimal improvement. Having increased urine output and says emptied 1.5 L. Still has pain in lower extremities. No fever, chills. - Exam Vitals: Temp Pulse Resp BP Pulse Ox 97.3 F L 135 20 105/71 98 06/26/18 10:50 06/26/18 10:50 06/26/18 11:01 06/26/18 10:50 06/26/18 11:01 Exam: Constitutional: Vitals as noted. Conversant. In no respiratory distress. Respiratory : Decreased air entry bilaterally at bases with crackles at bases. No accessory muscle use, rhonchi or wheezes Cardiovascular : Tachycardic, +S1, +S2. no murmur, gallop, rubs. No chest wall tenderness GI/Abdominal : Soft, Obsese, Non-tender, Non-distended, edematous no peritoneal signs. no orgenomegaly or mass appreciated. Has scrotal swelling as well. Musculoskeletal: 2+ edema till thigh. Redness painful swelling on both legs. Bullous lesion noted on Rt foot and left leg. Ulcers note on Rt leg which is weeping clear fluid. Neurological: AO X3, CN II-XII grossly intact, grossly normal motor and sensory exam. Skin: redness and edema noted along with ulcer in both lower extremity. Rt>Lt. Pych: Good insight and judgement. Intact memory. AOx3. - Assessment and Plan (1) Acute on chronic clinical systolic heart failure Current Visit: No Status: Acute (2) GI bleed Current Visit: Yes Status: Acute (3) Acute respiratory failure Current Visit: No Status: Acute (4) Anemia Current Visit: No Status: Acute (5) CAD (coronary artery disease) Current Visit: No Status: Acute (6) DM (diabetes mellitus), type 2 Current Visit: No Status: Acute (7) Hypertension Current Visit: No Status: Chronic (8) Cellulitis Current Visit: Yes Status: Acute (9) Afib Current Visit: Yes Status: Acute - Summary of Assessment and Plan Summary of Assessment and Plan: Acute on chronic clinical systolic heart failure - Patient's with signs and symptoms of acute CHF exacerbation. - Last echocardiogram performed in December 2016 with EF of 35-40%, mildly dilated left ventricle, moderate global left ventricular systolic dysfunction, intermediate diastolic dysfunction, severe pulmonary hypertension. Repeat ECHO essentially unchanged. - c/w Lasix at current dosage. If needs to increase diuresis will consider bumex. - Daily weights and strict I's and O's - Likely related to tachycardia. EKG with sinus tachycardia possibly from GI bleed vs cellulitis. - c/w toprol xl. Cardiology recommendation appreicated. GI bleed - Patient's baseline hemoglobin around 10. Currently 8 - Had positive stool occult blood in ER. - Had elevated INR of 4.5 on 06/23. Stool occult positive. INR 2 today. Hold home anticoagulation. - some improvement in HR after PRBC. Still tachycardic. - c/w IV PPI - EGD scheduled on friday - gastroenterology following. Acute respiratory failure - Currently saturating 98% on 3 L - We will keep patient on BiPAP as needed given his CHF - Continue duo nebs and home inhalers Anemia - History of iron deficiency anemia - Will give 1 PRBC CAD - Continue home beta castillo and statin - Hold antiplatelets given GI bleed DM - Hold home metformin - Accu-Cheks before meals at bedtime along with sliding scale insulin Hypertension - Blood pressure on the lower and - Hold home lisinopril. Continue home beta castillo to prevent withdrawal tachycardia - Monitor blood pressure for now Cellulitis - c/w cefazolin. Not high risk for MRSA - wound care following Afib - Patient has history of A. fib - Currently tachycardic. EKG with sinus tachycardia - Continue keep patient on telemetry - Cardiology recommendation appreciated. - home anticoagulation on hold given possibility of GI bleed - Time Spent with Patient Total time spent is greater than 50% in coordination of care (as documented) at patient's floor/unit and/or counseling patient: Internal Medicine: Result - Labs CBC & Chem 7: 06/26/18 05:13 06/26/18 05:13 Labs: Short CBC 06/25/18 06/26/18 Range/Units 18:04 05:13 WBC 4.7 4.9 (4.3-11.1) K/mcL Hgb 8.5 L 8.3 L (12.9-16.9) g/dL Hct 27.6 L 26.3 L (37.5-50.1) % Plt Count 274 257 (140-400) K/mcL Neutrophils # 3.6 3.8 (1.6-8.9) K/mcL BMP 06/26/18 05:13 Sodium 136 Potassium 4.0 Chloride 97 L Carbon Dioxide 29 BUN 29 H Creatinine 1.09 Glucose 114 H Calcium 9.3 - ABG Interpretation ABG results: PT/INR, D-dimer PT 22.9 Seconds (9.4-12.1) H 06/25/18 06:25 Consult Discharge Plan - Plan Referrals: Russell Bradley MD [Primary Care Provider] - (2) GI bleed Qualifiers: GI bleed type/associated pathology: melena Qualified Code(s): K92.1 - Melena (3) Acute respiratory failure Qualifiers: Respiratory failure complication: hypoxia Qualified Code(s): J96.01 - Acute respiratory failure with hypoxia (4) Anemia Qualifiers: Anemia type: unspecified type Qualified Code(s): D64.9 - Anemia, unspecified (5) CAD (coronary artery disease) Qualifiers: Coronary Disease-Associated Artery/Lesion type: bypass graft [place] vs. transplanted heart: [place] heart Associated angina: without angina Qualified Code(s): I25.810 - Atherosclerosis of coronary artery bypass graft(s) without angina pectoris (6) DM (diabetes mellitus), type 2 Qualifiers: Diabetes mellitus fci insulin use: with equipment operator intermodal yard use Diabetes mellitus complication status: without complication Qualified Code(s): E11.9 - Type 2 diabetes mellitus without complications; Z79.4 - half-way (current) use of insulin (7) Hypertension Qualifiers: Hypertension type: essential hypertension Qualified Code(s): I10 - Essential (primary) hypertension (8) Cellulitis Qualifiers: Qualified Code(s): L03.90 - Cellulitis, unspecified (9) Afib Qualifiers: Qualified Code(s): I48.91 - Unspecified atrial fibrillation
[2018-06-26] MEDS: MICONAZOLE NITRATE 57 GM TUBE TP SCH (15:27)
[2018-06-27] MEDS: Pantoprazole 40 MG VIAL IVP SCH ×2 (04:09→16:46)
[2018-06-27] MEDS: Furosemide 40 MG/4 ML VIAL IVP SCH ×4 (04:09→23:11)
[2018-06-27] MEDS: *HR* OxyCODONE/APAP 5/325 TABLET PO PRN ×3 (04:09→20:11)
[2018-06-27] MEDS: Ipratropium/Albuterol Neb 3 ML IH SCH ×4 (04:29→22:19)
[2018-06-27 06:34] LABS: Basophils % 0.5 %; Eosinophils # 0.2 K/mcL (0.0-0.6); Eosinophils % 5.2 %; Hematocrit 26.6 % (37.5-50.1); Hemoglobin 8.3 g/dL (12.9-16.9); Immature Granulocytes % 0.2 % (0-4); Lymphocytes # 0.5 K/mcL (0.6-4.6); Mean Corpuscular HGB Conc 31.2 g/dL (31.6-35.5); Mean Corpuscular Hemoglobin 28.6 pg (28.0-33.3); Mean Corpuscular Volume 91.7 fL (83.0-100.0); Mean Platelet Volume 10.2 fL (9.4-12.4); Monocytes # 0.5 K/mcL (0.0-1.3); Monocytes % 12.5 %; Platelet Count 252 K/mcL (140-400); Red Cell Distribution Width 18.8 % (11.5-14.5); Segmented Neutrophils % 69.6 %
[2018-06-27 06:54] LABS: BUN/Creatinine Ratio 30 (6-26); Blood Urea Nitrogen 31 mg/dL (8-23); Carbon Dioxide 31 mEq/L (23-29); Chloride 97 mEq/L (98-107); Glucose 108 mg/dL (70-105); Potassium 3.7 mEq/L (3.5-5.1); Sodium 136 mEq/L (136-145); eGFR For Non-African Americans > 60 (> 60)
[2018-06-27 06:55] LABS: Calcium 8.9 mg/dL (8.6-10.3); Osmolality,Calculated 289 (280-300)
[2018-06-27] MEDS: Metoprolol XL (24 HR) Succ 50 MG TAB.ER.24H PO SCH (08:24)
[2018-06-27] MEDS: Acetaminophen 325 MG TABLET PO PRN ×2 (08:25→17:39)
[2018-06-27] MEDS: Insulin LISPRO 300 UNITS/3 ML VIAL SQ SCH ×3 (08:27→16:52)
[2018-06-27] MEDS: ceFAZolin 1,000 MG in Water for inj. (sterile) 20 ML 10 ML IVP SCH ×3 (08:28→23:14)
[2018-06-27] MEDS: Budesonide/Formoterol 160/4.5 1 PUFF INH IH SCH ×2 (09:42→22:18)
[2018-06-27] MEDS: Tiotropium 18 MCG inhalation IH SCH (09:52)
[2018-06-27] MEDS: MICONAZOLE NITRATE 57 GM TUBE TP SCH (10:15)
--- NOTE | 2018-06-27 13:10 | Internal Med Progress Note ---
Hospitalist Progress Note - Encounter Date of Encounter: 06/27/18 Time of Encounter: 10:23 - Subjective Interval History: Patient seen and examined this morning. no acute overnight events. Slight improvement in breathing. Negative ~1250 urine output last 24 hours. Still has pain in lower extremities. No fever, chills. Heart rate much lower but now in paced rhythm. - Exam Vitals: Temp Pulse Resp BP Pulse Ox 97.9 F 99 15 94/66 97 06/27/18 11:04 06/27/18 11:04 06/27/18 11:04 06/27/18 11:04 06/27/18 11:04 Exam: Constitutional: Vitals as noted. Conversant. In no respiratory distress. Respiratory : Decreased air entry bilaterally at bases. No accessory muscle use, rhonchi or wheezes Cardiovascular : RRR, +S1, +S2. no murmur, gallop, rubs. No chest wall tenderness GI/Abdominal : Soft, Obese, Non-tender, Non-distended, edematous, no peritoneal signs. no orgenomegaly or mass appreciated. Has scrotal swelling as well. Musculoskeletal: 2+ edema till thigh. Redness painful swelling on both legs with dressing on both legs. Neurological: AO X3, CN II-XII grossly intact, grossly normal motor and sensory exam. Skin: redness and edema noted along with ulcer in both lower extremity. Rt>Lt. Pych: Good insight and judgement. Intact memory. AOx3. - Assessment and Plan (1) Acute on chronic clinical systolic heart failure Current Visit: No Status: Acute (2) GI bleed Current Visit: Yes Status: Acute (3) Acute respiratory failure Current Visit: No Status: Acute (4) Anemia Current Visit: No Status: Acute (5) CAD (coronary artery disease) Current Visit: No Status: Acute (6) DM (diabetes mellitus), type 2 Current Visit: No Status: Acute (7) Hypertension Current Visit: No Status: Chronic (8) Cellulitis Current Visit: Yes Status: Acute (9) Afib Current Visit: Yes Status: Acute - Summary of Assessment and Plan Summary of Assessment and Plan: Acute on chronic clinical systolic heart failure - Patient's with signs and symptoms of acute CHF exacerbation. - Last echocardiogram performed in December 2016 with EF of 35-40%, mildly dilated left ventricle, moderate global left ventricular systolic dysfunction, intermediate diastolic dysfunction, severe pulmonary hypertension. Repeat ECHO essentially unchanged. - c/w Lasix at current dosage. Unclear based on charting how much negative balance. UOP of 1.25 L in 24 hrs. Will dose 1 mg of bumex. - Monitor renal function. - c.w Daily weights and strict I's and O's - Now with on and off paced rhythm without tachycardia. - c/w toprol xl. Cardiology recommendation appreicated. GI bleed - Patient's baseline hemoglobin around 10. Currently stable 8 after prbc - Had positive stool occult blood in ER. - Had elevated INR of 4.5 on 06/23. Stool occult positive. - Hold home anticoagulation. - c/w IV PPI - EGD scheduled on friday - gastroenterology following. Acute respiratory failure - Currently saturating 98% on 3 L - We will keep patient on BiPAP as needed given his CHF - Continue duo nebs and home inhalers Anemia - History of iron deficiency anemia - Now stable at 8 - continue monitoring CAD - Continue home beta castillo and statin - Hold antiplatelets given GI bleed DM - Hold home metformin - Accu-Cheks before meals at bedtime along with sliding scale insulin Hypertension - Blood pressure on the lower and - Hold home lisinopril. Continue home beta castillo to prevent withdrawal tachycardia - Monitor blood pressure for now Cellulitis - Not high risk for MRSA. Cellulits vs chronic dermatitis with pedal edema. - c/w cefazolin. - wound care following Afib - Patient has history of A. fib - Now with on/off paced rhythm. - Continue telemetry - Cardiology recommendation appreciated. - home anticoagulation on hold given possibility of GI bleed. Will restart when cleared by GI - Time Spent with Patient Total time spent is greater than 50% in coordination of care (as documented) at patient's floor/unit and/or counseling patient: Internal Medicine: Result - Labs CBC & Chem 7: 06/27/18 05:37 06/27/18 05:37 Labs: Short CBC 06/27/18 Range/Units 05:37 WBC 4.2 L (4.3-11.1) K/mcL Hgb 8.3 L (12.9-16.9) g/dL Hct 26.6 L (37.5-50.1) % Plt Count 252 (140-400) K/mcL Neutrophils # 3.0 (1.6-8.9) K/mcL BMP 06/27/18 05:37 Sodium 136 Potassium 3.7 Chloride 97 L Carbon Dioxide 31 H BUN 31 H Creatinine 1.05 Glucose 108 H Calcium 8.9 - ABG Interpretation ABG results: PT/INR, D-dimer PT 22.9 Seconds (9.4-12.1) H 06/25/18 06:25 Consult Discharge Plan - Plan Referrals: Russell Bradley MD [Primary Care Provider] - (2) GI bleed Qualifiers: GI bleed type/associated pathology: melena Qualified Code(s): K92.1 - Melena (3) Acute respiratory failure Qualifiers: Respiratory failure complication: hypoxia Qualified Code(s): J96.01 - Acute respiratory failure with hypoxia (4) Anemia Qualifiers: Anemia type: unspecified type Qualified Code(s): D64.9 - Anemia, unspecified (5) CAD (coronary artery disease) Qualifiers: Coronary Disease-Associated Artery/Lesion type: bypass graft [place] vs. transplanted heart: [place] heart Associated angina: without angina Qualified Code(s): I25.810 - Atherosclerosis of coronary artery bypass graft(s) without angina pectoris (6) DM (diabetes mellitus), type 2 Qualifiers: Diabetes mellitus longterm insulin use: with computer terminal operator use Diabetes mellitus complication status: without complication Qualified Code(s): E11.9 - Type 2 diabetes mellitus without complications; Z79.4 - senior living (current) use of insulin (7) Hypertension Qualifiers: Hypertension type: essential hypertension Qualified Code(s): I10 - Essential (primary) hypertension (8) Cellulitis Qualifiers: Qualified Code(s): L03.90 - Cellulitis, unspecified (9) Afib Qualifiers: Qualified Code(s): I48.91 - Unspecified atrial fibrillation
[2018-06-27] MEDS ORDERED: Bumetanide 1 MG/4 ML VIAL IVP ONE (14:05)
[2018-06-28] MEDS: *HR* OxyCODONE/APAP 5/325 TABLET PO PRN ×3 (03:17→19:08)
[2018-06-28 04:03] LABS: BUN/Creatinine Ratio 30 (6-26); Blood Urea Nitrogen 31 mg/dL (8-23); Calcium 8.8 mg/dL (8.6-10.3); Carbon Dioxide 29 mEq/L (23-29); Chloride 98 mEq/L (98-107); Glucose 111 mg/dL (70-105); Osmolality,Calculated 289 (280-300); Potassium 4.1 mEq/L (3.5-5.1); Sodium 136 mEq/L (136-145); eGFR For Non-African Americans > 60 (> 60)
[2018-06-28] MEDS: Ipratropium/Albuterol Neb 3 ML IH SCH ×3 (04:06→15:47)
[2018-06-28] MEDS: Furosemide 40 MG/4 ML VIAL IVP SCH ×4 (04:49→23:11)
[2018-06-28] MEDS: Pantoprazole 40 MG VIAL IVP SCH ×2 (05:54→16:55)
[2018-06-28] MEDS: Acetaminophen 325 MG TABLET PO PRN ×2 (06:18→16:00)
[2018-06-28] MEDS: MICONAZOLE NITRATE 57 GM TUBE TP SCH (08:32)
[2018-06-28] MEDS: Insulin LISPRO 300 UNITS/3 ML VIAL SQ SCH ×3 (08:33→16:10)
[2018-06-28] MEDS: Metoprolol XL (24 HR) Succ 50 MG TAB.ER.24H PO SCH ×2 (08:59→15:56)
[2018-06-28] MEDS: ceFAZolin 1,000 MG in Water for inj. (sterile) 20 ML 10 ML IVP SCH ×3 (09:10→23:10)
--- NOTE | 2018-06-28 09:48 | Electrocardiograph Report ---
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
[2018-06-28] MEDS ORDERED: Bumetanide 1 MG/4 ML VIAL IVP ONE (09:54)
[2018-06-28] MEDS: Budesonide/Formoterol 160/4.5 1 PUFF INH IH SCH ×2 (10:00→22:49)
[2018-06-28] MEDS: Tiotropium 18 MCG inhalation IH SCH (10:00)
[2018-06-28] MEDS: Simethicone 80 MG TAB.CHEW PO PRN ×2 (10:08→10:55)
--- NOTE | 2018-06-28 14:10 | Internal Med Progress Note ---
Hospitalist Progress Note - Encounter Date of Encounter: 06/28/18 Time of Encounter: 09:21 - Subjective Interval History: Patient seen and examined this morning. Slowly improved breathing. ~850 urine output last 24 hours. c/o pain in lower extremities. No fever, chills, N/V/D. Has not had BM today. - Exam Vitals: Temp Pulse Resp BP Pulse Ox 97.4 F L 106 16 102/60 99 06/28/18 10:46 06/28/18 10:46 06/28/18 10:46 06/28/18 10:46 06/28/18 10:46 Exam: Constitutional: Conversant. In no respiratory distress. Respiratory : Decreased air entry bilaterally at bases. No accessory muscle use, rhonchi or wheezes Cardiovascular : RRR, +S1, +S2. no murmur, gallop, rubs. No chest wall tenderness GI/Abdominal : Soft, Obese, Non-tender, Non-distended, edematous, no peritoneal signs. no orgenomegaly or mass appreciated. Has scrotal swelling as well. Musculoskeletal: 2+ edema till thigh as well as abdominal edema. Redness painful swelling on both legs with dressing on both legs. Neurological: AO X3, CN II-XII grossly intact, grossly normal motor and sensory exam. Skin: redness and edema noted along with ulcer in both lower extremity. Rt>Lt. - Assessment and Plan (1) Acute on chronic clinical systolic heart failure Current Visit: No Status: Acute (2) GI bleed Current Visit: Yes Status: Acute (3) Acute respiratory failure Current Visit: No Status: Acute (4) Anemia Current Visit: No Status: Acute (5) CAD (coronary artery disease) Current Visit: No Status: Acute (6) DM (diabetes mellitus), type 2 Current Visit: No Status: Acute (7) Hypertension Current Visit: No Status: Chronic (8) Cellulitis Current Visit: Yes Status: Acute (9) Afib Current Visit: Yes Status: Acute - Summary of Assessment and Plan Summary of Assessment and Plan: Acute on chronic clinical systolic heart failure - Last echocardiogram performed in December 2016 with EF of 35-40%, mildly dilated left ventricle, moderate global left ventricular systolic dysfunction, intermediate diastolic dysfunction, severe pulmonary hypertension. Repeat ECHO essentially unchanged. - c/w Lasix at current dosage. Decreased urine output. Will dose 1 mg of bumex. Patient requiring high dose of lasix. Obtain UA. Will consult nephrology to assist in choosing appropriate diuretic regimen. - Monitor renal function. - c/w Daily weights and strict I's and O's - Now with on and off paced rhythm - c/w toprol xl. Cardiology recommendation appreicated. GI bleed - Patient's baseline hemoglobin around 10. Currently stable 8 after prbc - Had positive stool occult blood in ER. - Had elevated INR of 4.5 on 06/23. Stool occult positive. - Hold home anticoagulation. - c/w IV PPI - EGD scheduled on friday. NPO after midnight. - gastroenterology following. Acute respiratory failure - Currently saturating 98% on 3 L - We will keep patient on BiPAP as needed given his CHF - Continue duo nebs and home inhalers Anemia - History of iron deficiency anemia - Now stable at 8 - continue monitoring CAD - Continue home beta castillo and statin - Hold antiplatelets given GI bleed DM - Hold home metformin - Accu-Cheks before meals at bedtime along with sliding scale insulin Hypertension - Blood pressure on the lower and - Hold home lisinopril. Continue home beta castillo to prevent withdrawal tachycardia - Monitor blood pressure for now Cellulitis - Not high risk for MRSA. Cellulits vs chronic dermatitis with pedal edema. - c/w cefazolin for 5 days.. - wound care following Afib - Patient has history of A. fib - Now with on/off paced rhythm. - Continue telemetry - Cardiology recommendation appreciated. - home anticoagulation on hold given possibility of GI bleed. Will restart when cleared by GI - Time Spent with Patient Total time spent is greater than 50% in coordination of care (as documented) at patient's floor/unit and/or counseling patient: Internal Medicine: Result - Labs CBC & Chem 7: 06/27/18 05:37 06/28/18 03:33 Labs: BMP 06/28/18 03:33 Sodium 136 Potassium 4.1 Chloride 98 Carbon Dioxide 29 BUN 31 H Creatinine 1.05 Glucose 111 H Calcium 8.8 - ABG Interpretation ABG results: PT/INR, D-dimer PT 22.9 Seconds (9.4-12.1) H 06/25/18 06:25 Consult Discharge Plan - Plan Referrals: Russell Bradley MD [Primary Care Provider] - (2) GI bleed Qualifiers: GI bleed type/associated pathology: melena Qualified Code(s): K92.1 - Melena (3) Acute respiratory failure Qualifiers: Respiratory failure complication: hypoxia Qualified Code(s): J96.01 - Acute respiratory failure with hypoxia (4) Anemia Qualifiers: Anemia type: unspecified type Qualified Code(s): D64.9 - Anemia, unspecified (5) CAD (coronary artery disease) Qualifiers: Coronary Disease-Associated Artery/Lesion type: bypass graft [place] vs. 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
[2018-06-28 15:43] LABS: Bilirubin,Urine Negative (Negative); Blood,Urine Negative (Negative); Clarity,Urine Clear (Clear); Color,Urine Yellow (Yellow); Glucose,Urine (UA) Normal (Normal); Ketones,Urine Negative (Negative); Leukocyte Esterase,Urine Negative (Negative); Nitrite,Urine Negative (Negative); Protein,Urine Negative (Neg-Trace); Specific Gravity,Urine 1.006 (1.010-1.025); Urobilinogen,Urine Normal (Normal)
[2018-06-28] MEDS ORDERED: SODIUM CHLORIDE/NAHCO3/KCL/PEG 4,000 ML SOLN.RECON PO ONE (17:00)
[2018-06-29] MEDS: *HR* OxyCODONE/APAP 5/325 TABLET PO PRN ×3 (03:08→20:42)
[2018-06-29] MEDS: Pantoprazole 40 MG VIAL IVP SCH (04:49)
[2018-06-29] MEDS: Furosemide 40 MG/4 ML VIAL IVP SCH ×3 (04:52→20:45)
[2018-06-29 05:15] LABS: Basophils % 0.7 %; Eosinophils # 0.1 K/mcL (0.0-0.6); Hematocrit 27.8 % (37.5-50.1); Hemoglobin 8.6 g/dL (12.9-16.9); Immature Granulocytes % 0.2 % (0-4); Lymphocytes # 0.4 K/mcL (0.6-4.6); Lymphocytes % 9.3 %; Mean Corpuscular HGB Conc 30.9 g/dL (31.6-35.5); Mean Corpuscular Hemoglobin 28.6 pg (28.0-33.3); Mean Corpuscular Volume 92.4 fL (83.0-100.0); Monocytes # 0.6 K/mcL (0.0-1.3); Neutrophils # 3.2 K/mcL (1.6-8.9); Platelet Count 288 K/mcL (140-400); Red Blood Count 3.01 M/mcL (4.19-5.50); Red Cell Distribution Width 18.6 % (11.5-14.5); Segmented Neutrophils % 73.8 %
[2018-06-29 05:32] LABS: BUN/Creatinine Ratio 34 (6-26); Blood Urea Nitrogen 31 mg/dL (8-23); Calcium 8.9 mg/dL (8.6-10.3); Carbon Dioxide 28 mEq/L (23-29); Chloride 99 mEq/L (98-107); Glucose 114 mg/dL (70-105); Osmolality,Calculated 285 (280-300); Potassium 4.3 mEq/L (3.5-5.1); Sodium 134 mEq/L (136-145); eGFR For Non-African Americans > 60 (> 60)
[2018-06-29] MEDS: Acetaminophen 325 MG TABLET PO PRN (06:34)
[2018-06-29] MEDS: Budesonide/Formoterol 160/4.5 1 PUFF INH IH SCH ×2 (07:46→19:51)
[2018-06-29] MEDS: Tiotropium 18 MCG inhalation IH SCH (07:47)
[2018-06-29] MEDS: Insulin LISPRO 300 UNITS/3 ML VIAL SQ SCH ×3 (08:47→16:32)
[2018-06-29] MEDS: Metoprolol XL (24 HR) Succ 50 MG TAB.ER.24H PO SCH (09:44)
[2018-06-29] MEDS: ceFAZolin 1,000 MG in Water for inj. (sterile) 20 ML 10 ML IVP SCH ×3 (09:53→23:49)
--- NOTE | 2018-06-29 10:32 | Internal Med Progress Note ---
Hospitalist Progress Note - Encounter Date of Encounter: 06/29/18 Time of Encounter: 08:56 - Subjective Interval History: Patient seen and examined this morning. Says breathing is the same. No fever, chills, N/V/D. NPO for EGD. No further BM. - Exam Vitals: Temp Pulse Resp BP Pulse Ox 97.7 F 98 20 92/57 100 06/29/18 10:26 06/29/18 10:26 06/29/18 10:26 06/29/18 10:06/29/18 10:26 Exam: Constitutional: Conversant. In no respiratory distress. Respiratory : Decreased air entry bilaterally at bases. No accessory muscle use, rhonchi or wheezes Cardiovascular : RRR, +S1, +S2. no murmur, gallop, rubs. No chest wall tenderness GI/Abdominal : Soft, Obese, Non-tender, Non-distended, edematous, no peritoneal signs. no orgenomegaly or mass appreciated. Has scrotal swelling as well. Musculoskeletal: 2+ edema till thigh as well as abdominal edema. Redness painful swelling on both legs with dressing on both legs. Redness and swelling slightly improved. Neurological: AO X3, CN II-XII grossly intact, grossly normal motor and sensory exam. Skin: redness and edema noted along with ulcer in both lower extremity. Rt>Lt. Slighly impoved. - Assessment and Plan (1) Acute on chronic clinical systolic heart failure Current Visit: No Status: Acute (2) GI bleed Current Visit: Yes Status: Acute (3) Acute respiratory failure Current Visit: No Status: Acute (4) Anemia Current Visit: No Status: Acute (5) CAD (coronary artery disease) Current Visit: No Status: Acute (6) DM (diabetes mellitus), type 2 Current Visit: No Status: Acute (7) Hypertension Current Visit: No Status: Chronic (8) Cellulitis Current Visit: Yes Status: Acute (9) Afib Current Visit: Yes Status: Acute - Summary of Assessment and Plan Summary of Assessment and Plan: Acute on chronic clinical systolic heart failure - Last ECHO 12/2016 with EF of 35-40%, mildly dilated left ventricle, moderate global left ventricular systolic dysfunction, intermediate diastolic dysfunction, severe pulmonary hypertension. Repeat ECHO essentially unchanged. - c/w Lasix at current dosage. s/p 1 mg of bumex yesterday. Patient requiring high dose of lasix. c/u nephrology to assist in choosing appropriate diuretic regimen. - Monitor renal function. - c/w Daily weights and strict I's and O's - Now with on and off paced rhythm - c/w toprol xl. Cardiology recommendation appreicated. GI bleed - Patient's baseline hemoglobin around 10. Currently stable 8 after prbc - Had positive stool occult blood in ER. - Had elevated INR of 4.5 on 06/23. Stool occult positive. - Hold home anticoagulation. - c/w IV PPI. Change to daily - EGD today. May need colonoscopy - gastroenterology following. Acute respiratory failure - Currently saturating 98% on 3 L - We will keep patient on BiPAP as needed given his CHF - c/w home inhalers. Anemia - History of iron deficiency anemia - Now stable at 8 - continue monitoring CAD - Continue home beta castillo and statin - Hold antiplatelets given GI bleed DM - Hold home metformin - Accu-Cheks before meals at bedtime along with sliding scale insulin Hypertension - Blood pressure on the lower and - Hold home lisinopril. Continue home beta castillo to prevent withdrawal tachycardia - Monitor blood pressure for now Cellulitis - Not high risk for MRSA. Cellulits vs chronic dermatitis with pedal edema. - c/w cefazolin for 5 days. Redness improved. Still with pain. Possible from significant swelling. - wound care following Afib - Patient has history of A. fib - Now with on/off paced rhythm. - Continue telemetry - Cardiology recommendation appreciated. - home anticoagulation on hold given possibility of GI bleed. Will restart when cleared by GI - Time Spent with Patient Total time spent is greater than 50% in coordination of care (as documented) at patient's floor/unit and/or counseling patient: Internal Medicine: Result - Labs CBC & Chem 7: 06/29/18 04:33 06/29/18 04:33 Labs: Short CBC 06/29/18 Range/Units 04:33 WBC 4.3 (4.3-11.1) K/mcL Hgb 8.6 L (12.9-16.9) g/dL Hct 27.8 L (37.5-50.1) % Plt Count 288 (140-400) K/mcL Neutrophils # 3.2 (1.6-8.9) K/mcL BMP 06/29/18 04:33 Sodium 134 L Potassium 4.3 Chloride 99 Carbon Dioxide 28 BUN 31 H Creatinine 0.91 Glucose 114 H Calcium 8.9 Urine 06/28/18 Range/Units 15:00 Urine Color Yellow (Yellow) Urine Clarity Clear (Clear) Urine pH 6.0 (5.0-8.0) pH Units Ur Specific [place] 1.006 L (1.010-1.025) Urine Protein Negative (Neg-Trace) mg/dL Urine Glucose (UA) Normal (Normal) mg/dL - ABG Interpretation ABG results: PT/INR, D-dimer PT 22.9 Seconds (9.4-12.1) H 06/25/18 06:25 Consult Discharge Plan - Plan Referrals: Russell Bradley MD [Primary Care Provider] - (2) GI bleed Qualifiers: GI bleed type/associated pathology: melena Qualified Code(s): K92.1 - Melena (3) Acute respiratory failure Qualifiers: Respiratory failure complication: hypoxia Qualified Code(s): J96.01 - Acute respiratory failure with hypoxia (4) Anemia Qualifiers: Anemia type: unspecified type Qualified Code(s): D64.9 - Anemia, unspecified (5) CAD (coronary artery disease) Qualifiers: Coronary Disease-Associated Artery/Lesion type: bypass graft [place] vs. 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
--- NOTE | 2018-06-29 12:15 | Nephrology Consult Note ---
Addendum entered and electronically signed by Stepan Fajrado MD 06/29/18 22:24: I examined this patient and my medical decision-making was reviewed with the Resident Physician. I agree with the documented findings, disposition and treatment plan as described except to the extent set forth below. Patient's renal function appears to be stable. I recommend increasing Lasix to 80 mg twice a day. Assessment renal response. He may need a Lasix drip. Original Note: Date of Encounter: 06/29/18 Time of Encounter: 12:13 Assessment and Plan (1) Acute on chronic clinical systolic heart failure Current Visit: No Status: Acute - Known history of HFrEF; TTE 12/25: LVEF 35-40, mildly dilated LV, moderate global LV systolic dysfunction, severe pulmonary hypertension - Patient has required high doses of Lasix - Currently on 40 mg Lasix IV every 6 hours - Received 1 mg Bumex yesterday - Urine output today is 450 mL; urine output on 06/28 was 1145 mL - Cumulative I&O is -2405 Plan: - Continue to monitor renal function - Daily weights, strict Is and Os, cardiac diet - We recommend switching to 80 mg Lasix IV BID (2) GI bleed Current Visit: Yes Status: Acute Patient presented complaining of dark colored diarrhea - FOBT positive in the emergency department - Noted to have an elevated INR of 4.5 on 06/23; normally anticoagulated on Coumadin for atrial fibrillation - Patient known to be chronically anemic from iron deficiency anemia; baseline hemoglobin is 10 - Status post 1 unit pRBC transfusion; hemoglobin currently 8.6, stable at this time - No prior history of GI bleed; colonoscopy August 2016 demonstrated internal hemorrhoids - GI is consulted for management Plan: - Protonix 40 mg IV every 12 - EGD later today Qualifiers: GI bleed type/associated pathology: melena Qualified Code(s): K92.1 - Melena (3) Hypertension Current Visit: No Status: Chronic Qualifiers: Hypertension type: essential hypertension Qualified Code(s): I10 - Essential (primary) hypertension (4) Anemia Current Visit: No Status: Acute - History of iron deficiency anemia - FOBT positive in the ED - Hemoglobin 8.6; stable at this time - Management per GI Qualifiers: Anemia type: unspecified type Qualified Code(s): D64.9 - Anemia, unspecified (5) CAD (coronary artery disease) Current Visit: No Status: Acute - Continue home beta castillo and statin - Antiplatelet being held due to concern for GI bleed Qualifiers: Coronary Disease-Associated Artery/Lesion type: bypass graft [place] vs. transplanted heart: [place] heart Associated angina: without angina Qualified Code(s): I25.810 - Atherosclerosis of coronary artery bypass graft(s) without angina pectoris (6) Cellulitis Current Visit: Yes Status: Acute - Cellulitis versus chronic dermatitis - Continue Ancef Qualifiers: Qualified Code(s): L03.90 - Cellulitis, unspecified (7) Afib Current Visit: Yes Status: Acute - Known history of atrial fibrillation; was scheduled to get an ablation before presenting to the ED - INR 4.5 on laboratory analysis - Management per cardiology Qualifiers: Qualified Code(s): I48.91 - Unspecified atrial fibrillation History of Present Illness - Reason for Consult Consult date: 06/29/18 - Chief Complaint Difficulty in breathing - History of Present Illness Mr. Last is a 73 year old male with PMH of systolic and diastolic heart failure, COPD on 2-3 L of home O2, CAD status post CABG, HTN, HLD, hypothyroidism, aortic valve replacement, aortic aneurysm status post surgery, AAbby katrin presented to [facility] ED on 06/24/18 with the chief complaint of SOB. Patient has been having difficulty breathing for a few weeks prior; Lasix increased by gill box tender to 120 BID 3 weeks prior. Told to go to ER due to worsening symptoms. Laboratory analysis demonstrated an INR of 4.5. Complained of dark colored diarrhea for the last week. No prior GI bleeds. Colonoscopy in August 2016 demonstrated internal hemorrhoids. Known history of iron deficiency anemia; receives both IV and by mouth iron supplementation. Patient reported increased swelling of his legs, orthopnea, shortness of breath, and significant weight gain. Patient was scheduled to have an ablation for his atrial fibrillation. CXR demonstrated bilateral congestion, bilateral pleural effusions. EKG demonstrated sinus tachycardia with RBBB. Admitted for CHF exacerbation and GI bleed. Nephrology is consulted for recommendations on diuretic management. Patient was seen and examined at bedside; patient states that he is still having intermittent shortness of breath and orthopnea. He reports that his urine output has been good, but that his lower extremities are still swollen. He also reports scrotal swelling. Currently on O2 via nasal cannula. He currently denies having any fevers, chills, nausea, vomiting, diarrhea, chest pain, cough, wheezing, increased sputum production, or dysuria. He has no further complaints at this time. Past Med Surg Social Fam HX - Past Medical History Medical history: aortic aneurysm, arthritis, cardiomyopathy, CHF, COPD, coronary artery disease, diabetes, GERD, hyperlipidemia, hypertension, myocardial infarction, thyroid disease, valvular heart disease, other Additional medical history: CAD. DM. Mixed hyperlipidemia. Microcytic anemia from iron deficiency. ICD. Cardiomyopathy. Essential htn Psychiatric history: no psych history - Past Surgical History Surgical History: coronary bypass (CABG), heart valve replacement, vascular surgery, AICD Additional surgical history: ICD. AVR. RECTAL ABCESS - Social History Smoking Status: Former smoker Smokeless Tobacco Status: No Alcohol use: none Drug use: none - Family History Mother Adopted: No Family Member Ethnicity: Non- Living Status: Hx Family Cardiac Disorders: Yes Hx Family Respiratory Disorders: Yes Hx Family Cancer: No Hx Family GI Disorders: No Hx Family Endocrine Disorder: Yes Hx Family Neuromuscular Disorders: No Hx Family Neurologic Disorders: No Hx Family HEENT Disorders: No Hx Family Autoimmune Disorders: No Father Adopted: No Family Member Ethnicity: Non- Living Status: Hx Family Cardiac Disorders: Yes Hx Family Respiratory Disorders: Yes Hx Family Cancer: No Hx Family GI Disorders: No Hx Family Endocrine Disorder: Yes Hx Family Neuromuscular Disorders: No Hx Family Neurologic Disorders: No Hx Family HEENT Disorders: No Hx Family Autoimmune Disorders: No Medications and Allergies Clopidogrel [Plavix] 75 mg PO DAILY 08/28/15 [History] Levothyroxine Sodium [Tirosint] 50 mcg PO HS 08/28/15 [History] Lisinopril 2.5 mg PO DAILY 08/28/15 [History] Multivitamin [Multivitamins] 1 each PO DAILY 08/28/15 [History] Omeprazole [PriLOSEC] 20 mg PO BID 08/28/15 [History] Simvastatin [Zocor] 20 mg PO DAILY 08/28/15 [History] Tamsulosin [Flomax] 0.4 mg PO DAILY 08/28/15 [History] Albuterol Sulfate [Albuterol Inhaler] 2 puff IH Q4-6H PRN 04/25/16 [History] Cholecalciferol (D-3) [Vitamin D] 2,000 unit PO DAILY 04/25/16 [History] Furosemide [Lasix] 60 mg PO BID 04/25/16 [History] Cyanocobalamin (B-12) [Vitamin B12] 1 tab PO DAILY #30 tablet 06/18/16 [Rx] Ipratropium/Albuterol Neb [Duoneb] 3 ml IH Q6HR 08/16/16 [History] Metformin HCl [Glucophage] 1,000 mg PO BID 08/16/16 [History] Oxygen 3 l NS CONT 01/02/17 [History] Docusate Sodium [Stool Softener] 100 mg PO BID 05/16/17 [History] Ferrous Gluconate [Iron] 236 mg PO BID 05/16/17 [History] Potassium Chloride [K-Tab ER] 20 meq PO BID 05/16/17 [History] Guaifenesin [Mucinex] 1,200 mg PO BID 05/22/17 [History] Budesonide/Formoterol 160/4.5 [Symbicort 160/4.5] 2 puff IH BIDR 02/20/18 [History] Metoprolol [Lopressor] 25 mg PO BID 02/20/18 [History] Warfarin [Coumadin] 2.5 mg PO SUMOTUWEFRSA 02/20/18 [History] Tiotropium [place] [Spiriva Respimat] 2 puff IH DAILY 06/24/18 [History] Warfarin [Coumadin] 1.25 mg PO TH 06/24/18 [History] Allergy/AdvReac Type Severity Reaction Status Date / Time roflumilast [From [facility]] AdvReac Mild Diarrhea Verified 06/24/18 13:24 Review of Systems Constitutional: as per HPI, weight gain, no excessive sweating, no weight loss Cardiovascular: as per HPI, dyspnea, dyspnea on exertion, irregular heart rhythm, rapid heart rate, no chest pain, no palpitations Respiratory: as per HPI, dyspnea, dyspnea on exertion, no cough Gastrointestinal: as per HPI, no abdominal pain, no nausea, no vomiting Genitourinary Male: as per HPI, scrotal swelling Musculoskeletal: as per HPI Integumentary: as per HPI, swelling Psychiatric: as per HPI, no anxiety Exam - Vital Signs Vital signs: Initial Vital Signs Temp Pulse Resp BP Pulse Ox 98.0 F 135 20 115/79 100 06/24/18 13:19 06/24/18 13:19 06/24/18 13:19 06/24/18 13:19 06/24/18 13:19 Vital Signs - Last 8 Hours Temp Pulse Resp BP Pulse Ox 06/29/18 10:26 97.7 F 98 20 92/57 100 06/29/18 07:11 97.6 F 64 20 93/63 99 06/29/18 04:48 97.4 F L 107 18 99/58 99 Intake and Output 06/28/18 06/29/18 06/29/18 23:59 07:59 15:59 Intake Total 0 / 0 10 10 Output Total 250 / 250 450 / 450 Balance -230 / -230 0 / 0 -440 / -440 Intake: IV Fluids Ancef 1,000 MG In Water for inj . (sterile) 10 ML @ 200 mls/hr IVP Q8HR JULES Rx#:[id number] Oral 0 / 0 0 / 0 Output: Urine 250 / 250 450 / 450 Other: Meal Dinner NPO BREAKFAST Percent of Meal Consumed 50% Weight 127.3 kg Blood Glucose* 113 131 103 Patient Weight 06/29/18 23:59 Weight 127.3 kg - General Appearance Exam: General: A&O X3, conversant, no acute distress Head: atraumatic, normocephalic Eye: PERRL, EOMI, conjuntiva pink, sclera anicteric Neck: Supple, trachea midline; No lymphadenopathy Respiratory: Bibasilar crackles, shortened inspiratory phase, diminished breath sounds bilaterally Cardiovascular: Tachycardic, irregular rhythm Abdomen: Soft, nontender Groin: Scrotum swelling noted Extremities: +3 pedal edema bilaterally Psychiatric: Normal affect, normal mood Skin: Dry, intact Results - Lab Results 06/29/18 04:33 06/29/18 04:33 Most recent lab results Calcium 8.9 mg/dL (8.6-10.3) 06/29/18 04:33 Consult Discharge Plan - Plan Referrals: Russell Bradley MD [Primary Care Provider] -
[2018-06-29] MEDS ORDERED: *HR* Etomidate 40 MG/20 ML VIAL IVP ONE (12:37)
[2018-06-29] MEDS ORDERED: Lidocaine -MPF 2% 2 ML VIAL ONE (12:49)
[2018-06-29] MEDS ORDERED: *HR* Propofol 200 MG/20 ML VIAL IVP ONE (12:49)
--- NOTE | 2018-06-29 12:55 | Anesthesia Evaluation PreOp ---
Date of Encounter: 06/29/18 Time of Encounter: 12:53 - Past History Planned Operation: EGD (acute GI bleed) Cardiac History: CHF (acute decompensated CHF exacerbation with EF 35-40%), HTN, Hyperlipidemia, Arrhythmia (a fib with RVR), Cardiac Surgery (CABG 2010, 2 AVR (most recently around 1.5 years ago)), Pacemaker/ICD (ICD placed 2010) Pulmonary History: Former smoker, COPD (24/7 oxygen 3L) ANESTHESIOLOGY PHYSICIAN ASSISTANT History: CVA (speech issues), Other (chronic back pain) Other Medical History: Renal (nephrology consult due to inadequate response to diuresis), Bleeding, Diabetes Type II Anesthesia History: No Prior Anesthetic Complications Alcohol Use: none Drug use: none Medications and Allergies Clopidogrel [Plavix] 75 mg PO DAILY 08/28/15 [History] Levothyroxine Sodium [Tirosint] 50 mcg PO HS 08/28/15 [History] Lisinopril 2.5 mg PO DAILY 08/28/15 [History] Multivitamin [Multivitamins] 1 each PO DAILY 08/28/15 [History] Omeprazole [PriLOSEC] 20 mg PO BID 08/28/15 [History] Simvastatin [Zocor] 20 mg PO DAILY 08/28/15 [History] Tamsulosin [Flomax] 0.4 mg PO DAILY 08/28/15 [History] Albuterol Sulfate [Albuterol Inhaler] 2 puff IH Q4-6H PRN 04/25/16 [History] Cholecalciferol (D-3) [Vitamin D] 2,000 unit PO DAILY 04/25/16 [History] Furosemide [Lasix] 60 mg PO BID 04/25/16 [History] Cyanocobalamin (B-12) [Vitamin B12] 1 tab PO DAILY #30 tablet 06/18/16 [Rx] Ipratropium/Albuterol Neb [Duoneb] 3 ml IH Q6HR 08/16/16 [History] Metformin HCl [Glucophage] 1,000 mg PO BID 08/16/16 [History] Oxygen 3 l NS CONT 01/02/17 [History] Docusate Sodium [Stool Softener] 100 mg PO BID 05/16/17 [History] Ferrous Gluconate [Iron] 236 mg PO BID 05/16/17 [History] Potassium Chloride [K-Tab ER] 20 meq PO BID 05/16/17 [History] Guaifenesin [Mucinex] 1,200 mg PO BID 05/22/17 [History] Budesonide/Formoterol 160/4.5 [Symbicort 160/4.5] 2 puff IH BIDR 02/20/18 [History] Metoprolol [Lopressor] 25 mg PO BID 02/20/18 [History] Warfarin [Coumadin] 2.5 mg PO SUMOTUWEFRSA 02/20/18 [History] Tiotropium [place] [Spiriva Respimat] 2 puff IH DAILY 06/24/18 [History] Warfarin [Coumadin] 1.25 mg PO TH 06/24/18 [History] Allergy/AdvReac Type Severity Reaction Status Date / Time roflumilast [From [facility]] AdvReac Mild Diarrhea Verified 06/24/18 13:24 - Meds/Allergy Pre-op Review Medications Reviewed: Yes Allergies Reviewed: Yes Beta Blockers on Current Med List: Yes If Beta Blockers taken, Date/Time (Last Dose taken): held due to hypotension Anesthesia Results - Labs 06/29/18 04:33 06/29/18 04:33 - Imaging EKG: report reviewed, image reviewed (ATRIAL FLUTTER/TACHYCARDIA WITH VENTRICULAR PREMATURE COMPLEX INCOMPLETE RIGHT BUNDLE BRANCH BLOCK POSSIBLE RIGH T VENTRICULAR HYPERTROPHY) Additional studies: TTE: Impressions: LVEF 35-40%. Moderate global left ventricular systolic dysfunction. Mild concentric left ventricular hypertrophy. Indeterminate diastolic function. Mildly dilated right ventricle with mild hypokinesis. Mildly biatrial dilatation. Bioprosthetic aortic valve replacement with normal function. Moderate mitral regurgitation. Mild-moderate tricuspid regurgitation. Moderate pulmonary hypertension. Cardiology cleared patient for procedure for today. Anesthesia Exam Last Vital Signs Temp 97.7 F 06/29/18 10:26 Pulse 124 06/29/18 12:30 Resp 16 06/29/18 12:30 BP 97/62 06/29/18 12:30 Pulse Ox 98 06/29/18 12:30 Weight: 127 kg NPO (# of Hours): > 8 hrs - HEENT Pupil (Motor): Pupils equal, EOMI Mallampati: I Teeth: Edentulous Oral Opening: Greater than 3 - ANESTHESIOLOGY PHYSICIAN ASSISTANT LOC: Oriented - Cardiac Rhythm: Irregular (rapid) - Pulmonary Breath Sounds: bilateral Clear Respiratory Effort: Labored Anesthesia Assess/Plan ASA Score: 4 Level of consciousness: Cooperative Anesthetic Plan: MAC Monitoring Plan: Standard Monitors Recovery Plan: PACU
--- NOTE | 2018-06-29 13:44 | Anesthesia Evaluation Post Op ---
Date of Encounter: 06/29/18 Time of Encounter: 13:13 - Vital Signs Vital Signs: Vital Signs/O2 Sat/Glucose, Most Recent Temp Pulse Resp BP Pulse Ox 97.5 F L 123 20 95/62 100 06/29/18 13:33 06/29/18 13:33 06/29/18 13:33 06/29/18 13:33 06/29/18 13:33 Blood Glucose* 103 - Lungs Lungs: Rhonchi - Airway Airway: Non-obstructed - Cardiovascular Baseline Rhythm (AFib) - Mental Status Mental Status: Alert & Oriented, Answers Appropriately - Pain Pain Scale: 0 Pain Scale used: Numeric (1 - 10) - Nausea Vomiting Nausea Vomiting: Not Present - Hydration Hydration: Ice chips Notes: 06/29/18 13:43 Pt has fully recovered from Anesthesia. A/O x3. VSS and Neuro exam intact. - Discharge PostOp Status: Transfer Patient to floor
[2018-06-29] MEDS: MICONAZOLE NITRATE 57 GM TUBE TP SCH (16:31)
[2018-06-29] MEDS: Ipratropium/Albuterol Neb 3 ML IH PRN (19:51)
[2018-06-30] MEDS: Ipratropium/Albuterol Neb 3 ML IH PRN ×4 (04:15→21:58)
[2018-06-30] MEDS: *HR* OxyCODONE/APAP 5/325 TABLET PO PRN ×2 (04:57→17:00)
[2018-06-30] MEDS: Insulin LISPRO 300 UNITS/3 ML VIAL SQ SCH ×3 (08:12→17:05)
[2018-06-30] MEDS: Furosemide 40 MG/4 ML VIAL IVP SCH ×3 (08:13→16:59)
[2018-06-30] MEDS: Metoprolol XL (24 HR) Succ 50 MG TAB.ER.24H PO SCH (08:14)
[2018-06-30] MEDS: MICONAZOLE NITRATE 57 GM TUBE TP SCH (08:43)
[2018-06-30] MEDS ORDERED: Pantoprazole 40 MG VIAL IVP SCH (09:00)
--- NOTE | 2018-06-30 09:07 | Nephrology Progress Note ---
Addendum entered and electronically signed by Stepan Fajardo MD 06/30/18 22:18: I examined this patient and my medical decision-making was reviewed with the Resident Physician. I agree with the documented findings, disposition and treatment plan as described except to the extent set forth below. Patient's urine output has increased. We will increase diuresis and monitor for urine output along with renal response. Original Note: Date of Encounter: 06/30/18 Time of Encounter: 09:04 - Assessment and Plan (1) Acute on chronic clinical systolic heart failure Current Visit: No Status: Acute - Known history of HFrEF; TTE 12/25: LVEF 35-40, mildly dilated LV, moderate global LV systolic dysfunction, severe pulmonary hypertension - Patient has required high doses of Lasix - Urine output was 750 mL yesterday, 360 mL so far today - Cumulative I&O is - 1894 Plan: - Continue to monitor renal function - Daily weights, strict Is and Os, cardiac diet - Lasix increased to 80 mg IV TID (2) GI bleed Current Visit: Yes Status: Acute Patient presented complaining of dark colored diarrhea - FOBT positive in the emergency department - Noted to have an elevated INR of 4.5 on 06/23; normally anticoagulated on Coumadin for atrial fibrillation - Patient known to be chronically anemic from iron deficiency anemia; baseline hemoglobin is 10 - Status post 1 unit pRBC transfusion; Hb stable at this time - No prior history of GI bleed; colonoscopy August 2016 demonstrated internal hemorrhoids - EGD 06/29: Reflux esophagitis, chronic gastritis, no sources of active bleeding found Plan: - Protonix 40 mg IV every 12 Qualifiers: GI bleed type/associated pathology: melena Qualified Code(s): K92.1 - Melena (3) Anemia Current Visit: No Status: Acute - History of iron deficiency anemia - FOBT positive in the ED - Management per GI Qualifiers: Anemia type: unspecified type Qualified Code(s): D64.9 - Anemia, unspecified (4) CAD (coronary artery disease) Current Visit: No Status: Acute - Continue home beta castillo and statin - Antiplatelet being held due to concern for GI bleed Qualifiers: Coronary Disease-Associated Artery/Lesion type: bypass graft [place] vs. transplanted heart: [place] heart Associated angina: without angina Qualified Code(s): I25.810 - Atherosclerosis of coronary artery bypass graft(s) without angina pectoris (5) Cellulitis Current Visit: Yes Status: Acute - Cellulitis versus chronic dermatitis - Continue Ancef Qualifiers: Qualified Code(s): L03.90 - Cellulitis, unspecified (6) Afib Current Visit: Yes Status: Acute - Known history of atrial fibrillation; was scheduled to get an ablation before presenting to the ED - INR 4.5 on laboratory analysis - Management per cardiology Qualifiers: Qualified Code(s): I48.91 - Unspecified atrial fibrillation Subjective Principal diagnosis: CHF Interval history: Patient seen and examined at bedside; reports pain in his lower extremities from his cellulitis. He reports that his breathing has been somewhat difficult this morning. Relatively unchanged from yesterday. He reports that his abdominal and lower extremity swelling have decreased slightly. Also reports a slight reduction in scrotal swelling. Denies having abdominal pain, scrotal pain, fevers, chills, nausea, vomiting, diarrhea, chest pain, palpitations, weakness, or headache. He has no further complaints at this time. Objective - Vital Signs Vital signs: Vital Signs Temp Pulse Resp BP Pulse Ox 06/30/18 07:00 97.8 F 101 20 104/68 100 06/30/18 04:16 22 99 06/30/18 03:16 97.5 F L 124 15 98/66 98 06/29/18 19:53 22 98 06/29/18 19:05 98.1 F 124 15 97/58 99 06/29/18 13:33 97.5 F L 123 20 95/62 100 06/29/18 12:30 124 16 197/62 98 06/29/18 10:26 97.7 F 98 20 92/57 100 Intake and Output 06/29/18 06/30/18 06/30/18 23:59 07:59 15:59 Intake Total 530 / 530 640 / 640 Output Total 0 / 0 360 / 360 Balance 530 / 530 280 / 280 Intake: IV Fluids Ancef 1,000 MG In Water for inj . (sterile) 10 ML @ 200 mls/hr IVP Q8HR JULES Rx#:[id number] Oral 520 / 520 640 / 640 Output: Urine 0 / 0 360 / 360 Other: Meal Dinner Percent of Meal Consumed 10% # Voids 2 Blood Glucose* 140 113 - General Appearance Exam: General: A&O X3, conversant, no acute distress Head: atraumatic, normocephalic Eye: PERRL, EOMI, conjuntiva pink, sclera anicteric Neck: Supple, trachea midline; No lymphadenopathy Respiratory: Bibasilar crackles, shortened inspiratory phase, diminished breath sounds bilaterally Cardiovascular: Tachycardic, irregular rhythm Abdomen: Soft, nontender, slight distention Groin: Scrotum swelling slightly improved from yesterday Extremities: Lower extremities are currently wrapped; erythema noted bilaterally Psychiatric: Normal affect, normal mood Skin: Dry, intact - Lab 06/30/18 09:22 06/30/18 09:22 Most recent lab results Calcium 8.9 mg/dL (8.6-10.3) 06/29/18 04:33 Consult Discharge Plan - Plan Referrals: Russell Bradley MD [Primary Care Provider] -
--- NOTE | 2018-06-30 09:45 | Internal Med Progress Note ---
Hospitalist Progress Note - Encounter Date of Encounter: 06/30/18 Time of Encounter: 09:45 - Exam Vitals: Temp Pulse Resp BP Pulse Ox 97.8 F 101 20 104/68 100 06/30/18 07:00 06/30/18 07:00 06/30/18 07:00 06/30/18 07:00 06/30/18 07:00 Exam: Constitutional: Conversant. In no respiratory distress. Respiratory : Decreased air entry bilaterally at bases. No accessory muscle use, rhonchi or wheezes Cardiovascular : RRR, +S1, +S2. no murmur, gallop, rubs. No chest wall tenderness GI/Abdominal : Soft, Obese, Non-tender, Non-distended, edematous, no peritoneal signs. no orgenomegaly or mass appreciated. Has scrotal swelling as well. Musculoskeletal: 2+ edema till thigh as well as abdominal edema. Redness painful swelling on both legs with dressing on both legs. Redness and swelling slightly improved. Neurological: AO X3, CN II-XII grossly intact, grossly normal motor and sensory exam. Skin: redness and edema noted along with ulcer in both lower extremity. Rt>Lt. Slighly impoved. - Assessment and Plan (1) Acute on chronic clinical systolic heart failure Current Visit: No Status: Acute Assessment and Plan: - Patient's with signs and symptoms of acute CHF exacerbation. - Last echocardiogram performed in December 2016 with EF of 35-40%, mildly dilated left ventricle, moderate global left ventricular systolic dysfunction, intermediate diastolic dysfunction, severe pulmonary hypertension. - Chest x-ray with bilateral congestion and pleural effusion along with significant lower extremity swelling - Patient compliant with his medication - We will start patient on lasix IV TID and add albumin. Renal on board and appreciate recs (2) Anemia Current Visit: No Status: Acute Assessment and Plan: Likely secondary to iron deficiency anemia. S/p EGD showing esophagitis Continue protonix (3) CAD (coronary artery disease) Current Visit: No Status: Acute Assessment and Plan: Continue home beta castillo and statin - Hold antiplatelets given GI bleed (4) GI bleed Current Visit: Yes Status: Acute Assessment and Plan: - Patient's baseline hemoglobin around 10. Currently 8 - Had positive stool occult blood in ER and supratherapeutic INR s/p EGD showing esophagitis. (5) Cellulitis Current Visit: Yes Status: Acute Assessment and Plan: - Patient has bilateral lower extremity with redness swelling and bruising along with ulcers -Improved continue po bactrim and cefdinir (6) Afib Current Visit: Yes Status: Acute Assessment and Plan: Continue metoprolol. Resume coumadin for anticoagulation DVT Prophylaxis: On coumadin - Time Spent with Patient Total time spent is greater than 50% in coordination of care (as documented) at patient's floor/unit and/or counseling patient: Internal Medicine: Result - Labs CBC & Chem 7: 06/30/18 09:22 06/30/18 09:22 - ABG Interpretation ABG results: PT/INR, D-dimer PT 22.9 Seconds (9.4-12.1) H 06/25/18 06:25 - Impressions Impressions Chest X-Ray 06/29/18 06:00 IMPRESSION: Pulmonary edema and small bilateral pleural effusions. D/ / Kehinde Loredo MD / Kehinde Loredo MD Interpreting Provider: Kehinde Loredo MD Consult Discharge Plan - Plan Referrals: Russell Bradley MD [Primary Care Provider] - (2) Anemia Qualifiers: Anemia type: unspecified type Qualified Code(s): D64.9 - Anemia, unspecified (3) CAD (coronary artery disease) Qualifiers: Coronary Disease-Associated Artery/Lesion type: bypass graft [place] vs. transplanted heart: [place] heart Associated angina: without angina Qualified Code(s): I25.810 - Atherosclerosis of coronary artery bypass graft(s) without angina pectoris (4) GI bleed Qualifiers: GI bleed type/associated pathology: melena Qualified Code(s): K92.1 - Melena (5) Cellulitis Qualifiers: Qualified Code(s): L03.90 - Cellulitis, unspecified (6) Afib Qualifiers: Qualified Code(s): I48.91 - Unspecified atrial fibrillation
[2018-06-30 09:47] LABS: Basophils % 0.6 %; Eosinophils # 0.1 K/mcL (0.0-0.6); Hematocrit 28.3 % (37.5-50.1); Hemoglobin 8.9 g/dL (12.9-16.9); Immature Granulocytes % 0.4 % (0-4); Lymphocytes # 0.5 K/mcL (0.6-4.6); Lymphocytes % 10.8 %; Mean Corpuscular HGB Conc 31.4 g/dL (31.6-35.5); Mean Corpuscular Hemoglobin 28.9 pg (28.0-33.3); Mean Corpuscular Volume 91.9 fL (83.0-100.0); Mean Platelet Volume 9.9 fL (9.4-12.4); Monocytes # 0.6 K/mcL (0.0-1.3); Monocytes % 12.3 %; Neutrophils # 3.4 K/mcL (1.6-8.9); Platelet Count 311 K/mcL (140-400); Red Blood Count 3.08 M/mcL (4.19-5.50); Red Cell Distribution Width 18.4 % (11.5-14.5); Segmented Neutrophils % 72.9 %
[2018-06-30 09:48] LABS: BUN/Creatinine Ratio 31 (6-26); Blood Urea Nitrogen 31 mg/dL (8-23); Calcium 9.1 mg/dL (8.6-10.3); Carbon Dioxide 30 mEq/L (23-29); Chloride 99 mEq/L (98-107); Glucose 103 mg/dL (70-105); Osmolality,Calculated 289 (280-300); Potassium 4.5 mEq/L (3.5-5.1); Sodium 136 mEq/L (136-145); eGFR For Non-African Americans > 60 (> 60)
[2018-06-30] MEDS ORDERED: *HR* OxyCODONE/APAP 5/325 TABLET PO ONE ×2 (09:57)
[2018-06-30] MEDS: MOM Conc 10 ML UD.LIQ PO PRN (10:39)
[2018-06-30] MEDS: Tiotropium 18 MCG inhalation IH SCH (11:05)
[2018-06-30] MEDS: Budesonide/Formoterol 160/4.5 1 PUFF INH IH SCH ×2 (11:05→21:54)
[2018-06-30] MEDS: Cefdinir 300 MG CAPSULE PO SCH ×2 (12:44→22:00)
[2018-06-30] MEDS: Sulfamethoxazole/Trimeth DS 1 EACH TABLET PO SCH ×2 (12:44→22:00)
[2018-06-30] MEDS: Albumin 25% 25gram/100mL 25 GM/100 ML IV.SOLN IVC SCH ×4 (12:45→18:49)
[2018-06-30 14:34] LABS: INR 1.5; Prothrombin Time 17.2 Seconds (9.4-12.1)
[2018-06-30] MEDS: Acetaminophen 325 MG TABLET PO PRN (15:12)
[2018-06-30] MEDS ORDERED: *HR* Warfarin 3 MG TABLET PO ONE (18:00)
[2018-06-30] MEDS: Warfarin perPT PO SCH (18:51)
[2018-07-01] MEDS: *HR* OxyCODONE/APAP 5/325 TABLET PO PRN ×2 (01:10→17:34)
[2018-07-01] MEDS: Ipratropium/Albuterol Neb 3 ML IH PRN ×3 (04:36→21:55)
[2018-07-01 06:50] LABS: INR 1.4; Prothrombin Time 16.3 Seconds (9.4-12.1)
--- NOTE | 2018-07-01 07:32 | Nephrology Progress Note ---
Addendum entered and electronically signed by Stepan Fajardo MD 07/01/18 20:46: I examined this patient and my medical decision-making was reviewed with the Resident Physician. I agree with the documented findings, disposition and treatment plan as described except to the extent set forth below. Patient's HR increasing with decreasing blood pressure. Will decrease lasix. Suggest reconsulting cardiology for rate control. Consider OT for edema management. PT consult Original Note: Date of Encounter: 07/01/18 Time of Encounter: 07:30 - Assessment and Plan (1) Acute on chronic clinical systolic heart failure Current Visit: No Status: Acute - Known history of HFrEF; TTE 12/25: LVEF 35-40, mildly dilated LV, moderate global LV systolic dysfunction, severe pulmonary hypertension - Patient has required high doses of Lasix - Urine output was 835 mL yesterday, 350 mL so far today - Cumulative I&O is - 0 Plan: - Continue to monitor renal function - Daily weights, strict Is and Os, cardiac diet - Due to concerns of rising creatinine and flucuating BP, will decrease lasix to 80 mg IV BID - Hold patent's potassium supplement; potassium level today was 4.8 (2) GI bleed Current Visit: Yes Status: Acute Patient presented complaining of dark colored diarrhea - FOBT positive in the emergency department - Noted to have an elevated INR of 4.5 on 06/23; normally anticoagulated on Coumadin for atrial fibrillation - Patient known to be chronically anemic from iron deficiency anemia; baseline hemoglobin is 10 - Status post 1 unit pRBC transfusion; Hb stable at this time - No prior history of GI bleed; colonoscopy August 2016 demonstrated internal hemorrhoids - EGD 06/29: Reflux esophagitis, chronic gastritis, no sources of active bleeding found Plan: - Protonix 40 mg IV every 12 Qualifiers: GI bleed type/associated pathology: melena Qualified Code(s): K92.1 - Melena (3) Anemia Current Visit: No Status: Acute - History of iron deficiency anemia - FOBT positive in the ED - Management per GI Qualifiers: Anemia type: unspecified type Qualified Code(s): D64.9 - Anemia, unspecified (4) CAD (coronary artery disease) Current Visit: No Status: Acute - Continue home beta castillo and statin - Antiplatelet being held due to concern for GI bleed Qualifiers: Coronary Disease-Associated Artery/Lesion type: bypass graft [place] vs. transplanted heart: [place] heart Associated angina: without angina Qualified Code(s): I25.810 - Atherosclerosis of coronary artery bypass graft(s) without angina pectoris (5) Afib Current Visit: Yes Status: Acute - Known history of atrial fibrillation; was scheduled to get an ablation before presenting to the ED - INR 4.5 on laboratory analysis - Management per cardiology Qualifiers: Qualified Code(s): I48.91 - Unspecified atrial fibrillation (6) Cellulitis Current Visit: Yes Status: Acute - Cellulitis versus chronic dermatitis - Continue Ancef Qualifiers: Qualified Code(s): L03.90 - Cellulitis, unspecified Subjective Principal diagnosis: CHF Interval history: Patient seen and examined at bedside; reports that he is feeling somewhat better today. Reports that the swelling in his lower extremities has improved; and t hat the swelling in his abdomen and scrotum are beginning to subside. Still complains of mild pain in his lower extremities from his cellulitis. States that his breathing has only marginally improved. He denies abdominal pain, scrotal pain, fevers, chills, nausea, vomiting, chest pain, palpitations, weakness, or headache. Patient has no further complaints at this time. Objective - Vital Signs Vital signs: Vital Signs Temp Pulse Resp BP Pulse Ox 07/01/18 04:42 97.6 F 122 18 84/59 94 07/01/18 04:36 19 97 06/30/18 21:58 19 99 06/30/18 20:06 97.5 F L 123 16 87/57 95 06/30/18 15:42 18 91 06/30/18 14:43 97.3 F L 125 20 96/65 99 06/30/18 11:06 18 99 06/30/18 10:29 97.7 F 86 20 89/61 96 Intake and Output 06/30/18 06/30/18 07/01/18 15:59 23:59 07:59 Intake Total 460 / 460 400 / 400 0 / 0 Output Total 250 / 250 225 / 225 100 / 100 Balance 210 / 210 175 / 175 -100 / -100 Intake: IV Fluids 100 / 100 200 / 200 Flexbumin 25 gm In 100 ml @ 60 100 / 100 200 / 200 mls/hr IVC .Q1H40M [facility] Rx#: [id number] Oral 360 / 360 200 / 200 0 / 0 Output: Urine 250 / 250 225 / 225 100 / 100 Other: Meal Lunch Dinner Percent of Meal Consumed 75% 100% Weight 127.3 kg Blood Glucose* 109 169 Patient Weight 07/01/18 23:59 Weight 127.3 kg - General Appearance Exam: General: A&O X3, conversant, no acute distress Head: atraumatic, normocephalic Eye: PERRL, EOMI, conjuntiva pink, sclera anicteric Neck: Supple, trachea midline; No lymphadenopathy Respiratory: Bibasilar crackles, shortened inspiratory phase, diminished breath sounds bilaterally Cardiovascular: Tachycardic, irregular rhythm Abdomen: Soft, nontender, slight distention Groin: Scrotum swelling slightly improved from yesterday Extremities: Lower extremities are currently wrapped; erythema noted bilaterally Psychiatric: Normal affect, normal mood Skin: Dry, intact - Lab 07/01/18 09:12 07/01/18 09:12 Most recent lab results Calcium 9.1 mg/dL (8.6-10.3) 06/30/18 09:22 Consult Discharge Plan - Plan Referrals: Russell Bradley MD [Primary Care Provider] -
[2018-07-01] MEDS: Budesonide/Formoterol 160/4.5 1 PUFF INH IH SCH ×2 (08:07→21:55)
[2018-07-01] MEDS: Tiotropium 18 MCG inhalation IH SCH (08:09)
[2018-07-01] MEDS: Insulin LISPRO 300 UNITS/3 ML VIAL SQ SCH ×3 (08:25→17:23)
[2018-07-01] MEDS: Cefdinir 300 MG CAPSULE PO SCH ×2 (08:38→20:50)
[2018-07-01] MEDS: Sulfamethoxazole/Trimeth DS 1 EACH TABLET PO SCH ×2 (08:38→20:49)
[2018-07-01] MEDS: Furosemide 40 MG/4 ML VIAL IVP SCH ×2 (08:39→17:22)
[2018-07-01] MEDS: MICONAZOLE NITRATE 57 GM TUBE TP SCH (08:39)
[2018-07-01] MEDS: Metoprolol XL (24 HR) Succ 50 MG TAB.ER.24H PO SCH (08:39)
[2018-07-01] MEDS: MOM Conc 10 ML UD.LIQ PO PRN (08:45)
[2018-07-01 09:22] LABS: Basophils % 0.5 %; Eosinophils # 0.1 K/mcL (0.0-0.6); Eosinophils % 2.7 %; Hematocrit 28.2 % (37.5-50.1); Hemoglobin 8.7 g/dL (12.9-16.9); Immature Granulocytes % 0.5 % (0-4); Lymphocytes # 0.4 K/mcL (0.6-4.6); Lymphocytes % 8.7 %; Mean Corpuscular HGB Conc 30.9 g/dL (31.6-35.5); Mean Corpuscular Hemoglobin 28.4 pg (28.0-33.3); Mean Corpuscular Volume 92.2 fL (83.0-100.0); Mean Platelet Volume 9.8 fL (9.4-12.4); Monocytes # 0.5 K/mcL (0.0-1.3); Monocytes % 12.9 %; Neutrophils # 3.1 K/mcL (1.6-8.9); Platelet Count 289 K/mcL (140-400); Red Blood Count 3.06 M/mcL (4.19-5.50); Red Cell Distribution Width 18.3 % (11.5-14.5); Segmented Neutrophils % 74.7 %
[2018-07-01 09:41] LABS: BUN/Creatinine Ratio 32 (6-26); Blood Urea Nitrogen 37 mg/dL (8-23); Calcium 9.4 mg/dL (8.6-10.3); Carbon Dioxide 25 mEq/L (23-29); Chloride 99 mEq/L (98-107); Glucose 106 mg/dL (70-105); Osmolality,Calculated 285 (280-300); Potassium 4.8 mEq/L (3.5-5.1); Sodium 133 mEq/L (136-145); eGFR For Non-African Americans > 60 (> 60)
--- NOTE | 2018-07-01 09:47 | Internal Med Progress Note ---
Hospitalist Progress Note - Encounter Date of Encounter: 07/01/18 Time of Encounter: 09:45 - Exam Vitals: Temp Pulse Resp BP Pulse Ox 97.2 F L 122 18 116/56 98 07/01/18 07:35 07/01/18 07:35 07/01/18 07:35 07/01/18 07:35 07/01/18 07:35 Exam: Constitutional: Conversant. In no respiratory distress. Respiratory : Decreased air entry bilaterally at bases. No accessory muscle use, rhonchi or wheezes Cardiovascular : RRR, +S1, +S2. no murmur, gallop, rubs. No chest wall tenderness GI/Abdominal : Soft, Obese, Non-tender, Non-distended, edematous, no peritoneal signs. no orgenomegaly or mass appreciated. Has scrotal swelling as well. Musculoskeletal: 2+ edema till thigh as well as abdominal edema. Redness painful swelling on both legs with dressing on both legs. Redness and swelling slightly improved. Neurological: AO X3, CN II-XII grossly intact, grossly normal motor and sensory exam. Skin: redness and edema noted along with ulcer in both lower extremity. Rt>Lt. Slighly impoved. - Assessment and Plan (1) Acute on chronic clinical systolic heart failure Current Visit: No Status: Acute Assessment and Plan: - Patient presented with signs and symptoms of acute CHF exacerbation. - Last echocardiogram performed in December 2016 with EF of 35-40%, mildly dilated left ventricle, moderate global left ventricular systolic dysfunction, intermediate diastolic dysfunction, severe pulmonary hypertension. - Chest x-ray with bilateral congestion and pleural effusion along with significant lower extremity swelling - Patient compliant with his medication - Continue lasix BID. Switched from TID due to rising creatinine. Pt's swelling has improved (2) Anemia Current Visit: No Status: Acute Assessment and Plan: Likely secondary to iron deficiency anemia. S/p EGD showing esophagitis Continue protonix (3) CAD (coronary artery disease) Current Visit: No Status: Acute Assessment and Plan: Continue home beta castillo and statin - Hold antiplatelets given GI bleed (4) GI bleed Current Visit: Yes Status: Acute Assessment and Plan: - Patient's baseline hemoglobin around 10. Currently 8 - Had positive stool occult blood in ER and supratherapeutic INR s/p EGD showing esophagitis. Resume protonix and okay to resume warfarin per GI recs (5) Cellulitis Current Visit: Yes Status: Acute Assessment and Plan: - Patient has bilateral lower extremity with redness swelling and bruising along with ulcers -Improved continue po bactrim and cefdinir (6) Afib Current Visit: Yes Status: Acute Assessment and Plan: Continue metoprolol. Resume coumadin for anticoagulation. Follow up with cardiology for possible ablation DVT Prophylaxis: On warfarin - Time Spent with Patient Total time spent is greater than 50% in coordination of care (as documented) at patient's floor/unit and/or counseling patient: Internal Medicine: Result - Labs CBC & Chem 7: 07/01/18 09:12 07/01/18 09:12 Labs: Short CBC 06/30/18 07/01/18 Range/Units 09:22 09:12 WBC 4.7 4.1 L (4.3-11.1) K/mcL Hgb 8.9 L 8.7 L (12.9-16.9) g/dL Hct 28.3 L 28.2 L (37.5-50.1) % Plt Count 311 289 (140-400) K/mcL Neutrophils # 3.4 3.1 (1.6-8.9) K/mcL BMP 06/30/18 07/01/18 09:22 09:12 Sodium 136 133 L Potassium 4.5 4.8 Chloride 99 99 Carbon Dioxide 30 H 25 BUN 31 H 37 H Creatinine 0.99 1.17 Glucose 103 106 H Calcium 9.1 9.4 - ABG Interpretation ABG results: PT/INR, D-dimer PT 16.3 Seconds (9.4-12.1) H 07/01/18 06:25 Consult Discharge Plan - Plan Referrals: Russell Bradley MD [Primary Care Provider] - (2) Anemia Qualifiers: Anemia type: unspecified type Qualified Code(s): D64.9 - Anemia, unspecified (3) CAD (coronary artery disease) Qualifiers: Coronary Disease-Associated Artery/Lesion type: bypass graft [place] vs. transplanted heart: [place] heart Associated angina: without angina Qualified Code(s): I25.810 - Atherosclerosis of coronary artery bypass graft(s) without angina pectoris (4) GI bleed Qualifiers: GI bleed type/associated pathology: melena Qualified Code(s): K92.1 - Melena (5) Cellulitis Qualifiers: Qualified Code(s): L03.90 - Cellulitis, unspecified (6) Afib Qualifiers: Qualified Code(s): I48.91 - Unspecified atrial fibrillation
[2018-07-01] MEDS: Sennosides/Docusate Sodium TABLET PO SCH ×2 (12:58→20:48)
[2018-07-01] MEDS ORDERED: Metoprolol XL (24 HR) Succ 25 MG TAB.ER.24H PO ONE (16:21)
[2018-07-01] MEDS: Warfarin perPT PO SCH (17:23)
[2018-07-01] MEDS ORDERED: *HR* Warfarin 2.5 MG TABLET PO ONE (18:00)
[2018-07-02] MEDS: *HR* OxyCODONE/APAP 5/325 TABLET PO PRN ×3 (01:34→17:54)
[2018-07-02] MEDS: Ipratropium/Albuterol Neb 3 ML IH PRN ×2 (04:02→10:38)
[2018-07-02] MEDS: Acetaminophen 325 MG TABLET PO PRN ×2 (04:19→21:59)
[2018-07-02 05:31] LABS: Basophils % 0.4 %; Eosinophils # 0.1 K/mcL (0.0-0.6); Hematocrit 28.6 % (37.5-50.1); Hemoglobin 8.7 g/dL (12.9-16.9); Immature Granulocytes % 0.4 % (0-4); Lymphocytes # 0.5 K/mcL (0.6-4.6); Lymphocytes % 10.1 %; Mean Corpuscular HGB Conc 30.4 g/dL (31.6-35.5); Mean Corpuscular Hemoglobin 28.4 pg (28.0-33.3); Mean Corpuscular Volume 93.5 fL (83.0-100.0); Mean Platelet Volume 9.7 fL (9.4-12.4); Monocytes # 0.6 K/mcL (0.0-1.3); Monocytes % 13.1 %; Neutrophils # 3.4 K/mcL (1.6-8.9); Platelet Count 307 K/mcL (140-400); Red Blood Count 3.06 M/mcL (4.19-5.50); Red Cell Distribution Width 18.2 % (11.5-14.5)
[2018-07-02 05:38] LABS: INR 1.5; Prothrombin Time 16.6 Seconds (9.4-12.1)
[2018-07-02 05:55] LABS: Calcium 9.4 mg/dL (8.6-10.3); Magnesium 2.2 mg/dL (1.6-2.6); Phosphorous 4.5 mg/dL (2.7-4.5)
[2018-07-02] MEDS: traMADol 50 MG TABLET PO PRN (06:40)
[2018-07-02] MEDS: Insulin LISPRO 300 UNITS/3 ML VIAL SQ SCH ×3 (07:48→17:54)
[2018-07-02] MEDS: Furosemide 40 MG/4 ML VIAL IVP SCH (08:21)
[2018-07-02] MEDS: Cefdinir 300 MG CAPSULE PO SCH ×2 (08:51→21:51)
[2018-07-02] MEDS: Metoprolol XL (24 HR) Succ 50 MG TAB.ER.24H PO SCH ×2 (08:51→22:34)
[2018-07-02] MEDS: Sennosides/Docusate Sodium TABLET PO SCH ×2 (08:51→21:51)
[2018-07-02] MEDS: Sulfamethoxazole/Trimeth DS 1 EACH TABLET PO SCH ×2 (08:51→21:52)
[2018-07-02] MEDS: MICONAZOLE NITRATE 57 GM TUBE TP SCH (08:52)
[2018-07-02] MEDS: Albumin 25% 25gram/100mL 25 GM/100 ML IV.SOLN IVC SCH ×2 (08:57→10:59)
--- NOTE | 2018-07-02 09:21 | Nephrology Progress Note ---
Date of Encounter: 07/02/18 Time of Encounter: 09:09 - Assessment and Plan (1) SHABBIR (acute kidney injury) Current Visit: Yes Status: Acute Patient's clinical picture is extremely complicated. He has congestive heart failure with a decreased ejection fraction along with pulmonary hypertension. He is in with volume overload exhibited by pulmonary edema along with lower extremity edema. We have attempted to diurese him with intravenous Lasix without success. Today his renal function starts to get worse. On Friday I will give the patient the option of being treated with ultrafiltration for volume removal to see if this assists with his cardiac output and overall function as the patient is relatively miserable and does not seem to be responding to our current medical therapies. If this is something that he does not want then we will continue with diuresis including albumin and metolazone. Patient does have elevated heart rate) probably benefit from rate control. (2) Afib Current Visit: Yes Status: Acute Qualifiers: Qualified Code(s): I48.91 - Unspecified atrial fibrillation (3) CHF exacerbation Current Visit: Yes Status: Acute Qualifiers: Heart failure type: unspecified Qualified Code(s): I50.9 - Heart failure, unspecified (4) DM (diabetes mellitus), type 2 Current Visit: No Status: Acute Qualifiers: Diabetes mellitus penitentiary insulin use: with remote computer terminal operator use Diabetes mellitus complication status: without complication Qualified Code(s): E11.9 - Type 2 diabetes mellitus without complications; Z79.4 - USP (current) use of insulin Subjective Principal diagnosis: CHF Interval history: Patient without new complaint. He still feels fatigued and occasional dyspnea. Objective - Vital Signs Vital signs: Vital Signs Temp Pulse Resp BP Pulse Ox 07/02/18 07:24 97/62 07/02/18 07:06 98.0 F 102 16 98 07/02/18 04:38 97.6 F 89 16 85/47 94 07/02/18 04:03 17 94 07/02/18 00:01 97.4 F L 95 16 92/57 93 07/01/18 21:56 16 95 07/01/18 19:50 97.6 F 97 15 84/50 96 07/01/18 14:32 98.3 F 121 17 112/78 97 07/01/18 14:07 18 96 07/01/18 11:13 97.9 F 121 18 102/73 96 Intake and Output 07/01/18 07/02/18 07/02/18 23:59 07:59 15:59 Intake Total 270 / 270 800 / 800 Output Total 0 / 0 100 / 100 Balance 270 / 270 700 / 700 Intake: Oral 270 / 270 800 / 800 Output: Urine 0 / 0 100 / 100 Other: Meal Dinner Breakfast Percent of Meal Consumed 5% 40% # Urine Diapers 1 # Bowel Movements 0 Weight 127.5 kg Blood Glucose* 107 82 Patient Weight 07/02/18 23:59 Weight 127.5 kg - General Appearance General appearance: Present: well-developed, well-nourished, obese EENT: Present: ATNC Neck: Present: supple Respiratory: Present: course breath sounds Cardiology: Present: edema, regular rate - Lab 07/02/18 04:58 07/02/18 04:58 Most recent lab results Calcium 9.4 mg/dL (8.6-10.3) 07/02/18 04:58 Phosphorus 4.5 mg/dL (2.7-4.5) 07/02/18 04:58 Magnesium 2.2 mg/dL (1.6-2.6) 07/02/18 04:58 Consult Discharge Plan - Plan Referrals: Russell Bradley MD [Primary Care Provider] -
--- NOTE | 2018-07-02 10:21 | Internal Med Progress Note ---
Hospitalist Progress Note - Encounter Date of Encounter: 07/02/18 Time of Encounter: 10:00 - Exam Vitals: Temp Pulse Resp BP Pulse Ox 97.4 F L 105 18 101/75 97 07/02/18 09:54 07/02/18 09:54 07/02/18 09:54 07/02/18 10:13 07/02/18 09:54 Exam: Constitutional: Conversant. In no respiratory distress. Respiratory : Decreased air entry bilaterally at bases. No accessory muscle use, rhonchi or wheezes Cardiovascular : RRR, +S1, +S2. no murmur, gallop, rubs. No chest wall tenderness GI/Abdominal : Soft, Obese, Non-tender, Non-distended, edematous, no peritoneal signs. no orgenomegaly or mass appreciated. Has scrotal swelling as well. Musculoskeletal: 2+ edema till thigh as well as abdominal edema. Redness painful swelling on both legs with dressing on both legs. Redness and swelling slightly improved. Neurological: AO X3, CN II-XII grossly intact, grossly normal motor and sensory exam. Skin: redness and edema noted along with ulcer in both lower extremity. Rt>Lt. Slighly impoved. - Assessment and Plan (1) Acute on chronic clinical systolic heart failure Current Visit: No Status: Acute Assessment and Plan: - Patient presented with signs and symptoms of acute CHF exacerbation. - Last echocardiogram performed in December 2016 with EF of 35-40%, mildly dilated left ventricle, moderate global left ventricular systolic dysfunction, intermediate diastolic dysfunction, severe pulmonary hypertension. - Chest x-ray with bilateral congestion and pleural effusion along with significant lower extremity swelling - Patient compliant with his medication - Lasix held today due to worsening creatinine. Monitor repeat bMP. Gave albumin for hypotension (2) Anemia Current Visit: No Status: Acute Assessment and Plan: Likely secondary to iron deficiency anemia. S/p EGD showing esophagitis Continue protonix (3) CAD (coronary artery disease) Current Visit: No Status: Acute Assessment and Plan: Continue home beta castillo and statin - Hold antiplatelets given GI bleed (4) GI bleed Current Visit: Yes Status: Acute Assessment and Plan: - Patient's baseline hemoglobin around 10. Currently 8 - Had positive stool occult blood in ER and supratherapeutic INR s/p EGD showing esophagitis. Resume protonix and okay to resume warfarin per GI recs (5) Cellulitis Current Visit: Yes Status: Acute Assessment and Plan: - Patient has bilateral lower extremity with redness swelling and bruising along with ulcers -Improved continue po bactrim and cefdinir (6) Afib Current Visit: Yes Status: Acute Assessment and Plan: Continue metoprolol. Resume coumadin for anticoagulation. Follow up with cardiology for possible ablation (7) SHABBIR (acute kidney injury) Current Visit: Yes Status: Acute Assessment and Plan: Likely secondary to overdiuresis with lasix. Hold lasix today. Monitor creatinine DVT Prophylaxis: On warfarin - Time Spent with Patient Total time spent is greater than 50% in coordination of care (as documented) at patient's floor/unit and/or counseling patient: Internal Medicine: Result - Labs CBC & Chem 7: 07/02/18 04:58 07/02/18 04:58 Labs: Short CBC 07/02/18 Range/Units 04:58 WBC 4.7 (4.3-11.1) K/mcL Hgb 8.7 L (12.9-16.9) g/dL Hct 28.6 L (37.5-50.1) % Plt Count 307 (140-400) K/mcL Neutrophils # 3.4 (1.6-8.9) K/mcL BMP 07/02/18 04:58 Sodium 132 L Potassium 5.0 Chloride 96 L Carbon Dioxide 27 BUN 42 H Creatinine 1.81 H Glucose 91 Calcium 9.4 - ABG Interpretation ABG results: PT/INR, D-dimer PT 16.6 Seconds (9.4-12.1) H 07/02/18 04:58 Consult Discharge Plan - Plan Referrals: Russell Bradley MD [Primary Care Provider] - (2) Anemia Qualifiers: Anemia type: unspecified type Qualified Code(s): D64.9 - Anemia, unspecified (3) CAD (coronary artery disease) Qualifiers: Coronary Disease-Associated Artery/Lesion type: bypass graft [place] vs. transplanted heart: [place] heart Associated angina: without angina Qualified Code(s): I25.810 - Atherosclerosis of coronary artery bypass graft(s) without angina pectoris (4) GI bleed Qualifiers: GI bleed type/associated pathology: melena Qualified Code(s): K92.1 - Melena (5) Cellulitis Qualifiers: Qualified Code(s): L03.90 - Cellulitis, unspecified (6) Afib Qualifiers: Qualified Code(s): I48.91 - Unspecified atrial fibrillation
[2018-07-02] MEDS: Budesonide/Formoterol 160/4.5 1 PUFF INH IH SCH ×2 (10:38→19:41)
[2018-07-02] MEDS: Tiotropium 18 MCG inhalation IH SCH (10:39)
[2018-07-02] MEDS: MOM Conc 10 ML UD.LIQ PO PRN (10:59)
[2018-07-02] MEDS: Ipratropium/Albuterol Neb 3 ML IH SCH ×4 (13:27→23:32)
[2018-07-02] MEDS: Warfarin perPT PO SCH (17:54)
[2018-07-02] MEDS ORDERED: *HR* Warfarin 2.5 MG TABLET PO ONE (18:00)
[2018-07-03] MEDS ORDERED: Albumin 25% 25gram/100mL 25 GM/100 ML IV.SOLN IVPB ONE (00:23)
[2018-07-03] MEDS ORDERED: traMADol 50 MG TABLET PO ONE (01:07)
--- NOTE | 2018-07-03 01:41 | Event Note ---
Date of Encounter: 07/02/18 Time of Encounter: 23:51 Alerted by pts. nurse JAY Carrera that pts. BP was becoming low. Throughout the day, pts. SBP was in low 100s, then 90s, then 80s, now 70/50. Pt. has severe CHF exacerbation and is experiencing fluid overload. Bilateral legs are edematous and actively weeping. Pt. has also had minimal urinary output. Order for bladder US was ordered at 16:39 but was not done. Paged Radiology US at approximately 00:37 to have US done and find out why it had not been completed. I was informed that it was a holiday and the US was not ordered STAT. Bladder scan was attempted but pt. was unable to lie flat d/t severe orthopnea, so scan was unsuccessful showing only 50. Radiology US paged at 01:37 to inform them that bladder scan was unsuccessful d/t orthopnea and pt. positioning. Assessed pt. for Sawyer placement but was unable to retract foreskin d/t edema of the penis and scrotum. Urology consult will be placed in order to attempt Sawyer placement. A.M. TEAM TO FOLLOW UP W/UROLOGY CONSULT SINCE THEY WERE NOT CALLED D/T TIME OF NIGHT. Discussed pt. w/Dr. Lora d/t pts. hypotension w/recommendation to order another one-time dose of albumin IVC and place pt. back in bed in order to elevate legs. Pt. was previously in a chair d/t orthopnea and SOB. Pt. was placed in bed w/HOB elevated and legs placed on chucks to drain. Pt. was reporting back pain so lidocaine patch was ordered for lower back as well as 100 mg PO Ultram for pain d/t current hypotension. I explained this to the patient who was in agreement w/plan of care. Albumin IVC hung after pt. positioned in bed. Communication order placed to check pts. BP Q15MIN x8 via manual measurement to assess for hypotension status. Pt. to be monitored closely overnight.
[2018-07-03 03:51] LABS: Basophils % 0.3 %; Eosinophils # 0.1 K/mcL (0.0-0.6); Eosinophils % 3.8 %; Hematocrit 24.1 % (37.5-50.1); Hemoglobin 7.4 g/dL (12.9-16.9); Immature Granulocytes % 0.3 % (0-4); Lymphocytes # 0.3 K/mcL (0.6-4.6); Lymphocytes % 7.9 %; Mean Corpuscular HGB Conc 30.7 g/dL (31.6-35.5); Mean Corpuscular Hemoglobin 28.4 pg (28.0-33.3); Mean Corpuscular Volume 92.3 fL (83.0-100.0); Mean Platelet Volume 9.7 fL (9.4-12.4); Monocytes # 0.5 K/mcL (0.0-1.3); Monocytes % 13.4 %; Neutrophils # 2.7 K/mcL (1.6-8.9); Platelet Count 257 K/mcL (140-400); Red Blood Count 2.61 M/mcL (4.19-5.50); Segmented Neutrophils % 74.3 %
[2018-07-03 03:59] LABS: INR 1.8
[2018-07-03] MEDS: Ipratropium/Albuterol Neb 3 ML IH SCH ×6 (04:00→23:29)
[2018-07-03 04:09] LABS: Calcium 9.2 mg/dL (8.6-10.3); Magnesium 2.5 mg/dL (1.6-2.6); Phosphorous 5.5 mg/dL (2.7-4.5); Potassium 5.1 mEq/L (3.5-5.1)
[2018-07-03] MEDS: Acetaminophen 325 MG TABLET PO PRN ×2 (06:49→16:27)
[2018-07-03] MEDS: Budesonide/Formoterol 160/4.5 1 PUFF INH IH SCH ×2 (07:21→19:58)
[2018-07-03] MEDS: Tiotropium 18 MCG inhalation IH SCH (07:21)
--- NOTE | 2018-07-03 08:34 | Nephrology Progress Note ---
Addendum entered and electronically signed by Stepan Fajardo MD 07/03/18 18:28: I examined this patient and my medical decision-making was reviewed with the Resident Physician. I agree with the documented findings, disposition and treatment plan as described except to the extent set forth below. Patient had urinary retention and has been seen by urology. Patient's renal function is worsening likely secondary to decreased cardiac output, but also possibly related to the patient's urinary retention. I offered the patient ultrafiltration, however he wants to wait until Friday to reassess. Original Note: Date of Encounter: 07/03/18 Time of Encounter: 08:33 - Assessment and Plan (1) Acute on chronic clinical systolic heart failure Current Visit: Yes Status: Acute - Known history of HFrEF; TTE 12/25: LVEF 35-40, mildly dilated LV, moderate global LV systolic dysfunction, severe pulmonary hypertension - Patient has required high doses of Lasix; currently being held due to SHABBIR - Urine output yesterday was 100; 600 the previous day Plan: - Continue to monitor renal function - Daily weights, strict Is and Os, cardiac diet - Ultrafiltration was discussed with patient; will possibly undergo Friday (2) SHABBIR (acute kidney injury) Current Visit: Yes Status: Acute Patient's creatinine today is 2.78, up from 1.81 - Likely secondary to both hypotension and diuretic therapy - Optimize patient's HR and blood pressure; use pressors if necessary (3) GI bleed Current Visit: Yes Status: Acute Patient presented complaining of dark colored diarrhea - FOBT positive in the emergency department - Noted to have an elevated INR of 4.5 on 06/23; normally anticoagulated on Coumadin for atrial fibrillation - Patient known to be chronically anemic from iron deficiency anemia; baseline hemoglobin is 10 - Status post 1 unit pRBC transfusion; Hb stable at this time - No prior history of GI bleed; colonoscopy August 2016 demonstrated internal h emorrhoids - EGD 06/29: Reflux esophagitis, chronic gastritis, no sources of active bleeding found Plan: - Protonix 40 mg IV every 12 Qualifiers: GI bleed type/associated pathology: melena Qualified Code(s): K92.1 - Melena (4) Anemia Current Visit: No Status: Acute - History of iron deficiency anemia - FOBT positive in the ED - Management per GI Qualifiers: Anemia type: unspecified type Qualified Code(s): D64.9 - Anemia, unspecified (5) CAD (coronary artery disease) Current Visit: No Status: Acute - Continue home beta castillo and statin - Antiplatelet being held due to concern for GI bleed Qualifiers: Coronary Disease-Associated Artery/Lesion type: bypass graft [place] vs. transplanted heart: [place] heart Associated angina: without angina Qualified Code(s): I25.810 - Atherosclerosis of coronary artery bypass graft(s) without angina pectoris (6) Cellulitis Current Visit: Yes Status: Acute - Cellulitis versus chronic dermatitis - Continue Ancef Qualifiers: Qualified Code(s): L03.90 - Cellulitis, unspecified (7) Afib Current Visit: Yes Status: Acute - Known history of atrial fibrillation; was scheduled to get an ablation before presenting to the ED - INR 4.5 on laboratory analysis - Management per cardiology Qualifiers: Qualified Code(s): I48.91 - Unspecified atrial fibrillation Subjective Principal diagnosis: CHF Interval history: Patient seen and examined at bedside; he reports worsening respiratory status over the last 24 hours. Reports minimal improvement in the swelling of his lower extremities, abdomen, and scrotum since yesterday. Reports that the pain in his lower extremities from his cellulitis has diminished somewhat. Currently denies having any fever, chills, nausea, vomiting, scrotal pain, abdominal pain, weakness, or headache. He has no further complaints at this time. Objective - Vital Signs Vital signs: Vital Signs Temp Pulse Resp BP Pulse Ox 07/03/18 07:42 98.6 F 109 18 80/50 98 07/03/18 07:21 20 94 07/03/18 06:56 73/46 07/03/18 06:13 72/48 07/03/18 05:28 70/48 07/03/18 04:41 76/52 07/03/18 04:12 72/50 07/03/18 04:03 14 97 07/03/18 03:30 68/40 07/03/18 03:13 70/40 07/03/18 02:46 76/50 07/03/18 00:16 70/50 07/02/18 23:43 97.6 F 107 14 68/45 97 07/02/18 23:33 14 97 07/02/18 21:15 97.4 F L 72 14 70/48 96 07/02/18 19:44 14 98 07/02/18 17:00 97 07/02/18 15:05 16 97 07/02/18 14:31 95/52 07/02/18 14:24 97.5 F L 109 18 97 07/02/18 10:38 16 99 07/02/18 10:13 101/75 07/02/18 09:54 97.4 F L 105 18 97 Intake and Output 07/02/18 07/03/18 07/03/18 23:59 07:59 15:59 Intake Total 0 / 0 100 / 100 Output Total 0 / 0 Balance 0 / 0 100 / 100 Intake: IV Fluids 100 / 100 Flexbumin 25 gm In 100 ml @ 60 100 / 100 mls/hr IVPB ONCE ONE Rx#: [id number] Oral 0 / 0 Output: Urine 0 / 0 Other: # Bowel Movements 0 Blood Glucose* 107 87 - General Appearance Exam: General: A&O X3, mild respiratory distress Head: atraumatic, normocephalic Eye: PERRL, EOMI, conjuntiva pink, sclera anicteric Neck: Supple, trachea midline; No lymphadenopathy Respiratory: Bibasilar crackles, shortened inspiratory phase, diminished breath sounds bilaterally Cardiovascular: Tachycardic, irregular rhythm Abdomen: Soft, nontender, slight distention Groin: Scrotum swelling Extremities: Lower extremities are currently wrapped; erythema noted bilaterally Psychiatric: Normal affect, normal mood Skin: Dry, intact - Lab 07/03/18 03:25 07/03/18 03:25 Most recent lab results Calcium 9.2 mg/dL (8.6-10.3) 07/03/18 03:25 Phosphorus 5.5 mg/dL (2.7-4.5) H 07/03/18 03:25 Magnesium 2.5 mg/dL (1.6-2.6) 07/03/18 03:25 Consult Discharge Plan - Plan Referrals: Russell Bradley MD [Primary Care Provider] -
--- NOTE | 2018-07-03 10:13 | Internal Med Progress Note ---
Hospitalist Progress Note - Encounter Date of Encounter: 07/03/18 Time of Encounter: 10:00 - Exam Vitals: Temp Pulse Resp BP Pulse Ox 98.6 F 109 18 80/50 98 07/03/18 07:42 07/03/18 07:42 07/03/18 07:42 07/03/18 07:42 07/03/18 07:42 Exam: Constitutional: Conversant. In no respiratory distress. Respiratory : Decreased air entry bilaterally at bases. No accessory muscle use, rhonchi or wheezes Cardiovascular : RRR, +S1, +S2. no murmur, gallop, rubs. No chest wall tenderness GI/Abdominal : Soft, Obese, Non-tender, Non-distended, edematous, no peritoneal signs. no orgenomegaly or mass appreciated. Has scrotal swelling as well. Musculoskeletal: 2+ edema till thigh as well as abdominal edema. Redness painful swelling on both legs with dressing on both legs. Redness and swelling slightly improved. Neurological: AO X3, CN II-XII grossly intact, grossly normal motor and sensory exam. Skin: redness and edema noted along with ulcer in both lower extremity. Rt>Lt. Slighly impoved. - Assessment and Plan (1) Acute on chronic clinical systolic heart failure Current Visit: Yes Status: Acute Assessment and Plan: - Patient presented with signs and symptoms of acute CHF exacerbation. - Last echocardiogram performed in December 2016 with EF of 35-40%, mildly dilated left ventricle, moderate global left ventricular systolic dysfunction, intermediate diastolic dysfunction, severe pulmonary hypertension. - Chest x-ray with bilateral congestion and pleural effusion along with significant lower extremity swelling - Patient compliant with his medication - Lasix held today due to worsening creatinine. Monitor repeat bMP. Gave albumin for hypotension. Renal following and appreciate recs (2) SHABBIR (acute kidney injury) Current Visit: Yes Status: Acute Assessment and Plan: Patient has been noted to have worsening creatinine over the last two days Thought Likely secondary to overdiuresis with lasix but lasix has been held and patient has had decreased urinary output while still being volume overloaded Sawyer was placed by urology. Obtain bladder ultrasound to r/o hydronephrosis/obstruction, renal on board and appreciate recs (3) Hypotension Current Visit: Yes Status: Acute Assessment and Plan: Hypotension query sepsis. Patient has been more hypotensive overnight compared to his baseline May be seocndary to antihypertensives. Will hold hypertensive meds Due to leukopenia, will r/o sepsis. Start on zosyn, obtain pancultures (4) Anemia Current Visit: No Status: Acute Assessment and Plan: Likely secondary to iron deficiency anemia. S/p EGD showing esophagitis Continue protonix (5) CAD (coronary artery disease) Current Visit: No Status: Acute Assessment and Plan: Continue home beta castillo and statin - Hold antiplatelets given GI bleed (6) GI bleed Current Visit: Yes Status: Acute Assessment and Plan: - Patient's baseline hemoglobin around 10. Currently 8 - Had positive stool occult blood in ER and supratherapeutic INR s/p EGD showing esophagitis. Resume protonix and okay to resume warfarin per GI recs (7) Cellulitis Current Visit: Yes Status: Acute Assessment and Plan: - Patient has bilateral lower extremity with redness swelling and bruising along with ulcers -On zosyn (8) Afib Current Visit: Yes Status: Acute Assessment and Plan: Continue metoprolol. Resume coumadin for anticoagulation. Follow up with cardiology for possible ablation DVT Prophylaxis: On warfarin - Time Spent with Patient Total time spent is greater than 50% in coordination of care (as documented) at patient's floor/unit and/or counseling patient: Internal Medicine: Result - Labs CBC & Chem 7: 07/03/18 03:25 07/03/18 03:25 Labs: Short CBC 07/03/18 Range/Units 03:25 WBC 3.7 L (4.3-11.1) K/mcL Hgb 7.4 L (12.9-16.9) g/dL Hct 24.1 L (37.5-50.1) % Plt Count 257 (140-400) K/mcL Neutrophils # 2.7 (1.6-8.9) K/mcL BMP 07/03/18 03:25 Sodium 131 L Potassium 5.1 Chloride 96 L Carbon Dioxide 27 BUN 51 H Creatinine 2.78 H Glucose 90 Calcium 9.2 - ABG Interpretation ABG results: PT/INR, D-dimer PT 20.0 Seconds (9.4-12.1) H 07/03/18 03:25 Consult Discharge Plan - Plan Referrals: Russell Bradley MD [Primary Care Provider] - (4) Anemia Qualifiers: Anemia type: unspecified type Qualified Code(s): D64.9 - Anemia, unspecified (5) CAD (coronary artery disease) Qualifiers: Coronary Disease-Associated Artery/Lesion type: bypass graft [place] vs. transplanted heart: [place] heart Associated angina: without angina Qualified Code(s): I25.810 - Atherosclerosis of coronary artery bypass graft(s) without angina pectoris (6) GI bleed Qualifiers: GI bleed type/associated pathology: melena Qualified Code(s): K92.1 - Melena (7) Cellulitis Qualifiers: Qualified Code(s): L03.90 - Cellulitis, unspecified (8) Afib Qualifiers: Qualified Code(s): I48.91 - Unspecified atrial fibrillation
[2018-07-03] MEDS: Albumin 25% 25gram/100mL 25 GM/100 ML IV.SOLN IVC SCH ×2 (10:24→14:20)
[2018-07-03] MEDS: Piperacillin/Tazobactam 3.375 GM in 0.9 % Sodium Chloride Mini Bag 100 ML IVPB SCH ×3 (10:24→23:55)
[2018-07-03] MEDS: Sennosides/Docusate Sodium TABLET PO SCH ×2 (10:26→19:38)
[2018-07-03] MEDS: MICONAZOLE NITRATE 57 GM TUBE TP SCH (10:26)
[2018-07-03] MEDS: Insulin LISPRO 300 UNITS/3 ML VIAL SQ SCH ×3 (10:26→16:27)
[2018-07-03] MEDS: traMADol 50 MG TABLET PO PRN ×2 (10:41→19:37)
--- NOTE | 2018-07-03 11:24 | Urology - Consult Note ---
Date of Encounter: 07/03/18 Time of Encounter: 11:22 - Assessment and Plan (1) Edema, penis Current Visit: Yes Status: Acute Assessment and plan: 73-year-old man with penile edema. I recommend to elevate the penis and scrotum with a towel to minimize the swelling. Primary team to manage his fluid status and diuresis as needed. (2) Urinary retention Current Visit: Yes Status: Acute Assessment and plan: With difficulty was able to place a 16-[place] coude catheter. He tolerated the procedure well. Urology CN:HPI Consult date: 07/03/18 Reason for consult Urology: Difficult Sawyer History of present illness: 73-year-old man was admitted for shortness of breath and edema. He has been having difficulty voiding. He reports significant swelling in his genitals. Primary team was not able to place a catheter. They requested a urology consult. Past Med Surg Social Fam HX - Past Medical History Medical history: aortic aneurysm, arthritis, cardiomyopathy, CHF, COPD, coronary artery disease, diabetes, GERD, hyperlipidemia, hypertension, myocardial infarction, thyroid disease, valvular heart disease, other Additional medical history: CAD. DM. Mixed hyperlipidemia. Microcytic anemia from iron deficiency. ICD. Cardiomyopathy. Essential htn Psychiatric history: no psych history - Past Surgical History Surgical History: coronary bypass (CABG), heart valve replacement, vascular surgery, AICD Additional surgical history: ICD. AVR. RECTAL ABCESS - Social History Smoking Status: Former smoker Smokeless Tobacco Status: No Alcohol use: none Drug use: none - Family History Mother Adopted: No Family Member Ethnicity: Non- Living Status: Hx Family Cardiac Disorders: Yes Hx Family Respiratory Disorders: Yes Hx Family Cancer: No Hx Family GI Disorders: No Hx Family Endocrine Disorder: Yes Hx Family Neuromuscular Disorders: No Hx Family Neurologic Disorders: No Hx Family HEENT Disorders: No Hx Family Autoimmune Disorders: No Father Adopted: No Family Member Ethnicity: Non- Living Status: Hx Family Cardiac Disorders: Yes Hx Family Respiratory Disorders: Yes Hx Family Cancer: No Hx Family GI Disorders: No Hx Family Endocrine Disorder: Yes Hx Family Neuromuscular Disorders: No Hx Family Neurologic Disorders: No Hx Family HEENT Disorders: No Hx Family Autoimmune Disorders: No Medications and Allergies Clopidogrel [Plavix] 75 mg PO DAILY 08/28/15 [History] Levothyroxine Sodium [Tirosint] 50 mcg PO HS 08/28/15 [History] Lisinopril 2.5 mg PO DAILY 08/28/15 [History] Multivitamin [Multivitamins] 1 each PO DAILY 08/28/15 [History] Omeprazole [PriLOSEC] 20 mg PO BID 08/28/15 [History] Simvastatin [Zocor] 20 mg PO DAILY 08/28/15 [History] Tamsulosin [Flomax] 0.4 mg PO DAILY 08/28/15 [History] Albuterol Sulfate [Albuterol Inhaler] 2 puff IH Q4-6H PRN 04/25/16 [History] Cholecalciferol (D-3) [Vitamin D] 2,000 unit PO DAILY 04/25/16 [History] Furosemide [Lasix] 60 mg PO BID 04/25/16 [History] Cyanocobalamin (B-12) [Vitamin B12] 1 tab PO DAILY #30 tablet 06/18/16 [Rx] Ipratropium/Albuterol Neb [Duoneb] 3 ml IH Q6HR 08/16/16 [History] Metformin HCl [Glucophage] 1,000 mg PO BID 08/16/16 [History] Oxygen 3 l NS CONT 01/02/17 [History] Docusate Sodium [Stool Softener] 100 mg PO BID 05/16/17 [History] Ferrous Gluconate [Iron] 236 mg PO BID 05/16/17 [History] Potassium Chloride [K-Tab ER] 20 meq PO BID 05/16/17 [History] Guaifenesin [Mucinex] 1,200 mg PO BID 05/22/17 [History] Budesonide/Formoterol 160/4.5 [Symbicort 160/4.5] 2 puff IH BIDR 02/20/18 [History] Metoprolol [Lopressor] 25 mg PO BID 02/20/18 [History] Warfarin [Coumadin] 2.5 mg PO [id number] 02/20/18 [History] Tiotropium [place] [Spiriva Respimat] 2 puff IH DAILY 06/24/18 [History] Warfarin [Coumadin] 1.25 mg PO TH 06/24/18 [History] Allergy/AdvReac Type Severity Reaction Status Date / Time roflumilast [From [facility]] AdvReac Mild Diarrhea Verified 06/24/18 13:24 Review of Systems - Constitutional no chills, no fever(s) - EENT Nose, mouth and throat: no dizziness - Cardiovascular no chest pain - Respiratory dyspnea - Gastrointestinal no nausea, no vomiting - Genitourinary difficulty urinating, no flank pain, no hematuria - Musculoskeletal no back pain - Integumentary swelling, no erythema, no rash - Neurological no weakness - Psychiatric no suicidal ideation - Hematologic/Lymphatic no easy bleeding - Allergic/Immunologic no wheezing Exam Initial Vital Signs Temp Pulse Resp BP Pulse Ox 98.0 F 135 20 115/79 100 06/24/18 13:19 06/24/18 13:19 06/24/18 13:19 06/24/18 13:19 06/24/18 13:19 - General physical appearance Present: well developed, well nourished, no distress - Eyes Absent: icteric - ENT Present: normal nares - Neck Present: trachea midline - Respiratory Present: normal respiratory effort - Cardiovascular Cardiovascular exam IM: RRR - Abdomen Abdomen: Present: soft - Genitourinary normal penis with no external lesions, other (Significant penile edema is noted) - Integumentary Present: lesions - Neurologic Present: normal coordination - Musculoskeletal Present: other (Open wounds are noted in the extremities.) Urology Results - Labs 07/03/18 03:25 07/03/18 03:25 Abnormal lab results WBC 3.7 K/mcL (4.3-11.1) L 07/03/18 03:25 RBC 2.61 M/mcL (4.19-5.50) L 07/03/18 03:25 Hgb 7.4 g/dL (12.9-16.9) L 07/03/18 03:25 Hct 24.1 % (37.5-50.1) L 07/03/18 03:25 MCHC 30.7 g/dL (31.6-35.5) L 07/03/18 03:25 RDW 18.0 % (11.5-14.5) H 07/03/18 03:25 Lymphocytes # 0.3 K/mcL (0.6-4.6) L 07/03/18 03:25 PT 20.0 Seconds (9.4-12.1) H 07/03/18 03:25 Sodium 131 mEq/L (136-145) L 07/03/18 03:25 Chloride 96 mEq/L (98-107) L 07/03/18 03:25 BUN 51 mg/dL (8-23) H 07/03/18 03:25 Creatinine 2.78 mg/dL (0.70-1.30) H 07/03/18 03:25 Est GFR ( Amer) 27 (> 60) L 07/03/18 03:25 Est GFR (Non-Af Amer) 23 (> 60) L 07/03/18 03:25 POC Glucose 111 mg/dL (70-99) H 07/02/18 16:18 Phosphorus 5.5 mg/dL (2.7-4.5) H 07/03/18 03:25 B-Natriuretic Peptide 425 pg/mL (Less than 100) H 06/24/18 13:51 Ur Specific [place] 1.006 (1.010-1.025) L 06/28/18 15:00 Stool Occult Bld Scrn Positive (Negative) A 06/24/18 13:41 Diabetes panel 07/03/18 Range/Units 03:25 Sodium 131 L (136-145) mEq/L Potassium 5.1 (3.5-5.1) mEq/L Chloride 96 L (98-107) mEq/L Carbon Dioxide 27 (23-29) mEq/L BUN 51 H (8-23) mg/dL Creatinine 2.78 H (0.70-1.30) mg/dL Glucose 90 (70-105) mg/dL Calcium 9.2 (8.6-10.3) mg/dL Calcium panel 07/03/18 Range/Units 03:25 Calcium 9.2 (8.6-10.3) mg/dL Phosphorus 5.5 H (2.7-4.5) mg/dL Pituitary panel 07/03/18 Range/Units 03:25 Sodium 131 L (136-145) mEq/L Potassium 5.1 (3.5-5.1) mEq/L Chloride 96 L (98-107) mEq/L Carbon Dioxide 27 (23-29) mEq/L BUN 51 H (8-23) mg/dL Creatinine 2.78 H (0.70-1.30) mg/dL Glucose 90 (70-105) mg/dL Calcium 9.2 (8.6-10.3) mg/dL Adrenal panel 07/03/18 Range/Units 03:25 Sodium 131 L (136-145) mEq/L Potassium 5.1 (3.5-5.1) mEq/L Chloride 96 L (98-107) mEq/L Carbon Dioxide 27 (23-29) mEq/L BUN 51 H (8-23) mg/dL Creatinine 2.78 H (0.70-1.30) mg/dL Glucose 90 (70-105) mg/dL Calcium 9.2 (8.6-10.3) mg/dL All other labs normal. Procedures:Urology - Catheter Insertion (Urinary) Additional comments: He had severe penile edema. I manually express the edema of the penile skin. I was not able to retract the foreskin. There was evidence of phimosis. I prepped and draped the penis in the usual sterile fashion. Lidocaine jelly was instilled down around the foreskin. I was able to blindly pass a 16-[place] coude-tipped catheter into the bladder. Clear urine returned. 10 mL was instilled into the balloon. Consult Discharge Plan - Plan Referrals: Russell Bradley MD [Primary Care Provider] -
[2018-07-03 12:15] LABS: Bilirubin,Urine Moderate (Negative); Blood,Urine Large (Negative); Clarity,Urine Turbid (Clear); Color,Urine Red (Yellow); Glucose,Urine (UA) Normal (Normal); Ketones,Urine Trace mg/dL (Negative); Leukocyte Esterase,Urine Small (Negative); Nitrite,Urine Negative (Negative); PH,Urine 5.5 pH Units (5.0-8.0); Protein,Urine >=1000 mg/dL (Neg-Trace); Specific Gravity,Urine 1.019 (1.010-1.025); Urobilinogen,Urine Normal (Normal)
[2018-07-03 12:26] LABS: RBC,Urine TNTC per hpf (0-3); Squamous Epithelial Cell,Urine Many per lpf (None-Few)
[2018-07-03 12:45] LABS: Bacteria,Urine Many per hpf (None-Few)
[2018-07-03 12:46] LABS: Hyaline Casts,Urine Few per lpf (None-Few)
[2018-07-03] MEDS: Metoprolol XL (24 HR) Succ 50 MG TAB.ER.24H PO SCH ×2 (15:50→22:44)
[2018-07-03] MEDS ORDERED: *HR* Warfarin 5 MG TABLET PO ONE (18:00)
[2018-07-04 03:01] LABS: Basophils % 0.6 %; Eosinophils # 0.1 K/mcL (0.0-0.6); Hematocrit 23.5 % (37.5-50.1); Hemoglobin 7.4 g/dL (12.9-16.9); Immature Granulocytes % 0.3 % (0-4); Lymphocytes # 0.2 K/mcL (0.6-4.6); Lymphocytes % 6.4 %; Mean Corpuscular HGB Conc 31.5 g/dL (31.6-35.5); Mean Corpuscular Hemoglobin 28.6 pg (28.0-33.3); Mean Corpuscular Volume 90.7 fL (83.0-100.0); Mean Platelet Volume 9.7 fL (9.4-12.4); Monocytes # 0.4 K/mcL (0.0-1.3); Neutrophils # 2.8 K/mcL (1.6-8.9); Platelet Count 247 K/mcL (140-400); Red Blood Count 2.59 M/mcL (4.19-5.50); Red Cell Distribution Width 18.3 % (11.5-14.5); Segmented Neutrophils % 78.7 %
[2018-07-04 03:09] LABS: INR 2.3; Prothrombin Time 25.8 Seconds (9.4-12.1)
[2018-07-04 03:22] LABS: Calcium 9.2 mg/dL (8.6-10.3); Magnesium 2.7 mg/dL (1.6-2.6); Phosphorous 6.3 mg/dL (2.7-4.5); Potassium 5.6 mEq/L (3.5-5.1)
[2018-07-04] MEDS: Ipratropium/Albuterol Neb 3 ML IH SCH ×6 (03:53→23:19)
[2018-07-04] MEDS: traMADol 50 MG TABLET PO PRN ×2 (05:41→14:23)
[2018-07-04] MEDS: Warfarin perPT PO SCH ×2 (07:19→16:48)
[2018-07-04] MEDS: Insulin LISPRO 300 UNITS/3 ML VIAL SQ SCH ×3 (07:32→17:00)
[2018-07-04] MEDS: Metoprolol XL (24 HR) Succ 50 MG TAB.ER.24H PO SCH ×2 (07:34→21:33)
--- NOTE | 2018-07-04 07:35 | Internal Med Progress Note ---
Hospitalist Progress Note - Encounter Date of Encounter: 07/04/18 Time of Encounter: 07:30 - Exam Vitals: Temp Pulse Resp BP Pulse Ox 97.7 F 103 19 87/50 96 07/04/18 07:09 07/04/18 07:09 07/04/18 07:09 07/04/18 07:09 07/04/18 07:09 Exam: Constitutional: Conversant. In no respiratory distress. Respiratory : Decreased air entry bilaterally at bases. No accessory muscle use, rhonchi or wheezes Cardiovascular : RRR, +S1, +S2. no murmur, gallop, rubs. No chest wall tenderness GI/Abdominal : Soft, Obese, Non-tender, Non-distended, edematous, no peritoneal signs. no orgenomegaly or mass appreciated. Has scrotal swelling as well. Musculoskeletal: 2+ edema till thigh as well as abdominal edema. Redness painful swelling on both legs with dressing on both legs. Redness and swelling slightly improved. Neurological: AO X3, CN II-XII grossly intact, grossly normal motor and sensory exam. Skin: redness and edema noted along with ulcer in both lower extremity. Rt>Lt. Slighly impoved. - Assessment and Plan (1) Acute on chronic clinical systolic heart failure Current Visit: Yes Status: Acute Assessment and Plan: - Patient presented with signs and symptoms of acute CHF exacerbation. - Last echocardiogram performed in December 2016 with EF of 35-40%, mildly dilated left ventricle, moderate global left ventricular systolic dysfunction, intermediate diastolic dysfunction, severe pulmonary hypertension. - Chest x-ray with bilateral congestion and pleural effusion along with significant lower extremity swelling - Patient compliant with his medication - Lasix held for the last 3 days due to worsening creatinine. Monitor repeat bMP. Gave albumin for hypotension. Renal following and plan for ulrafiltration if patient is amenable - Cardiology recs appreciated in light of hypotension and afib with non resolving CHF (2) SHABBIR (acute kidney injury) Current Visit: Yes Status: Acute Assessment and Plan: Patient has been noted to have worsening creatinine Thought Likely secondary to overdiuresis with lasix but lasix has been held and patient has had decreased urinary output while still being volume overloaded. Possibly due to low cardiac output and afib. Cardiology consulted and appreciate recs Sawyer was placed by urology. Renal plan for ultrafiltration (3) Anemia Current Visit: Yes Status: Acute Assessment and Plan: Likely secondary to iron deficiency anemia. S/p EGD showing esophagitis Continue protonix (4) CAD (coronary artery disease) Current Visit: Yes Status: Acute Assessment and Plan: Continue home beta castillo and statin - Hold antiplatelets given GI bleed (5) GI bleed Current Visit: Yes Status: Acute Assessment and Plan: - Patient's baseline hemoglobin around 10. Currently 8 - Had positive stool occult blood in ER and supratherapeutic INR s/p EGD showing esophagitis. Resume protonix and okay to resume warfarin per GI recs (6) Cellulitis Current Visit: Yes Status: Acute Assessment and Plan: - Patient has bilateral lower extremity with redness swelling and bruising along with ulcers -On zosyn (7) Afib Current Visit: Yes Status: Acute Assessment and Plan: Continue metoprolol. Resume coumadin for anticoagulation. DVT Prophylaxis: On coumadin - Time Spent with Patient Total time spent is greater than 50% in coordination of care (as documented) at patient's floor/unit and/or counseling patient: Internal Medicine: Result - Labs CBC & Chem 7: 07/04/18 02:39 07/04/18 02:39 Labs: Short CBC 07/04/18 Range/Units 02:39 WBC 3.6 L (4.3-11.1) K/mcL Hgb 7.4 L (12.9-16.9) g/dL Hct 23.5 L (37.5-50.1) % Plt Count 247 (140-400) K/mcL Neutrophils # 2.8 (1.6-8.9) K/mcL BMP 07/04/18 02:39 Sodium 130 L Potassium 5.6 H Chloride 95 L Carbon Dioxide 24 BUN 56 H Creatinine 3.58 H Glucose 81 Calcium 9.2 Urine 07/03/18 Range/Units 11:08 Urine Color Red A (Yellow) Urine Clarity Turbid A (Clear) Urine pH 5.5 (5.0-8.0) pH Units Ur Specific [place] 1.019 (1.010-1.025) Urine Protein >=1000 H (Neg-Trace) mg/dL Urine Glucose (UA) Normal (Normal) mg/dL - ABG Interpretation ABG results: PT/INR, D-dimer PT 25.8 Seconds (9.4-12.1) H 07/04/18 02:39 - Impressions Impressions Chest X-Ray 07/03/18 10:10 IMPRESSION: 1. Bibasilar opacities, likely a combination of small to moderate pleural effusions and bibasilar airspace opacities. In the appropriate clinical setting, pneumonia would be in the differential. If patient does not have clinical symptoms of infection, the appearance would be suggestive of pulmonary edema. 2. Stable moderate enlargement of the cardiac silhouette. D/ / Christopher Mullins MD / Christopher Mullins MD Interpreting Provider: Christopher Mullins MD Consult Discharge Plan - Plan Referrals: Russell Bradley MD [Primary Care Provider] - (3) Anemia Qualifiers: Anemia type: unspecified type Qualified Code(s): D64.9 - Anemia, unspecified (4) CAD (coronary artery disease) Qualifiers: Coronary Disease-Associated Artery/Lesion type: bypass graft [place] vs. transplanted heart: [place] heart Associated angina: without angina Qualified Code(s): I25.810 - Atherosclerosis of coronary artery bypass graft(s) without angina pectoris (5) GI bleed Qualifiers: GI bleed type/associated pathology: melena Qualified Code(s): K92.1 - Melena (6) Cellulitis Qualifiers: Qualified Code(s): L03.90 - Cellulitis, unspecified (7) Afib Qualifiers: Qualified Code(s): I48.91 - Unspecified atrial fibrillation
[2018-07-04] MEDS: Budesonide/Formoterol 160/4.5 1 PUFF INH IH SCH ×2 (07:36→20:35)
[2018-07-04] MEDS: Sennosides/Docusate Sodium TABLET PO SCH ×2 (08:01→21:32)
[2018-07-04] MEDS: MICONAZOLE NITRATE 57 GM TUBE TP SCH (08:01)
--- NOTE | 2018-07-04 08:47 | Urology Progress Note ---
Date of Encounter: 07/04/18 Time of Encounter: 08:46 - Assessment and Plan (1) Edema, penis Current Visit: Yes Status: Acute (2) Urinary retention Current Visit: Yes Status: Acute Assessment and plan: Catheter placed yesterday. Primary team can remove Sawyer when no longer needed. Urology will sign off. Please call with questions. Progress Note Narrative: No issues with Sawyer catheter. Urine is clear. Objective Initial Vital Signs Temp Pulse Resp BP Pulse Ox 98.0 F 135 20 115/79 100 06/24/18 13:19 06/24/18 13:19 06/24/18 13:19 06/24/18 13:19 06/24/18 13:19 - General physical appearance Present: well developed, well nourished, no distress - Genitourinary Present: other (Catheter in place with clear urine) - Labs 07/04/18 02:39 07/04/18 02:39 Diabetes panel 07/04/18 Range/Units 02:39 Sodium 130 L (136-145) mEq/L Potassium 5.6 H (3.5-5.1) mEq/L Chloride 95 L (98-107) mEq/L Carbon Dioxide 24 (23-29) mEq/L BUN 56 H (8-23) mg/dL Creatinine 3.58 H (0.70-1.30) mg/dL Glucose 81 (70-105) mg/dL Calcium 9.2 (8.6-10.3) mg/dL Calcium panel 07/04/18 Range/Units 02:39 Calcium 9.2 (8.6-10.3) mg/dL Phosphorus 6.3 H (2.7-4.5) mg/dL Pituitary panel 07/04/18 Range/Units 02:39 Sodium 130 L (136-145) mEq/L Potassium 5.6 H (3.5-5.1) mEq/L Chloride 95 L (98-107) mEq/L Carbon Dioxide 24 (23-29) mEq/L BUN 56 H (8-23) mg/dL Creatinine 3.58 H (0.70-1.30) mg/dL Glucose 81 (70-105) mg/dL Calcium 9.2 (8.6-10.3) mg/dL Adrenal panel 07/04/18 Range/Units 02:39 Sodium 130 L (136-145) mEq/L Potassium 5.6 H (3.5-5.1) mEq/L Chloride 95 L (98-107) mEq/L Carbon Dioxide 24 (23-29) mEq/L BUN 56 H (8-23) mg/dL Creatinine 3.58 H (0.70-1.30) mg/dL Glucose 81 (70-105) mg/dL Calcium 9.2 (8.6-10.3) mg/dL Consult Discharge Plan - Plan Referrals: Russell Bradley MD [Primary Care Provider] -
[2018-07-04] MEDS: *HR* OxyCODONE/APAP 5/325 TABLET PO PRN ×2 (09:25→19:43)
--- NOTE | 2018-07-04 10:03 | Nephrology Progress Note ---
Date of Encounter: 07/04/18 Time of Encounter: 10:03 - Assessment and Plan (1) SHABBIR (acute kidney injury) Current Visit: Yes Status: Acute Patient's clinical picture is extremely complicated. He has congestive heart failure with a decreased ejection fraction along with pulmonary hypertension. He is in with volume overload exhibited by pulmonary edema along with lower extremity edema. We have attempted to diurese him with intravenous Lasix without success. His renal function continues to get worse. On Friday I gave the patient the option of being treated with ultrafiltration for volume removal to see if this assists with his cardiac output and overall function as the patient is relatively miserable and does not seem to be responding to our cu rrent medical therapies and at that time he wanted to wait until Friday to decide. With worsening renal function I suspect he will need dialysis by Friday. He would benefit from increased blood pressure. Consider transfusion with diuretic and if blood pressure remains low consider dopamine or other pressor. Avoid nephrotoxins and adjust medication for renal function. Agree with medical management of hyperkalemia for now. (2) Afib Current Visit: Yes Status: Acute Qualifiers: Qualified Code(s): I48.91 - Unspecified atrial fibrillation (3) CHF exacerbation Current Visit: Yes Status: Acute Qualifiers: Heart failure type: unspecified Qualified Code(s): I50.9 - Heart failure, unspecified (4) DM (diabetes mellitus), type 2 Current Visit: No Status: Acute Qualifiers: Diabetes mellitus correction insulin use: with ferry terminal agent use Diabetes mellitus complication status: without complication Qualified Code(s): E11.9 - Type 2 diabetes mellitus without complications; Z79.4 - residential (current) use of insulin Subjective Principal diagnosis: CHF Interval history: Patient without new complaint. He still feels fatigued and occasional dyspnea. Objective - Vital Signs Vital signs: Vital Signs Temp Pulse Resp BP Pulse Ox 07/04/18 09:27 100/66 07/04/18 08:10 105 07/04/18 07:37 18 95 07/04/18 07:09 97.7 F 103 19 87/50 96 07/04/18 03:53 19 95 07/04/18 03:49 105 07/04/18 03:06 97.8 F 104 18 83/55 95 07/03/18 23:29 18 98 11/23/18 23:13 98.1 F 104 18 95/56 96 07/03/18 19:59 19 97 07/03/18 19:30 105 95 07/03/18 19:17 97.9 F 105 18 91/48 95 07/03/18 16:05 97.9 F 103 18 82/62 97 07/03/18 15:37 18 97 07/03/18 15:07 86/53 07/03/18 11:24 18 96 07/03/18 10:15 97.5 F L 105 18 84/61 97 Intake and Output 07/03/18 07/04/18 07/04/18 23:59 07:59 15:59 Intake Total 100 / 100 120 / 120 Output Total 300 / 300 100 / 100 Balance -200 / -200 -100 / -100 120 / 120 Intake: IV Fluids 100 / 100 Zosyn 3.375 GM In 0.9 % Sodium 100 / 100 Chloride (Mini-Bag +) 100 ML @ 25 mls/hr IVPB Q8HR [facility] Rx#: [id number] Oral 120 / 120 Output: Catheter 300 / 300 100 / 100 Other: Meal Breakfast Percent of Meal Consumed 20% Weight 128.5 kg Blood Glucose* 96 80 Patient Weight 07/04/18 23:59 Weight 128.5 kg - General Appearance General appearance: Present: well-developed, well-nourished EENT: Present: ATNC Neck: Present: supple Gastrointestinal: Present: no tenderness Integumentary: Present: warm and dry Neurologic: Present: alert and oriented x3 Psychiatric: Present: mood/affect appropriate - Lab 07/04/18 02:39 07/04/18 02:39 Most recent lab results Calcium 9.2 mg/dL (8.6-10.3) 07/04/18 02:39 Phosphorus 6.3 mg/dL (2.7-4.5) H 07/04/18 02:39 Magnesium 2.7 mg/dL (1.6-2.6) H 07/04/18 02:39 Consult Discharge Plan - Plan Referrals: Russell Bradley MD [Primary Care Provider] -
[2018-07-04] MEDS: Tiotropium 18 MCG inhalation IH SCH (11:09)
--- NOTE | 2018-07-04 11:22 | Cardiology Progress Note ---
Date of Encounter: 07/04/18 Time of Encounter: 11:20 Assessment and Plan (1) Anemia Current Visit: Yes Status: Acute Patient with anemia during hospital stay and positive stool guiac. GI evaluated and no acute bleeding seen on EGD. Pt back on coumadin. With known cardiovascular disease recommend transfusion for hgb less than 8. Qualifiers: Anemia type: unspecified type Qualified Code(s): D64.9 - Anemia, unspecified (2) Acute exacerbation of CHF (congestive heart failure) Current Visit: No Status: Acute Acute on chronic systolic CHF. Patient has known ischemic cardiomyopathy status post ICD placement. TTE he this admission shows EF 35-40%, moderate MR, moderate TR, moderate pulmonary hypertension. Normally functioning bioprosthetic aortic valve. Unfortunately his hospital course was complicated by acute renal failure. Nephrology is following and the patient may require ultrafiltration. Continue strict I&O and daily weights. Fluid status per nephrology. Patient is noted to make minimal urine. Does not appear that IV diuretic will benefit patient. Qualifiers: Qualified Code(s): I50.23 - Acute on chronic systolic (congestive) heart debi lure (3) CAD (coronary artery disease) Current Visit: Yes Status: Acute H/o CAD s/p CABG x3v in 2010, and bioprosthetic aortic valve repair. Continue statin, and bb. Currently not on aspirin due to being on Coumadin and anemia with positive stool guaiacs. He is currently chest pain-free. Qualifiers: Coronary Disease-Associated Artery/Lesion type: bypass graft [place] vs. transplanted heart: [place] heart Associated angina: without angina Qualified Code(s): I25.810 - Atherosclerosis of coronary artery bypass graft(s) without angina pectoris (4) Atrial flutter with rapid ventricular response Current Visit: Yes Status: Acute Telemetry shows atrial flutter with mild RVR. Continue beta castillo. Blood pressures are low. He may benefit from blood transfusion. Suspect heart rates will improve once underlying issues improve. (5) S/P AVR (aortic valve replacement) Current Visit: No Status: Chronic (6) Biventricular ICD (implantable cardioverter-defibrillator) in place Current Visit: No Status: Acute Discussion w patient/family: The assessment and plan as outlined above was discussed with the patient and/or family members who expressed understanding and agreement. All questions were answered. Thank you for involving us in the care of your patient. Please call with any questions. Subjective Principal diagnosis: CHF Interval history: Mr. Last states he is very tired and easily short of breath. He denies chest pain. Complaint of low back pain. Complain of continued bilateral lower extremity edema. Objective Vital Signs, Last 4 Hours Temp Pulse Resp BP Pulse Ox 07/04/18 11:16 19 95 07/04/18 11:11 97.9 F 106 19 95 07/04/18 09:27 100/66 07/04/18 08:10 105 07/04/18 07:37 18 95 General: Conversant, No Apparent Distress HEENT: Atraumatic Neck: Normal carotid pulses Cardiac: Other (Irregularly irregular, atrial flutter on telemetry) Lungs: Other (Lungs sounds diminished throughout. Respirations mildly labored.) Neuro: Alert and responsive, No focal deficits noted Abdomen: Soft, Non-Tender, Other (Abdomen round, bowel sounds 4 positive) Skin: Other (Bilateral lower extremities wrapped with Kerlix wraps. Noted to have thickened red skin) Musculoskeletal: No Chest Wall Tenderness Extremities: No Clubbing, No Cyanosis, Other (2+ pitting edema bilateral lower extremity.) Results 07/04/18 02:39 07/04/18 02:39 Lab Results 07/04/18 07/04/18 07/04/18 02:39 02:39 02:39 WBC 3.6 L Hgb 7.4 L Hct 23.5 L Plt Count 247 INR 2.3 Sodium 130 L Potassium 5.6 H Chloride 95 L Carbon Dioxide 24 BUN 56 H Creatinine 3.58 H Glucose 81 Calcium 9.2 Magnesium 2.7 H - Imaging and Cardiology Echo: report reviewed - EKG Interpretation EKG results cardiology: personally reviewed Consult Discharge Plan - Plan Referrals: Russell Bradley MD [Primary Care Provider] -
[2018-07-04] MEDS: Piperacillin/Tazobactam 3.375 GM in 0.9 % Sodium Chloride Mini Bag 100 ML IVPB SCH ×2 (11:27→23:59)
[2018-07-04] MEDS ORDERED: 0.9 % Sodium Chloride 250 ML ONE (14:41)
[2018-07-04] MEDS ORDERED: MOM Conc 10 ML UD.LIQ PO ONE (17:25)
[2018-07-04] MEDS: Cefdinir 300 MG CAPSULE PO SCH (19:30)
[2018-07-04] MEDS: Sulfamethoxazole/Trimeth DS 1 EACH TABLET PO SCH (19:30)
[2018-07-05] MEDS: *HR* OxyCODONE/APAP 5/325 TABLET PO PRN ×3 (03:43→20:26)
[2018-07-05] MEDS: Ipratropium/Albuterol Neb 3 ML IH SCH ×6 (04:04→23:45)
[2018-07-05 05:22] LABS: Basophils % 0.9 %; Eosinophils # 0.1 K/mcL (0.0-0.6); Eosinophils % 2.5 %; Hematocrit 25.6 % (37.5-50.1); Immature Granulocytes % 0.2 % (0-4); Lymphocytes # 0.3 K/mcL (0.6-4.6); Lymphocytes % 6.5 %; Mean Corpuscular HGB Conc 31.3 g/dL (31.6-35.5); Mean Corpuscular Hemoglobin 28.4 pg (28.0-33.3); Mean Corpuscular Volume 90.8 fL (83.0-100.0); Mean Platelet Volume 9.8 fL (9.4-12.4); Monocytes # 0.6 K/mcL (0.0-1.3); Monocytes % 13.2 %; Neutrophils # 3.3 K/mcL (1.6-8.9); Platelet Count 262 K/mcL (140-400); Red Blood Count 2.82 M/mcL (4.19-5.50); Red Cell Distribution Width 17.7 % (11.5-14.5); Segmented Neutrophils % 76.7 %
[2018-07-05 05:33] LABS: INR 3.1; Prothrombin Time 34.6 Seconds (9.4-12.1)
[2018-07-05 05:41] LABS: Calcium 9.1 mg/dL (8.6-10.3); Magnesium 2.8 mg/dL (1.6-2.6); Phosphorous 7.1 mg/dL (2.7-4.5); Potassium 5.2 mEq/L (3.5-5.1)
[2018-07-05] MEDS: Budesonide/Formoterol 160/4.5 1 PUFF INH IH SCH ×2 (07:38→20:00)
[2018-07-05] MEDS: Tiotropium 18 MCG inhalation IH SCH (07:39)
[2018-07-05] MEDS: Insulin LISPRO 300 UNITS/3 ML VIAL SQ SCH ×3 (07:44→17:11)
[2018-07-05] MEDS: MICONAZOLE NITRATE 57 GM TUBE TP SCH (07:47)
[2018-07-05] MEDS: Metoprolol XL (24 HR) Succ 50 MG TAB.ER.24H PO SCH ×2 (07:47→20:27)
[2018-07-05] MEDS: Sennosides/Docusate Sodium TABLET PO SCH ×2 (07:47→20:27)
--- NOTE | 2018-07-05 07:56 | Internal Med Progress Note ---
Hospitalist Progress Note - Encounter Date of Encounter: 07/05/18 Time of Encounter: 07:50 - Exam Vitals: Temp Pulse Resp BP Pulse Ox 97.7 F 109 18 92/58 95 07/05/18 07:30 07/05/18 07:30 07/05/18 07:30 07/05/18 07:30 07/05/18 07:30 Exam: Constitutional: Conversant. In no respiratory distress. Respiratory : Decreased air entry bilaterally at bases. No accessory muscle use, rhonchi or wheezes Cardiovascular : RRR, +S1, +S2. no murmur, gallop, rubs. No chest wall tenderness GI/Abdominal : Soft, Obese, Non-tender, Non-distended, edematous, no peritoneal signs. no orgenomegaly or mass appreciated. Has scrotal swelling as well. Musculoskeletal: 2+ edema till thigh as well as abdominal edema. Redness painful swelling on both legs with dressing on both legs. Redness and swelling slightly improved. Neurological: AO X3, CN II-XII grossly intact, grossly normal motor and sensory exam. Skin: redness and edema noted along with ulcer in both lower extremity. Rt>Lt. Slighly impoved. - Assessment and Plan (1) Acute on chronic clinical systolic heart failure Current Visit: Yes Status: Acute Assessment and Plan: - Patient presented with signs and symptoms of acute CHF exacerbation. - Last echocardiogram performed in December 2016 with EF of 35-40%, mildly dilated left ventricle, moderate global left ventricular systolic dysfunction, intermediate diastolic dysfunction, severe pulmonary hypertension. - Chest x-ray with bilateral congestion and pleural effusion along with significant lower extremity swelling - Lasix held due to worsening creatinine. Monitor repeat bMP. Gave albumin for hypotension. Renal following and plan for ulrafiltration if patient is amenable - Cardiology recs appreciated in light of hypotension and afib with non resolving CHF. Transfused one unit of PRBC overnight to improve perfusion and due to underlying CAD (2) SHABBIR (acute kidney injury) Current Visit: Yes Status: Acute Assessment and Plan: Patient has been noted to have worsening creatinine Thought Likely secondary to overdiuresis with lasix but lasix has been held and patient has had decreased urinary output while still being volume overloaded. Possibly due to low cardiac output and afib. Cardiology consulted and appreciate recs Sawyer was placed by urology. Renal plan for ultrafiltration (3) Anemia Current Visit: Yes Status: Acute Assessment and Plan: Likely secondary to iron deficiency anemia. S/p EGD showing esophagitis Continue protonix. Transfused one unit of PRBC overnight (4) CAD (coronary artery disease) Current Visit: Yes Status: Acute Assessment and Plan: Continue home beta castillo and statin - Hold antiplatelets given GI bleed (5) GI bleed Current Visit: Yes Status: Acute Assessment and Plan: - Patient's baseline hemoglobin around 10. Currently 8 - Had positive stool occult blood in ER and supratherapeutic INR s/p EGD showing esophagitis. Resume protonix and okay to resume warfarin per GI recs (6) Cellulitis Current Visit: Yes Status: Acute Assessment and Plan: - Patient has bilateral lower extremity with redness swelling and bruising along with ulcers -On zosyn (7) Afib Current Visit: Yes Status: Acute Assessment and Plan: Continue metoprolol. Resume coumadin for anticoagulation. DVT Prophylaxis: On coumadin - Time Spent with Patient Total time spent is greater than 50% in coordination of care (as documented) at patient's floor/unit and/or counseling patient: Internal Medicine: Result - Labs CBC & Chem 7: 07/05/18 04:32 07/05/18 04:32 Labs: Short CBC 07/05/18 Range/Units 04:32 WBC 4.3 (4.3-11.1) K/mcL Hgb 8.0 L (12.9-16.9) g/dL Hct 25.6 L (37.5-50.1) % Plt Count 262 (140-400) K/mcL Neutrophils # 3.3 (1.6-8.9) K/mcL BMP 07/05/18 04:32 Sodium 131 L Potassium 5.2 H Chloride 95 L Carbon Dioxide 25 BUN 62 H Creatinine 4.22 H Glucose 81 Calcium 9.1 - ABG Interpretation ABG results: PT/INR, D-dimer PT 34.6 Seconds (9.4-12.1) H 07/05/18 04:32 Consult Discharge Plan - Plan Referrals: Russell Bradley MD [Primary Care Provider] - (3) Anemia Qualifiers: Anemia type: unspecified type Qualified Code(s): D64.9 - Anemia, unspecified (4) CAD (coronary artery disease) Qualifiers: Coronary Disease-Associated Artery/Lesion type: bypass graft [place] vs. transplanted heart: [place] heart Associated angina: without angina Qualified Code(s): I25.810 - Atherosclerosis of coronary artery bypass graft(s) without angina pectoris (5) GI bleed Qualifiers: GI bleed type/associated pathology: melena Qualified Code(s): K92.1 - Melena (6) Cellulitis Qualifiers: Qualified Code(s): L03.90 - Cellulitis, unspecified (7) Afib Qualifiers: Qualified Code(s): I48.91 - Unspecified atrial fibrillation
--- NOTE | 2018-07-05 08:21 | Nephrology Progress Note ---
Date of Encounter: 07/05/18 Time of Encounter: 08:21 - Assessment and Plan (1) SHABBIR (acute kidney injury) Current Visit: Yes Status: Acute Patient's clinical picture is extremely complicated. He has congestive heart failure with a decreased ejection fraction along with pulmonary hypertension. He is in with volume overload exhibited by pulmonary edema along with lower extremity edema. We have attempted to diurese him with intravenous Lasix without success. His renal function continues to get worse. On Friday I gave the patient the option of being treated with ultrafiltration for volume removal to see if this assists with his cardiac output and overall function as the patient is relatively miserable and does not seem to be responding to our cu rrent medical therapies and at that time he wanted to wait until Friday to decide. With worsening renal function I suspect he will need dialysis by Friday. He would benefit from increased blood pressure. Consider transfusion with diuretic and if blood pressure remains low consider dopamine or other pressor. Avoid nephrotoxins and adjust medication for renal function. Agree with medical management of hyperkalemia for now. (2) Afib Current Visit: Yes Status: Acute Qualifiers: Qualified Code(s): I48.91 - Unspecified atrial fibrillation (3) CHF exacerbation Current Visit: Yes Status: Acute Qualifiers: Heart failure type: unspecified Qualified Code(s): I50.9 - Heart failure, unspecified (4) DM (diabetes mellitus), type 2 Current Visit: No Status: Acute Qualifiers: Diabetes mellitus alf insulin use: with marine oil terminal superintendent use Diabetes mellitus complication status: without complication Qualified Code(s): E11.9 - Type 2 diabetes mellitus without complications; Z79.4 - [facility] (current) use of insulin Subjective Principal diagnosis: CHF Interval history: Patient without new complaint. He still feels fatigued and has dyspnea. Objective - Vital Signs Vital signs: Vital Signs Temp Pulse Resp BP Pulse Ox 07/05/18 07:59 108 07/05/18 07:37 18 97 07/05/18 07:30 97.7 F 109 18 92/58 95 07/05/18 04:05 16 100 07/05/18 03:34 105 07/05/18 03:21 97.8 F 107 20 97/53 98 07/05/18 00:05 105 07/04/18 23:24 98.6 F 106 16 85/53 97 07/04/18 23:20 16 100 07/04/18 21:35 93/58 07/04/18 20:39 16 96 07/04/18 19:48 106 07/04/18 19:27 97.8 F 110 18 93/65 94 07/04/18 18:09 98.1 F 124 20 107/65 96 07/04/18 16:29 98.1 F 107 20 98/65 98 07/04/18 15:48 18 96 07/04/18 15:07 98.6 F 106 20 108/74 96 07/04/18 14:52 98.0 F 107 20 97/66 94 07/04/18 11:29 94/55 07/04/18 11:16 19 95 07/04/18 11:11 97.9 F 106 19 95 07/04/18 09:27 100/66 Intake and Output 07/04/18 07/05/18 07/05/18 23:59 07:59 15:59 Intake Total 825 / 825 100 / 100 Output Total 250 / 250 Balance 575 / 575 100 / 100 Intake: IV Fluids 525 / 525 100 / 100 0.9 % Sodium Chloride 250 ML @ 125 / 125 0 mls/hr .ROUTE .[facility] Rx #:[id number] Zosyn 3.375 GM In 0.9 % Sodium 200 / 200 100 / 100 Chloride (Mini-Bag +) 100 ML @ 25 mls/hr IVPB Q12H [facility] Rx#: [id number] Blood Product 300 / 300 Rbcs Leuko Poor As-1 Unit 300 / 300 [id number] Output: Catheter 250 / 250 Other: Blood Glucose* 80 98 - General Appearance General appearance: Present: well-developed, well-nourished EENT: Present: ATNC Neck: Present: supple Additional Comments: tachycardic aflutter on telemetry Gastrointestinal: Present: obese Integumentary: Present: warm and dry Neurologic: Present: alert and oriented x3 Psychiatric: Present: mood/affect appropriate - Lab 07/05/18 04:32 07/05/18 04:32 Most recent lab results Calcium 9.1 mg/dL (8.6-10.3) 07/05/18 04:32 Phosphorus 7.1 mg/dL (2.7-4.5) H 07/05/18 04:32 Magnesium 2.8 mg/dL (1.6-2.6) H 07/05/18 04:32 Consult Discharge Plan - Plan Referrals: Russell Bradley MD [Primary Care Provider] -
--- NOTE | 2018-07-05 08:53 | Event Note ---
Date of Encounter: 07/05/18 Time of Encounter: 08:50 - Cardiology Event Note Patient with anemia, SHABBIR, CHF volume overload, a.flutter RVR. Renal function worsening, nephrology following and per last note, may need UF on Friday. Per previous cardiology note, not much urine output and suspect diuretic would not be of benefit. Known a.flutter, currently mild RVR noted. Anticipate HRs will improve once clinical conidition improves. Will continue to follow.
[2018-07-05] MEDS: traMADol 50 MG TABLET PO PRN ×2 (16:14→22:44)
[2018-07-05] MEDS: Warfarin perPT PO SCH (18:08)
[2018-07-06 03:45] LABS: Basophils % 0.5 %; Eosinophils # 0.1 K/mcL (0.0-0.6); Eosinophils % 3.5 %; Hematocrit 25.1 % (37.5-50.1); Hemoglobin 7.9 g/dL (12.9-16.9); Immature Granulocytes % 0.3 % (0-4); Lymphocytes # 0.4 K/mcL (0.6-4.6); Lymphocytes % 10.5 %; Mean Corpuscular HGB Conc 31.5 g/dL (31.6-35.5); Mean Corpuscular Hemoglobin 28.5 pg (28.0-33.3); Mean Corpuscular Volume 90.6 fL (83.0-100.0); Mean Platelet Volume 9.7 fL (9.4-12.4); Monocytes # 0.5 K/mcL (0.0-1.3); Monocytes % 12.1 %; Neutrophils # 2.7 K/mcL (1.6-8.9); Platelet Count 267 K/mcL (140-400); Red Blood Count 2.77 M/mcL (4.19-5.50); Red Cell Distribution Width 17.9 % (11.5-14.5); Segmented Neutrophils % 73.1 %
[2018-07-06] MEDS: Ipratropium/Albuterol Neb 3 ML IH SCH ×6 (03:45→23:52)
[2018-07-06 03:56] LABS: Calcium 8.8 mg/dL (8.6-10.3); Magnesium 2.9 mg/dL (1.6-2.6); Phosphorous 7.9 mg/dL (2.7-4.5); Potassium 5.1 mEq/L (3.5-5.1)
[2018-07-06] MEDS ORDERED: *HR* Adenosine 6 MG/2 ML VIAL IVP ONE (04:42)
[2018-07-06] MEDS ORDERED: 0.9 % Sodium Chloride 1,000 ML ONE (04:42)
[2018-07-06] MEDS: *HR* OxyCODONE/APAP 5/325 TABLET PO PRN ×3 (05:34→21:59)
--- NOTE | 2018-07-06 07:32 | Internal Med Progress Note ---
Hospitalist Progress Note - Encounter Date of Encounter: 07/06/18 Time of Encounter: 07:30 - Exam Vitals: Temp Pulse Resp BP Pulse Ox 96.8 F L 103 18 87/52 95 07/06/18 07:12 07/06/18 07:12 07/06/18 07:12 07/06/18 07:12 07/06/18 07:12 Exam: Constitutional: Conversant. In no respiratory distress. Respiratory : Decreased air entry bilaterally at bases. No accessory muscle use, rhonchi or wheezes Cardiovascular : RRR, +S1, +S2. no murmur, gallop, rubs. No chest wall tenderness GI/Abdominal : Soft, Obese, Non-tender, Non-distended, edematous, no peritoneal signs. no orgenomegaly or mass appreciated. Has scrotal swelling as well. Musculoskeletal: 2+ edema till thigh as well as abdominal edema. Redness painful swelling on both legs with dressing on both legs. Redness and swelling slightly improved. Neurological: AO X3, CN II-XII grossly intact, grossly normal motor and sensory exam. Skin: redness and edema noted along with ulcer in both lower extremity. Rt>Lt. Slighly impoved. - Assessment and Plan (1) Acute on chronic clinical systolic heart failure Current Visit: Yes Status: Acute Assessment and Plan: - Patient presented with signs and symptoms of acute CHF exacerbation. - Last echocardiogram performed in December 2016 with EF of 35-40%, mildly dilated left ventricle, moderate global left ventricular systolic dysfunction, intermediate diastolic dysfunction, severe pulmonary hypertension. - Chest x-ray with bilateral congestion and pleural effusion along with significant lower extremity swelling - Lasix held due to worsening creatinine. Monitor repeat bMP. Gave albumin for hypotension. Renal following and plan for ulrafiltration if patient is amenable - Cardiology recs appreciated in light of hypotension and afib with non resolving CHF. Transfused one unit of PRBC on 07/04 to improve perfusion and due to underlying CAD -Plan for dialyisis/ ultrafiltration in light of persistent volume overload and worsening kidney failure (2) SHABBIR (acute kidney injury) Current Visit: Yes Status: Acute Assessment and Plan: Patient has been noted to have worsening creatinine Thought Likely secondary to overdiuresis with lasix but lasix has been held and patient has had decreased urinary output while still being volume overloaded. Possibly due to low cardiac output and afib. Cardiology consulted and appreciate recs Sawyer was placed by urology. Renal plan for ultrafiltration (3) Anemia Current Visit: Yes Status: Acute Assessment and Plan: Likely secondary to iron deficiency anemia. S/p EGD showing esophagitis Continue protonix. Transfused one unit of PRBC overnight (4) CAD (coronary artery disease) Current Visit: Yes Status: Acute Assessment and Plan: Continue home beta castillo and statin - Hold antiplatelets given GI bleed (5) GI bleed Current Visit: Yes Status: Acute Assessment and Plan: - Patient's baseline hemoglobin around 10. Currently 8 - Had positive stool occult blood in ER and supratherapeutic INR s/p EGD showing esophagitis. Resume protonix and okay to resume warfarin per GI recs (6) Cellulitis Current Visit: Yes Status: Acute Assessment and Plan: - Patient has bilateral lower extremity with redness swelling and bruising along with ulcers -On zosyn (7) Afib Current Visit: Yes Status: Acute Assessment and Plan: Continue metoprolol. Resume coumadin for anticoagulation. DVT Prophylaxis: On coumadin - Time Spent with Patient Total time spent is greater than 50% in coordination of care (as documented) at patient's floor/unit and/or counseling patient: Internal Medicine: Result - Labs CBC & Chem 7: 07/06/18 02:57 07/06/18 02:57 Labs: Short CBC 07/06/18 Range/Units 02:57 WBC 3.7 L (4.3-11.1) K/mcL Hgb 7.9 L (12.9-16.9) g/dL Hct 25.1 L (37.5-50.1) % Plt Count 267 (140-400) K/mcL Neutrophils # 2.7 (1.6-8.9) K/mcL BMP 07/06/18 02:57 Sodium 133 L Potassium 5.1 Chloride 95 L Carbon Dioxide 26 BUN 69 H Creatinine 4.69 H Glucose 78 Calcium 8.8 - ABG Interpretation ABG results: PT/INR, D-dimer PT 34.6 Seconds (9.4-12.1) H 07/05/18 04:32 Consult Discharge Plan - Plan Referrals: Russell Bradley MD [Primary Care Provider] - (3) Anemia Qualifiers: Anemia type: unspecified type Qualified Code(s): D64.9 - Anemia, unspecified (4) CAD (coronary artery disease) Qualifiers: Coronary Disease-Associated Artery/Lesion type: bypass graft [place] vs. transplanted heart: [place] heart Associated angina: without angina Qualified Code(s): I25.810 - Atherosclerosis of coronary artery bypass graft(s) without angina pectoris (5) GI bleed Qualifiers: GI bleed type/associated pathology: melena Qualified Code(s): K92.1 - Melena (6) Cellulitis Qualifiers: Qualified Code(s): L03.90 - Cellulitis, unspecified (7) Afib Qualifiers: Qualified Code(s): I48.91 - Unspecified atrial fibrillation
[2018-07-06] MEDS ORDERED: 0.9 % Sodium Chloride 250 ML IVC PRN (07:41)
[2018-07-06] MEDS ORDERED: *HR* Heparin 10,000 UNIT/10 ML VIAL IV PRN (07:41)
[2018-07-06] MEDS: Budesonide/Formoterol 160/4.5 1 PUFF INH IH SCH ×2 (07:43→19:57)
[2018-07-06] MEDS ORDERED: 0.9 % Sodium Chloride 1,000 ML PRIME SCH (07:45)
[2018-07-06] MEDS: Tiotropium 18 MCG inhalation IH SCH (07:46)
[2018-07-06 07:57] LABS: Hepatitis B Surface Antibody 0.09 mIU/mL; Hepatitis B Surface Antigen Nonreactive (Nonreactive)
[2018-07-06 08:38] LABS: INR 3.2; Prothrombin Time 36.1 Seconds (9.4-12.1)
[2018-07-06] MEDS: Insulin LISPRO 300 UNITS/3 ML VIAL SQ SCH ×3 (08:59→17:12)
[2018-07-06] MEDS: Sennosides/Docusate Sodium TABLET PO SCH ×2 (09:12→21:01)
[2018-07-06] MEDS: traMADol 50 MG TABLET PO PRN ×3 (09:12→20:58)
[2018-07-06] MEDS: Metoprolol XL (24 HR) Succ 50 MG TAB.ER.24H PO SCH ×2 (09:13→20:58)
[2018-07-06] MEDS: MICONAZOLE NITRATE 57 GM TUBE TP SCH (09:13)
[2018-07-06] MEDS ORDERED: 0.9 % Sodium Chloride 250 ML ONE ×3 (11:13→17:49)
--- NOTE | 2018-07-06 13:50 | Nephrology Progress Note ---
<Lyndon Coley - Last Filed: 07/06/18 16:52> Date of Encounter: 07/06/18 Time of Encounter: 13:48 - Assessment and Plan (1) Acute on chronic clinical systolic heart failure Current Visit: Yes Status: Acute - Known history of HFrEF; TTE 12/25: LVEF 35-40, mildly dilated LV, moderate global LV systolic dysfunction, severe pulmonary HTN - Patient had required high doses of Lasix; currently being held due to SHABBIR - Urine output is poor; continues to have persistent volume overload - Approximately 500mL of cola-colored urine is observed in catheter bag at bedside Plan: - Patient will need dialysis/ultrafiltration; administered 4 units of FFP due to supratherapeutic INR for placement of catheter - Patient wants to hold off on catheter placement until tomorrow - Continue to monitor renal function - Daily weights, strict Is and Os, cardiac diet (2) SHABBIR (acute kidney injury) Current Visit: Yes Status: Acute Patient's creatinine today is 4.69, up from 4.22; GFR is 12 - Urinary catheter placed; catheter bag observed at bedside; contains approximately 500 mL of cola colored urine - Optimize patient's HR and blood pressure; use pressors if necessary (3) GI bleed Current Visit: Yes Status: Acute Patient presented complaining of dark colored diarrhea - FOBT positive in the emergency department - Noted to have an elevated INR of 4.5 on 06/23; normally anticoagulated on Coumadin for atrial fibrillation - Patient known to be chronically anemic from iron deficiency anemia; baseline hemoglobin is 10 - No prior history of GI bleed; colonoscopy August 2016 demonstrated internal hemorrhoids - EGD 06/29: Reflux esophagitis, chronic gastritis, no sources of active bleeding found Plan: - Protonix 40 mg IV every 12 Qualifiers: GI bleed type/associated pathology: melena Qualified Code(s): K92.1 - Melena (4) Anemia Current Visit: Yes Status: Acute - History of iron deficiency anemia - FOBT positive in the ED - Management per GI Qualifiers: Anemia type: unspecified type Qualified Code(s): D64.9 - Anemia, unspecif ied (5) CAD (coronary artery disease) Current Visit: Yes Status: Acute - Continue home beta castillo and statin - Antiplatelet being held due to concern for GI bleed Qualifiers: Coronary Disease-Associated Artery/Lesion type: bypass graft [place] vs. transplanted heart: [place] heart Associated angina: without angina Qualified Code(s): I25.810 - Atherosclerosis of coronary artery bypass graft(s) without angina pectoris (6) Afib Current Visit: Yes Status: Acute - Known history of atrial fibrillation; was scheduled to get an ablation before presenting to the ED - Coumadin was resumed per GI recommendations - Rate is currently 103 Qualifiers: Qualified Code(s): I48.91 - Unspecified atrial fibrillation Subjective Principal diagnosis: CHF Interval history: Patient seen and examined at bedside; patient reports improved respiratory status since Friday. He states that his lower extremity, abdominal, and scrotal swelling have all improved. He states that he would prefer to wait until tomorrow for the placement of a dialysis catheter. He currently denies fever, chills, nausea, vomiting, abdominal pain, weakness, or scrotal pain. He has no further complaints. Objective - Vital Signs Vital signs: Vital Signs Temp Pulse Resp BP Pulse Ox 07/06/18 11:52 97.6 F 103 16 74/54 93 07/06/18 11:37 97.8 F 105 18 82/68 92 07/06/18 11:22 97.8 F 105 18 82/68 92 07/06/18 11:04 18 92 07/06/18 07:47 18 94 07/06/18 07:12 96.8 F L 103 18 87/52 95 07/06/18 05:03 98.2 F 100 18 94/62 95 07/06/18 03:45 19 94 07/05/18 23:57 98.2 F 105 18 96/59 95 07/05/18 23:45 18 93 07/05/18 20:40 105 07/05/18 20:01 19 97 07/05/18 18:26 97.8 F 103 18 96/49 97 07/05/18 16:57 97.4 F L 103 18 91/50 91 07/05/18 15:47 20 97 Intake and Output 07/05/18 07/06/18 07/06/18 23:59 07:59 15:59 Intake Total 120 / 120 Balance 120 / 120 Intake: Oral 120 / 120 Blood Product 0 / 0 Plasma Unit [id number] 0 / 0 Other: Meal Breakfast Percent of Meal Consumed 50% Blood Glucose* 82 83 103 - General Appearance Exam: General: A&O X3, no acute distress Head: atraumatic, normocephalic Eye: PERRL, EOMI, conjuntiva pink, sclera anicteric Neck: Supple, trachea midline; No lymphadenopathy Respiratory: Bibasilar crackles, shortened inspiratory phase, diminished breath sounds bilaterally Cardiovascular: Tachycardic, irregular rhythm Abdomen: Soft, nontender, slight distention Groin: Scrotum swelling Extremities: Lower extremities are currently wrapped; erythema noted bilaterally Psychiatric: Normal affect, normal mood Skin: Dry, intact Other: Urinary bag observed at bedside; 500 mL of cola colored urine - Lab 07/06/18 02:57 07/06/18 02:57 Most recent lab results Calcium 8.8 mg/dL (8.6-10.3) 07/06/18 02:57 Phosphorus 7.9 mg/dL (2.7-4.5) H 07/06/18 02:57 Magnesium 2.9 mg/dL (1.6-2.6) H 07/06/18 02:57 Consult Discharge Plan - Plan Referrals: Russell Bradley MD [Primary Care Provider] - <Duke Arteaga - Last Filed: 07/06/18 20:03> Date of Encounter: 07/06/18 - Assessment and Plan (1) CHF exacerbation Current Visit: Yes Status: Acute Qualifiers: Heart failure type: unspecified Qualified Code(s): I50.9 - Heart failure, unspecified (2) DM (diabetes mellitus), type 2 Current Visit: No Status: Acute Qualifiers: Diabetes mellitus senior living insulin use: with senior living use Diabetes mellitus complication status: without complication Qualified Code(s): E11.9 - Type 2 diabetes mellitus without complications; 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 (3) SHABBIR (acute kidney injury) Current Visit: Yes Status: Acute (4) Afib Current Visit: Yes Status: Acute Qualifiers: Qualified Code(s): I48.91 - Unspecified atrial fibrillation Objective - Vital Signs Vital signs: Vital Signs Temp Pulse Resp BP Pulse Ox 07/06/18 19:58 16 94 07/06/18 19:47 97.7 F 103 16 98/54 98 07/06/18 18:02 97.6 F 103 16 94/39 94 07/06/18 17:35 97.7 F 104 16 88/38 90 07/06/18 15:59 18 97 07/06/18 15:32 97.7 F 103 16 72/55 93 07/06/18 14:40 97.6 F 103 16 72/53 94 07/06/18 11:52 97.6 F 103 16 74/54 93 07/06/18 11:37 97.8 F 105 18 82/68 92 07/06/18 11:22 97.8 F 105 18 82/68 92 07/06/18 11:04 18 92 07/06/18 07:47 18 94 07/06/18 07:12 96.8 F L 103 18 87/52 95 07/06/18 05:03 98.2 F 100 18 94/62 95 07/06/18 03:45 19 94 07/05/18 23:57 98.2 F 105 18 96/59 95 07/05/18 23:45 18 93 07/05/18 20:40 105 07/05/18 20:01 19 97 Intake and Output 07/06/18 07/06/18 07/06/18 07:59 15:59 23:59 Intake Total 673 / 673 250 / 250 Balance 673 / 673 250 / 250 Intake: Oral 360 / 360 Blood Product 313 / 313 250 / 250 Plasma Unit [id number] 313 / 313 Plasma Unit [id number] 0 / 0 Plasma Unit [id number] 0 / 0 250 / 250 Other: Meal Lunch Percent of Meal Consumed 100% Blood Glucose* 83 103 106 - Lab 07/06/18 02:57 07/06/18 02:57 Most recent lab results Calcium 8.8 mg/dL (8.6-10.3) 07/06/18 02:57 Phosphorus 7.9 mg/dL (2.7-4.5) H 07/06/18 02:57 Magnesium 2.9 mg/dL (1.6-2.6) H 07/06/18 02:57 - Attending Attestation I examined this patient and my medical decision-making was reviewed with the Resident Physician. I agree with the documented findings, disposition and treatment plan as described except to the extent set forth below. Interim events noted with pt seen and examined feeling less SOB today. IR concerned about inr of 3.2 with temp HD line deferred as a result. Exam shows decreased BS bases bilat with LE edema bilat. Planned 4 units FFP to correct inr prior to HD temp line however pt reluctant to perform today, will defer tomorrow. Renal fxn noted worse at 4.69, will need HD and UF at this point if no improvement. Avoid nephrotoxins if possible.
[2018-07-06 14:15] LABS: INR 2.9; Prothrombin Time 33.2 Seconds (9.4-12.1)
[2018-07-06] MEDS: Warfarin perPT PO SCH (17:13)
--- NOTE | 2018-07-06 20:42 | Electrocardiograph Report ---
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
[2018-07-06] MEDS ORDERED: Famotidine 20 MG TABLET PO ONE (21:43)
[2018-07-07] MEDS: traMADol 50 MG TABLET PO PRN ×2 (02:15→15:51)
[2018-07-07] MEDS: Ipratropium/Albuterol Neb 3 ML IH SCH ×6 (03:40→23:52)
[2018-07-07 05:35] LABS: Hematocrit 25.8 % (37.5-50.1); Hemoglobin 8.1 g/dL (12.9-16.9); Lymphocytes # 0.4 K/mcL (0.6-4.6); Mean Corpuscular HGB Conc 31.4 g/dL (31.6-35.5); Mean Corpuscular Hemoglobin 28.4 pg (28.0-33.3); Mean Corpuscular Volume 90.5 fL (83.0-100.0); Mean Platelet Volume 9.5 fL (9.4-12.4); Monocytes # 0.4 K/mcL (0.0-1.3); Platelet Count 251 K/mcL (140-400); Red Blood Count 2.85 M/mcL (4.19-5.50); Red Cell Distribution Width 17.7 % (11.5-14.5)
[2018-07-07 05:53] LABS: Calcium 8.9 mg/dL (8.6-10.3); Phosphorous 8.7 mg/dL (2.7-4.5); Potassium 5.1 mEq/L (3.5-5.1)
[2018-07-07 06:06] LABS: INR 2.2; Prothrombin Time 25.2 Seconds (9.4-12.1)
[2018-07-07 06:30] LABS: Neutrophils # 2.5 K/mcL (1.6-8.9); Platelet Estimate Normal (Normal)
[2018-07-07] MEDS ORDERED: 0.9 % Sodium Chloride 250 ML IVC PRN (07:24)
[2018-07-07] MEDS ORDERED: *HR* Heparin 10,000 UNIT/10 ML VIAL IV PRN (07:24)
[2018-07-07] MEDS ORDERED: 0.9 % Sodium Chloride 1,000 ML PRIME SCH (07:30)
[2018-07-07] MEDS: Sennosides/Docusate Sodium TABLET PO SCH ×2 (07:33→20:21)
[2018-07-07] MEDS: Budesonide/Formoterol 160/4.5 1 PUFF INH IH SCH ×2 (07:47→20:54)
[2018-07-07] MEDS: Tiotropium 18 MCG inhalation IH SCH (08:07)
[2018-07-07] MEDS: Insulin LISPRO 300 UNITS/3 ML VIAL SQ SCH ×3 (08:53→18:41)
[2018-07-07] MEDS: Metoprolol XL (24 HR) Succ 50 MG TAB.ER.24H PO SCH ×2 (08:54→20:21)
--- NOTE | 2018-07-07 09:07 | Nephrology Progress Note ---
Date of Encounter: 07/07/18 Time of Encounter: 09:05 - Assessment and Plan (1) Acute on chronic clinical systolic heart failure Current Visit: Yes Status: Acute - Known history of HFrEF; TTE 12/25: LVEF 35-40, mildly dilated LV, moderate global LV systolic dysfunction, severe pulmonary HTN - Patient had required high doses of Lasix; currently being held due to SHABBIR - Urine output is poor; continues to have persistent volume overload - Approximately 500mL of cola-colored urine was observed in catheter bag at bedside; ordered UA with microscopy - 250 mL of documented urine output today so far Plan: - Patient will need dialysis/ultrafiltration - INR today is 2.2 after administering 4U of FFP - Temporary HD catheter placement today - Continue to monitor renal function - Daily weights, strict Is and Os, cardiac diet (2) SHABBIR (acute kidney injury) Current Visit: Yes Status: Acute Patient's creatinine today is 5.02, up from 4.69 - HD cath placement - Optimize patient's HR and blood pressure; use pressors if necessary (3) GI bleed Current Visit: Yes Status: Acute Patient presented complaining of dark colored diarrhea - FOBT positive in the emergency department - Noted to have an elevated INR of 4.5 on 06/23; normally anticoagulated on Coumadin for atrial fibrillation - Patient known to be chronically anemic from iron deficiency anemia; baseline hemoglobin is 10 - No prior history of GI bleed; colonoscopy August 2016 demonstrated internal hemorrhoids - EGD 06/29: Reflux esophagitis, chronic gastritis, no sources of active bleeding found Plan: - Protonix 40 mg IV every 12 Qualifiers: GI bleed type/associated pathology: melena Qualified Code(s): K92.1 - Melena (4) Anemia Current Visit: Yes Status: Acute - History of iron deficiency anemia - FOBT positive in the ED - Management per GI Qualifiers: Anemia type: unspecified type Qualified Code(s): D64.9 - Anemia, unspecified (5) CAD (coronary artery disease) Current Visit: Yes Status: Chronic - Continue home beta castillo and statin - Antiplatelet being held due to concern for GI bleed Qualifiers: Coronary Disease-Associated Artery/Lesion type: bypass graft [place] vs. transplanted heart: [place] heart Associated angina: without angina Qualified Code(s): I25.810 - Atherosclerosis of coronary artery bypass graft(s) without angina pectoris (6) Afib Current Visit: Yes Status: Acute - Known history of atrial fibrillation; was scheduled to get an ablation before presenting to the ED - Coumadin was resumed per GI recommendations Qualifiers: Qualified Code(s): I48.91 - Unspecified atrial fibrillation Subjective Principal diagnosis: CHF Interval history: Patient seen and examined at bedside; patient reports improved respiratory status since Friday. He states that his lower extremity, abdominal, and scrotal swelling have all improved. He states that he would prefer to wait until tomorrow for the placement of a dialysis catheter. He currently denies fever, chills, nausea, vomiting, abdominal pain, weakness, or scrotal pain. He has no further complaints. Objective - Vital Signs Vital signs: Vital Signs Temp Pulse Resp BP Pulse Ox 07/07/18 07:47 16 97 07/07/18 07:04 97.7 F 99 16 78/69 97 07/07/18 03:42 15 97 07/07/18 03:37 97.6 F 100 15 93/57 96 07/07/18 02:04 97.6 F 99 16 87/44 95 07/07/18 00:22 97.6 F 102 10 84/55 98 07/06/18 23:52 16 93 07/06/18 23:15 97.6 F 105 16 93/55 95 07/06/18 21:17 97.9 F 102 16 84/37 94 07/06/18 21:06 97.7 F 104 16 93/58 07/06/18 21:00 104 07/06/18 19:58 16 94 07/06/18 19:47 97.7 F 103 16 98/54 98 07/06/18 18:02 97.6 F 103 16 94/39 94 07/06/18 17:35 97.7 F 104 16 88/38 90 07/06/18 15:59 18 97 07/06/18 15:32 97.7 F 103 16 72/55 93 07/06/18 14:40 97.6 F 103 16 72/53 94 07/06/18 11:52 97.6 F 103 16 74/54 93 07/06/18 11:37 97.8 F 105 18 82/68 92 07/06/18 11:22 97.8 F 105 18 82/68 92 07/06/18 11:04 18 92 Intake and Output 11/26/18 11/27/18 11/27/18 23:59 07:59 15:59 Intake Total 500 / 500 340 / 340 Output Total 250 / 250 Balance 500 / 500 90 / 90 Intake: Blood Product 500 / 500 340 / 340 Plasma Unit [id number] 0 / 0 340 / 340 Plasma Unit [id number] 250 / 250 Plasma Unit [id number] 250 / 250 Output: Catheter 250 / 250 Other: Weight 128.9 kg Blood Glucose* 106 91 Patient Weight 07/07/18 23:59 Weight 128.9 kg - General Appearance Exam: General: A&O X3, no acute distress Head: atraumatic, normocephalic Eye: PERRL, EOMI, conjuntiva pink, sclera anicteric Neck: Supple, trachea midline; No lymphadenopathy Respiratory: Bibasilar crackles, shortened inspiratory phase, diminished breath sounds bilaterally Cardiovascular: Tachycardic, irregular rhythm Abdomen: Soft, nontender, slight distention Extremities: Lower extremities are currently wrapped; erythema noted bilaterally; improved from yesterday Psychiatric: Normal affect, normal mood Skin: Dry, intact Other: Urinary bag observed at bedside; ~500 mL of cola colored urine - Lab 07/07/18 05:20 07/07/18 05:20 Most recent lab results Calcium 8.9 mg/dL (8.6-10.3) 07/07/18 05:20 Phosphorus 8.7 mg/dL (2.7-4.5) H 07/07/18 05:20 Magnesium 3.0 mg/dL (1.6-2.6) H 07/07/18 05:20 Consult Discharge Plan - Plan Referrals: Russell Bradley MD [Primary Care Provider] -
--- NOTE | 2018-07-07 10:38 | Internal Med Progress Note ---
Hospitalist Progress Note - Encounter Date of Encounter: 07/07/18 Time of Encounter: 10:36 - Subjective Interval History: 73 M admitted and being managed for Afib with RVR, Anemia due to GIB, gastritis, Acute on chronic CHF, SHABBIR He has no new complains he is wheezing on exam Cr continues to uptrend Per chart, patient is supposed to get a temp line fpt UF anf HD He continues to have oliguria Hb is stable, INR is therapeutic - Exam Vitals: Temp Pulse Resp BP Pulse Ox 97.7 F 99 16 78/69 97 07/07/18 07:04 07/07/18 07:04 07/07/18 07:47 07/07/18 07:04 07/07/18 07:47 Exam: Gen - Awake, alert, oriented x 3, mild resp distress, obese HEENT - Dry oral mucosa, not jaundiced, not pale Heart -S1, S2, RRR, no m/g/r Chest : ICD/PCM Resp - Bilateral coarse breath sounds, few expiratory wheezing GI - Abd wall edema, tense, not tender, no palpably enlarged organs, BS present in all quadrants : [place] with dark urine Skin - No rash Psych -Appropriate affect Extremities: Bilateral venous stasis changes with hyperemia, wound dressings to both legs up to the knees clean and dry, trace piting pedal edema Neuto: AAOX3, moves all extremities, no focal deficits - Assessment and Plan (1) Acute on chronic clinical systolic heart failure Current Visit: Yes Status: Acute Assessment and Plan: Patient with known ischemic cardiomyopathy status post ICD placement, EF in this admission shows 35-40%, moderate MR, TR, pulmonary hypertension, functioning bioprosthetic aortic valve. Patient presented with signs and symptoms of acute CHF exacerbation. Chest x-ray with bilateral congestion and pleural effusion along with significant lower extremity swelling Lasix has been held due to acute kidney injury and worsening creatinine Patient also had episodes of hypotension requiring albumin infusion Cardiology evaluation noted and appreciated Plan is for ultrafiltration and hemodialysis via a temporary catheter by nephrology today Continue to monitor, continue daily weights and fluid restriction Patient is full code (2) Anemia Current Visit: Yes Status: Acute Assessment and Plan: Hemoglobin stable at 8.1 Likely secondary to iron deficiency anemia. S/p EGD showing esophagitis Continue protonix. T Hemoglobin is stable at this time. 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 Currently 8 Had positive stool occult blood in ER and supratherapeutic INR s/p EGD showing esophagitis. Continue protonix Per GI, continue warfarin, HB is stable and INR is therapeutic (6) Afib Current Visit: Yes Status: Acute Assessment and Plan: Continue metoprolol. Continue coumadin for anticoagulation. INR is therapeutic - Time Spent with Patient Total time spent is greater than 50% in coordination of care (as documented) at patient's floor/unit and/or counseling patient: Internal Medicine: Result - Labs CBC & Chem 7: 07/07/18 05:20 07/07/18 05:20 Labs: Short CBC 07/07/18 Range/Units 05:20 WBC 3.3 L (4.3-11.1) K/mcL Hgb 8.1 L (12.9-16.9) g/dL Hct 25.8 L (37.5-50.1) % Plt Count 251 (140-400) K/mcL Neutrophils # 2.5 (1.6-8.9) K/mcL BMP 07/07/18 05:20 Sodium 132 L Potassium 5.1 Chloride 94 L Carbon Dioxide 25 BUN 73 H Creatinine 5.02 H Glucose 84 Calcium 8.9 - ABG Interpretation ABG results: PT/INR, D-dimer PT 25.2 Seconds (9.4-12.1) H 07/07/18 05:20 Consult Discharge Plan - Plan Referrals: Russell Bradley MD [Primary Care Provider] - (2) Anemia Qualifiers: Anemia type: unspecified type Qualified Code(s): D64.9 - Anemia, unspecified (3) CAD (coronary artery disease) Qualifiers: Coronary Disease-Associated Artery/Lesion type: bypass graft [place] vs. transplanted heart: [place] heart Associated angina: without angina Qualified Code(s): I25.810 - Atherosclerosis of coronary artery bypass graft(s) without angina pectoris (5) GI bleed Qualifiers: GI bleed type/associated pathology: melena Qualified Code(s): K92.1 - Melena (6) Afib Qualifiers: Qualified Code(s): I48.91 - Unspecified atrial fibrillation
[2018-07-07] MEDS ORDERED: Albuterol 2.5 MG/3 ML NEBULIZER IH PRN (10:41)
[2018-07-07] MEDS ORDERED: Albuterol 2.5 MG/3 ML NEBULIZER IH ONE (10:41)
[2018-07-07] MEDS ORDERED: *HR* Heparin 5,000 UNIT/ML VIAL ONE (14:25)
--- NOTE | 2018-07-07 14:30 | IR Procedure Note ---
Date of procedure: 07/07/18 Consent Obtained: Written consent Timeout: Correct patient and procedure verified, Correct site verified, Time out performed, Skin prep completed Local anesthetic: Lidocaine 1% Indications: temporary dialysis Procedure Performed: right IJ temp hd cath Was there an life enrichment assistant present: No Site/Technique: right IJ Results/Findings: patent IJ Estimated blood loss (cc): 0 Complications: None; Tolerated procedure well Post Procedure Treatment Plan: chext xray Specimen: NA
[2018-07-07] MEDS: MICONAZOLE NITRATE 57 GM TUBE TP SCH (15:45)
[2018-07-07] MEDS ORDERED: 0.9 % Sodium Chloride 1,000 ML ONE (16:53)
[2018-07-07] MEDS ORDERED: *HR* Warfarin 1 MG TABLET PO ONE (18:00)
[2018-07-07] MEDS: Warfarin perPT PO SCH (18:42)
[2018-07-08 03:45] LABS: Basophils % 0.6 %; Eosinophils # 0.2 K/mcL (0.0-0.6); Eosinophils % 4.3 %; Hematocrit 26.6 % (37.5-50.1); Hemoglobin 8.3 g/dL (12.9-16.9); Immature Granulocytes % 0.3 % (0-4); Lymphocytes # 0.3 K/mcL (0.6-4.6); Lymphocytes % 9.2 %; Mean Corpuscular HGB Conc 31.2 g/dL (31.6-35.5); Mean Corpuscular Hemoglobin 28.5 pg (28.0-33.3); Mean Corpuscular Volume 91.4 fL (83.0-100.0); Mean Platelet Volume 9.5 fL (9.4-12.4); Monocytes # 0.4 K/mcL (0.0-1.3); Monocytes % 12.1 %; Neutrophils # 2.5 K/mcL (1.6-8.9); Platelet Count 245 K/mcL (140-400); Red Blood Count 2.91 M/mcL (4.19-5.50); Red Cell Distribution Width 17.4 % (11.5-14.5); Segmented Neutrophils % 73.5 %
[2018-07-08 03:46] LABS: Prothrombin Time 22.6 Seconds (9.4-12.1)
[2018-07-08 04:02] LABS: Calcium 8.7 mg/dL (8.6-10.3); Magnesium 2.8 mg/dL (1.6-2.6); Potassium 4.6 mEq/L (3.5-5.1)
[2018-07-08] MEDS: Ipratropium/Albuterol Neb 3 ML IH SCH ×6 (04:14→23:36)
[2018-07-08] MEDS: Tiotropium 18 MCG inhalation IH SCH (07:32)
[2018-07-08] MEDS: Budesonide/Formoterol 160/4.5 1 PUFF INH IH SCH ×2 (07:33→20:30)
[2018-07-08] MEDS ORDERED: 0.9 % Sodium Chloride 250 ML IVC PRN (07:33)
[2018-07-08] MEDS ORDERED: *HR* Heparin 10,000 UNIT/10 ML VIAL IV PRN (07:33)
[2018-07-08] MEDS: Metoprolol XL (24 HR) Succ 50 MG TAB.ER.24H PO SCH ×2 (07:40→23:57)
[2018-07-08] MEDS: Sennosides/Docusate Sodium TABLET PO SCH ×2 (07:40→20:05)
[2018-07-08] MEDS: MICONAZOLE NITRATE 57 GM TUBE TP SCH (07:41)
[2018-07-08] MEDS ORDERED: 0.9 % Sodium Chloride 1,000 ML PRIME SCH (07:45)
[2018-07-08] MEDS: *HR* OxyCODONE/APAP 5/325 TABLET PO PRN (07:48)
[2018-07-08] MEDS ORDERED: 0.9 % Sodium Chloride 1,000 ML ONE (08:07)
[2018-07-08] MEDS: Insulin LISPRO 300 UNITS/3 ML VIAL SQ SCH ×3 (08:33→16:19)
--- NOTE | 2018-07-08 09:54 | Nephrology Progress Note ---
Date of Encounter: 07/08/18 Time of Encounter: 11:34 - Assessment and Plan (1) Acute on chronic clinical systolic heart failure Current Visit: Yes Status: Acute - Known history of HFrEF; TTE 12/25: LVEF 35-40, mildly dilated LV, moderate global LV systolic dysfunction, severe pulmonary HTN - Patient had worsening a cat in the setting of aggressive diuresis - Diuretics were stopped; renal function continued to worsen - R sided IJ HD catheter was placed by IR; Underwent 2 hours of dialysis yesterday - Dialysis output: 2600mL Plan: - Plan is for 3 hr dialysis today with a 2-3L net - Continue to monitor renal function - Daily weights, strict Is and Os, cardiac diet (2) SHABBIR (acute kidney injury) Current Visit: Yes Status: Acute Patient's creatinine improved; down to 4.02 from 5.02 yesterday - Plan as above for dialysis today - Optimize patient's HR and blood pressure; use pressors if necessary (3) Anemia Current Visit: Yes Status: Acute - History of iron deficiency anemia - FOBT positive in the ED - Per GI, continue Protonix 40 mg IV every 12 Qualifiers: Anemia type: unspecified type Qualified Code(s): D64.9 - Anemia, unspecified (4) CAD (coronary artery disease) Current Visit: Yes Status: Chronic - Continue home beta castillo and statin - Antiplatelet being held due to concern for GI bleed Qualifiers: Coronary Disease-Associated Artery/Lesion type: bypass graft [place] vs. transplanted heart: [place] heart Associated angina: without angina Qualified Code(s): I25.810 - Atherosclerosis of coronary artery bypass graft(s) without angina pectoris (5) Afib Current Visit: Yes Status: Chronic - Known history of atrial fibrillation; was scheduled to get an ablation before presenting to the ED - Coumadin was resumed per GI recommendations Qualifiers: Qualified Code(s): I48.91 - Unspecified atrial fibrillation Subjective Principal diagnosis: CHF Interval history: Patient seen and examined at bedside; currently receiving dialysis. Patient states that he feels somewhat better today than he did yesterday. States that his breathing has slightly improved, although he does have some intermittent shortness of breath and difficulty lying flat. He states that his abdominal swelling has improved, the pain in his lower extremities is also subsiding. He denies fever, chills, nausea, vomiting, abdominal pain. No further complaints. Objective - Vital Signs Vital signs: Vital Signs Temp Pulse Resp BP Pulse Ox 07/08/18 08:00 94 07/08/18 07:54 105 07/08/18 07:53 97.8 F 105 18 101/78 97 07/08/18 07:35 20 95 07/08/18 04:14 20 95 07/08/18 04:02 97.7 F 106 20 106/73 95 07/08/18 03:24 97.7 F 120 19 106/73 97 07/08/18 00:46 97.9 F 106 18 112/71 98 07/07/18 23:52 18 98 07/07/18 23:00 97.9 F 106 18 112/71 95 07/07/18 21:36 97.6 F 105 16 104/79 99 07/07/18 20:54 16 99 07/07/18 18:50 97.6 F 105 19 104/79 97 07/07/18 18:25 97.8 F 20 103/56 07/07/18 18:00 100/64 07/07/18 17:45 93/59 07/07/18 17:30 99/57 07/07/18 17:15 100/57 07/07/18 17:00 99/62 07/07/18 16:45 97/62 07/07/18 16:30 97/64 07/07/18 16:15 104/56 07/07/18 16:00 97.4 F L 20 93/57 07/07/18 15:22 16 94 07/07/18 12:55 102 07/07/18 12:04 97.6 F 102 16 93/57 96 07/07/18 11:03 16 98 Intake and Output 07/07/18 07/08/18 07/08/18 23:59 07:59 15:59 Intake Total 600 / 600 60 / 60 Output Total 2850 / 2850 180 / 180 Balance -2250 / -2250 -180 / -180 60 / 60 Intake: Oral 60 / 60 Intake, Rinseback and Flushes 600 / 600 Output: Total Dialysis (HD) Output 2600 / 2600 Catheter 250 / 250 180 / 180 Other: Meal Breakfast Percent of Meal Consumed 0% Weight 126.8 kg Blood Glucose* 84 89 Hemodialysis Net Fluid Removed 2000 (mL) Patient Weight 07/08/18 23:59 Weight 126.8 kg - General Appearance Exam: General: A&O X3, no acute distress Head: atraumatic, normocephalic Eye: PERRL, EOMI, conjuntiva pink, sclera anicteric Neck: R sided HD cath in place Respiratory: Bibasilar crackles, shortened inspiratory phase, diminished breath sounds bilaterally Cardiovascular: Tachycardic, irregular rhythm Abdomen: Soft, nontender, slight distention Groin: Scrotum swelling Extremities: Lower extremities are currently wrapped; erythema noted bilaterally Psychiatric: Normal affect, normal mood Skin: Dry, intact - Lab 07/08/18 03:07 07/08/18 03:07 Most recent lab results Calcium 8.7 mg/dL (8.6-10.3) 07/08/18 03:07 Phosphorus 8.7 mg/dL (2.7-4.5) H 07/07/18 05:20 Magnesium 2.8 mg/dL (1.6-2.6) H 07/08/18 03:07 Consult Discharge Plan - Plan Referrals: Russell Bradley MD [Primary Care Provider] -
--- NOTE | 2018-07-08 10:23 | Internal Med Progress Note ---
Hospitalist Progress Note - Encounter Date of Encounter: 07/08/18 Time of Encounter: 10:21 - Subjective Interval History: 73 M admitted and being managed for Afib with RVR, Anemia due to GIB, gastritis, Acute on chronic CHF, SHABBIR He has no new complains Seen during HD He had -2600 out on 07/07 He is tolerating HD and has no new complains, SOB has improved per patient - Exam Vitals: Temp Pulse Resp BP Pulse Ox 97.8 F 105 18 101/78 94 07/08/18 07:53 07/08/18 07:54 07/08/18 07:53 07/08/18 07:53 07/08/18 08:00 Exam: Gen - Awake, alert, oriented x 3, no resp distress, obese HEENT - Dry oral mucosa, not jaundiced, not pale Heart -S1, S2, RRR, no m/g/r Chest : ICD/PCM Resp - CTAB GI - Abd wall edema, tense, not tender, no palpably enlarged organs, BS present in all quadrants : Sawyer with dark urine Skin - No rash Psych -Appropriate affect Extremities: Bilateral venous stasis changes with hyperemia, wound dressings to both legs up to the knees clean and dry, trace piting pedal edema Neuto: AAOX3, moves all extremities, no focal deficits - Assessment and Plan (1) Anemia Current Visit: Yes Status: Acute Assessment and Plan: Hemoglobin stable at 8.3 Likely secondary to iron deficiency anemia. S/p EGD showing esophagitis Continue protonix. T Hemoglobin is stable at this time. Patient has received total 2 units of RBCs on 06/25 and 07/04 respectively (2) CAD (coronary artery disease) Current Visit: Yes Status: Chronic Assessment and Plan: Continue home beta castillo and statin Continue to hold Plavix due to acute on chronic anemia suspected GI bleed on admission (3) Acute on chronic clinical systolic heart failure Current Visit: Yes Status: Acute Assessment and Plan: Patient with known ischemic cardiomyopathy status post ICD placement, EF in this admission shows 35-40%, moderate MR, TR, pulmonary hypertension, functioning bioprosthetic aortic valve. Patient presented with signs and symptoms of acute CHF exacerbation. 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 Continue coumadin for anticoagulation. INR is therapeutic DVT Prophylaxis: On coumadin - Time Spent with Patient Total time spent is greater than 50% in coordination of care (as documented) at patient's floor/unit and/or counseling patient: Internal Medicine: Result - Labs CBC & Chem 7: 07/08/18 03:07 07/08/18 03:07 Labs: Short CBC 07/08/18 Range/Units 03:07 WBC 3.5 L (4.3-11.1) K/mcL Hgb 8.3 L (12.9-16.9) g/dL Hct 26.6 L (37.5-50.1) % Plt Count 245 (140-400) K/mcL Neutrophils # 2.5 (1.6-8.9) K/mcL BMP 07/08/18 03:07 Sodium 135 L Potassium 4.6 Chloride 96 L Carbon Dioxide 26 BUN 63 H Creatinine 4.02 H Glucose 81 Calcium 8.7 - ABG Interpretation ABG results: PT/INR, D-dimer PT 22.6 Seconds (9.4-12.1) H 07/08/18 03:07 - Impressions Impressions Guidance Ultrasound 07/07/18 00:00 IMPRESSION: Successful ultrasound guided placement of a non tunneled right internal jugular temporary dialysis catheter. Postprocedure chest radiograph to follow. D/ / Hiram Vasquez / Hiram Vasquez Interpreting Provider: Hiram Vasquez Insertion Non-Tunneled Catheter 07/07/18 07:45 IMPRESSION: Successful ultrasound guided placement of a non tunneled right internal jugular temporary dialysis catheter. Postprocedure chest radiograph to follow. D/ / Hiram Vasquez / Hiram Vasquez Interpreting Provider: Hiram Vasquez Chest X-Ray 07/07/18 14:27 IMPRESSION: 1. Right internal jugular dialysis catheter terminates at the cavoatrial junction. 2. Cardiomegaly with persistent bibasilar opacities and bilateral effusions. 3. Mild edema. D/ / 07/07/2018 15:10:13 Isa Rodriguez MD / [email or web address] Interpreting Provider: Isa Rodriguez MD Consult Discharge Plan - Plan Referrals: Russell Bradley MD [Primary Care Provider] - (1) Anemia Qualifiers: Anemia type: unspecified type Qualified Code(s): D64.9 - Anemia, unspecified (2) CAD (coronary artery disease) Qualifiers: Coronary Disease-Associated Artery/Lesion type: bypass graft [place] vs. transplanted heart: [place] heart Associated angina: without angina Qualified Code(s): I25.810 - Atherosclerosis of coronary artery bypass graft(s) without angina pectoris (5) Afib Qualifiers: Qualified Code(s): I48.91 - Unspecified atrial fibrillation
[2018-07-08] MEDS: traMADol 50 MG TABLET PO PRN (13:25)
[2018-07-08] MEDS: Warfarin perPT PO SCH (16:23)
[2018-07-08] MEDS ORDERED: *HR* Warfarin 5 MG TABLET PO ONE (18:00)
[2018-07-09] MEDS: Ipratropium/Albuterol Neb 3 ML IH SCH ×6 (03:26→23:08)
[2018-07-09 07:08] LABS: Basophils % 0.9 %; Eosinophils # 0.2 K/mcL (0.0-0.6); Eosinophils % 4.5 %; Hematocrit 26.2 % (37.5-50.1); Hemoglobin 8.1 g/dL (12.9-16.9); Immature Granulocytes % 0.3 % (0-4); Lymphocytes # 0.4 K/mcL (0.6-4.6); Lymphocytes % 11.3 %; Mean Corpuscular HGB Conc 30.9 g/dL (31.6-35.5); Mean Corpuscular Volume 90.7 fL (83.0-100.0); Mean Platelet Volume 9.2 fL (9.4-12.4); Monocytes # 0.5 K/mcL (0.0-1.3); Monocytes % 14.3 %; Neutrophils # 2.3 K/mcL (1.6-8.9); Platelet Count 222 K/mcL (140-400); Red Blood Count 2.89 M/mcL (4.19-5.50); Red Cell Distribution Width 17.3 % (11.5-14.5); Segmented Neutrophils % 68.7 %
[2018-07-09 07:15] LABS: INR 2.4
[2018-07-09] MEDS: Budesonide/Formoterol 160/4.5 1 PUFF INH IH SCH ×2 (07:29→20:28)
[2018-07-09] MEDS: Sennosides/Docusate Sodium TABLET PO SCH ×2 (07:35→20:07)
[2018-07-09] MEDS: Metoprolol XL (24 HR) Succ 50 MG TAB.ER.24H PO SCH (07:35)
[2018-07-09] MEDS: MICONAZOLE NITRATE 57 GM TUBE TP SCH (07:35)
[2018-07-09] MEDS: Insulin LISPRO 300 UNITS/3 ML VIAL SQ SCH ×3 (07:44→15:52)
[2018-07-09 08:03] LABS: Calcium 8.7 mg/dL (8.6-10.3); Magnesium 2.5 mg/dL (1.6-2.6); Potassium 3.9 mEq/L (3.5-5.1)
[2018-07-09] MEDS ORDERED: *HR* Heparin 10,000 UNIT/10 ML VIAL IV PRN (08:17)
[2018-07-09] MEDS ORDERED: 0.9 % Sodium Chloride 250 ML IVC PRN (08:17)
[2018-07-09] MEDS ORDERED: 0.9 % Sodium Chloride 1,000 ML PRIME SCH (08:30)
[2018-07-09] MEDS: traMADol 50 MG TABLET PO PRN ×2 (08:47→15:52)
[2018-07-09] MEDS: *HR* OxyCODONE/APAP 5/325 TABLET PO PRN ×2 (10:29→20:07)
--- NOTE | 2018-07-09 10:50 | Internal Med Progress Note ---
Hospitalist Progress Note - Encounter Date of Encounter: 07/09/18 Time of Encounter: 10:49 - Subjective Interval History: 73 M admitted and being managed for Afib with RVR, Anemia due to GIB, gastritis, Acute on chronic CHF, SHABBIR He has no new complains Seen during HD/UF He had -2600 out on 07/07, -3600 07/08 He is tolerating HD and has no new complains, SOB has improved per patient INR therapeutic, low normal BP, held lopressor this a.m, will resume after HD, HR 100-105 Chem and fluid status improving with UF/HD - Exam Vitals: Temp Pulse Resp BP Pulse Ox 97.6 F 108 20 98/61 96 07/09/18 09:05 07/09/18 07:48 07/09/18 09:05 07/09/18 10:20 07/09/18 08:17 Exam: Gen - Awake, alert, oriented x 3, no resp distress, obese HEENT - Dry oral mucosa, not jaundiced, not pale Heart -S1, S2, RRR, no m/g/r Chest : ICD/PCM Resp - CTAB GI - Abd wall edema improving, soft, not tender, no palpably enlarged organs, BS present in all quadrants : Sawyer with dark urine, sediments Skin - No rash Psych -Appropriate affect Extremities: Bilateral venous stasis changes with hyperemia, wound dressings to both legs up to the knees clean and dry, pedal edema resolved Neuto: AAOX3, moves all extremities, no focal deficits - Assessment and Plan (1) Anemia Current Visit: Yes Status: Acute Assessment and Plan: Hemoglobin stable at 8.1-8.3 Likely secondary to iron deficiency anemia. S/p EGD showing esophagitis Continue protonix. Hemoglobin is stable at this time. Patient has received total 2 units of RBCs on 06/25 and 07/04 respectively (2) CAD (coronary artery disease) Current Visit: Yes Status: Chronic Assessment and Plan: Continue home beta castillo and statin Continue to hold Plavix due to acute on chronic anemia suspected GI bleed on admission (3) Acute on chronic clinical systolic heart failure Current Visit: Yes Status: Acute Assessment and Plan: Patient with known ischemic cardiomyopathy status post ICD placement, EF in this admission shows 35-40%, moderate MR, TR, pulmonary hypertension, functioning bioprosthetic aortic valve. Patient presented with signs and symptoms of acute CHF exacerbation. 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 Continue coumadin for anticoagulation. INR is therapeutic DVT Prophylaxis: On coumadin - Time Spent with Patient Total time spent is greater than 50% in coordination of care (as documented) at patient's floor/unit and/or counseling patient: Plan of Care Discussed with: patient Internal Medicine: Result - Labs CBC & Chem 7: 07/09/18 06:59 07/09/18 06:59 Labs: Short CBC 07/09/18 Range/Units 06:59 WBC 3.4 L (4.3-11.1) K/mcL Hgb 8.1 L (12.9-16.9) g/dL Hct 26.2 L (37.5-50.1) % Plt Count 222 (140-400) K/mcL Neutrophils # 2.3 (1.6-8.9) K/mcL BMP 07/09/18 06:59 Sodium 136 Potassium 3.9 Chloride 99 Carbon Dioxide 29 BUN 45 H Creatinine 2.44 H Glucose 82 Calcium 8.7 - ABG Interpretation ABG results: PT/INR, D-dimer PT 27.0 Seconds (9.4-12.1) H 07/09/18 06:59 Consult Discharge Plan - Plan Referrals: Russell Bradley MD [Primary Care Provider] - ____ (1) Anemia Qualifiers: Anemia type: unspecified type Qualified Code(s): D64.9 - Anemia, unspecified (2) CAD (coronary artery disease) Qualifiers: Coronary Disease-Associated Artery/Lesion type: bypass graft [place] vs. transplanted heart: [place] heart Associated angina: without angina Qualified Code(s): I25.810 - Atherosclerosis of coronary artery bypass graft(s) without angina pectoris (5) Afib Qualifiers: Qualified Code(s): I48.91 - Unspecified atrial fibrillation
[2018-07-09] MEDS ORDERED: 0.9 % Sodium Chloride 1,000 ML ONE (11:23)
--- NOTE | 2018-07-09 13:42 | Nephrology Progress Note ---
Date of Encounter: 07/09/18 Time of Encounter: 13:40 - Assessment and Plan (1) Acute on chronic clinical systolic heart failure Current Visit: Yes Status: Acute - Known history of HFrEF; TTE 12/25: LVEF 35-40, mildly dilated LV, moderate global LV systolic dysfunction, severe pulmonary HTN - Patient had worsening SHABBIR in the setting of aggressive diuresis - Diuretics were stopped; renal function continued to worsen - HD cath placed; patient undergoing 3rd round of dialysis today - Dialysis output yesterday: 3600mL Plan: - Continue to monitor renal function - Daily weights, strict Is and Os, cardiac diet (2) SHABBIR (acute kidney injury) Current Visit: Yes Status: Acute - Plan as above for dialysis today - Optimize patient's HR and blood pressure; use pressors if necessary (3) Anemia Current Visit: Yes Status: Acute - History of iron deficiency anemia - FOBT positive in the ED - Per GI, continue Protonix 40 mg IV every 12 Qualifiers: Anemia type: unspecified type Qualified Code(s): D64.9 - Anemia, unspecified (4) CAD (coronary artery disease) Current Visit: Yes Status: Chronic - Continue home beta castillo and statin - Antiplatelet being held due to concern for GI bleed Qualifiers: Coronary Disease-Associated Artery/Lesion type: bypass graft [place] vs. transplanted heart: [place] heart Associated angina: without angina Qualified Code(s): I25.810 - Atherosclerosis of coronary artery bypass graft(s) without angina pectoris (5) Afib Current Visit: Yes Status: Chronic - Known history of atrial fibrillation; was scheduled to get an ablation before presenting to the ED - Coumadin was resumed per GI recommendations Qualifiers: Qualified Code(s): I48.91 - Unspecified atrial fibrillation Subjective Principal diagnosis: CHF Interval history: Patient seen and examined at bedside; received dialysis earlier today. Reports an improvement in his respiratory status. Reports that he still has some intermittent shortness of breath and difficulty lying flat, but states that his overall respiratory status is improving. Reports that both his abdominal swelling and scrotal swelling have diminished. No further complaints this time. Objective - Vital Signs Vital signs: Vital Signs Temp Pulse Resp BP Pulse Ox 07/09/18 12:56 97.4 F L 18 94/57 07/09/18 12:35 100/63 07/09/18 12:20 96/54 07/09/18 12:05 99/65 07/09/18 11:50 100/62 07/09/18 11:39 16 95 07/09/18 11:35 98/55 07/09/18 11:20 99/60 07/09/18 11:05 92/57 07/09/18 10:50 95/57 07/09/18 10:35 97/63 07/09/18 10:20 98/61 07/09/18 10:05 91/55 07/09/18 09:50 98/62 07/09/18 09:35 95/58 07/09/18 09:20 90/50 07/09/18 09:05 97.6 F 20 97/55 07/09/18 08:17 96 07/09/18 07:48 108 07/09/18 07:29 18 96 07/09/18 07:00 97.8 F 107 20 108/59 96 07/09/18 05:02 98.2 F 108 18 81/52 97 07/09/18 03:52 98.2 F 110 18 81/52 97 07/09/18 03:27 18 96 07/09/18 00:57 98.3 F 109 16 84/48 96 07/08/18 23:36 16 96 07/08/18 23:33 98.3 F 109 18 84/48 96 07/08/18 21:40 110 07/08/18 20:30 16 97 07/08/18 19:20 97.8 F 107 17 80/60 99 07/08/18 16:25 96/63 99 07/08/18 16:10 97.7 F 94 17 70/61 100 07/08/18 15:35 18 94 Intake and Output 07/08/18 07/09/18 07/09/18 23:59 07:59 15:59 Intake Total 200 / 200 600 / 600 Output Total 680 / 680 350 / 350 3600 / 3600 Balance -480 / -480 -350 / -350 -3000 / -3000 Intake: Oral 200 / 200 Intake, Rinseback and Flushes 600 / 600 Output: Total Dialysis (HD) Output 3600 / 3600 Catheter 680 / 680 350 / 350 Other: Meal Dinner Breakfast Percent of Meal Consumed 60% 10% Weight 124.2 kg Blood Glucose* 88 94 85 Hemodialysis Net Fluid Removed 3000 (mL) Patient Weight 11/29/18 23:59 Weight 124.2 kg - General Appearance Exam: General: A&O X3, no acute distress Head: atraumatic, normocephalic Eye: PERRL, EOMI, conjuntiva pink, sclera anicteric Neck: Supple, trachea midline; No lymphadenopathy, HD catheter in place Respiratory: Bibasilar crackles, shortened inspiratory phase, diminished breath sounds bilaterally Cardiovascular: Tachycardic, irregular rhythm Abdomen: Soft, nontender, slight distention Extremities: Lower extremities are currently wrapped; erythema has notably improved Psychiatric: Normal affect, normal mood Skin: Dry, intact - Lab 07/09/18 06:59 07/09/18 06:59 Most recent lab results Calcium 8.7 mg/dL (8.6-10.3) 07/09/18 06:59 Phosphorus 8.7 mg/dL (2.7-4.5) H 07/07/18 05:20 Magnesium 2.5 mg/dL (1.6-2.6) 07/09/18 06:59 Consult Discharge Plan - Plan Referrals: Russell Bradley MD [Primary Care Provider] -
[2018-07-09] MEDS: Warfarin perPT PO SCH (17:31)
[2018-07-09] MEDS ORDERED: *HR* Warfarin 2.5 MG TABLET PO ONE (18:00)
[2018-07-09 22:21] LABS: Bilirubin,Urine Large (Negative); Clarity,Urine Turbid (Clear); Color,Urine Brown (Yellow); Glucose,Urine (UA) Normal (Normal); Ketones,Urine 40 mg/dL (Negative)
[2018-07-09 22:22] LABS: Blood,Urine Large (Negative); Leukocyte Esterase,Urine Large (Negative); Nitrite,Urine Positive (Negative); PH,Urine 5.5 pH Units (5.0-8.0); Protein,Urine 100 mg/dL (Neg-Trace); Urobilinogen,Urine Normal (Normal)
[2018-07-09 22:28] LABS: Hyaline Casts,Urine Few per lpf (None-Few); RBC,Urine TNTC per hpf (0-3)
[2018-07-09 22:31] LABS: Bacteria,Urine Moderate per hpf (None-Few)
[2018-07-10] MEDS: *HR* OxyCODONE/APAP 5/325 TABLET PO PRN ×3 (03:44→22:28)
[2018-07-10 03:56] LABS: Basophils % 0.7 %; Eosinophils # 0.2 K/mcL (0.0-0.6); Eosinophils % 5.4 %; Hematocrit 27.1 % (37.5-50.1); Hemoglobin 8.4 g/dL (12.9-16.9); Immature Granulocytes % 0.3 % (0-4); Lymphocytes # 0.6 K/mcL (0.6-4.6); Lymphocytes % 19.5 %; Mean Corpuscular Hemoglobin 28.6 pg (28.0-33.3); Mean Corpuscular Volume 92.2 fL (83.0-100.0); Mean Platelet Volume 9.5 fL (9.4-12.4); Monocytes # 0.5 K/mcL (0.0-1.3); Monocytes % 15.4 %; Neutrophils # 1.8 K/mcL (1.6-8.9); Platelet Count 235 K/mcL (140-400); Red Blood Count 2.94 M/mcL (4.19-5.50); Red Cell Distribution Width 17.4 % (11.5-14.5); Segmented Neutrophils % 58.7 %
[2018-07-10 04:03] LABS: INR 2.4; Prothrombin Time 26.7 Seconds (9.4-12.1)
[2018-07-10 04:11] LABS: Calcium 8.6 mg/dL (8.6-10.3); Magnesium 2.2 mg/dL (1.6-2.6); Potassium 3.7 mEq/L (3.5-5.1)
[2018-07-10] MEDS: Ipratropium/Albuterol Neb 3 ML IH SCH ×6 (04:24→23:21)
[2018-07-10] MEDS: Budesonide/Formoterol 160/4.5 1 PUFF INH IH SCH ×2 (07:39→19:57)
[2018-07-10] MEDS: Insulin LISPRO 300 UNITS/3 ML VIAL SQ SCH ×3 (08:34→16:22)
[2018-07-10] MEDS: Metoprolol XL (24 HR) Succ 50 MG TAB.ER.24H PO SCH ×2 (08:58→20:09)
[2018-07-10] MEDS: Sennosides/Docusate Sodium TABLET PO SCH ×2 (08:58→20:09)
[2018-07-10] MEDS: MICONAZOLE NITRATE 57 GM TUBE TP SCH (09:01)
[2018-07-10] MEDS: traMADol 50 MG TABLET PO PRN (09:11)
--- NOTE | 2018-07-10 09:18 | Internal Med Progress Note ---
Hospitalist Progress Note - Encounter Date of Encounter: 07/10/18 Time of Encounter: 09:17 - Subjective Interval History: 73 M admitted and being managed for Afib with RVR, Anemia due to GIB, gastritis, Acute on chronic CHF, SHABBIR He has no new complains Seen a the bedside, no new complains I/O -6.5 L, Chem improving with HD - Exam Vitals: Temp Pulse Resp BP Pulse Ox 97.8 F 110 18 95/63 95 07/10/18 07:17 07/10/18 07:17 07/10/18 07:17 07/10/18 07:17 07/10/18 07:17 Exam: Gen - Awake, alert, oriented x 3, no resp distress, obese HEENT - Moist oral mucosa, not jaundiced, not pale Heart -S1, S2, RRR, no m/g/r Chest : ICD/PCM Resp - CTAB GI - Abd wall edema resolved, soft, not tender, no palpably enlarged organs, BS present in all quadrants : Sawyer with dark urine, sediments Skin - No rash Psych -Appropriate affect Extremities: Bilateral venous stasis changes with hyperemia, wound dressings to both legs up to the knees clean and dry, pedal edema resolved Neuto: AAOX3, moves all extremities, no focal deficits - Assessment and Plan (1) Anemia Current Visit: Yes Status: Acute Assessment and Plan: Hemoglobin stable at 8.1-8.3 Likely secondary to iron deficiency anemia. S/p EGD showing esophagitis Continue protonix. Hemoglobin is stable at this time. Patient has received total 2 units of RBCs on 06/25 and 07/04 respectively (2) CAD (coronary artery disease) Current Visit: Yes Status: Chronic Assessment and Plan: Continue home beta castillo and statin Continue to hold Plavix due to acute on chronic anemia suspected GI bleed on admission Will consider resuming prior to discharge (3) Acute on chronic clinical systolic heart failure Current Visit: Yes Status: Acute Assessment and Plan: Patient with known ischemic cardiomyopathy status post ICD placement, EF in this admission shows 35-40%, moderate MR, TR, pulmonary hypertension, functioning b ioprosthetic aortic valve. Patient presented with signs and symptoms of acute CHF exacerbation. Chest x-ray with bilateral congestion and pleural effusion along with significant lower extremity swelling Lasix has been held due to acute kidney injury and worsening creatinine Patient also had episodes of hypotension requiring albumin infusion , improved Cardiology evaluation noted and appreciated Leg edema, abdominal wall edema and SON improved remarkably with UF Continue ultrafiltration and hemodialysis 1/0 -6.5 Continue to monitor, continue daily weights and fluid restriction Patient is full code (4) SHABBIR (acute kidney injury) Current Visit: Yes Status: Acute Assessment and Plan: presented with normal renal function, 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 Continue coumadin for anticoagulation. INR is therapeutic DVT Prophylaxis: On coumadin - Time Spent with Patient Total time spent is greater than 50% in coordination of care (as documented) at patient's floor/unit and/or counseling patient: Internal Medicine: Result - Labs CBC & Chem 7: 07/10/18 03:40 07/10/18 03:40 Labs: Short CBC 07/10/18 Range/Units 03:40 WBC 3.0 L (4.3-11.1) K/mcL Hgb 8.4 L (12.9-16.9) g/dL Hct 27.1 L (37.5-50.1) % Plt Count 235 (140-400) K/mcL Neutrophils # 1.8 (1.6-8.9) K/mcL BMP 07/10/18 03:40 Sodium 136 Potassium 3.7 Chloride 99 Carbon Dioxide 30 H BUN 30 H Creatinine 1.57 H Glucose 82 Calcium 8.6 Urine 07/09/18 Range/Units 22:09 Urine Color Brown (Yellow) Urine Clarity Turbid A (Clear) Urine pH 5.5 (5.0-8.0) pH Units Ur Specific [place] 1.030 H (1.010-1.025) Urine Protein 100 H (Neg-Trace) mg/dL Urine Glucose (UA) Normal (Normal) mg/dL - ABG Interpretation ABG results: PT/INR, D-dimer PT 26.7 Seconds (9.4-12.1) H 07/10/18 03:40 Consult Discharge Plan - Plan Referrals: Russell Bradley MD [Primary Care Provider] - (1) Anemia Qualifiers: Anemia type: unspecified type Qualified Code(s): D64.9 - Anemia, unspecified (2) CAD (coronary artery disease) Qualifiers: Coronary Disease-Associated Artery/Lesion type: bypass graft [place] vs. transplanted heart: [place] heart Associated angina: without angina Qualified Code(s): I25.810 - Atherosclerosis of coronary artery bypass graft(s) without angina pectoris (5) Afib Qualifiers: Qualified Code(s): I48.91 - Unspecified atrial fibrillation
--- NOTE | 2018-07-10 13:21 | Nephrology Progress Note ---
Date of Encounter: 07/10/18 Time of Encounter: 13:19 - Assessment and Plan (1) Acute on chronic clinical systolic heart failure Current Visit: Yes Status: Acute - Known history of HFrEF; TTE 12/25: LVEF 35-40, mildly dilated LV, moderate global LV systolic dysfunction, severe pulmonary HTN - Patient had worsening SHABBIR in the setting of aggressive diuresis - Diuretics were stopped; renal function continued to worsen - HD cath placed; patient has undergone 3 rounds of dialysis - Serum creatinine today is 1.57 Plan: - Continue to monitor renal function - Daily weights, strict Is and Os, cardiac diet (2) SHABBIR (acute kidney injury) Current Visit: Yes Status: Acute - Plan as above for dialysis today (3) Anemia Current Visit: Yes Status: Acute - History of iron deficiency anemia - FOBT positive in the ED - Per GI, continue Protonix 40 mg IV every 12 Qualifiers: Anemia type: unspecified type Qualified Code(s): D64.9 - Anemia, unspecified (4) CAD (coronary artery disease) Current Visit: Yes Status: Chronic - Continue home beta castillo and statin - Antiplatelet being held due to concern for GI bleed Qualifiers: Coronary Disease-Associated Artery/Lesion type: bypass graft [place] vs. transplanted heart: [place] heart Associated angina: without angina Qualified Code(s): I25.810 - Atherosclerosis of coronary artery bypass graft(s) without angina pectoris (5) Afib Current Visit: Yes Status: Chronic - Known history of atrial fibrillation; was scheduled to get an ablation before presenting to the ED - Coumadin was resumed per GI recommendations Qualifiers: Qualified Code(s): I48.91 - Unspecified atrial fibrillation Subjective Principal diagnosis: CHF Interval history: Patient seen and examined at bedside; received dialysis earlier today. Reports an improvement in his respiratory status. Reports that he still has some intermittent shortness of breath and difficulty lying flat, but states that his overall respiratory status is improving. Reports that both his abdominal swelling and scrotal swelling have diminished. No further complaints this time. Objective - Vital Signs Vital signs: Vital Signs Temp Pulse Resp BP Pulse Ox 07/10/18 11:23 18 95 07/10/18 11:05 97.6 F 117 18 101/65 95 07/10/18 07:17 97.8 F 110 18 95/63 95 07/10/18 04:27 12 99 07/10/18 03:12 97.7 F 103 18 96/63 96 07/09/18 23:09 12 99 07/09/18 23:08 97.6 F 108 18 94/58 95 07/09/18 20:31 14 99 07/09/18 19:20 98.3 F 110 18 102/60 95 07/09/18 16:15 18 99 07/09/18 15:49 97.8 F 105 18 96/67 98 Intake and Output 07/09/18 07/10/18 07/10/18 23:59 07:59 15:59 Intake Total 480 / 480 Output Total 200 / 200 150 / 150 250 / 250 Balance -200 / -200 -150 / -150 230 / 230 Intake: Oral 480 / 480 Output: Catheter 200 / 200 150 / 150 250 / 250 Urethral (Sawyer) 0 / 0 Other: Meal Dinner Lunch Percent of Meal Consumed 5% 25% Weight 120.8 kg Blood Glucose* 106 80 95 Patient Weight 07/10/18 23:59 Weight 120.8 kg - General Appearance Exam: General: A&O X3, no acute distress Head: atraumatic, normocephalic Eye: PERRL, EOMI, conjuntiva pink, sclera anicteric Neck: HD catheter in place; oozing from insertion site is visible Respiratory: Bibasilar crackles, shortened inspiratory phase, diminished breath sounds bilaterally Cardiovascular: Tachycardic, irregular rhythm Abdomen: Soft, nontender, slight distention Extremities: Lower extremities are currently wrapped; erythema has notably improved Psychiatric: Normal affect, normal mood Skin: Dry, intact - Lab 07/10/18 03:40 07/10/18 03:40 Most recent lab results Calcium 8.6 mg/dL (8.6-10.3) 07/10/18 03:40 Phosphorus 8.7 mg/dL (2.7-4.5) H 07/07/18 05:20 Magnesium 2.2 mg/dL (1.6-2.6) 07/10/18 03:40 Consult Discharge Plan - Plan Referrals: Russell Bradley MD [Primary Care Provider] -
[2018-07-10] MEDS ORDERED: *HR* Warfarin 2.5 MG TABLET PO ONE (18:00)
[2018-07-10] MEDS: Warfarin perPT PO SCH (18:05)
[2018-07-11 04:02] LABS: Basophils % 0.8 %; Eosinophils # 0.2 K/mcL (0.0-0.6); Eosinophils % 4.3 %; Hematocrit 28.4 % (37.5-50.1); Hemoglobin 8.6 g/dL (12.9-16.9); Immature Granulocytes % 0.3 % (0-4); Lymphocytes # 0.7 K/mcL (0.6-4.6); Lymphocytes % 17.2 %; Mean Corpuscular HGB Conc 30.3 g/dL (31.6-35.5); Mean Corpuscular Hemoglobin 28.4 pg (28.0-33.3); Mean Corpuscular Volume 93.7 fL (83.0-100.0); Mean Platelet Volume 9.6 fL (9.4-12.4); Monocytes # 0.5 K/mcL (0.0-1.3); Monocytes % 12.1 %; Neutrophils # 2.6 K/mcL (1.6-8.9); Platelet Count 254 K/mcL (140-400); Red Blood Count 3.03 M/mcL (4.19-5.50); Red Cell Distribution Width 17.2 % (11.5-14.5); Segmented Neutrophils % 65.3 %
[2018-07-11] MEDS: Ipratropium/Albuterol Neb 3 ML IH SCH ×6 (04:10→23:47)
[2018-07-11 04:11] LABS: INR 2.4; Prothrombin Time 26.5 Seconds (9.4-12.1)
[2018-07-11 04:14] LABS: BUN/Creatinine Ratio 27 (6-26); Blood Urea Nitrogen 35 mg/dL (8-23); Carbon Dioxide 31 mEq/L (23-29); Chloride 100 mEq/L (98-107); Glucose 85 mg/dL (70-105); Magnesium 2.3 mg/dL (1.6-2.6); Osmolality,Calculated 289 (280-300); Potassium 3.8 mEq/L (3.5-5.1); Sodium 136 mEq/L (136-145); eGFR For Non-African Americans 54 (> 60)
[2018-07-11] MEDS: *HR* OxyCODONE/APAP 5/325 TABLET PO PRN ×3 (06:55→23:42)
[2018-07-11] MEDS: Budesonide/Formoterol 160/4.5 1 PUFF INH IH SCH ×2 (07:53→20:31)
[2018-07-11] MEDS: Insulin LISPRO 300 UNITS/3 ML VIAL SQ SCH (08:26)
[2018-07-11] MEDS: Sennosides/Docusate Sodium TABLET PO SCH ×2 (08:28→22:00)
[2018-07-11] MEDS: Metoprolol XL (24 HR) Succ 50 MG TAB.ER.24H PO SCH ×2 (08:28→22:02)
--- NOTE | 2018-07-11 09:57 | Internal Med Progress Note ---
Hospitalist Progress Note - Encounter Date of Encounter: 07/11/18 Time of Encounter: 09:57 - Subjective Interval History: 73 M admitted and being managed for Afib with RVR, Anemia due to GIB, gastritis, Acute on chronic CHF, SHABBIR He has no new complains Seen at the I/O -6. L, Chem improving with HD He is clinically improved overall, off HD for [address] OOB to chair today Sawyer discontinued 07/10, patient making urine may be transferred out of SDU - Exam Vitals: Temp Pulse Resp BP Pulse Ox 97.6 F 93 18 97/70 97 07/11/18 06:49 07/11/18 06:49 07/11/18 07:53 07/11/18 06:49 07/11/18 07:53 Exam: Gen - Awake, alert, oriented x 3, no resp distress, obese HEENT - Moist oral mucosa, not jaundiced, not pale Heart -S1, S2, RRR, no m/g/r Chest : ICD/PCM Resp - CTAB GI - Abd wall edema resolved, soft, not tender, no palpably enlarged organs, BS present in all quadrants Skin - No rash Psych -Appropriate affect Extremities: Bilateral venous stasis changes with hyperemia, wound dressings to both legs up to the knees clean and dry, pedal edema resolved Neuto: AAOX3, moves all extremities, no focal deficits - Assessment and Plan (1) Anemia Current Visit: Yes Status: Acute Assessment and Plan: Hemoglobin stable at 8.1-8.6 Likely secondary to iron deficiency anemia. S/p EGD showing esophagitis Continue omeprazole Patient has received total 2 units of RBCs on 06/25 and 07/04 respectively (2) CAD (coronary artery disease) Current Visit: Yes Status: Chronic Assessment and Plan: Continue home beta castillo and statin Continue to hold Plavix due to acute on chronic anemia suspected GI bleed on admission Will consider resuming prior to discharge (3) Acute on chronic clinical systolic heart failure Current Visit: Yes Status: Acute Assessment and Plan: Patient with known ischemic cardiomyopathy status post ICD placement, EF in this admission shows 35-40%, moderate MR, TR, pulmonary hypertension, functioning bioprosthetic aortic valve. Patient presented with signs and symptoms of acute CHF exacerbation. Chest x-ray with bilateral congestion and pleural effusion along with significant lower extremity swelling Lasix was held due to acute kidney injury and worsening creatinine Patient also had episodes of hypotension requiring albumin infusion , improved Cardiology evaluation noted and appreciated Leg edema, abdominal wall edema and SON improved remarkably with UF Continue ultrafiltration and hemodialysis , per renal Schedule /0 -6.9 Continue to monitor, continue daily weights and fluid restriction Patient is full code (4) SHABBIR (acute kidney injury) Current Visit: Yes Status: Acute Assessment and Plan: presented with normal renal function, 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 Continue coumadin for anticoagulation. INR is therapeutic DVT Prophylaxis: On coumadin - Time Spent with Patient Total time spent is greater than 50% in coordination of care (as documented) at patient's floor/unit and/or counseling patient: Plan of Care Discussed with: patient Internal Medicine: Result - Labs CBC & Chem 7: 07/11/18 03:30 07/11/18 03:15 Labs: Short CBC 07/11/18 Range/Units 03:30 WBC 4.0 L (4.3-11.1) K/mcL Hgb 8.6 L (12.9-16.9) g/dL Hct 28.4 L (37.5-50.1) % Plt Count 254 (140-400) K/mcL Neutrophils # 2.6 (1.6-8.9) K/mcL BMP 07/11/18 03:15 Sodium 136 Potassium 3.8 Chloride 100 Carbon Dioxide 31 H BUN 35 H Creatinine 1.31 H Glucose 85 Calcium 9.0 - ABG Interpretation ABG results: PT/INR, D-dimer PT 26.5 Seconds (9.4-12.1) H 07/11/18 03:15 Consult Discharge Plan - Plan Referrals: Russell Bradley MD [Primary Care Provider] - (1) Anemia Qualifiers: Anemia type: unspecified type Qualified Code(s): D64.9 - Anemia, unspecified (2) CAD (coronary artery disease) Qualifiers: Coronary Disease-Associated Artery/Lesion type: bypass graft [place] vs. transplanted heart: [place] heart Associated angina: without angina Qualified Code(s): I25.810 - Atherosclerosis of coronary artery bypass graft(s) without angina pectoris (5) Afib Qualifiers: Qualified Code(s): I48.91 - Unspecified atrial fibrillation
[2018-07-11] MEDS: MICONAZOLE NITRATE 57 GM TUBE TP SCH (11:30)
[2018-07-11] MEDS: traMADol 50 MG TABLET PO PRN (13:33)
--- NOTE | 2018-07-11 15:48 | Nephrology Progress Note ---
Date of Encounter: 07/11/18 Time of Encounter: 14:00 - Assessment and Plan (1) SHABBIR (acute kidney injury) Current Visit: Yes Status: Acute SCr continues to improve at 1.31, GFR 54 off HDfor a day. No Hd need today Will reassess tomorrow and friday and if stable, will discontinue temp HD catheter Continue to avoid nephrotoxins if posisble (2) CHF exacerbation Current Visit: Yes Status: Acute Improved after 3 consecutive HD sessions with UF. Total of 8kg removed Continue strict I/Os Continue fluid restriction Can resume lasix oral at 40mg bid by tomorrow Qualifiers: Heart failure type: unspecified Qualified Code(s): I50.9 - Heart failure, unspecified (3) DM (diabetes mellitus), type 2 Current Visit: No Status: Acute per primary team Qualifiers: Diabetes mellitus penitentiary insulin use: with metal solderer use Diabetes mellitus complication status: without complication Qualified Code(s): E11.9 - Type 2 diabetes mellitus without complications; Z79.4 - snf (current) use of insulin (4) Afib Current Visit: Yes Status: Chronic per primary team Qualifiers: Qualified Code(s): I48.91 - Unspecified atrial fibrillation (5) Anemia Current Visit: Yes Status: Acute Hgb fairly stable at 8.6, will monitor Qualifiers: Anemia type: unspecified type Qualified Code(s): D64.9 - Anemia, unspecified Subjective Principal diagnosis: CHF Interval history: Pt seen and examined transferred from to 2A feels like he is improving daily. Less SOB and able to urinate more freely. Objective - Vital Signs Vital signs: Vital Signs Temp Pulse Resp BP Pulse Ox 07/11/18 11:18 16 97 07/11/18 07:53 18 97 07/11/18 06:49 97.6 F 93 20 97/70 96 07/11/18 04:10 16 97 07/11/18 03:28 98.1 F 117 16 125/83 95 07/11/18 03:16 72 07/11/18 01:02 91 07/10/18 23:21 16 97 07/10/18 23:02 97.9 F 104 18 92/70 90 07/10/18 19:57 16 98 07/10/18 19:50 98.3 F 119 18 117/69 99 07/10/18 19:23 119 99 07/10/18 16:04 98.2 F 110 18 94/69 98 07/10/18 15:57 18 95 Intake and Output 07/10/18 07/11/18 07/11/18 23:59 07:59 15:59 Intake Total 300 / 300 Output Total 200 / 200 185 / 185 Balance -200 / -200 -185 / -185 300 / 300 Intake: Oral 300 / 300 Output: Urine 185 / 185 Catheter 200 / 200 Other: Meal Dinner Lunch Percent of Meal Consumed 0% 75% # Bowel Movements 0 Weight 120.1 kg Blood Glucose* 129 80 Patient Weight 07/11/18 23:59 Weight 120.1 kg - General Appearance General appearance: Present: chronically ill (NAD) EENT: Present: ATNC, mucous membranes moist Neck: Present: no JVD, supple Additional Comments: improved areation ant bilat Cardiology: Present: edema (improved LE bilat), normal S1, normal S2 Dialysis Vascular Access: Venous Catheter (temp line) Gastrointestinal: Present: no tenderness, no guarding, obese Integumentary: Present: warm and dry, chronic venous stasis (LE with dressing bilat) Neurologic: Present: no focal deficit Musculoskeletal: Present: no deformities Psychiatric: Present: cooperative - Lab 07/11/18 03:30 07/11/18 03:15 Most recent lab results Calcium 9.0 mg/dL (8.6-10.3) 07/11/18 03:15 Phosphorus 8.7 mg/dL (2.7-4.5) H 07/07/18 05:20 Magnesium 2.3 mg/dL (1.6-2.6) 07/11/18 03:15 Consult Discharge Plan - Plan Referrals: Russell Bradley MD [Primary Care Provider] -
[2018-07-11] MEDS ORDERED: *HR* Warfarin 2.5 MG TABLET PO ONE (18:00)
[2018-07-11] MEDS: Warfarin perPT PO SCH (18:07)
[2018-07-12] MEDS: Ipratropium/Albuterol Neb 3 ML IH SCH ×5 (04:02→20:27)
[2018-07-12 04:11] LABS: Basophils % 0.6 %; Eosinophils # 0.2 K/mcL (0.0-0.6); Eosinophils % 4.2 %; Hemoglobin 8.8 g/dL (12.9-16.9); Immature Granulocytes % 0.2 % (0-4); Lymphocytes # 0.5 K/mcL (0.6-4.6); Lymphocytes % 11.2 %; Mean Corpuscular HGB Conc 30.3 g/dL (31.6-35.5); Mean Corpuscular Hemoglobin 28.2 pg (28.0-33.3); Mean Corpuscular Volume 92.9 fL (83.0-100.0); Mean Platelet Volume 9.7 fL (9.4-12.4); Monocytes # 0.5 K/mcL (0.0-1.3); Monocytes % 10.8 %; Neutrophils # 3.5 K/mcL (1.6-8.9); Platelet Count 260 K/mcL (140-400); Red Blood Count 3.12 M/mcL (4.19-5.50); Red Cell Distribution Width 17.2 % (11.5-14.5)
[2018-07-12 04:23] LABS: INR 2.4; Prothrombin Time 26.9 Seconds (9.4-12.1)
[2018-07-12 04:30] LABS: BUN/Creatinine Ratio 35 (6-26); Blood Urea Nitrogen 38 mg/dL (8-23); Calcium 9.2 mg/dL (8.6-10.3); Carbon Dioxide 31 mEq/L (23-29); Chloride 99 mEq/L (98-107); Glucose 87 mg/dL (70-105); Magnesium 2.3 mg/dL (1.6-2.6); Osmolality,Calculated 292 (280-300); Potassium 3.7 mEq/L (3.5-5.1); Sodium 137 mEq/L (136-145); eGFR For Non-African Americans > 60 (> 60)
[2018-07-12] MEDS: Budesonide/Formoterol 160/4.5 1 PUFF INH IH SCH ×2 (07:32→20:27)
[2018-07-12] MEDS: Sennosides/Docusate Sodium TABLET PO SCH ×2 (08:12→20:03)
[2018-07-12] MEDS: Metoprolol XL (24 HR) Succ 50 MG TAB.ER.24H PO SCH ×2 (08:12→20:03)
[2018-07-12] MEDS: *HR* OxyCODONE/APAP 5/325 TABLET PO PRN ×2 (08:18→17:10)
[2018-07-12] MEDS: MOM Conc 10 ML UD.LIQ PO PRN (08:19)
--- NOTE | 2018-07-12 09:21 | Nephrology Progress Note ---
Date of Encounter: 07/12/18 Time of Encounter: 09:00 - Assessment and Plan (1) SHABBIR (acute kidney injury) Current Visit: Yes Status: Acute SCr continues to improve at 1.08, GFR >60 off HD for 2 days. No more HD need Will discontinue temp HD catheter by tomorrow Continue to avoid nephrotoxins if posisble Will sign off, please reconsult prn (2) CHF exacerbation Current Visit: Yes Status: Acute Improved after 3 consecutive HD sessions with UF. Total of 8kg removed Continue strict I/Os Continue fluid restriction Can resume lasix oral at 40mg bid as needed Qualifiers: Heart failure type: unspecified Qualified Code(s): I50.9 - Heart failure, unspecified (3) DM (diabetes mellitus), type 2 Current Visit: No Status: Acute Qualifiers: Diabetes mellitus intermediate insulin use: with terminal carman use Diabetes mellitus complication status: without complication Qualified Code(s): E11.9 - Type 2 diabetes mellitus without complications; Z79.4 - termite exterminator helper (current) use of insulin (4) Afib Current Visit: Yes Status: Chronic Qualifiers: Qualified Code(s): I48.91 - Unspecified atrial fibrillation (5) Anemia Current Visit: Yes Status: Acute Qualifiers: Anemia type: unspecified type Qualified Code(s): D64.9 - Anemia, unspecified Subjective Principal diagnosis: CHF Interval history: Pt seen and examined siiting up in chair with no complaints. Breathing well. Objective - Vital Signs Vital signs: Vital Signs Temp Pulse Resp BP Pulse Ox 07/12/18 08:08 98.0 F 71 18 96/62 97 07/12/18 07:32 16 96 07/12/18 05:01 96 07/12/18 05:00 98.2 F 86 16 102/53 99 07/12/18 04:02 18 97 07/11/18 23:49 18 98 07/11/18 23:16 98.4 F 105 16 97/61 100 07/11/18 22:02 120 94/65 07/11/18 20:57 98.3 F 116 18 90/59 98 07/11/18 20:34 18 98 07/11/18 17:09 97 07/11/18 16:30 97.7 F 118 18 94/60 99 07/11/18 15:49 16 97 07/11/18 11:18 16 97 Intake and Output 07/11/18 07/12/18 07/12/18 23:59 07:59 15:59 Intake Total 250 / 250 0 / 0 Output Total 100 / 100 150 / 150 Balance 150 / 150 -150 / -150 Intake: Oral 250 / 250 0 / 0 Output: Urine 100 / 100 150 / 150 Other: Weight 114.39 kg Patient Weight 07/12/18 23:59 Weight 114.39 kg - General Appearance General appearance: Present: chronically ill EENT: Present: ATNC, mucous membranes moist Neck: Present: no JVD, supple Respiratory: Present: clear Cardiology: Present: edema (improving LE bilat), normal S1, normal S2 Dialysis Vascular Access: Venous Catheter (temp HD line) Gastrointestinal: Present: no tenderness, no guarding Integumentary: Present: warm and dry Neurologic: Present: no focal deficit Musculoskeletal: Present: no deformities Psychiatric: Present: mood/affect appropriate, cooperative - Lab 07/12/18 03:50 07/12/18 03:50 Most recent lab results Calcium 9.2 mg/dL (8.6-10.3) 07/12/18 03:50 Phosphorus 8.7 mg/dL (2.7-4.5) H 07/07/18 05:20 Magnesium 2.3 mg/dL (1.6-2.6) 07/12/18 03:50 Consult Discharge Plan - Plan Referrals: Russell Bradley MD [Primary Care Provider] - (Patient will follow up with PCP at [facility])
[2018-07-12] MEDS: MICONAZOLE NITRATE 57 GM TUBE TP SCH (11:00)
--- NOTE | 2018-07-12 11:01 | Internal Med Progress Note ---
Hospitalist Progress Note - Encounter Date of Encounter: 07/12/18 Time of Encounter: 11:01 - Subjective Interval History: 73 M admitted and being managed for Afib with RVR, Anemia due to GIB, gastritis, Acute on chronic CHF, SHABBIR Seen at the bedside, sitting in a chair I/O -6.6 L, Chem continues to improved, he has been off HD since 07/10 He has no new complains Plan is to d/ambrosio Wang 12/3 a.m if patient continues to improve - Exam Vitals: Temp Pulse Resp BP Pulse Ox 98.0 F 71 18 96/62 97 07/12/18 08:08 07/12/18 08:08 07/12/18 08:08 07/12/18 08:08 07/12/18 08:08 Exam: Gen - Awake, alert, oriented x 3, no resp distress, obese HEENT - Moist oral mucosa, not jaundiced, not pale Heart -S1, S2, RRR, no m/g/r Chest : ICD/PCM Resp - CTAB GI - soft, not tender, no palpably enlarged organs, BS present in all quadrants Skin - No rash Psych -Appropriate affect Extremities: Bilateral venous stasis changes with hyperemia, wound dressings to both legs up to the knees clean and dry, pedal edema resolved Neuto: AAOX3, moves all extremities, no focal deficits - Assessment and Plan (1) Anemia Current Visit: Yes Status: Acute Assessment and Plan: Hemoglobin stable at 8.1-8.6 Likely secondary to iron deficiency anemia. S/p EGD showing esophagitis Continue omeprazole, will discharge on same Patient has received total 2 units of RBCs on 06/25 and 07/04 respectively (2) CAD (coronary artery disease) Current Visit: Yes Status: Chronic Assessment and Plan: Continue home beta castillo and statin Will resume plavix po at discharge (3) Acute on chronic clinical systolic heart failure Current Visit: Yes Status: Acute Assessment and Plan: Improved Patient with known ischemic cardiomyopathy status post ICD placement, EF in this admission shows 35-40%, moderate MR, TR, pulmonary hypertension, functioning bioprosthetic aortic valve. Patient presented with signs and symptoms of acute CHF exacerbation. 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 8 0.9, continues to worsen with oliguria Creatinine peaked at 5 on 07/07 improving with HD Cr today 1.0 Nephrology is following, inputs appreciated Plan is to continue to hold HD and remove temp catheter if stable a.m (5) Afib Current Visit: Yes Status: Chronic Assessment and Plan: Continue metoprolol. Continue coumadin for anticoagulation. INR is therapeutic DVT Prophylaxis: On coumadin - Time Spent with Patient Total time spent is greater than 50% in coordination of care (as documented) at patient's floor/unit and/or counseling patient: Plan of Care Discussed with: patient Internal Medicine: Result - Labs CBC & Chem 7: 07/12/18 03:50 07/12/18 03:50 Labs: Short CBC 07/12/18 Range/Units 03:50 WBC 4.7 (4.3-11.1) K/mcL Hgb 8.8 L (12.9-16.9) g/dL Hct 29.0 L (37.5-50.1) % Plt Count 260 (140-400) K/mcL Neutrophils # 3.5 (1.6-8.9) K/mcL BMP 07/12/18 03:50 Sodium 137 Potassium 3.7 Chloride 99 Carbon Dioxide 31 H BUN 38 H Creatinine 1.08 Glucose 87 Calcium 9.2 - ABG Interpretation ABG results: PT/INR, D-dimer PT 26.9 Seconds (9.4-12.1) H 07/12/18 03:50 Consult Discharge Plan - Plan Referrals: Russell Bradley MD [Primary Care Provider] - (1) Anemia Qualifiers: Anemia type: unspecified type Qualified Code(s): D64.9 - Anemia, unspecified (2) CAD (coronary artery disease) Qualifiers: Coronary Disease-Associated Artery/Lesion type: bypass graft [place] vs. transplanted heart: [place] heart Associated angina: without angina Qualified Code(s): I25.810 - Atherosclerosis of coronary artery bypass graft(s) without angina pectoris (5) Afib Qualifiers: Qualified Code(s): I48.91 - Unspecified atrial fibrillation
[2018-07-12] MEDS: Warfarin perPT PO SCH (17:08)
[2018-07-12] MEDS ORDERED: *HR* Warfarin 2.5 MG TABLET PO ONE (18:00)
[2018-07-12] MEDS ORDERED: Psyllium 1 PACKET POWD.PACK PO ONE (23:30)
[2018-07-12] MEDS: traMADol 50 MG TABLET PO PRN (23:32)
[2018-07-13] MEDS: Ipratropium/Albuterol Neb 3 ML IH SCH ×7 (00:08→23:24)
[2018-07-13] MEDS: *HR* OxyCODONE/APAP 5/325 TABLET PO PRN ×3 (01:09→18:11)
[2018-07-13] MEDS: traMADol 50 MG TABLET PO PRN ×3 (03:22→23:02)
[2018-07-13 03:36] LABS: Basophils % 0.5 %; Eosinophils # 0.2 K/mcL (0.0-0.6); Eosinophils % 2.9 %; Hematocrit 29.3 % (37.5-50.1); Hemoglobin 8.8 g/dL (12.9-16.9); Immature Granulocytes % 0.7 % (0-4); Lymphocytes # 0.5 K/mcL (0.6-4.6); Lymphocytes % 8.1 %; Mean Corpuscular Hemoglobin 27.8 pg (28.0-33.3); Mean Corpuscular Volume 92.4 fL (83.0-100.0); Mean Platelet Volume 9.8 fL (9.4-12.4); Monocytes # 0.5 K/mcL (0.0-1.3); Monocytes % 9.1 %; Neutrophils # 4.7 K/mcL (1.6-8.9); Platelet Count 261 K/mcL (140-400); Red Blood Count 3.17 M/mcL (4.19-5.50); Red Cell Distribution Width 17.1 % (11.5-14.5); Segmented Neutrophils % 78.7 %
[2018-07-13 03:52] LABS: BUN/Creatinine Ratio 41 (6-26); Blood Urea Nitrogen 40 mg/dL (8-23); Calcium 9.2 mg/dL (8.6-10.3); Carbon Dioxide 30 mEq/L (23-29); Chloride 100 mEq/L (98-107); Glucose 96 mg/dL (70-105); Magnesium 2.4 mg/dL (1.6-2.6); Osmolality,Calculated 294 (280-300); Potassium 3.9 mEq/L (3.5-5.1); Sodium 137 mEq/L (136-145); eGFR For Non-African Americans > 60 (> 60)
[2018-07-13 03:54] LABS: INR 2.2
[2018-07-13] MEDS: Budesonide/Formoterol 160/4.5 1 PUFF INH IH SCH ×2 (07:30→20:07)
[2018-07-13] MEDS: Metoprolol XL (24 HR) Succ 50 MG TAB.ER.24H PO SCH ×2 (08:58→20:04)
[2018-07-13] MEDS: MOM Conc 10 ML UD.LIQ PO PRN (08:58)
[2018-07-13] MEDS: Sennosides/Docusate Sodium TABLET PO SCH ×2 (08:58→20:04)
[2018-07-13] MEDS ORDERED: Acetaminophen 325 MG TABLET PO PRN (09:34)
[2018-07-13] MEDS ORDERED: Warfarin perPT PO PRN (09:35)
--- NOTE | 2018-07-13 11:36 | Physician Discharge Referral ---
[facility] Referral Info Provider in Charge after Transfer: PCP Institutional Level of Care: Skilled - Diagnosis (1) Anemia Status: Acute (2) CAD (coronary artery disease) Status: Chronic (3) Acute on chronic clinical systolic heart failure Status: Acute (4) SHABBIR (acute kidney injury) Status: Acute (5) Afib Status: Chronic - Transfer Medications Home Medications: Clopidogrel [Plavix] 75 mg PO DAILY 08/28/15 [History] Levothyroxine Sodium [Tirosint] 50 mcg PO HS 08/28/15 [History] Lisinopril 2.5 mg PO DAILY 08/28/15 [History] Multivitamin [Multivitamins] 1 each PO DAILY 08/28/15 [History] Omeprazole [PriLOSEC] 20 mg PO BID 08/28/15 [History] Simvastatin [Zocor] 20 mg PO DAILY 08/28/15 [History] Tamsulosin [Flomax] 0.4 mg PO DAILY 08/28/15 [History] Albuterol Sulfate [Albuterol Inhaler] 2 puff IH Q4-6H PRN 04/25/16 [History] Cholecalciferol (D-3) [Vitamin D] 2,000 unit PO DAILY 04/25/16 [History] Furosemide [Lasix] 60 mg PO BID 04/25/16 [History] Cyanocobalamin (B-12) [Vitamin B12] 1 tab PO DAILY #30 tablet 06/18/16 [Rx] Ipratropium/Albuterol Neb [Duoneb] 3 ml IH Q6HR 08/16/16 [History] Metformin HCl [Glucophage] 1,000 mg PO BID 08/16/16 [History] Oxygen 3 l NS CONT 01/02/17 [History] Docusate Sodium [Stool Softener] 100 mg PO BID 05/16/17 [History] Ferrous Gluconate [Iron] 236 mg PO BID 05/16/17 [History] Potassium Chloride [K-Tab ER] 20 meq PO BID 05/16/17 [History] Guaifenesin [Mucinex] 1,200 mg PO BID 05/22/17 [History] Budesonide/Formoterol 160/4.5 [Symbicort 160/4.5] 2 puff IH BIDR 02/20/18 [History] Metoprolol [Lopressor] 25 mg PO BID 02/20/18 [History] Warfarin [Coumadin] 2.5 mg PO [id number] 02/20/18 [History] Tiotropium [place] [Spiriva Respimat] 2 puff IH DAILY 06/24/18 [History] Warfarin [Coumadin] 1.25 mg PO TH 06/24/18 [History] Allergies/Adverse Reactions: Allergy/AdvReac Type Severity Reaction Status Date / Time roflumilast [From Daliresp] AdvReac Mild Diarrhea Verified 06/24/18 13:24 - Respiratory Orders Smoking Cessation: Smoking cessation has been advised. For more information, call the [place] Tobacco Quit Line at 2-368-IGHS-NOW. CERTIFICATION: I certify that the transfer of the above named patient to an Extended Care Facility is necessary for the continuing treatment of the diagnosis listed. The above information is true and accurate reflection of patient's current condition. Confidential - Redisclosure prohibited without a patient's written consent.
--- NOTE | 2018-07-13 11:36 | Discharge Summary ---
- NOTES TO OUTPATIENT PROVIDER Notes to Outpatient Provider: Patient with ICMP, CHFrEF, CKD, DM, Afib, Chronic anemia, COPD, Resp failure who was admitted for CHFE with fluid overload and developed cardiorenal SHABBIR inpatient, requiring HD via temp line. he also had acute on chronic anemia with no significant bleeding found on EGD. He has since made improvement without HD for the past 4 days, Chem is back to baseline, patient is stable, INR therapeutic, tolerating orally, ambulatory with assistance and clinically stable to be discharged home with close follow up with PCP, Renal and Cardiology. Plan of care discussed, verbalized understanding Orders not resulted at time of discharge: Pending orders 07/04/18 US retroperitoneal comp [US] Stat 07/14/18 04:00 PT/INR [Prothrombin Time INR] [COAG] AM 0400 07/15/18 04:00 PT/INR [Prothrombin Time INR] [COAG] AM 0400 07/16/18 04:00 PT/INR [Prothrombin Time INR] [COAG] AM 0400 07/17/18 04:00 PT/INR [Prothrombin Time INR] [COAG] AM 0400 07/18/18 04:00 PT/INR [Prothrombin Time INR] [COAG] AM 0400 Date of Encounter: 07/13/18 Time of Encounter: 11:36 - Discharge Diagnosis (1) Anemia Priority: Primary Status: Acute Assessment and Plan: Hemoglobin stable at 8.1-8.6 Likely secondary to iron deficiency anemia. S/p EGD showing esophagitis Patient has received total 2 units of RBCs on 06/25 and 07/04 respectively He has not required any further intervention Resumed Plavix, MV, Cyanocobalamin at discharge Qualifiers: Anemia type: unspecified type Qualified Code(s): D64.9 - Anemia, unspecified (2) CAD (coronary artery disease) Priority: Secondary Status: Chronic Assessment and Plan: Continue Plavix, Metoprolol, Lasix at a low dose, Lisinopril at a low dose Qualifiers: Coronary Disease-Associated Artery/Lesion type: bypass graft [place] vs. transplanted heart: [place] heart Associated angina: without angina Qualified Code(s): I25.810 - Atherosclerosis of coronary artery bypass graft(s) without angina pectoris (3) Acute on chronic clinical systolic heart failure Priority: Primary Status: Acute Assessment and Plan: Resolved Patient with known ischemic cardiomyopathy status post ICD placement, EF in this admission shows 35-40%, moderate MR, TR, pulmonary hypertension, functioning bioprosthetic aortic valve. Patient presented with signs and symptoms of acute CHF exacerbation. Chest x-ray with bilateral congestion and pleural effusion along with significant lower extremity swelling Lasix was held due to acute kidney injury and worsening creatinine Patient also had episodes of hypotension requiring albumin infusion Cardiology evaluation noted and appreciated Nephrology was consulted and eventually, patient's fluid status and renal functioned worsened to the point of requiring HD He was started on UF/HD 07/07 through 07/10. Leg edema, abdominal wall edema and SOB resolved 1/0 -6.6 Now stable off HD/UF He is discharged to SNF on Lasix 20mg daily, Lisinopril has been resumed at 2.5mg daily, BB, Plavix to be continued He may require titration of lasix with time, as renal function continues to be stable Follow up with PCP, cardio, renal (4) SHABBIR (acute kidney injury) Priority: Primary Status: Resolved Assessment and Plan: presented with normal renal function, AKA noted from 07/02 with creatinine of 1.8 0.9, continues to worsen with oliguria Creatinine peaked at 5 on 07/07 Resolved with HD Cr today 0.9, he has been off HD since Tuesday 07/10 and continues to improve Stable to be discharged to SNF (5) Afib Priority: Primary Status: Chronic Assessment and Plan: Continue metoprolol. Continue coumadin for anticoagulation. INR is therapeutic Qualifiers: Qualified Code(s): I48.91 - Unspecified atrial fibrillation Hospital course: Mr. Last is a 73 year old male Patient with ICMP, CHFrEF, CKD, DM, Afib, Chronic anemia, COPD, Resp failure who was admitted for CHFE with fluid overload and developed cardiorenal SHABBIR inpatient, requiring HD via temp line. he also had acute on chronic anemia with no significant bleeding found on EGD. Vitals stable, INR therpaeutic, Hb stable, no new complains, tolerating po. He has since made improvement without HD for the past 4 days, Chem is back to baseline, patient is stable, INR therapeutic, tolerating orally, ambulatory with assistance and clinically stable to be discharged home with close follow up with PCP, Renal and Cardiology. See each diagnosis foe detailed hospital course Plan of care discussed, verbalized understanding Discharge discussed with: patient, nurse, social work, case management - Time Spent with Patient Total time spent providing and/or coordinating discharge services: Greater than 30 minutes (40 mins spent on med rec, face to face encounter, documentation and education) - Discharge Medications Home Medications: Clopidogrel [Plavix] 75 mg PO DAILY 08/28/15 [History] Levothyroxine Sodium [Tirosint] 50 mcg PO HS 08/28/15 [History] Lisinopril 2.5 mg PO DAILY 08/28/15 [History] Multivitamin [Multivitamins] 1 each PO DAILY 08/28/15 [History] Omeprazole [PriLOSEC] 20 mg PO BID 08/28/15 [History] Simvastatin [Zocor] 20 mg PO DAILY 08/28/15 [History] Tamsulosin [Flomax] 0.4 mg PO DAILY 08/28/15 [History] Albuterol Sulfate [Albuterol Inhaler] 2 puff IH Q4-6H PRN 04/25/16 [History] Cholecalciferol (D-3) [Vitamin D] 2,000 unit PO DAILY 04/25/16 [History] Furosemide [Lasix] 60 mg PO BID 04/25/16 [History] Cyanocobalamin (B-12) [Vitamin B12] 1 tab PO DAILY #30 tablet 06/18/16 [Rx] Ipratropium/Albuterol Neb [Duoneb] 3 ml IH Q6HR 08/16/16 [History] Metformin HCl [Glucophage] 1,000 mg PO BID 08/16/16 [History] Oxygen 3 l NS CONT 01/02/17 [History] Docusate Sodium [Stool Softener] 100 mg PO BID 05/16/17 [History] Ferrous Gluconate [Iron] 236 mg PO BID 05/16/17 [History] Potassium Chloride [K-Tab ER] 20 meq PO BID 05/16/17 [History] Guaifenesin [Mucinex] 1,200 mg PO BID 05/22/17 [History] Budesonide/Formoterol 160/4.5 [Symbicort 160/4.5] 2 puff IH BIDR 02/20/18 [History] Metoprolol [Lopressor] 25 mg PO BID 02/20/18 [History] Warfarin [Coumadin] 2.5 mg PO SUMOTUWEFRSA 02/20/18 [History] Tiotropium [place] [Spiriva Respimat] 2 puff IH DAILY 06/24/18 [History] Warfarin [Coumadin] 1.25 mg PO TH 06/24/18 [History] Allergies/Adverse Reactions: Allergy/AdvReac Type Severity Reaction Status Date / Time roflumilast [From Daliresp] AdvReac Mild Diarrhea Verified 06/24/18 13:24 Date of admission: 06/25/18 06:25 Primary care physician: Russell Bradley Consults: 06/24/18 18:01 Consult to Cardiology [CONS] Stat Comment: Consulting Provider: Cardiology Ana Reason for Consult: chf, afib Call Completed: Yes 06/25/18 11:02 Consult to Nurse Navigator [CONS] Routine Comment: chf education 06/26/18 09:51 Consult to Wound Care [CONS] Routine Reason for Consult: Bilat. LE Cellulitis with large amounts of drainage Time Notified: 09:51 Call Completed: Yes 06/28/18 14:20 Consult to Nephrology [CONS] Routine Consulting Provider: Kidney Ana/SVITLANA/INO/NEMO Reason for Consult: fluid overload Call Completed: Yes 06/29/18 09:54 Consult to Physical Therapy [CONS] Routine Comment: Evaluate, develop and implement POC Reason for Consult: Deconditioning, increased fatigue/weakness. BMAT 3. Patient would like SNF placement for short term rehab if recommended Does patient have active BEDREST order?: No Is patient medically & hemodynamically stable?: Yes Patient assessed for mobility or mobilized this visit?: No 06/29/18 09:55 Consult to Occupational Therapy [CONS] Routine Comment: Evaluate, develop and implement POC Reason for Consult: Deconditioning, increased fatigue/weakness. BMAT 3. Patient would like SNF placement for short term rehab if recommended Does patient have active BEDREST order?: No Is patient medically & hemodynamically stable?: Yes Patient assessed for mobility or mobilized this visit?: No 07/03/18 01:58 Consult to Urology [CONS] Routine Consulting Provider: Urology Ana Reason for Consult: Urology needed for Sawyer placement d/t edema of penis. Pt. has had minimal urinary output and bladder scan unsuccessful d/t orthopnea and pt. positioning. Foreskin unable to be retracted d/t edema. Call Completed: No 07/06/18 07:41 Consult to Dialysis [CONS] Stat 07/06/18 07:45 Consult to Interventional Radiology [CONS] Stat Consulting Provider: Radiology Interventional Cols Reason for Consult: dialysis temp line Time Notified: 07:45 Call Completed: Yes 07/07/18 07:30 Consult to Dialysis [CONS] ONCE 07/08/18 07:45 Consult to Dialysis [CONS] ONCE 07/09/18 08:30 Consult to Dialysis [CONS] ONCE Discharging clinician: Azar Mccracken Anticipated date of discharge: 07/13/18 - Constitutional Vitals: Temp Pulse Resp BP Pulse Ox 97.0 F L 92 16 101/69 91 07/13/18 06:48 07/13/18 06:48 07/13/18 07:30 07/13/18 06:48 07/13/18 07:30 General appearance: Present: A&O X 3, pleasant, no acute distress, obese Exam: Gen - Awake, alert, oriented x 3, no resp distress, obese HEENT - Moist oral mucosa, not jaundiced, not pale Heart -S1, S2, RRR, no m/g/r Chest : ICD/PCM Resp - CTAB GI - soft, not tender, no palpably enlarged organs, BS present in all quadrants Skin - No rash Psych -Appropriate affect Extremities: Bilateral venous stasis changes with hyperemia, wound dressings to both legs up to the knees clean and dry, pedal edema resolved Neuto: AAOX3, moves all extremities, no focal deficits - Patient Status Disposition: Transfer SNF Condition: Fair Functional capacity at discharge: uses cane/walker Overall status at discharge: patient is progressing back to baseline - Discharge Instructions Follow Up With: Russell Bradley MD [Primary Care Provider] - (Patient will follow up with PCP at [facility]) - Diet and Activity Activity: as per physical therapy Diet: diabetic diet, low fat, low cholesterol, low salt diet
[2018-07-13] MEDS ORDERED: Cyanocobalamin (B-12) 1,000 MCG TABLET PO SCH (12:45)
--- NOTE | 2018-07-13 15:11 | Nephrology Progress Note ---
Date of Encounter: 07/13/18 Time of Encounter: 15:09 - Assessment and Plan (1) SHABBIR (acute kidney injury) Current Visit: Yes Status: Resolved SCr continues to improve at 1.08, GFR >60 off HD for 2 days. No more HD need Will discontinue temp HD catheter today. Continue to avoid nephrotoxins if posisble Will sign off, please reconsult prn (2) Anemia Current Visit: Yes Status: Acute Qualifiers: Anemia type: unspecified type Qualified Code(s): D64.9 - Anemia, unspecified (3) CHF exacerbation Current Visit: Yes Status: Acute Qualifiers: Heart failure type: unspecified Qualified Code(s): I50.9 - Heart failure, unspecified (4) DM (diabetes mellitus), type 2 Current Visit: No Status: Acute Qualifiers: Diabetes mellitus senior living insulin use: with senior living use Diabetes mellitus complication status: without complication Qualified Code(s): E11.9 - Type 2 diabetes mellitus without complications; Z79.4 - 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 Objective - Vital Signs Vital signs: Vital Signs Temp Pulse Resp BP Pulse Ox 07/13/18 11:05 16 92 07/13/18 07:30 16 91 07/13/18 06:48 97.0 F L 92 16 101/69 98 07/13/18 05:17 97.5 F L 69 16 96/61 95 07/13/18 04:30 16 96 07/13/18 01:02 97.7 F 101 18 105/68 100 07/13/18 00:10 18 96 07/12/18 20:27 16 100 07/12/18 20:09 100 07/12/18 19:58 97.5 F L 103 16 118/69 100 07/12/18 17:02 97.6 F 109 18 103/57 98 07/12/18 16:32 16 98 Intake and Output 07/12/18 07/13/18 07/13/18 23:59 07:59 15:59 Intake Total 1118 / 1118 200 / 200 300 / 300 Output Total 140 / 140 0 / 0 Balance 978 / 978 200 / 200 300 / 300 Intake: Oral 1118 / 1118 200 / 200 300 / 300 Output: Urine 140 / 140 0 / 0 Other: Meal Lunch Percent of Meal Consumed 100% # Voids 1 - General Appearance General appearance: Present: well-developed, well-nourished, obese - Lab 07/13/18 03:17 07/13/18 03:17 Most recent lab results Calcium 9.2 mg/dL (8.6-10.3) 07/13/18 03:17 Phosphorus 8.7 mg/dL (2.7-4.5) H 07/07/18 05:20 Magnesium 2.4 mg/dL (1.6-2.6) 07/13/18 03:17 Consult Discharge Plan - Plan Referrals: Russell Bradley MD [Primary Care Provider] - (Patient will follow up with PCP at [facility])
[2018-07-13] MEDS: MICONAZOLE NITRATE 57 GM TUBE TP SCH (15:32)
--- NOTE | 2018-07-13 16:31 | Electrocardiograph Report ---
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
[2018-07-13] MEDS ORDERED: *HR* Warfarin 2.5 MG TABLET PO ONE (18:00)
[2018-07-13] MEDS: Cholecalciferol (D-3) 1,000 UNIT TABLET PO SCH (18:11)
[2018-07-13] MEDS ORDERED: Bisacodyl 10 MG RECTAL SUPPOSITORY RC PRN (19:50)
[2018-07-14] MEDS: *HR* OxyCODONE/APAP 5/325 TABLET PO PRN (02:10)
[2018-07-14] MEDS: Ipratropium/Albuterol Neb 3 ML IH SCH ×3 (04:05→11:28)
[2018-07-14 06:51] LABS: INR 2.2; Prothrombin Time 25.1 Seconds (9.4-12.1)
[2018-07-14] MEDS: Budesonide/Formoterol 160/4.5 1 PUFF INH IH SCH (07:33)
[2018-07-14] MEDS: Sennosides/Docusate Sodium TABLET PO SCH (08:55)
[2018-07-14] MEDS: Cholecalciferol (D-3) 1,000 UNIT TABLET PO SCH (08:55)
[2018-07-14] MEDS: Metoprolol XL (24 HR) Succ 50 MG TAB.ER.24H PO SCH (08:56)
[2018-07-14] MEDS ORDERED: Furosemide 20 MG TABLET PO SCH (09:00)
[2018-07-14] MEDS ORDERED: Cyanocobalamin (B-12) 1,000 MCG TABLET PO SCH (09:00)
[2018-07-14 12:36] VITALS: BP 100/66
[2018-07-14] MEDS: MICONAZOLE NITRATE 57 GM TUBE TP SCH (13:41)
[2018-07-14] MEDS ORDERED: *HR* Warfarin 2.5 MG TABLET PO ONE (18:00)
== END 2018-07-14 14:10 | DRG 291 ==
LOC: 3ANU 12:56 → EMEROOARM 12:56 → 3ANU 20:12 → SUATTDRO 06-25 06:25 → 2NNU 07-03 10:14 → 2ANU 07-11 11:56
PROVIDERS: ADMIT Internal Medicine; ATTEND Hospitalist